=== PATIENT | male | born 1940 | race Caucasian/White ===

== ENCOUNTER 2016-10-18 20:59 | Inpatient (IN) | payer MEDICARE, OTHER ==
[~2016-10-18] VITALS: Ht 177.8 cm; Wt 119.0 kg
[2016-10-18 21:02] VITALS: BP 150/65; PULSE 73; RESP 20; TEMP 98.2; O2SAT 95
[2016-10-18 22:21] VITALS: BP 135/73; PULSE 60; RESP 18; O2SAT 96
[2016-10-18] MEDS ORDERED: SODIUM CHLORIDE 0.9% FLUSH 5 ML FLUSH IVF PRN (22:45)
[2016-10-18 22:50] VITALS: O2SAT 97
--- NOTE | 2016-10-18 23:25 | RADRPT ---
EXAM DATE/TIME: 10/18/2016 22:53 [facility] COMPARISON: CT BRAIN W/O CONTRAST, December 18, 2014, 16:21. INDICATIONS : Trauma; fell and hit front of face. RADIATION DOSE: 69.15 CTDIvol (mGy) MEDICAL HISTORY : Hypertension. Stroke Gastroesophageal reflux disease.Multiple myeloma. Prostate cancer. Congestive he art failure. SURGICAL HISTORY : Pacemaker. Cardia catherization. ENCOUNTER: Initial ACUITY: 1 day PAIN SCALE: 2/10 LOCATION: cranial TECHNIQUE: Multiple contiguous axial images were obtained of the head. Using automated exposure control and adj ustment of the mA and/or kV according to patient size, radiation dose was kept as low as reasonably a chievable to obtain optimal diagnostic quality images. FINDINGS: There is patchy moderate diminished attenuation in periventricular white matter and scattered lacunar infarcts resident, stable and nonacute. There is no evidence of intracranial hemorrhage or mass. The re is nothing to suggest acute infarction. There are lytic lesions involving the calvarium, increasin g in size and number consistent with worsening myeloma CONCLUSION: No acute intracranial injury. Findings of worsening myeloma Jameel Louie MD on October 18, 2016 at 23:21 Board Certified Radiologist. This report was verified electronically.
--- NOTE | 2016-10-18 23:28 | RADRPT ---
EXAM DATE/TIME: 10/18/2016 22:53 [facility] COMPARISON: No previous studies available for comparison. INDICATIONS : Trauma; fell and hit front of face. RADIATION DOSE: 26.57 CTDIvol (mGy) MEDICAL HISTORY : Hypertension. Gastroesophageal reflux disease. Congestive heart failure.Multiple myeloma. Prostate ca ncer. Stroke. SURGICAL HISTORY : Pacemaker. Cardiac catherization. ENCOUNTER: Initial ACUITY: 1 day PAIN SCALE: 1/10 LOCATION: neck TECHNIQUE: Volumetric scanning of the cervical spine was performed. Multiplanar reconstructions in the sagittal, coronal and oblique axial planes were performed. Using automated exposure control and adjustment o f the mA and/or kV according to patient size, radiation dose was kept as low as reasonably achievable to obtain optimal diagnostic quality images. FINDINGS: Cervical spine alignment is satisfactory. There is no evidence of cervical spine fracture. No bony ca nal or foraminal compromise is identified. There are scattered bony lucencies present involving the v isualized vertebral elements consistent with multiple myeloma. No evidence of paraspinal mass or lloyd guerline. Incidental thyroid nodules. CONCLUSION: No acute bony injury in the cervical spine Jameel Louie MD on October 18, 2016 at 23:24 Board Certified Radiologist. This report was verified electronically.
--- NOTE | 2016-10-18 23:29 | RADRPT ---
EXAM DATE/TIME: 10/18/2016 22:53 [facility] COMPARISON: No previous studies available for comparison. INDICATIONS : Trauma; fell and hit front of face. RADIATION DOSE: 36.81 CTDIvol (mGy) MEDICAL HISTORY : Congestive hearrt failure. Hypertension. Gastroesophageal reflux disease.Stroke. Multiple myeloma. Pr ostate cancer. SURGICAL HISTORY : Pacemaker. Cardiac catherization. ENCOUNTER: Initial ACUITY: 1 day PAIN SCORE: 3/10 LOCATION: facial TECHNIQUE: Volumetric scanning of the facial bones was performed. Using automated exposure control and adjustme nt of the mA and/or kV according to patient size, radiation dose was kept as low as reasonably achiev able to obtain optimal diagnostic quality images. FINDINGS: ORBITS: The orbital and infraorbital osseous structures are intact. The retroconal structures have a normal configuration. No radiopaque foreign bodies are seen. NASAL BONE: The nasal bone and maxillary spine are intact ZYGOMATIC ARCHES: Symmetric without evidence of fracture. SINUSES: The maxillary, ethmoid and frontal sinuses are intact. No air-fluid levels seen. NASAL CAVITY: The nasal septum is intact and midline. The lacrimal ducts are intact. SOFT TISSUES: No radiopaque foreign bodies seen. No soft-tissue swelling is seen. INTRACRANIAL: No intracranial air seen. CRIBIFORM PLATE: Grossly intact. CONCLUSION: No evidence of facial fracture Jameel Louie MD on October 18, 2016 at 23:26 Board Certified Radiologist. This report was verified electronically.
--- NOTE | 2016-10-18 23:53 | PD ---
HPI Chief Complaint: Fall Time Seen by Provider: 22:36 Travel History International Travel<30 days: No Contact w/Intl Traveler<30days: No Traveled to known affect area: No History of Present Illness HPI The patient is a 76 year old male who presents to the [facility] emergency department with a history of reportedly falling at home at approximately 11 AM today. The patient reports that it felt like "I lost control of my body." The patient reports having associated lightheaded sensation. He denies having any chest pain, chest pressure, shortness of breath, vomiting, or diarrhea. He denies having any abdominal pain. The patient reports that he does have a history of chronic generalized body pain, however since falling it is worse in his low back and his left ankle. The patient has a history of fracturing his left ankle/foot related to a fall a year ago. The patient has a history of multiple myeloma and is on morphine on a daily basis related to this. He reports that his medication was recently increased a month ago. The patient reports that he did not come in initially related to the fall as he decided to just go to bed and rest. The patient reports that he did hit his nose and had a nosebleed. He denies having a loss of consciousness. He is on Pradaxa due to a history of Afib. The patient denies having any one-sided weakness or new weakness of his extremities. He denies having any facial droop, difficulty with word finding ability, new numbness or tingling to his extremities. The patient denies any recent fevers, cough, congestion, chest pain, shortness of breath, abdominal pain, vomiting, diarrhea, urinary symptoms, or other neurologic symptoms. [facility] Past Medical History Narrative Medical The patient's past medical history is significant for multiple myeloma, chronic pain, history of sleep apnea on CPAP at night, history of congestive heart failure, TIA, diabetes mellitus, atrial fibrillation, history of anxiety disorder, hiatal hernia, acid reflux, history of prostate cancer, history of migraine headaches, history of depression, history of neuropathy. Hx Anticoagulant Therapy: Yes (ON PRADAXA AND 81 MG SAS) Arthritis: Yes Asthma: No Atrial Fibrillation: Yes Autoimmune Disease: No Blood Disorders: No Anxiety: Yes Depression: Yes Heart Rhythm Problems: Yes (A FIB) Cancer: Yes (PROSTATE/MULTIPLE MYELOMA) Cardiac Catheterization: Yes (2001) Cardiovascular Problems: Yes (CHF) High Cholesterol: Yes Chemotherapy: Yes (SINCE MARCH OF 2013 PILL FORM) Chest Pain: Yes Congestive Heart Failure: Yes COPD: No Cerebrovascular Accident: Yes (TIA) Diabetes: Yes (IDDM) Patient Takes Glucophage: No Diminished Hearing: Yes (VENETIE LEFT) Endocrine: Yes Gastrointestinal Disorders: Yes (HEMORRHOIDS) GERD: Yes Genitourinary: Yes (BLADDER/PROSTATE SURGERY IN THE PAST) Hiatal Hernia: Yes Hypertension: Yes Immune Disorder: No Implanted Vascular Access Dvce: Yes (PORT RIGHT SIDE CHEST) Musculoskeletal: Yes (GENERALIZED, MULTIPLE MYLOMA) Neurologic: Yes (neuropathy) Psychiatric: Yes Reproductive: Yes Respiratory: Yes Migraines: Yes (TWICE A MONTH) Myocardial Infarction: No Radiation Therapy: No Seizures: No Sleep Apnea: Yes (BIPAP AT NIGHT) Ulcer: No Past Surgical History Narrative Surgical The patient's past surgical history is significant for nasal surgery, cardiac catheterization in 2001, history of a hernia repair, cataract surgery, vasectomy , radical prostatectomy, cystoscopy with dilatation of the bladder neck, tonsillectomy, bilateral heel spur surgery, pacemaker placement, tonsillectomy, tympanostomy tube placement, cardiac ablation, [id number]-[id number] placement Abdominal Surgery: Yes (HERNIA) Appendectomy: No Body Medical Devices: USES BIPAP Cardiac Surgery: Yes (ABLATION, PACEMAKER 2008) Cholecystectomy: No Eye Surgery: Yes (CATARCT; BILAT WITH LENS PLACEMENT) Genitourinary Surgery: Yes (VASECTOMY, RADICAL PROSTATECTOMY, CYSTOSCOPY DILATION OF BLADDER NECK) Oral Surgery: Yes (TONSILLECTOMY A CHILD) Pacemaker: Yes (Fubles PACER [id number]) Tonsillectomy: Yes Tympanostomy Tube: Yes (194) Other Surgery: Yes (NASAL SURGERY) Social History Alcohol Use: No Tobacco Use: No Substance Use: No Allergies-Medications (Allergen,Severity, Reaction): Coded Allergies: Fentanyl (Verified Allergy, Severe, Itching, 10/18/16) Warfarin (Verified Allergy, Unknown, 10/18/16) *MDRO Multi-Drug Resistant Organism (Verified Adverse Reaction, Unknown, ) MRSA PCR screens negative 12/12/14 and 12/19/14- cleared per infection control Reported Meds & Prescriptions Reported Meds & Active Scripts Active Reported Aspercreme Lidocaine Max Patch (Lidocaine) 4% Patch Econazole Topical (Econazole Nitrate) 1% Cream 1 Applic TOPICAL DAILY Hydroxychloroquine (Hydroxychloroquine Sulfate) 200 Mg Tab 200 Mg PO BID Takw with food Nystatin-Triamcinolone 100,000-0.1 Unit/Gm Cream 1 Applic TOPICAL Allopurinol 300 Mg Tab 300 Mg PO DAILY Restasis Opth Drops (Cyclosporine Opth Drops) 0.05% Emul 1 Drop EACH EYE BID Klor-Con 10 (Potassium Chloride) 10 Meq Tab 10 Meq PO DAILY Chlorthalidone 25 Mg Tab 25 Mg PO DAILY Lactulose Liq (Lactulose) 10 Gm/15 Ml Soln 30 Ml PO Q6H PRN Tramadol (Tramadol HCl) 50 Mg Tab 50 Mg PO Q6H PRN Glimepiride 4 Mg Tab 4 Mg PO BID Take with breakfast or first main meal Entresto (Sacubitril-Valsartan) 49-51 Mg Tab 1 Tab PO DAILY Clonidine (Clonidine HCl) 0.3 Mg Tab 0.3 Mg PO BID Nexium (Esomeprazole DR) 40 Mg Capdr 40 Mg PO DAILY Carvedilol 25 Mg Tab 25 Mg PO BID Trilipix (Choline Fenofibrate DR) 135 Mg Capdr 135 Mg PO DAILY Pravastatin 40 Mg Tab 40 Mg PO DAILY Pradaxa (Dabigatran) 75 Mg Cap 75 Mg PO BID Furosemide 40 Mg Tab 40 Mg PO BID Ondansetron (Ondansetron HCl) 8 Mg Tab 8 Mg PO TID Gabapentin 300 Mg Cap 300 Mg PO 5 TIMES A DAY Myrbetriq (Mirabegron) 50 Mg Tab 50 Mg PO DAILY Hydrocodone-Acetaminophen 5-325 mg Tab 1 Tab PO Q12HR PRN Morphine Sulfate CR (Morphine Sulfate) 15 Mg Tab PO TID Acyclovir 400 Mg Tab 400 Mg PO BID Levemir Flextouch Pen Inj (Insulin Detemir) 300 unit/3 ML Pen 1 Units SQ Novolog Flexpen Inj (Insulin Aspart) 300 Unit/3 Ml Pen 1 Units SQ Dexmethylphenidate ER 24 HR (Dexmethylphenidate HCl) 20 Mg Cap 20 Mg PO DAILY Review of Systems Except as stated in HPI: all other systems reviewed are Neg General / Constitutional: No: Fever Eyes: No: Visual changes HENT: Positive: Headaches, Nosebleed, No: Rhinorrhea, Neck Stiffness, Neck Pain Cardiovascular: Positive: Syncope (near syncope), No: Chest Pain or Discomfort , Dyspnea on exertion Respiratory: No: Shortness of Breath Gastrointestinal: No: Nausea, Vomiting, Diarrhea, Abdominal Pain, Changes in Bowel Habits, Indigestion, Loss of Appetite Genitourinary: No: Dysuria Musculoskeletal: Positive: Myalgias, Arthralgias, Limited ROM, Pain Skin: No Rash Neurologic: Positive: Weakness (generalized weakness), No: Focal Abnormalities , Change in Mentation, Slurred Speech, Sensory Disturbance Psychiatric: No: Depression Endocrine: No: Polydipsia Hematologic/Lymphatic: No: Easy Bruising Physical Exam Narrative General: The patient is a well-developed well-nourished male, drowsy-appearing on examination, having difficulty keeping his eyes open, however he is answering all questions with his eyes closed. Head and Neck exam: Head is normocephalic atraumatic. Eyes: Pupils are equal round and reactive to light. Nose: Midline septum with pink mucous membranes Mouth: Dentition unremarkable. Moist mucus membranes. Posterior oropharynx is not erythematous. No tonsillar hypertrophy. Uvula midline. Airway patent. Neck: No palpable lymphadenopathy. No nuchal rigidity. No thyromegaly. Cardiovascular: Regular rate and rhythm without murmurs, gallops, or rubs. No pulse deficit to the extremities. Lungs: Clear to auscultation bilaterally. No wheezes, rhonchi, or rales. Abdomen: Soft, with tenderness on palpation in the midepigastric area. Her tenderness on palpation throughout the rest of the abdomen. No tenderness on palpation of McBurney's point. Normal bowel sounds are audible. No masses are palpable. No guarding, rebound, or rigidity. Negative Matthews sign. Extremities: No clubbing, cyanosis, or edema. 2+ pulses in all 4 extremities. Back: Paraspinal muscle tenderness on palpation along the lumbar spine bilaterally. No spinous process tenderness to palpation. No costovertebral angle tenderness to palpation. Positive straight leg raise bilaterally, increased pain in the low back that is worse with raising the left leg. Neurologic Exam: Cranial nerves 2-12 were intact on exam. Strength is 5/5 in all 4 extremities. No sensory deficits noted. Skin Exam: No rash noted. Intact skin that is warm and dry. Data Data Last Documented VS Vital Signs Date Time Temp Pulse Resp B/P Pulse Ox O2 Delivery O2 Flow Rate FiO2 10/18/16 22:50 97 Room Air 10/18/16 22:21 60 18 135/73 10/18/16 21:02 98.2 Orders Electrocardiogram (10/18/16 22:36) Complete Blood Count With Diff (10/18/16 22:36) Comprehensive Metabolic Panel (10/18/16 22:36) Magnesium (Mg) (10/18/16 22:36) B-Type Natriuretic Peptide (10/18/16 22:36) Ckmb (Isoenzyme) Profile (10/18/16 22:36) Troponin I (10/18/16 22:36) Act Partial Throm Time (Ptt) (10/18/16 22:36) Prothrombin Time / Inr (Pt) (10/18/16 22:36) Urinalysis - C+S If Indicated (10/18/16 22:36) Chest, Single Ap (10/18/16 22:36) Ct Brain W/O Iv Contrast(Rout) (10/18/16 22:36) Ct Cerv Spine W/O Contrast (10/18/16 22:36) Blood Glucose (10/18/16 22:36) Ecg Monitoring (10/18/16 22:36) Iv Access Insert/Monitor (10/18/16 22:36) Oximetry (10/18/16 22:36) Sodium Chloride 0.9% Flush (Ns Flush) (10/18/16 22:45) Orthostatic Vital Signs (10/18/16 22:36) Ct Facial Bones W/O Iv Cont (10/18/16 22:36) Ankle, Complete (Zim5hnd) (10/18/16 23:17) Foot, Limited (2vws) (10/18/16 23:17) Ice/Cold Pack (10/18/16 23:17) Pelvis, Ap Only (Routine) (10/18/16 23:17) Ct Thor Spine W/O Contrast (10/18/16 23:25) Ct Lumb Spine W/O Contrast (10/18/16 23:25) Sodium Chlorid 0.9% 500 Ml Inj (Ns 500 M (10/19/16 00:15) CKMB (10/18/16 23:35) CKMB% (10/18/16 23:35) Blood Glucose (10/19/16 00:25) Hydromorphone Pf Inj (Dilaudid Pf Inj) (10/19/16 00:30) Ondansetron Inj (Zofran Inj) (10/19/16 00:30) Dextrose 50% In [place] (Syr) Inj (D50w (Syr (10/19/16 00:30) Admit Order (Ed Use Only) (10/19/16 02:24) Consult Neurosurgery (10/19/16 ) Labs Laboratory Tests Test 10/18/16 10/19/16 23:35 00:00 White Blood Count 8.9 TH/MM3 Red Blood Count 2.71 MIL/MM3 Hemoglobin 9.1 GM/DL Hematocrit 27.4 % Mean Corpuscular Volume 101.2 FL Mean Corpuscular Hemoglobin 33.7 PG Mean Corpuscular Hemoglobin 33.3 % Concent Red Cell Distribution Width 19.9 % Platelet Count 88 TH/MM3 Mean Platelet Volume 9.1 FL Neutrophils (%) (Auto) 74.8 % Lymphocytes (%) (Auto) 20.2 % Monocytes (%) (Auto) 4.8 % Eosinophils (%) (Auto) 0.1 % Basophils (%) (Auto) 0.1 % Neutrophils # (Auto) 6.7 TH/MM3 Lymphocytes # (Auto) 1.8 TH/MM3 Monocytes # (Auto) 0.4 TH/MM3 Eosinophils # (Auto) 0.0 TH/MM3 Basophils # (Auto) 0.0 TH/MM3 CBC Comment AUTO DIFF Differential Comment AUTO DIFF CONFIRMED Platelet Estimate LOW Platelet Morphology Comment NORMAL Ovalocytes 1+ Prothrombin Time 11.1 SEC Prothromb Time International 1.0 RATIO Ratio Activated Partial 32.4 SEC Thromboplast Time Sodium Level 143 MEQ/L Potassium Level 4.2 MEQ/L Chloride Level 107 MEQ/L Carbon Dioxide Level 26.0 MEQ/L Anion Gap 10 MEQ/L Blood Urea Nitrogen 103 MG/DL Creatinine 3.97 MG/DL Estimat Glomerular Filtration 15 ML/MIN Rate Random Glucose 30 MG/DL Calcium Level 8.2 MG/DL Magnesium Level 1.9 MG/DL Total Bilirubin 0.3 MG/DL Aspartate Amino Transf 14 U/L (AST/SGOT) Alanine Aminotransferase 31 U/L (ALT/SGPT) Alkaline Phosphatase 36 U/L Total Creatine Kinase 186 U/L Creatine Kinase MB 5.6 NG/ML Troponin I 0.05 NG/ML B-Type Natriuretic Peptide 256 PG/ML Total Protein 7.2 GM/DL Albumin 2.6 GM/DL Urine Color LIGHT-YELLOW Urine Turbidity CLEAR Urine pH 5.0 Urine Specific [place] 1.012 Urine Protein TRACE mg/dL Urine Glucose (UA) NEG mg/dL Urine Ketones NEG mg/dL Urine Occult Blood NEG Urine Nitrite NEG Urine Bilirubin NEG Urine Urobilinogen LESS THAN 2.0 MG/DL Urine Leukocyte Esterase NEG Urine WBC LESS THAN 1 /hpf Urine Mucus FEW /lpf Microscopic Urinalysis Comment CULT NOT INDICATED MDM Medical Decision Making Medical Screen Exam Complete: Yes Emergency Medical Condition: Yes Medical Record Reviewed: Yes Interpretation(s) Last Impressions Thoracic Spine CT 10/18/162324 Signed Impressions: Service Date/Time: Wednesday, October 19, 2016 00:43 - CONCLUSION: No evidence of thoracic spine fracture. Jameel Louie MD Lumbar Spine CT 10/18/162324 Signed Impressions: Service Date/Time: Wednesday, October 19, 2016 00:43 - CONCLUSION: Moderate compressive injury at L1. Possible small focus of epidural hemorrhage in the right canal at the S1 level. Multilevel disc disease and facet arthropathy. Large densely calcified or ossified ventral canal mass at the L4 level may be sequelae of previous disc protrusion/extrusion. Alternatively, this may be a densely calcified or ossified neoplasm-osteoma, osteochondroma, meningioma. Jameel Louie MD Pelvis X-Ray 10/18/162316 Signed Impressions: Service Date/Time: Wednesday, October 19, 2016 01:10 - CONCLUSION: No acute bony injury Jameel Louie MD Foot X-Ray 10/18/162316 Signed Impressions: Service Date/Time: Wednesday, October 19, 2016 01:22 - CONCLUSION: No acute bony process. Jameel Louie MD Ankle X-Ray 10/18/162316 Signed Impressions: Service Date/Time: Wednesday, October 19, 2016 01:20 - CONCLUSION: Unremarkable examination of the left ankle. Jameel Louie MD Maxillofacial CT 10/18/162235 Signed Impressions: Service Date/Time: Tuesday, October 18, 2016 22:53 - CONCLUSION: No evidence of facial fracture Jameel Louie MD Head CT 10/18/162235 Signed Impressions: Service Date/Time: Tuesday, October 18, 2016 22:53 - CONCLUSION: No acute intracranial injury. Findings of worsening myeloma Jameel Louie MD Chest X-Ray 10/18/162235 Signed Impressions: Service Date/Time: Wednesday, October 19, 2016 01:15 - CONCLUSION: Cardiomegaly and mild left base parenchymal opacity. Jameel Louie MD Cervical Spine CT 10/18/162235 Signed Impressions: Service Date/Time: Tuesday, October 18, 2016 22:53 - CONCLUSION: No acute bony injury in the cervical spine Jameel Louie MD Differential Diagnosis Near syncope related to cardiac arrhythmia, versus over sedation from opiates, versus electrolyte abnormality, versus intracranial abnormality, versus cervical spine injury, versus T-spine injury, versus lumbar injury, versus recurrent left ankle injury Narrative Course During the course of the patients emergency department visit, the patients history, examination, and differential diagnosis were reviewed with the patient. The patient had IV access obtained and blood work sent for analysis. The patient was placed on a cardiac monitor technician with oximetry and blood pressure monitoring. An Accu-Chek was done and noted to be 44. The patient has not had his imaging results done yet and is on Pradaxa, therefore there would be concern for intracranial hemorrhage. The patient was given 1 amp of D50. The patient was started on normal saline a 500 mL bolus 1. My concern that the patient has not been drinking fluids well today. The patient was given hydromorphone 0.2 mg IV for pain, Zofran 4 mg IV for nausea. The patients laboratory studies were reviewed and remarkable for a white count of 8.9, hemoglobin 9.1, platelets 88 with 74.8 neutrophils, CMP is remarkable for a BUN of 103, creatinine 3.97, initial glucose on this blood draw was 30, AST 14, alkaline phosphatase 36, CPK 186, troponin I 0.05, BNP is 256, INR is 1.0, urinalysis is unremarkable. Radiology studies were reviewed and remarkable for a CT scan of the head that showed no acute abnormality other than worsening multiple myeloma changes, CT scan of the facial bones showed no acute abnormality. CT scan of the C-spine showed no acute abnormality. Chest x-ray revealed cardiomegaly and a mild left base parenchymal opacity. Pelvic x-ray showed no acute abnormality. Left foot and left ankle x-ray showed no acute bony abnormality. CT scan of the T-spine showed no acute abnormality. CT scan of the lumbar spine revealed a moderate compressive injury at L1, possible small focus of epidural hemorrhage in the right canal at the S1 level, multilevel disc disease and facet arthropathy. Large densely calcified were ossified ventral canal mass at L4 level which may be sequela of previous disc protrusion/extrusion, versus ossified neoplasm osteoma, versus osteochondroma, versus meningioma. The patient's findings on CT scan lumbar spine were further discussed with Dr. Long, the neurosurgeon on-call. He did not recommend any further imaging at this time. He recommended pain control. He will see the patient in consultation. The patients results were discussed with the patient, including the plan of care. I explained that further testing and/ or monitoring is indicated based on the patients history, examination, and/ or laboratory findings. Therefore, I recommended admission for additional evaluation. The patient expressed understanding and was agreeable with this plan. The patient was admitted to the hospital in guarded condition and [facility] Critical Care Narrative Aggregate critical care time was 47 minutes. Time to perform other separately billable procedures was not included in the critical care time. My time did not include minutes spent treating any other patients simultaneously or on activities that did not directly contribute to the patient's treatment. The services I provided to this patient were to treat and/or prevent clinically significant deterioration that could result in: Paralysis, versus encephalopathy I provided critical care services requiring my management, as noted below: Chart data review, documentation time, medication orders and management, vital sign assessments/reviewing monitor data, ordering and reviewing lab tests, ordering and interpreting/reviewing x-rays and diagnostic studies, care of the patient and discussion of the patient with the admitting physicians. Physician Communication Physician Communication I spoke to Dr. Long at approximately 1:59 AM regarding this patient's CT scan of the lumbar findings including moderate compressive injury at L1, possible small focus of epidural hemorrhage in the right canal at S1 and large densely calcified or ossified ventral canal mass at L4 level which may be sequela of previous disc protrusion versus extrusion. I also explained that the patient is anticoagulated on Pradaxa. And in addition the patient has an [id number] and peacemaker/AICD in place. I asked him what the next step was regarding the patient's evaluation is that was not sure that an MRI could be done given the hardware that he has in place. He recommended holding off on further imaging. I also asked him if he thought the Pradaxa should be reversed with K [employer] and he reports at this time that pain management would be the only thing that is necessary. The patient's case was also discussed with Dr. Marquis who did agree to admit the patient for further evaluation and treatment at this time to the [facility]. Diagnosis Primary Impression: Generalized weakness Additional Impressions: Near syncope Hypoglycemia Compression fracture of L1 lumbar vertebra Qualified Code: S32.010A - Compression fracture of L1 lumbar vertebra, closed , initial encounter Admitting Information Admitting Physician Requests: Admit Paige Mari MD Oct 18, 2016 23:53
[2016-10-18 23:56] LABS: AUTOMATED NEUTROPHIL # 6.7 TH/MM3 (1.8-7.7); BASOPHIL % 0.1 % (0.0-2.0); EOSINOPHIL % 0.1 % (0.0-4.0); HEMATOCRIT 27.4 % (39.0-51.0); LYMPH % 20.2 % (9.0-44.0); LYMPHOCYTE # 1.8 TH/MM3 (1.0-4.8); MEAN CELL VOLUME 101.2 FL (80.0-100.0); MEAN CORPUSCULAR HEMOGLOBIN 33.7 PG (27.0-34.0); MEAN CORPUSCULAR HGB CONC 33.3 % (32.0-36.0); MONO % 4.8 % (0.0-8.0); NEUT % 74.8 % (16.0-70.0); PLATELET COUNT 88 TH/MM3 (150-450); RED BLOOD COUNT 2.71 MIL/MM3 (4.50-5.90); RED CELL DISTRIBUTION WIDTH 19.9 % (11.6-17.2); WHITE BLOOD COUNT 8.9 TH/MM3 (4.0-11.0)
[2016-10-18 23:59] LABS: HEMO FLAGS AUTO DIFF
[2016-10-19] VITALS (7 sets, daily range): BP systolic 91–142; BP diastolic 52–67; PULSE 64–125; RESP 17–20; TEMP 95.9–97.9; O2SAT 92–97
[2016-10-19 00:11] LABS: BLOOD, URINE NEG (NEG); COMMENT (UR) CULT NOT INDICATED; CULTURE IF INDICATED CULT NOT INDICATED; GLUCOSE,URINE NEG (NEG); KETONE, URINE NEG (NEG); MUCUS URINE FEW /lpf (OCC); NITRITE,URINE NEG (NEG); URINE COLOR LIGHT-YELLOW (YELLW/STRAW)
[2016-10-19] MEDS ORDERED: SODIUM CHLORID 0.9% 500 ML INJ 500 ML IV ONE (00:15)
[2016-10-19 00:20] LABS: ALKALINE PHOSPHATASE 36 U/L (45-117); ALT (GPT) 31 U/L (12-78); ANION GAP 10 MEQ/L (5-15); AST (GOT) 14 U/L (15-37); BLOOD UREA NITROGEN 103 MG/DL (7-18); CHLORIDE 107 MEQ/L (98-107); CREATINE KINASE 186 U/L (39-308); GLOMERULAR FILTRATION RATE 15 ML/MIN (>89); MAGNESIUM 1.9 MG/DL (1.5-2.5); POTASSIUM 4.2 MEQ/L (3.5-5.1); SODIUM (NA) 143 MEQ/L (136-145); TOTAL BILIRUBIN ADULT 0.3 MG/DL (0.2-1.0)
[2016-10-19 00:24] LABS: APTT (PATIENT) 32.4 SEC (24.3-30.1); PROTHROMBIN TIME - PATIENT 11.1 SEC (9.8-11.6)
[2016-10-19] MEDS ORDERED: ONDANSETRON HCL 4 MG/2 ML VIAL IV PUSH ONE (00:30)
[2016-10-19] MEDS ORDERED: DEXTROSE 50% IN WATER 50 ML SYRINGE IV ONE (00:30)
[2016-10-19] MEDS ORDERED: HYDROmorphone HCL PF 1 MG/ML VIAL IV PUSH ONE (00:30)
[2016-10-19 00:39] LABS: CKMB 5.6 NG/ML (0.5-3.6)
[2016-10-19 00:45] LABS: OVALOCYTES 1+ (NORMAL); PLATELET ESTIMATE SMEAR LOW (NORMAL); PLATELET MORPHOLOGY NORMAL (NORMAL); SCAN/DIFF AUTO DIFF CONFIRMED
--- NOTE | 2016-10-19 01:16 | RADRPT ---
EXAM DATE/TIME: 10/19/2016 00:43 [facility] COMPARISON: No previous studies available for comparison. INDICATIONS : Trauma; fall. History of multiple myeloma. RADIATION DOSE: 32.77 CTDIvol (mGy) ; Combined studies - Thoracic Spine/Lumbar Spine MEDICAL HISTORY : Cerebrovascular disease. Congestive heart failure. Hypertension.Multiple myeloma, GERD, prostate canc er SURGICAL HISTORY : Pacemaker. ENCOUNTER: Initial ACUITY: 1 day PAIN SCALE: 10/10 LOCATION: upper back TECHNIQUE: Volumetric scanning of the thoracic spine was performed. Multiplanar reconstructions in the sagittal , coronal and oblique axial planes were performed. Using automated exposure control and adjustment o f the mA and/or kV according to patient size, radiation dose was kept as low as reasonably achievable to obtain optimal diagnostic quality images. FINDINGS: There is mild right convex upper thoracic scoliosis. No evidence of spondylolisthesis. There is no ev idence of fracture in the thoracic spine. Degenerative change with small predominantly ventral endpla te osteophytes present in the mid thoracic region. There are multiple small bony lucencies present th roughout consistent with fairly widespread myeloma involvement. No evidence of paraspinal mass or hem atoma. CONCLUSION: No evidence of thoracic spine fracture. Jameel Louie MD on October 19, 2016 at 1:12 Board Certified Radiologist. This report was verified electronically.
--- NOTE | 2016-10-19 01:33 | RADRPT ---
EXAM DATE/TIME: 10/19/2016 00:43 [facility] COMPARISON: No previous studies available for comparison. INDICATIONS : Trauma; fall. History of multiple myeloma. RADIATION DOSE: 32.77 CTDIvol (mGy) ; Combined studies - Thoracic Spine/Lumbar Spine MEDICAL HISTORY : Cerebrovascular disease. Diabetes mellitus type 2. Congestive heart failure.Multiple myeloma, hyperte nsion, GERD, prostate cancer SURGICAL HISTORY : Pacemaker. ENCOUNTER: Initial ACUITY: 1 day PAIN SCALE: 10/10 LOCATION: lower back TECHNIQUE: Volumetric scanning of the lumbar spine was performed. Multiplanar reconstructions in the sagittal, coronal and oblique axial planes were performed. Using automated exposure control and adjustment of the mA and/or kV according to patient size, radiation dose was kept as low as reasonably achievable t o obtain optimal diagnostic quality images. FINDINGS: The lumbar spine alignment is satisfactory. There is multiple areas of low density present within the bony elements consistent with fairly widespread myeloma involvement. There is a moderate compressive injury at the L1 level with about 50% loss of central and ventral vertebral body height. No evidence of retropulsion. This appears at least in part subacute, however no significant paraspinal hematoma is appreciated. The other levels are intact without definite acute bony injury. There is degenerative disc change present at multiple levels, significantly at L3-4, L4-5 and L5-S1. At L4-5, there is keara rly complete loss of disc height. A very large ventral canal ossification may be a chronically calcif ied disc protrusion or an ossifying mass. The process appears to be contiguous with the posterior asp ect of the L4 vertebral body. It measures 18 x 9 x 20 mm (sagittal x AP x transverse). This produces severe canal compromise with reduction in the AP canal diameter to about 5 mm. A mixed density air c ontaining mass in the posterior lateral recess at the right S1 level may be an extruded disc fragment or a ganglion arising from the adjacent facet joint. Just medial to this finding, an irregular focus of spontaneous increased density extends alongside the thecal sac. This may be a small focus of epid ural hemorrhage, measuring about 8-9 mm in size. CONCLUSION: Moderate compressive injury at L1. Possible small focus of epidural hemorrhage in the right canal at the S1 level. Multilevel disc disease and facet arthropathy. Large densely calcified or ossified ventral canal mass at the L4 level may be sequelae of previous di sc protrusion/extrusion. Alternatively, this may be a densely calcified or ossified neoplasm-osteoma, osteochondroma, meningioma. Jameel Louie MD on October 19, 2016 at 1:15 Board Certified Radiologist. This report was verified electronically.
--- NOTE | 2016-10-19 01:41 | RADRPT ---
EXAM DATE/TIME: 10/19/2016 01:10 [facility] COMPARISON: No previous studies available for comparison. INDICATIONS : Entire lower body pain post fall. MEDICAL HISTORY : Hypertension. Congestive heart failure. muliple myeloma SURGICAL HISTORY : Pacemaker. ENCOUNTER: Initial ACUITY: 1 day PAIN SCORE: 10/10 LOCATION: Bilateral pelvis FINDINGS: Hips are symmetric without definite fracture or dislocation. Mild symmetric degenerative changes are present. There are degenerative changes in the visualized lower spine. No displaced pelvic fracture. Multiple pelvic surgical clips CONCLUSION: No acute bony injury Jameel Louie MD on October 19, 2016 at 1:38 Board Certified Radiologist. This report was verified electronically.
--- NOTE | 2016-10-19 01:43 | RADRPT ---
EXAM DATE/TIME: 10/19/2016 01:15 [facility] COMPARISON: CT THORACIC SPINE W/O CONTRAST, October 19, 2016, 0:43. CHEST SINGLE AP, December 18, 2014, 20:54. INDICATIONS : Chest pain post fall. MEDICAL HISTORY : Hypertension. Congestive heart failure. Cerebrovascular disease. Multiple myeloma SURGICAL HISTORY : Pacemaker. ENCOUNTER: Initial ACUITY: 1 day PAIN SCORE: 10/10 LOCATION: Bilateral chest FINDINGS: Pacemaker device is noted with control pack over the left chest. Right chest port is present in good position. Cardiac silhouette is enlarged. There is mild parenchymal opacity at the left lung base. No evidence of hemothorax or pneumothorax. CONCLUSION: Cardiomegaly and mild left base parenchymal opacity. Jameel Louie MD on October 19, 2016 at 1:39 Board Certified Radiologist. This report was verified electronically.
--- NOTE | 2016-10-19 01:45 | RADRPT ---
EXAM DATE/TIME: 10/19/2016 01:20 [facility] COMPARISON: FOOT LEFT COMPLETE ([id number]), December 10, 2014, 17:22. INDICATIONS : Left ankle pain post fall. MEDICAL HISTORY : Hypertension. Multiple myeloma SURGICAL HISTORY : Pacemaker. ENCOUNTER: Initial ACUITY: 1 day PAIN SCORE: 10/10 LOCATION: Left leg FINDINGS: Three view exam was performed of the left ankle. The bony structures are in normal alignment. No ev idence of fracture, dislocation, or soft tissue swelling. The ankle mortise is intact. No radiopaqu e foreign bodies are seen. Bony mineralization is normal. CONCLUSION: Unremarkable examination of the left ankle. Jameel Louie MD on October 19, 2016 at 1:41 Board Certified Radiologist. This report was verified electronically.
--- NOTE | 2016-10-19 01:52 | RADRPT ---
EXAM DATE/TIME: 10/19/2016 01:22 [facility] COMPARISON: FOOT LEFT COMPLETE ([id number]), December 10, 2014, 17:22. FOOT RIGHT COMPLETE ([id number]), December 10, 2014, 17:35. INDICATIONS : Foot pain post fall. MEDICAL HISTORY : Hypertension. Multiple myeloma SURGICAL HISTORY : Pacemaker. ENCOUNTER: Initial ACUITY: 1 day PAIN SCORE: 10/10 LOCATION: Left leg FINDINGS: There has been interval development of severe arthropathy at the tarsometatarsal joints and there is slight dorsal subluxation of the metatarsals relative to the tarsals which was not present previously . The appearance may reflect Charcot arthropathy. The foot is otherwise intact. CONCLUSION: No acute bony process. Jameel Louie MD on October 19, 2016 at 1:47 Board Certified Radiologist. This report was verified electronically.
[2016-10-19] MEDS ORDERED: CARV25TA PO (02:21)
[2016-10-19] MEDS ORDERED: TRIL135C PO (02:21)
[2016-10-19] MEDS ORDERED: NOVOINJ3 SQ (02:21)
[2016-10-19] MEDS ORDERED: MORP15TA73 PO (02:21)
[2016-10-19] MEDS ORDERED: DEXM1CAP16 PO (02:21)
[2016-10-19] MEDS ORDERED: HYDR-3516 PO (02:21)
[2016-10-19] MEDS ORDERED: INSU1INJ5 SQ (02:21)
[2016-10-19] MEDS ORDERED: PRAD75CA PO (02:21)
[2016-10-19] MEDS ORDERED: GABA300C5 PO (02:21)
[2016-10-19] MEDS ORDERED: FURO40TA PO (02:21)
[2016-10-19] MEDS ORDERED: NEXI40CA PO (02:21)
[2016-10-19] MEDS ORDERED: CLON0.3T PO (02:21)
[2016-10-19] MEDS ORDERED: ONDA1TAB17 PO (02:21)
[2016-10-19] MEDS ORDERED: ACYC400T PO (02:21)
[2016-10-19] MEDS ORDERED: MIRA50TA PO (02:21)
[2016-10-19] MEDS ORDERED: PRAV40TA2 PO (02:21)
[2016-10-19] MEDS ORDERED: ECON0.052 TOPICAL (02:41)
[2016-10-19] MEDS ORDERED: POTA-243 PO (02:41)
[2016-10-19] MEDS ORDERED: CHLO25TA2 PO (02:41)
[2016-10-19] MEDS ORDERED: REST0.05 EACH EYE (02:41)
[2016-10-19] MEDS ORDERED: LACT10SO PO (02:41)
[2016-10-19] MEDS ORDERED: SACU1TAB7 PO (02:41)
[2016-10-19] MEDS ORDERED: NYSTCRE29 TOPICAL (02:41)
[2016-10-19] MEDS ORDERED: LIDO4PAD (02:41)
[2016-10-19] MEDS ORDERED: ALLO300T2 PO (02:41)
[2016-10-19] MEDS ORDERED: GLIM4TAB PO (02:41)
[2016-10-19] MEDS ORDERED: TRAM50TA PO (02:41)
[2016-10-19] MEDS ORDERED: HYDR200T3 PO (02:41)
[2016-10-19] MEDS ORDERED: BISACODYL 10 MG SUPP PR PRN (03:00)
[2016-10-19] MEDS ORDERED: ACETAMINOPHEN 325 MG TAB PO PRN (03:00)
[2016-10-19] MEDS ORDERED: SODIUM CHLORIDE 0.9% FLUSH 5 ML FLUSH FLUSH PRN (03:00)
[2016-10-19] MEDS ORDERED: LACTULOSE SYRUP 20 GM/30 ML CUP PO PRN (03:00)
[2016-10-19] MEDS ORDERED: DEXTROSE 50% IN WATER 50 ML VIAL(D50) IV PUSH PRN (03:00)
[2016-10-19] MEDS ORDERED: ONDANSETRON HCL 4 MG/2 ML VIAL IVP PRN (03:00)
[2016-10-19] MEDS ORDERED: SODIUM CHLOR 0.9% 1000 ML INJ 1,000 ML IV ONE (03:00)
[2016-10-19] MEDS ORDERED: GLUCAGON 1 MG/ML VIAL OTHER PRN (03:00)
--- NOTE | 2016-10-19 03:00 | HHI.HP ---
[facility] Dayo Katz MD Admission Diagnosis hypoglycemia, acute on chronic renal failure, L1 compression fx Diagnoses: (1) Fall Diagnosis: Principal (2) Near syncope Diagnosis: Principal (3) Compression fracture of L1 lumbar vertebra Diagnosis: Principal (4) Hypoglycemia Diagnosis: Principal (5) Renal insufficiency Diagnosis: Principal (6) A-fib Diagnosis: Principal (7) Chronic anticoagulation Diagnosis: Principal (8) HTN (hypertension) Diagnosis: Principal Travel History International Travel<30 Days: No Contact w/Intl Traveler <30 Da: No Traveled to Known Affected Are: No History of Present Illness This is a 76-year-old male with a PMH of HTN, GERTRUDE on CPAP, CHF (Echo 08/22/01 w / EF 25-30%), A-fib on Pradaxa, Prostate CA, Multiple Myeloma on Chemo, Physical Deconditioning, Chronic Pain and DM who was brought to the ER after fall yesterday morning. Per pt he normally gets around the house by holding onto furniture as his house is too small for him to use his motorized scooter. Had mechanical fall at home at approx 11am w/ epistaxis, however did not seek medical attention until later in the evening at the suggestion of pt's son. Pt w/ complaints of generalized pain, slightly worse than his usual. Denies fever , chills, nausea, vomiting or diarrhea. On arrival, BP 150/65, HR 73, O2 sat 95 % on RA, Afebrile. BS 44, s/p D50 with improvement. WBC 8.9, baseline 3.4-3.7 , elevated neutrophil. Platelets 88, previously 327 on 12/20/14. Creatinine 3.97, previously 1.57 on 12/20/14. Trop 0.05. BNP 256. U/a negative. CXR w/ mild base parenchymal opacity. CT Head w/ findings of worsening myeloma. CT Maxillofacial w/ no acute fracture. CT C/T-Spine w/ no acute fracture. CT L- Spine w/ 50% compression fracture L1, possible epidural hemorrhage at S1 and possible ventral canal mass at L4. Ankle/Foot/Pelvis X-ray negative for acute fracture. Dr. Long consulted by ER physician, recommended no further imaging and no reversal of Pradaxa. Upon further questioning, pt states he's been off Pradaxa x6 days for upcoming procedure w/ his Urologist. Review of Systems Other ROS: 14 point review of systems otherwise negative. Past Family Social History Past Medical History PMH: HTN, GERTRUDE on CPAP, CHF (Echo 08/22/01 w/ EF 25-30%), A-fib on Pradaxa, Prostate CA, Multiple Myeloma on Chemo, Physical Deconditioning, Chronic Pain and DM Past Surgical History PAST SURGICAL HISTORY: Hernia Repair, Cataract Surgery, Vasectomy, Radical Prostatectomy, Cystoscopy with Dilatation of Bladder, Tonsillectomy, Bilateral Heel Spur Surgery, Pacemaker (Revstr), Cardiac Ablation, Infuse-a- Port Allergies: Coded Allergies: Fentanyl (Verified Allergy, Severe, Itching, 10/18/16) Warfarin (Verified Allergy, Unknown, 10/18/16) *MDRO Multi-Drug Resistant Organism (Verified Adverse Reaction, Unknown, ) MRSA PCR screens negative 12/12/14 and 12/19/14- cleared per infection control Family History PAST FAMILY HISTORY: Reviewed, positive for DM. Social History PAST SOCIAL HISTORY: Negative for alcohol, tobacco or drugs. Patient lives at home with . Physical Exam Vital Signs Vital Signs Date Time Temp Pulse Resp B/P Pulse Ox O2 Delivery O2 Flow Rate FiO2 10/19/16 02:44 65 18 111/67 97 10/18/16 22:50 97 Room Air 10/18/16 22:21 60 18 135/73 96 Room Air 10/18/16 21:02 98.2 73 20 150/65 95 Room Air Physical Exam PE: GENERAL: Elderly white male in no acute distress. Slow to speak but awake alert and oriented. Son at bedside. HEENT: PERRLA, EOMI. No scleral icterus or conjunctival pallor. No lid lag or facial droop. Nasal erythema, no active bleeding. CARDIOVASCULAR: Regular rate and rhythm. No obvious murmurs to auscultation. No chest tenderness to palpation. Right chest [id number] RESPIRATORY: No obvious rhonchi or wheezing. Clear to auscultation. Breath sounds equal bilaterally. GASTROINTESTINAL: Abdomen soft, non-tender, nondistended. BS normal. MUSCULOSKELETAL: Extremities without clubbing, cyanosis, or edema. No obvious deformities. NEUROLOGICAL: Awake, alert and oriented x4. No focal neurologic deficits. Moving both upper and lower extremities spontaneously. Laboratory Laboratory Tests Test 10/18/16 10/19/16 23:35 00:00 White Blood Count 8.9 Red Blood Count 2.71 Hemoglobin 9.1 Hematocrit 27.4 Mean Corpuscular Volume 101.2 Mean Corpuscular Hemoglobin 33.7 Mean Corpuscular Hemoglobin 33.3 Concent Red Cell Distribution Width 19.9 Platelet Count 88 Mean Platelet Volume 9.1 Neutrophils (%) (Auto) 74.8 Lymphocytes (%) (Auto) 20.2 Monocytes (%) (Auto) 4.8 Eosinophils (%) (Auto) 0.1 Basophils (%) (Auto) 0.1 Neutrophils # (Auto) 6.7 Lymphocytes # (Auto) 1.8 Monocytes # (Auto) 0.4 Eosinophils # (Auto) 0.0 Basophils # (Auto) 0.0 CBC Comment AUTO DIFF Differential Comment AUTO DIFF CONFIRMED Platelet Estimate LOW Platelet Morphology Comment NORMAL Ovalocytes 1+ Prothrombin Time 11.1 Prothromb Time International 1.0 Ratio Activated Partial 32.4 Thromboplast Time Sodium Level 143 Potassium Level 4.2 Chloride Level 107 Carbon Dioxide Level 26.0 Anion Gap 10 Blood Urea Nitrogen 103 Creatinine 3.97 Estimat Glomerular Filtration 15 Rate Random Glucose 30 Calcium Level 8.2 Magnesium Level 1.9 Total Bilirubin 0.3 Aspartate Amino Transf 14 (AST/SGOT) Alanine Aminotransferase 31 (ALT/SGPT) Alkaline Phosphatase 36 Total Creatine Kinase 186 Creatine Kinase MB 5.6 Troponin I 0.05 B-Type Natriuretic Peptide 256 Total Protein 7.2 Albumin 2.6 Urine Color LIGHT-YELLOW Urine Turbidity CLEAR Urine pH 5.0 Urine Specific Regina 1.012 Urine Protein TRACE Urine Glucose (UA) NEG Urine Ketones NEG Urine Occult Blood NEG Urine Nitrite NEG Urine Bilirubin NEG Urine Urobilinogen LESS THAN 2.0 Urine Leukocyte Esterase NEG Urine WBC LESS THAN 1 Urine Mucus FEW Microscopic Urinalysis Comment CULT NOT INDICATED Result Diagram: 10/18/16 8729 10/18/16 1714 Assessment and Plan Problem List: (1) Fall ICD Code: W19.XXXA Status: Acute (2) Near syncope ICD Code: R55 Status: Acute (3) Compression fracture of L1 lumbar vertebra ICD Code: S32.010A Status: Acute (4) Hypoglycemia ICD Code: E16.2 Status: Acute (5) Renal insufficiency ICD Code: N28.9 Status: Acute (6) A-fib ICD Code: I48.91 Status: Acute (7) Chronic anticoagulation ICD Code: Z79.01 Status: Acute (8) HTN (hypertension) ICD Code: I10 Status: Chronic Assessment and Plan A/P: 1. Fall: s/p mechanical trip and fall at home, significant physical deconditioning, ambulates at home by holding onto furniture. CT Head w/ worsening myeloma, no acute findings. CT Maxillofacial negative. CT C/T-Spine negative for acute findings. CT L-Spine w/ possible S1 epidural hemorrhage, L4 ventral mass and L1 compression fracture. Foot/Ankle/Pelvis X-rays negative for acute fracture, images reviewed by me. Dr. Long consulted by ER physician , will evaluate. Pt reports off Pradaxa x6 days for upcoming procedure w/ Urologist. 2. L1 Compression Fx: s/p fall. Dr. Long to evaluate as above, TLSO. Analgesics/antiemetics 3. Near Syncope: no LOC reported, likely secondary to dehydration, IVF. CT Head w/ above findings. 4. Hypoglycemia: BS 44 s/p D50 w/ improvement. Accu-cheks, hold sliding scale , Insulin and Glimepiride. Monitor BS. Eval for underlying infection, U/a negative, CXR w/ possible early infiltrate, WBC 8.9, however baseline 3.4-3.7, may consider treatment for CAP. 5. Renal Insufficiency: Acute on Chronic. Creatinine 3.97, previously 1.57 on 12/20/14. UA negative. IVF, repeat labs in a.m. 6. A-fib: Controlled. On Pradaxa-on hold x6 days, will continue to hold. 7. HTN: Controlled. Will monitor, resume home medication. 8. Chronic Pain: w/ Acute Exacerbation following fall. Resume home medications. Reports pain in left ankle/foot, however no fracture on imaging. PT for eval/tx. 9. DVT Prophylaxis: Pradaxa on hold. 10. Social work for d/c planning as needed. 11. Case discussed w/ ER physician at length. Physician Certification 2 Midnight Certification Type: Admission for Inpatient Services Order for Inpatient Services The services are ordered in accordance with Medicare regulations or non- Medicare payer requirements, as applicable. In the case of services not specified as inpatient-only, they are appropriately provided as inpatient services in accordance with the 2-midnight benchmark. Estimated LOS (days): 2 days is the estimated time the patient will need to remain in the hospital, assuming treatment plan goals are met and no additional complications. Post-Hospital Plan: Not yet determined Problem Qualifiers (1) Compression fracture of L1 lumbar vertebra: Qualified Code: S32.010A - Compression fracture of L1 lumbar vertebra, closed, initial encounter Laurie Marquis MD Oct 19, 2016 03:00
[2016-10-19] MEDS ORDERED: CYCLOSPORINE 0.05% EACH EYE SCH (03:30)
[2016-10-19] MEDS ORDERED: CYCLOBENZAPRINE HCL 10 MG TAB PO PRN (03:30)
[2016-10-19] MEDS ORDERED: MORPHINE SULFATE 4 MG/ML INJ IV PUSH PRN ×2 (03:30)
[2016-10-19] MEDS: GABAPENTIN 300 MG CAP PO SCH ×5 (05:10→20:34)
[2016-10-19] MEDS: MORPHINE SULFATE 30 MG CONTROLLED RELEASE TAB PO SCH ×3 (05:11→20:34)
[2016-10-19] MEDS: ALLOPURINOL 300 MG TAB PO SCH (08:14)
[2016-10-19] MEDS: HYDROXYCHLOROQUINE SULFATE 200 MG TAB PO SCH ×2 (08:14→20:34)
[2016-10-19] MEDS: PRAVASTATIN SOD 40 MG TAB PO SCH (08:14)
[2016-10-19] MEDS: CARVEDILOL 12.5 MG TAB PO SCH ×2 (08:14→20:34)
[2016-10-19] MEDS: cloNIDine HCL 0.3 MG TAB PO SCH ×2 (08:14→20:34)
[2016-10-19] MEDS: PANTOPRAZOLE SOD 40 MG DELAYED RELEASE TAB PO SCH (08:14)
[2016-10-19] MEDS ORDERED: FOCALIN PO SCH (09:00)
[2016-10-19] MEDS: ACYCLOVIR 200 MG CAP PO SCH ×2 (09:00→20:34)
[2016-10-19] MEDS: SODIUM CHLORIDE 0.9% FLUSH 5 ML FLUSH FLUSH SCH ×2 (09:00→20:34)
[2016-10-19 10:26] LABS: AUTOMATED NEUTROPHIL # 4.7 TH/MM3 (1.8-7.7); BASOPHIL % 0.1 % (0.0-2.0); EOSINOPHIL % 0.3 % (0.0-4.0); HEMATOCRIT 26.9 % (39.0-51.0); LYMPH % 10.7 % (9.0-44.0); LYMPHOCYTE # 0.6 TH/MM3 (1.0-4.8); MEAN CELL VOLUME 102.7 FL (80.0-100.0); MEAN CORPUSCULAR HEMOGLOBIN 33.7 PG (27.0-34.0); MEAN CORPUSCULAR HGB CONC 32.9 % (32.0-36.0); MONO % 3.1 % (0.0-8.0); NEUT % 85.8 % (16.0-70.0); PLATELET COUNT 74 TH/MM3 (150-450); RED BLOOD COUNT 2.62 MIL/MM3 (4.50-5.90); RED CELL DISTRIBUTION WIDTH 19.8 % (11.6-17.2); WHITE BLOOD COUNT 5.5 TH/MM3 (4.0-11.0)
[2016-10-19 10:29] LABS: HEMO FLAGS AUTO DIFF
[2016-10-19 10:46] LABS: ALKALINE PHOSPHATASE 36 U/L (45-117); ALT (GPT) 29 U/L (12-78); ANION GAP 9 MEQ/L (5-15); AST (GOT) 16 U/L (15-37); BICARBONATE 26.4 MEQ/L (21.0-32.0); BLOOD UREA NITROGEN 94 MG/DL (7-18); CHLORIDE 108 MEQ/L (98-107); GLOMERULAR FILTRATION RATE 15 ML/MIN (>89); POTASSIUM 3.8 MEQ/L (3.5-5.1); SODIUM (NA) 143 MEQ/L (136-145); TOTAL BILIRUBIN ADULT 0.3 MG/DL (0.2-1.0)
[2016-10-19 11:12] LABS: PLATELET ESTIMATE SMEAR LOW (NORMAL); PLATELET MORPHOLOGY NORMAL (NORMAL); SCAN/DIFF AUTO DIFF CONFIRMED
[2016-10-19 11:13] LABS: KERATOCYTES OCC (NORMAL)
--- NOTE | 2016-10-19 12:34 | HHI.PR ---
Addendum to Inpatient Note Addendum Reason: Additional Documentation Additional Information S: Off chemo. No CP/SOB. Previously on HD, not currently, follows with Dr. Judge. Feels weak and tired. Asking about what is going to be done with his back. On exam: +asterixis L spine TTP A/P: 76-year-old male with a PMH of HTN, GERTRUDE on CPAP, CHF (Echo 08/22/01 w/ EF 25-30% ), A-fib on Pradaxa, Prostate CA, Multiple Myeloma on Chemo, Physical Deconditioning, Chronic Pain and DM who was brought to the ED after fall Fall: s/p mechanical trip and fall at home, significant physical deconditioning , ambulates at home by holding onto furniture. CT Head w/ worsening myeloma, no acute findings. CT Maxillofacial negative. CT C/T-Spine negative for acute findings. CT L-Spine as below. Foot/Ankle/Pelvis X-rays negative for acute fracture, images reviewed by me. Dr. Long consulted by ER physician, will evaluate. Pt reports off Pradaxa x6 days for upcoming procedure w/ Urologist. PT eval. S1 epidural hemorrhage, L4 ventral mass and L1 compression fracture: s/p fall. Dr. Long to evaluate as above, TLSO. Analgesics/antiemetics Near Syncope/encephalopathy: no LOC reported. Possibly secondary to dehydration, uremia, hypoglycemia. CT Head w/ above findings. U/a negative, WBC 8.9. Check ammonia and ABG. Hypoglycemia: BS 44 s/p D50 w/ improvement. Accu-cheks, resume sliding scale Insulin. Continue to hold Glimepiride. Monitor BS. MARTHA on CKD: Creatinine 3.97, previously 1.57 on 12/20/14. Has previously been on HD. No improvement with IVF overnight. Consult patient's acetylene torch operator. A-fib: Controlled. On Pradaxa-on hold x6 days, will continue to hold. HTN: Controlled. Will monitor, resume home medication. Chronic Pain: w/ Acute Exacerbation following fall. Resume home medications. Reports pain in left ankle/foot, however no fracture on imaging. PT for eval/ tx. Multiple myeloma: Head CT as above. Off of chemotherapy. Consult oncology. Urinary retention: With upcoming urological procedure this week. Insert Kuhn and monitor I's and O's. DVT Prophylaxis: Pradaxa on hold. Written by Daniel Colby, acting as scribe for Dr. Schilling on 10/19/16 at 12:40. ( Daniel Colby) Daniel Colby Oct 19, 2016 12:34 Wood Schilling MD Oct 27, 2016 00:51
[2016-10-19 14:30] LABS: BLOOD GAS BASE EXCESS -2.1 mmol/L (-2-2); BLOOD GAS CARBOXYHEMOGLOBIN 1.4 % (0-4); BLOOD GAS HCO3 22 mmol/L (22-26); BLOOD GAS METHEMOGLOBIN 0.9 % (0-2); BLOOD GAS O2 HGB SATURATION 90 % (90-100); BLOOD GAS PCO2 39 mmHg (38-42); BLOOD GAS PO2 69 mmHg (61-120); BLOOD GAS TOTAL HGB 9.4 G/DL (12.0-16.0); CRITICAL VALUE NO; DRAW SITE RT RADIAL; FIO2 21 %; NUMBER OF ARTERIAL PUNCTURES 1; OXYGEN DEVICE ROOM AIR; STAT NO; TEMP CORR TO 98.6; ULNAR PULSE PRESENT
[2016-10-19] MEDS: INSULIN ASPART SUPPLEMENTAL SCALE SQ SCH ×2 (16:00→20:34)
[2016-10-19 16:33] LABS: HEMOGLOBIN A1a 0.9 %; HEMOGLOBIN A1b 1.1 %; HEMOGLOBIN Ao 79.6 %; HEMOGLOBIN F 1.5 %; HEMOGLOBIN P3 7.3 %
--- NOTE | 2016-10-19 19:26 | EKG ---
Date Performed: 10/18/2016 Time Performed: 23:26:12 PTAGE: 76 years EKG: ELECTRONIC ATRIAL PACEMAKER ELECTRONIC VENTRICULAR PACEMAKER ABNORMAL RHYTHM ECG PREVIOUS TRACING : 12/18/2014 15.31 DOCTOR: Maurilio Miguel Interpretating Date/Time 10/19/2016 19:21:55
[2016-10-19 21:29] LABS: FERRITIN 681 NG/ML (26-388); TRANSFERRIN IRON PROFILE 175 MG/DL (200-360)
[2016-10-20] VITALS (14 sets, daily range): BP systolic 116–179; BP diastolic 57–91; PULSE 65–81; RESP 18–21; TEMP 97.1–100.9; O2SAT 93–98
[2016-10-20] MEDS: GABAPENTIN 300 MG CAP PO SCH ×3 (05:40→21:00)
[2016-10-20] MEDS: MORPHINE SULFATE 30 MG CONTROLLED RELEASE TAB PO SCH (05:40)
[2016-10-20] MEDS: INSULIN ASPART SUPPLEMENTAL SCALE SQ SCH (06:31)
[2016-10-20 07:25] LABS: IMMUNOGLOBULIN G 1800 MG/DL (680-1670)
[2016-10-20 07:54] LABS: IMMUNOGLOBULIN A 11 MG/DL (103-568); IMMUNOGLOBULIN M LESS THAN 8 MG/DL (38-231)
--- NOTE | 2016-10-20 08:41 | MB ---
cc: BRITTNEY GUTIERREZ MD DATE OF CONSULTATION October 19, 2016 REASON FOR CONSULTATION Chronic kidney disease with elevated BUN and creatinine. HISTORY OF PRESENT ILLNESS This is a 76-year-old male with past medical history of hypertension, ischemic heart disease, congestive heart failure, history of prostate cancer, multiple myeloma, atrial fibrillation, chronic kidney disease, who came to the hospital with history of fall at home. I was called to see the patient for the management of renal failure. The patient has history of chronic kidney disease and he has been following with Dr. Judge according to the patient and the last time he was seen by him was over a month ago. He does not remember exactly what was his renal function but the creatinine we have the last time in December of 2014 and at that time it was 1.5. He had acute kidney injury; at that time the creatinine was 3.2 and it was improving. Now he came in with a creatinine of 3.9 yesterday and today it is 3.8. The patient came in here with a history of fall and he was found to have some epistaxis at home. Yesterday morning when he was complaining of generalized pain, he was also found to have low blood sugar of 44 on presentation. The patient denies any nausea or vomiting. There is no history of diarrhea. According to him, he has been eating good. He did not notice any decrease in the urine output, not taking any nonsteroidal anti-inflammatory drugs. CT of the lumbar spine done which shows 50% compression fracture of L1, possible epidural hemorrhage. Neurosurgery was consulted. The patient denies any headache or dizziness but he was feeling dizzy before he fell down. PAST MEDICAL HISTORY 1. Hypertension. 2. Ischemic heart disease. 3. Congestive heart failure. 4. Obstructive sleep apnea. 5. Atrial fibrillation. 6. Prostate cancer. 7. Multiple myeloma. 8. Chronic kidney disease. 9. Diabetes mellitus. PAST SURGICAL HISTORY 1. Cataract surgery. 2. Prostatectomy. 3. Hernia repair surgery. 4. Cystoscopy. 5. Pacemaker insertion. 6. Ighebn-U-Hsbk placement. REVIEW OF SYSTEMS The patient has generalized weakness, feeling tired. Denies any history of fever. No sore throat. He had some dizziness before he fell down. There is no history of nausea or vomiting. No abdominal pain. No history of diarrhea. Occasionally he has shortness of breath, mild cough, which is mainly dry. No chest pain. No palpitation. No history of diarrhea. SOCIAL HISTORY The patient is lives at home with his . There is no history of smoking or alcoholism FAMILY HISTORY Noncontributory. ALLERGIES FENTANYL. WARFARIN. MEDICATIONS Currently he is on the following medications - 1. Acyclovir 400 mg b.i.d. 2. Folate 25 mg b.i.d. 3. Clonidine 0.3 mg b.i.d. 4. Plaquenil 200 mg b.i.d. 5. Allopurinol 300 mg daily. 6. Pravachol 40 mg daily. 7. Protonix 40 mg once a day. 8. Morphine sulfate 30 mg q.8 hours. 9. Gabapentin 300 mg five times a day. 10. Zofran as needed. 11. Dulcolax as needed. 12. Morphine as needed. 13. Flexeril as needed. PHYSICAL EXAMINATION GENERAL: On examination the patient is awake, alert. He is not in acute distress. VITAL SIGNS: His last blood pressure was 91/54. His blood pressure has not been low except this reading. Temperature is 97.9, oxygen saturation on 3 liters nasal cannula 93-96%. HEENT: Pupils equally reacting to light. Nonicteric sclerae, conjunctivae pale. NECK: Supple. JVD is not elevated. LUNGS: The patient has bilateral decreased air entry with scattered wheezing. HEART: S1, S2 irregular. ABDOMEN: Slightly distended, soft, lax. There is no tenderness. Bowel sounds positive. EXTREMITIES: There is mild edema in the legs. INVESTIGATIONS WBC count is 5.5, hemoglobin 8.8, platelet count of 74, neutrophils 85.8%. Sodium 143, potassium 3.8, chloride 108, bicarb 26.4, BUN 94, creatinine 3.8, glucose 189. The glucose on presentation was 30. Calcium is 7.9. AST, ALT normal, alkaline phosphatase 36, ammonia level is 26. Total protein 6.67, albumin is 2.3. INR is 1.0. Urinalysis showing that he has trace proteinuria. IMAGING STUDIES The patient has CT scan of the lumbar spine done which shows moderate compression injury to L1, possible small focus of epidural hemorrhage, multilevel disk disease. The patient also has thoracic spine CT scan done which shows no evidence of thoracic spine fracture. Ankle x-ray done which was unremarkable. X-ray of the foot done which shows no acute bony process. Pelvic x-ray was done which shows negative for any acute injury. Cervical spine CT scan was done which shows no bony injury in the cervical spine. Chest x-ray was done which shows pacemaker device. Cardiac silhouette is enlarged. No evidence of hemothorax. CT scan of the brain was done which shows finding of worsening myeloma. Maxillofacial CT scan was done which shows no evidence of facial fracture. ASSESSMENT AND PLAN 1. Chronic kidney disease with some acute worsening. 2. History of fall. 3. Three hypoglycemia. 4. L1 compression fracture. 5. Atrial fibrillation 6. History of hypertension 7. Anemia and multiple myeloma The patient has advanced renal disease and there may be an element of acute kidney injury because of possibly dehydration or acute tubular necrosis. He is currently not on any diuretics and the patient has been nonoliguric. Creatinine is slightly better and he has only minimal proteinuria. Most likely he has advanced hypertensive or diabetic renal disease but there is an element of acute kidney injury and hopefully will have some improvement. There is no acute urgent need for dialysis at present. We will follow closely. Oncology has been consulted for multiple myeloma and anemia. Thank you for the consultation. I will follow the patient while he is in the hospital. MD ALVIN Hunt/NIKHIL /4:41 PM /8:11 AM
--- NOTE | 2016-10-20 08:51 | MB ---
cc: ROSALINO BLOUNT MD, ROHIT K. M.D. DATE OF CONSULTATION 10/19/2016 REASON FOR CONSULTATION L1 body vertebral compression fracture HISTORY OF PRESENT ILLNESS This is a 76-year-old obese gentleman who apparently fell at home yesterday morning. He complained of generalized weakness and associated light headedness prior to his fall and subsequently the main complaint is low back pain and left ankle pain. He has a history of multiple myeloma and high doses of narcotics also. He also is on chronic Pradaxa treatment for his atrial fibrillation, although relates he has not taken this over the past several days. He denies any numbness or paresthesias in the upper or lower extremities. Workup included extensive trauma workup including head CT scan and complete spine CT scan and was found to have a moderate L1 vertebral body compression fracture without any retropulsion. There is also a chronic calcified ventral thecal sac mass involving the L4 vertebral body and moderate spinal stenosis. There is a questionable small area of hemorrhage extradural/intradural at the S1 level on the right side. CT of the cervical and thoracic spine did not reveal any fractures and CT of the head is negative. PAST MEDICAL HISTORY 1. Multiple myeloma 2. Atrial fibrillation 3. Hypertension 4. Renal insufficiency 5. Congestive heart failure with an ejection fraction of 25-30% 6. Sleep apnea 7. Prostate cancer 8. Diabetes mellitus 9. Chronic pain syndrome 10. He has a pacemaker in place. MEDICATIONS 1. Acyclovir 2. Allopurinol 3. Carvedilol 4. Chlorthalidone 5. Trilipix 6. Clonidine 7. Cyclosporin eye drops 8. Pradaxa 9. Dexmethylphenidate 10. Econazole nitrate 11. Nexium 12. Lasix 13. Gabapentin 14. Glimepiride 15. Lortab 5/325 16. Hydroxychloroquine 17. Insulin 18. Lactulose 19. Lidocaine patch 20. Mirabegron 21. Morphine sulfate 22. Zofran 23. Potassium chloride 24. Pravastatin 25. Entresto 26. Tramadol p.r.n. ALLERGIES FENTANYL AND WARFARIN SOCIAL HISTORY Denies alcohol or tobacco use. He is . LABORATORY FINDINGS White blood cell count 5.5, hemoglobin 8.8, platelet count is 74, PT 11, INR 1.0, PTT 32.4. Sodium 143, potassium 3.88, BUN 94, creatinine 3.84, glucose 189. PHYSICAL EXAMINATION VITALS: Temperature 97.9, pulse is 69, respiratory rate 18, blood pressure 91/54, ox saturation 96% on room air. HEAD: Normocephalic, atraumatic. NECK: Supple. CHEST: Clear bilaterally. HEART: Regular rate and rhythm. Normal S1 and S2. ABDOMEN: Obese, but soft and nontender. EXTREMITIES: No cyanosis or edema. NEUROLOGIC: He is a little lethargic from pain medications, but does arouse. Cranial nerves are grossly intact. He moves all four extremities although the lower extremity proximally is limited because of pain in the back with movement. Negative Babinski. Appreciates light touch sensation in the upper and lower extremities equally. IMPRESSION 1. L1 vertebral body moderate compression fracture without retropulsion or kyphosis with associated back pain. 2. L4 calcified ventral mass which appears to be chronic. PLAN: Recommended conservative management of the L1 vertebral body compression fracture with the use of a TLSO brace when out of bed and physical therapy to increase his activity status. Would recommend followup x-rays in six weeks to assess for the fracture healing in an outpatient setting. MD MARQUES Sellers/NAOMI /6:09 PM /8:37 AM
[2016-10-20] MEDS: cloNIDine HCL 0.3 MG TAB PO SCH (08:59)
[2016-10-20] MEDS: HYDROXYCHLOROQUINE SULFATE 200 MG TAB PO SCH ×2 (08:59→21:00)
[2016-10-20] MEDS: CARVEDILOL 12.5 MG TAB PO SCH ×2 (08:59→21:00)
[2016-10-20] MEDS: ALLOPURINOL 300 MG TAB PO SCH (08:59)
[2016-10-20] MEDS: ACYCLOVIR 200 MG CAP PO SCH ×2 (08:59→21:00)
[2016-10-20] MEDS: ECONAZOLE 1% TOPICAL SCH ×2 (09:00→13:57)
[2016-10-20] MEDS: SODIUM CHLORIDE 0.9% FLUSH 5 ML FLUSH FLUSH SCH ×2 (09:01→20:52)
[2016-10-20] MEDS: PANTOPRAZOLE SOD 40 MG DELAYED RELEASE TAB PO SCH (09:08)
[2016-10-20] MEDS: PRAVASTATIN SOD 40 MG TAB PO SCH (09:08)
--- NOTE | 2016-10-20 09:11 | MB ---
cc: SHAMA MURGUIA M.D. DATE OF CONSULTATION 10/19/2016 REASON FOR CONSULTATION Consult requested by Dr. Schilling, hospitalist, for evaluation of multiple myeloma. HISTORY OF PRESENT ILLNESS Moses is a pleasant unfortunate 76-year-old male. He was diagnosed with multiple myeloma in March of 2013. The patient is under the care of medical oncologist, Dr. Kemp. He is also seeing oncologist Dr. Patel at [facility] in [place] for his myeloma. The patient states that they have changed chemotherapy six times since he was diagnosed with multiple myeloma in 2012. Most recently, about two months ago, he was placed on Ninlaro. He takes once a week for three weeks and one week off. He took the Ninlaro last week and this week he is off of that. He saw medical oncologist at [facility] last month who advised him to continue the Ninlaro and gave him a follow-up appointment in the first week of December. The patient also has progressive renal failure and he was told that he was close to hemodialysis. The patient wanted to continue with the aggressive treatment and he has agreed for the hemodialysis. The patient had a fall at home. He attributed this to to much morphine on board. He has severe back pain and bone pain and he has been on higher doses of morphine manage by palliative care at [facility]. He does not remember the doses of the morphine. With that, the patient was brought into the emergency room. The patient underwent multiple radiological studies. The CT of the maxillofacial did not show any evidence of fracture. The CT of the head showed no acute intracranial injury, however, the findings of worsening myeloma in the calvarium compared to previous CT of the brain from December of 2014. Chest x-ray showed cardiomegaly with mild left base parenchymal opacity. The patient has history of congestive heart failure with ejection fraction reported to be 15-20% according to the daughter who works at [employer]. The patient had a CT scan of the cervical, thoracic and lumbar spine. The CT of the cervical and thoracic spine does not show any fractures, however, the CT of the lumbar spine showed moderate compressive injury at L1, possible small focus of epidural hemorrhage in the right canal at the S1 level, multilevel disk disease and facet arthropathy noted. He has a large densely calcified ossified ventral canal mass at the L4 level that may be sequela of previous disk protrusion and extrusion. Dr. Canada, a neurosurgeon, has been consulted. He will see the patient later. The patient also had x-ray of the pelvis, foot and ankle which showed no evidence of fracture. Due to the abnormal CT of the head showing progressive myeloma in the skull, I have been asked to see the patient for further evaluation. At this time, I do not have any records about his multiple myeloma. He is under the care of Dr. Kemp who does not come to this hospital. We have no records of his multiple myeloma available. The patient has been followed up by Dr. Kemp for quite some time and all his records are at [facility]. The patient has been getting Dilaudid while he is here and he thinks that Dilaudid is working better compared to the morphine. He is still having significant back pain.. PAST MEDICAL HISTORY 1. Multiple myeloma 2. Chronic back pain 3. Sleep apnea 4. Congestive heart failure 5. TIA 6. Diabetes mellitus 7. Chronic atrial fibrillation 8. Anxiety disorder 9. Hiatal hernia 10. Acid reflux 11. History of prostate cancer status post radical prostatectomy several years ago. 12. Depression 13. Neuropathy 14. Migraine headaches PAST SURGICAL HISTORY 1. Radical prostatectomy 2. Cardiac catheterization 3. Hernia repair 4. Tonsillectomy 5. Pacemaker placement 6. Tympanoplasty tube placement 7. Cardiac ablation 8. Fegmpb-A-Afof placement 9. Bilateral heel spur surgery 10. Cystoscopy with dilatation of the bladder neck 11. Vasectomy 12. Cataract surgery ALLERGIES FENTANYL AND WARFARIN MEDICATIONS Please see EMR. FAMILY HISTORY Noncontributory SOCIAL HISTORY The patient does not smoke cigarettes, does not drink alcohol. PHYSICAL EXAM This is a well-developed elderly white male in no apparent distress. VITAL SIGNS: Temperature 97.9, heart rate 69, blood pressure 91/54, O2 saturation 96%. HEENT: PERRLA, EOMI, anicteric. No oral lesions are noted. NECK: Supple. There is no cervical, supraclavicular, axillary lymphadenopathy noted. LUNGS: Clear. No wheezing, rhonchi or rales. HEART: Regular rate and rhythm. ABDOMEN: Soft, nontender. No hepatosplenomegaly. EXTREMITIES: Mild pedal edema. NEUROLOGIC: Awake, alert, and oriented times three. SKIN: No significant lesions are noted. ASSESSMENT 1. Multiple myeloma diagnosed in March of 2013 status post multiple different chemotherapy regimens. According to the patient, he had six different chemotherapy regimens. Recently the Revlimid was stopped due to chronic renal failure. The patient has been on Ninlaro for the past two months. 2. Status post fall complaining of back pain and the CT scan of the lumbar spine shows moderate compressive injury at L1 with possible small focus of epidural hemorrhage. Further evaluation is pending by Dr. Long, neurosurgeon. 3. Macrocytic anemia with thrombocytopenia most likely due to Ninlaro. 4. End-stage renal disease with GFR of 15. The patient is going to be placed on hemodialysis tomorrow according to him. 5. Congestive heart failure with ejection fraction of 15-20% reported by the patient's daughter who works at [employer]. PLAN I have reviewed his available records. Unfortunately, I do not have any records available about his multiple myeloma . He is under the care of two medical oncologist, one locally Dr. Kemp and the other one is Dr. Patel at [facility] in [place]. The patient was recently started on Ninlaro about two months ago. They are waiting for at least three months to see whether he is responding to the Ninlaro or not. He has a follow-up appointment with Dr. Patel at [facility] in the first week of December. He also has a follow up appointment with his local medical oncologist Dr. Kemp soon. At this point, I have been asked to comment on the CT of the head which shows a progressive lytic lesion in the skull, however, this was compared to the previous CT scan for two years ago. Of course, this is not relevant as the patient has progressed in between multiple times as he has been tried on six different chemotherapy regimens. There is no acute oncology intervention that is required for his multiple myeloma. The patient took his last Ninlaro last week and this is his off week. Once the patient is discharged to home, then he will resume the Ninlaro and will continue to follow up with his medical oncologist Dr. Kemp and Dr. Patel. Regarding the back pain, neurosurgeon, Dr. Long has been consulted and they are waiting for his input. The patient is under palliative care at [facility] for his chronic severe pain. I will check the B12, folate and iron studies given that he has macrocytic anemia and thrombocytopenia which I believe is due to the Ninlaro. The patient also has end-stage renal disease and library information technician, Dr. Judge has recommended hemodialysis which will probably start tomorrow. The patient and his family have asked several questions and these were answered to their satisfaction. Thank you for asking my opinion. MD IDALIA Gordon/NAOMI /6:22 PM /8:51 AM MTDD
--- NOTE | 2016-10-20 09:43 | HHI.NPPN ---
Subjective General Problems: Anemia, Hypertension Renal Failure: Chronic, Acute History of Present Illness 76-year-old male with past medical history of hypertension, ischemic heart disease, congestive heart failure, history of prostate cancer, multiple myeloma, atrial fibrillation, chronic kidney disease, who came to the hospital with history of fall at home. I was called to see the patient for the management of renal failure. The patient has history of chronic kidney disease and he has been following with Dr. Jugde. Additional Remarks Patient is not eating well, and has recurrent hypoglycemia. Review of Systems General Constitutional: Fatigue Respiratory Lungs: SOB Objective Data Data 10/19/16 10/20/16 19:00 07:00 Intake Total 600 ml 480 ml Output Total 1600 ml 500 ml Balance -1000 ml -20 ml Intake Oral 600 ml 480 ml Output Urine Total 1600 ml 500 ml # Voids 2 # Bowel Movements 0 0 Vital Signs Date Time Temp Pulse Resp B/P Pulse Ox O2 Delivery O2 Flow Rate FiO2 10/20/16 07:59 97.1 70 18 149/71 93 10/20/16 03:05 98.1 65 18 142/66 95 10/20/16 00:45 98.2 65 19 179/91 93 10/20/16 00:00 10/19/16 20:00 97.8 64 19 117/62 95 10/19/16 20:00 Nasal Cannula 3.00 10/19/16 16:00 97.2 65 17 108/52 92 10/19/16 12:00 97.9 69 18 91/54 96 -: 10/19/16 0950 10/20/16 0555 Physical Exam General Appearance: Anxious, Obese Eyes Eye Exam: Pupils Equal Neck Neck Exam: Neck Supple, Trachea Midline Pulmonary Resp Exam: No Distress, Rhonchi, Decreased Bases Cardiology CV Exam: Regular, Normal Sinus Rhythm Gastrointestinal/Abdomen GI Exam: Soft, Non-Tender, Bowel Sounds Present, Distended Extremeties Extremities Exam: Trace Edema Neurologic Neuro Exam: Alert, Awake, Oriented Assessment/Plan Assessment Summary: MARTHA/Acute Renal Failure, Hypertension, CKD Stage IV Problem List: (1) Hx of transient ischemic attack (TIA) (2) History of atrial fibrillation (3) Heart failure (4) Hx of prostatic malignancy (5) Anemia (6) Obstructive sleep apnea (7) MARTHA (acute kidney injury) (8) Chronic kidney disease (CKD) Plan Patient has recurrent Hypoglycemia, now started on D5NS. Creatinine is almost same. Has been non oliguric. BP is stable. Follow urine out put and BMP. Possible HD if no improvement. Problem Qualifiers (1) Chronic kidney disease (CKD): Qualified Code: N18.4 - Chronic kidney disease (CKD), stage 4 (severe) Fredy Chung MD Oct 20, 2016 09:42
--- NOTE | 2016-10-20 09:43 | HHI.NSPN ---
(Wild Olson) History Chief Complaint: low back pain. (iWld Olson) Interval History This is a 76-year-old obese gentleman who apparently fell at home yesterday morning. He complained of generalized weakness and associated light headedness prior to his fall and subsequently the main complaint is low back pain and left ankle pain. He has a history of multiple myeloma and high doses of narcotics also. He also is on chronic Pradaxa treatment for his atrial fibrillation, although relates he has not taken this over the past several days. He denies any numbness or paresthesias in the upper or lower extremities. Workup included extensive trauma workup including head CT scan and complete spine CT scan and was found to have a moderate L1 vertebral body compression fracture without any retropulsion. There is also a chronic calcified ventral thecal sac mass involving the L4 vertebral body and moderate spinal stenosis. There is a questionable small area of hemorrhage extradural/intradural at the S1 level on the right side. CT of the cervical and thoracic spine did not reveal any fractures and CT of the head is negative. 10/20/16: Pt resting in bed states pain is better today. He is unable to tell me if and where he has pain or paresthesias in his legs this morning and just keeps repeating its better. He moves his legs spontaneously and is not following commands easily. He seems sedated. (Wild Olson) System Review Comments Pt appears sedated and is not answering all questions this morning. (Wild Olson) Exam Results Vital Signs Date Time Temp Pulse Resp B/P Pulse Ox O2 Delivery O2 Flow Rate FiO2 10/20/16 07:59 97.1 70 18 149/71 93 10/20/16 00:00 10/19/16 20:00 3.00 Intake and Output 10/19/16 10/19/16 10/20/16 08:00 16:00 00:00 Intake Total 413 ml 360 ml 360 ml Output Total 600 ml 1000 ml 500 ml Balance -187 ml -640 ml -140 ml (Wild Olson) Physical Examination Resp: CTA bilaterally Heart: NSR no murmurs Abd: Soft positive bs Skin: No cyanosis or erythema Muscle: Moves all 4 extremities spontaneously. Seems to not be following commands secondary to sedation Neuro: Pt keeps eyes closed during exam. Repeats today is better to my questions. Attempts to follow some simple commands. (Wild Olson) Lab, Micro, Other Results Last Impressions Thoracic Spine CT 10/18/162324 Signed Impressions: Service Date/Time: Wednesday, October 19, 2016 00:43 - CONCLUSION: No evidence of thoracic spine fracture. Jameel Louie MD Lumbar Spine CT 10/18/162324 Signed Impressions: Service Date/Time: Wednesday, October 19, 2016 00:43 - CONCLUSION: Moderate compressive injury at L1. Possible small focus of epidural hemorrhage in the right canal at the S1 level. Multilevel disc disease and facet arthropathy. Large densely calcified or ossified ventral canal mass at the L4 level may be sequelae of previous disc protrusion/extrusion. Alternatively, this may be a densely calcified or ossified neoplasm-osteoma, osteochondroma, meningioma. Jameel Louie MD Pelvis X-Ray 10/18/162316 Signed Impressions: Service Date/Time: Wednesday, October 19, 2016 01:10 - CONCLUSION: No acute bony injury Jameel Louie MD Foot X-Ray 10/18/162316 Signed Impressions: Service Date/Time: Wednesday, October 19, 2016 01:22 - CONCLUSION: No acute bony process. Jameel Louie MD Ankle X-Ray 10/18/162316 Signed Impressions: Service Date/Time: Wednesday, October 19, 2016 01:20 - CONCLUSION: Unremarkable examination of the left ankle. Jameel Louie MD Maxillofacial CT 10/18/162235 Signed Impressions: Service Date/Time: Tuesday, October 18, 2016 22:53 - CONCLUSION: No evidence of facial fracture Jameel Louie MD Head CT 10/18/162235 Signed Impressions: Service Date/Time: Tuesday, October 18, 2016 22:53 - CONCLUSION: No acute intracranial injury. Findings of worsening myeloma Jameel Louie MD Chest X-Ray 10/18/162235 Signed Impressions: Service Date/Time: Wednesday, October 19, 2016 01:15 - CONCLUSION: Cardiomegaly and mild left base parenchymal opacity. Jameel Louie MD Cervical Spine CT 10/18/16 2236 Signed Impressions: Service Date/Time: Tuesday, October 18, 2016 22:53 - CONCLUSION: No acute bony injury in the cervical spine Jameel Louie MD Laboratory Tests Test 10/19/16 10/19/16 10/19/16 10/20/16 09:50 13:22 14:20 05:55 White Blood Count 5.5 TH/MM3 Red Blood Count 2.62 MIL/MM3 Hemoglobin 8.8 GM/DL Hematocrit 26.9 % Mean Corpuscular Volume 102.7 FL Mean Corpuscular Hemoglobin 33.7 PG Mean Corpuscular Hemoglobin 32.9 % Concent Red Cell Distribution Width 19.8 % Platelet Count 74 TH/MM3 Mean Platelet Volume 9.5 FL Neutrophils (%) (Auto) 85.8 % Lymphocytes (%) (Auto) 10.7 % Monocytes (%) (Auto) 3.1 % Eosinophils (%) (Auto) 0.3 % Basophils (%) (Auto) 0.1 % Neutrophils # (Auto) 4.7 TH/MM3 Lymphocytes # (Auto) 0.6 TH/MM3 Monocytes # (Auto) 0.2 TH/MM3 Eosinophils # (Auto) 0.0 TH/MM3 Basophils # (Auto) 0.0 TH/MM3 CBC Comment AUTO DIFF Differential Comment AUTO DIFF CONFIRMED Platelet Estimate LOW Platelet Morphology Comment NORMAL Keratocytes OCC Sodium Level 143 MEQ/L Potassium Level 3.8 MEQ/L Chloride Level 108 MEQ/L Carbon Dioxide Level 26.4 MEQ/L Anion Gap 9 MEQ/L Blood Urea Nitrogen 94 MG/DL Creatinine 3.84 MG/DL Estimat Glomerular Filtration 15 ML/MIN Rate Random Glucose 189 MG/DL 41 MG/DL Hemoglobin A1c 7.2 % Calcium Level 7.9 MG/DL Iron Level 31 MCG/DL Total Iron Binding Capacity 245 MCG/DL Percent Iron Saturation 12.7 % Ferritin 681 NG/ML Total Bilirubin 0.3 MG/DL Aspartate Amino Transf 16 U/L (AST/SGOT) Alanine Aminotransferase 29 U/L (ALT/SGPT) Alkaline Phosphatase 36 U/L Total Protein 6.6 GM/DL Albumin 2.3 GM/DL Vitamin B12 Level 576 PG/ML Folate GREATER THAN 20.0 NG/ML Ammonia 26 MCMOL/L Blood Gas Puncture Site RT RADIAL Blood Gas Patient Temperature 98.6 Blood Gas HCO3 22 mmol/L Blood Gas Base Excess -2.1 mmol/L Blood Gas Oxygen Saturation 90 % Arterial Blood pH 7.37 Arterial Blood Partial 39 mmHg Pressure CO2 Arterial Blood Partial 69 mmHg Pressure O2 Arterial Blood Oxygen Content 12.0 Vol % Arterial Blood 1.4 % Carboxyhemoglobin Arterial Blood Methemoglobin 0.9 % Blood Gas Hemoglobin 9.4 G/DL Oxygen Delivery Device ROOM AIR Blood Gas Inspired Oxygen 21 % Test 10/20/16 06:50 Immunoglobulin G Total 1800 MG/DL Immunoglobulin A 11 MG/DL Immunoglobulin M LESS THAN 8 MG/DL 10/19/16 10/19/16 10/20/16 15:00 23:00 07:00 Intake Total 240 ml 720 ml 120 ml Output Total 600 ml 1500 ml Balance -360 ml -780 ml 120 ml Intake Oral 240 ml 720 ml 120 ml Output Urine Total 600 ml 1500 ml # Voids 2 # Bowel Movements 0 0 0 (Wild Olson) Medical Decision Making Impression and Plan 1. L1 vertebral body moderate compression fracture without retropulsion or kyphosis with associated back pain. 2. L4 calcified ventral mass which appears to be chronic. PLAN: Continue with TLSO brace Continue to monitor Continue with rehab efforts. (Wild Olson) Attending Statement The exam, history, and the medical decision-making described in the above note were completed with the assistance of the mid-level provider. I reviewed and agree with the findings presented. I attest that I had a [id number] encounter with the patient on the same day, and personally performed and documented my assessment and findings in the medical record. (Renzo Long MD) Wild Olson Oct 20, 2016 09:43 Renzo Long MD Oct 20, 2016 17:56
--- NOTE | 2016-10-20 10:38 | PD.ONC.PN ---
Subjective Subjective Remarks Afebrile overnight. (late entry, patient seen at ~10AM) Patient obtunded. Per nurse he has been obtunded all morning. Nursing staff has already spoken with Dr. Chung and Dr. Schilling. No overnight events. Objective Data Date Time Temp Pulse Resp B/P Pulse Ox O2 Delivery O2 Flow Rate FiO2 10/20/16 08:00 93 Nasal Cannula 3.00 10/20/16 08:00 70 10/20/16 07:59 97.1 70 18 149/71 93 10/20/16 03:05 98.1 65 18 142/66 95 10/20/16 00:45 98.2 65 19 179/91 93 10/20/16 00:00 10/19/16 20:00 97.8 64 19 117/62 95 10/19/16 20:00 Nasal Cannula 3.00 10/19/16 16:00 97.2 65 17 108/52 92 10/19/16 12:00 97.9 69 18 91/54 96 10/20/16 10/20/16 10/20/16 07:00 15:00 23:00 Intake Total 120 ml Balance 120 ml Result Diagram: 10/19/16 0950 10/20/16 0555 Laboratory Results Laboratory Tests Test 10/19/16 10/19/16 10/20/16 10/20/16 13:22 14:20 05:55 06:50 Ammonia 26 MCMOL/L Blood Gas Puncture Site RT RADIAL Blood Gas Patient Temperature 98.6 Blood Gas HCO3 22 mmol/L Blood Gas Base Excess -2.1 mmol/L Blood Gas Oxygen Saturation 90 % Arterial Blood pH 7.37 Arterial Blood Partial 39 mmHg Pressure CO2 Arterial Blood Partial 69 mmHg Pressure O2 Arterial Blood Oxygen Content 12.0 Vol % Arterial Blood 1.4 % Carboxyhemoglobin Arterial Blood Methemoglobin 0.9 % Blood Gas Hemoglobin 9.4 G/DL Oxygen Delivery Device ROOM AIR Blood Gas Inspired Oxygen 21 % Random Glucose 41 MG/DL Immunoglobulin G Total 1800 MG/DL Immunoglobulin A 11 MG/DL Immunoglobulin M LESS THAN 8 MG/DL Administered Medications Medications (Trade) Dose Ordered Sig/Srinath Route PRN Reason Start Time Stop Time Status Last Admin Dose Admin Dextrose (D50w (Vial) Inj) 25 ml UNSCH PRN IV PUSH HYPOGLYCEMIA-SEE COMMENTS 10/19/16 03:00 10/20/16 05:59 IV Flush (NS Flush) 2 ml BID FLUSH 10/19/16 09:00 10/20/16 09:01 Acyclovir (Zovirax) 400 mg BID PO 10/19/16 09:00 10/20/16 08:59 Allopurinol (Zyloprim) 300 mg DAILY PO 10/19/16 09:00 10/20/16 08:59 Carvedilol (Coreg) 25 mg BID PO 10/19/16 09:00 10/20/16 08:59 Clonidine (Catapres) 0.3 mg BID PO 10/19/16 09:00 10/20/16 08:59 Hydroxychloroquine Sulfate (Plaquenil) 200 mg BID PO 10/19/16 09:00 10/20/16 08:59 Pravastatin Sodium (Pravachol) 40 mg DAILY PO 10/19/16 09:00 10/20/16 09:08 Pantoprazole Sodium (Protonix) 40 mg DAILY PO 10/19/16 09:00 10/20/16 09:08 Objective Remarks GENERAL: Obtunded elderly male, lying in bed. SKIN: Warm and dry. HEAD: Normocephalic. EYES: No injection or drainage. NECK: Supple, trachea midline. CARDIOVASCULAR: Regular rate and rhythm RESPIRATORY: Breath sounds equal bilaterally. No accessory muscle use. GASTROINTESTINAL: Abdomen soft, non-tender, nondistended. MUSCULOSKELETAL: No cyanosis Neuro: obtunded. withdraws from pain and yells "ow." to nail bed pressure, but does not open eyes. does not follow commands, does not answer questions. Assessment/Plan Problem List: (1) Multiple myeloma Status: Chronic Plan: no acute oncology intervention that is required for his multiple myeloma. The patient took his last Ninlaro last week and this is his off week. Once the patient is discharged to home, then he will resume the Ninlaro and will continue to follow up with his medical oncologist Dr. Kemp and Dr. Patel. --diagnosed in March of 2013 status post multiple different chemotherapy regimens. --six different chemotherapy regimens. --Recently the Revlimid was stopped due to chronic renal failure. --under the care of two medical oncologist, one locally Dr. Kemp and the other one is Dr. Patel at [facility] in [place]. --recently started on Ninlaro about two months ago. They are waiting for at least three months to see whether he is responding to the Ninlaro or not. ++follow-up appointment with Dr. Patel at [facility] in the first week of December. --also has a follow up appointment with his local medical oncologist Dr. Justo mcmahon. (2) Fall Status: Acute Plan: --Status post fall --complaining of back pain and the CT scan of the lumbar spine shows moderate compressive injury at L1 with possible small focus of epidural hemorrhage. --NS following (3) Macrocytic anemia Status: Acute Plan: --Macrocytic anemia with thrombocytopenia most likely due to Ninlaro. --B12, folate WNL --iron studies equivocal (4) CKD (chronic kidney disease) Status: Acute Plan: -- End-stage renal disease with GFR of 15. (5) CHF (congestive heart failure) Status: Acute Assessment 76y/o male with multiple myeloma. g/o Multiple myeloma--diagnosed in 2012 chronic back pain Sleep apnea Congestive heart failure TIA Diabetes mellitus Chronic atrial fibrillation Anxiety disorder Hiatal hernia Acid reflux History of prostate cancer status post radical prostatectomy Depression Neuropathy Migraine headaches Plan 1. monitor CBC 2. supportive care Attending Statement pt is sleeping B12 NL IgG is high ( Do not have his previous records to compare. NS recommends conservative management. Possible HD for ESRD Veena Mehta Oct 20, 2016 10:38 Melissa Elaine MD Oct 20, 2016 19:22
[2016-10-20 11:09] LABS: BLOOD GAS BASE EXCESS -0.6 mmol/L (-2-2); BLOOD GAS CARBOXYHEMOGLOBIN 1.6 % (0-4); BLOOD GAS HCO3 24 mmol/L (22-26); BLOOD GAS O2 HGB SATURATION 94 % (90-100); BLOOD GAS OXYGEN CONTENT 12.2 Vol % (12.0-20.0); BLOOD GAS PCO2 42 mmHg (38-42); BLOOD GAS PO2 96 mmHg (61-120); BLOOD GAS TOTAL HGB 9.1 G/DL (12.0-16.0); CRITICAL VALUE NO; TEMP CORR TO 98.6
[2016-10-20 11:10] LABS: DRAW SITE RT RADIAL; FIO2 100 %; NUMBER OF ARTERIAL PUNCTURES 1; STAT YES; ULNAR PULSE PRESENT
[2016-10-20] MEDS: DEXT 5%-NACL 0.45% 1000 ML INJ 1,000 ML IV SCH ×2 (11:15→23:18)
[2016-10-20] MEDS ORDERED: NALOXONE HCL 0.4 MG/ML AMP IV PUSH ONE ×3 (11:15→18:00)
[2016-10-20] MEDS ORDERED: NALOXONE HCL 0.4 MG/ML AMP ONE (11:16)
[2016-10-20 11:31] LABS: AUTOMATED NEUTROPHIL # 4.9 TH/MM3 (1.8-7.7); BASOPHIL % 0.1 % (0.0-2.0); EOSINOPHIL % 0.3 % (0.0-4.0); HEMATOCRIT 28.9 % (39.0-51.0); LYMPH % 11.5 % (9.0-44.0); LYMPHOCYTE # 0.7 TH/MM3 (1.0-4.8); MEAN CELL VOLUME 103.4 FL (80.0-100.0); MEAN CORPUSCULAR HEMOGLOBIN 33.4 PG (27.0-34.0); MEAN CORPUSCULAR HGB CONC 32.3 % (32.0-36.0); MONO % 2.8 % (0.0-8.0); NEUT % 85.3 % (16.0-70.0); PLATELET COUNT 83 TH/MM3 (150-450); WHITE BLOOD COUNT 5.7 TH/MM3 (4.0-11.0)
[2016-10-20 11:36] LABS: HEMO FLAGS AUTO DIFF
[2016-10-20] MEDS: NALOXONE HCL 2 MG/2 ML VIAL IV SCH ×2 (11:38→12:10)
[2016-10-20 11:47] LABS: BICARBONATE 27.5 MEQ/L (21.0-32.0); POTASSIUM 3.9 MEQ/L (3.5-5.1)
[2016-10-20 12:25] LABS: BANDS 18 % (0-6); EOSINOPHILS 1 % (0-4); NEUTROPHIL # MANUAL DIFF 5.1 TH/MM3 (1.8-7.7); POLYS (SEG NEUTROPHILS) 72 % (16-70); WBC DIFF SAMPLE 100
[2016-10-20 12:26] LABS: PLATELET ESTIMATE SMEAR LOW (NORMAL); PLATELET MORPHOLOGY NORMAL (NORMAL); SCAN/DIFF FINAL DIFF MANUAL
[2016-10-20] MEDS ORDERED: methylPREDNISolone SOD SUCC 40 MG/1 ML VIAL IV PUSH ONE (13:00)
--- NOTE | 2016-10-20 13:00 | HHI.PR ---
Subjective Remarks Patient seen this morning around 11 AM. Patient has been somnolent all morning. Nurses report that he improved after 0.4 mg of Narcan. Gave another 0.4 mg, and patient woke up even more, yawning and coughing. Is somnolent but arousable, denies any pain. Nurses report no nausea or vomiting. ABG reviewed and unremarkable. Chest x-ray shows right lower lobe infiltrate, and patient will be started on Zosyn. Patient was also noted to have worsening of chronic with suspected to be fungal rash, normally only on back, has spread to bilateral anterior shoulders. Patient has not received fungal cream. Objective Vital Signs Date Time Temp Pulse Resp B/P Pulse Ox O2 Delivery O2 Flow Rate FiO2 10/20/16 10:50 98 15.00 10/20/16 08:00 93 Nasal Cannula 3.00 10/20/16 08:00 70 10/20/16 07:59 97.1 70 18 149/71 93 10/20/16 03:05 98.1 65 18 142/66 95 10/20/16 00:45 98.2 65 19 179/91 93 10/20/16 00:00 10/19/16 20:00 97.8 64 19 117/62 95 10/19/16 20:00 Nasal Cannula 3.00 10/19/16 16:00 97.2 65 17 108/52 92 I/O 10/19/16 10/19/16 10/19/16 10/20/16 10/20/16 10/20/16 07:00 15:00 23:00 07:00 15:00 23:00 Intake Total 173 ml 240 ml 720 ml 120 ml Output Total 600 ml 1500 ml Balance 173 ml -360 ml -780 ml 120 ml Intake Oral 240 ml 720 ml 120 ml IV Total 173 ml Output Urine Total 600 ml 1500 ml # Voids 2 # Bowel Movements 0 0 0 Result Diagram: 10/20/16 1031 10/20/16 1031 Objective Remarks GENERAL: Sitting up in bed. Sleeping, wakes up with tactile stimulation. Patient is disoriented. SKIN: Warm and dry. Erythematous rash with the appearacne of ringoworm.. Worse in [place], however extending to dry skin on shoulders, left face. HEAD: Normocephalic. EYES: No scleral icterus. No injection or drainage. NECK: Supple, trachea midline. No JVD CARDIOVASCULAR: Regular rate and rhythm without murmurs, gallops, or rubs. RESPIRATORY: Breath sounds equal bilaterally. No accessory muscle use. Patient initially with shallow breathing, improved with second dose of Narcan. GASTROINTESTINAL: Abdomen soft, non-tender, nondistended. MUSCULOSKELETAL: No cyanosis, or edema. BACK: Nontender without obvious deformity. No CVA tenderness. A/P Assessment and Plan //Metabolic encephalopathy Likely factorial, secondary to uremia, gabapentin toxicity in the setting of worsening kidney function, morphine toxicity in the setting of worsening kidney function. -Dependent and morphine have been discontinued. Treat her glycemia as below. -Patient will need urgent dialysis -ABG unremarkable. Chest x-ray pending. -Transferred to intensive care. -With worsening this morning. Improved with 0.4 g of Narcan, and again with another 0.4 mg. //Status post fall on admission. //L1 compression fracture with small epidural hemorrhage. -Neurosurgery following. Continue TLSO brace. Appreciate assistance. //Multiple myeloma //Anemia. //Thrombocytopenia -Anemia, however normal Appreciate oncology assistance. //Possible right lower lobe aspiration pneumonia. -As seen on chest x-ray. Final read pending. -Filtrates, however BNP not significantly elevated 250s on admission. Patient has not been drinking much either. -Start Zosyn //Acute kidney failure. Uremia -Consult urology for [place] placement. Nurses have been unable to place Urgent dialysis. Appreciate nephrology assistance. //Urinary retention. Unable Pl., [place]. Urology consulted for catheter placement. //Atrial fibrillation. //History of CHF. Chronic. -Continue home medications for CHF.Hold clonidine in setting of an cephalopathy. Holding Pradaxa secondary to sacral epidural hemorrhage. //Acute hypoglycemia. //Diabetes mellitus. Chronic. 10/20 Glucose low in the 40s. We'll place on D5. Likely secondary to decreased insulin clearance with kidney failure. //Fungal Rash. Family reports that appears to be worsening of patient's chronic back rash which is being treated with antifungals. antifungals work for this in the past. Patient has no airway optimized. Continue antifungal cream, which has not been given yet. //Prophylaxis. SCDs. Holding chemical prophylaxis in the setting of epidural hemorrhage. Discharge Planning Transfer to ICU. Wood Schilling MD Oct 20, 2016 13:00
[2016-10-20] MEDS: PIPERACIL-TAZO 3.375 GM PREMIX 50 ML IV SCH ×2 (13:59→20:52)
--- NOTE | 2016-10-20 14:04 | RADRPT ---
EXAM DATE/TIME: 10/20/2016 12:30 [facility] COMPARISON: CHEST SINGLE AP, October 19, 2016, 1:15. INDICATIONS : Difficulty breathing. MEDICAL HISTORY : Cerebrovascular disease. Diabetes mellitus type 2. Congestive heart failure. Mu ltiple myeloma, hypertension, GERD, prostate cancer SURGICAL HISTORY : Pacemaker. [id number]. ENCOUNTER: Subsequent ACUITY: 2 days PAIN SCORE: Non-responsive. LOCATION: Bilateral chest FINDINGS: The patient has a multilead pacemaker in place. The cardiac silhouette is enlarged. Th ere is an [id number] in place from the right internal jugular approach with the tip overlying the right atrium. There is some hazy density identified at the bases. The mid and upper lungs are relati vely clear. CONCLUSION: 1. Cardiomegaly. 2. Tubes and lines in good position. 3. Hazy density at the bases likely representing some degree of atelectasis or consolidation. Jaemel Lindsey MD on October 20, 2016 at 13:45 Board Certified Radiologist. This report was verified electronically.
[2016-10-20] MEDS ORDERED: HYDROmorphone HCL PF 1 MG/ML VIAL IV PUSH PRN ×2 (15:15)
[2016-10-20] MEDS: NALOXONE INJ 4 MG in DEXTROSE 5% IN WATER INJ 246 ML IV SCH ×4 (15:55→21:52)
[2016-10-20] MEDS: LOW DOSE INSULIN NOVOLOG SUPPLEMENTAL SCALE SQ SCH ×2 (19:37→23:18)
[2016-10-21] VITALS (13 sets, daily range): BP systolic 119–157; BP diastolic 59–84; PULSE 60–69; RESP 14–24; TEMP 97.6–99.2; O2SAT 95–97
[2016-10-21] MEDS: NALOXONE INJ 4 MG in DEXTROSE 5% IN WATER INJ 246 ML IV SCH ×8 (01:53→18:43)
[2016-10-21] MEDS: PIPERACIL-TAZO 3.375 GM PREMIX 50 ML IV SCH ×2 (02:46→08:45)
[2016-10-21 05:27] LABS: AUTOMATED NEUTROPHIL # 5.7 TH/MM3 (1.8-7.7); HEMATOCRIT 24.9 % (39.0-51.0); LYMPHOCYTE # 0.7 TH/MM3 (1.0-4.8); MEAN CELL VOLUME 102.6 FL (80.0-100.0); MEAN CORPUSCULAR HEMOGLOBIN 33.9 PG (27.0-34.0); MEAN CORPUSCULAR HGB CONC 33.1 % (32.0-36.0); MONO % 1.8 % (0.0-8.0); NEUT % 87.2 % (16.0-70.0); PLATELET COUNT 77 TH/MM3 (150-450); RED BLOOD COUNT 2.43 MIL/MM3 (4.50-5.90); WHITE BLOOD COUNT 6.5 TH/MM3 (4.0-11.0)
[2016-10-21 05:31] LABS: HEMO FLAGS AUTO DIFF
[2016-10-21 05:46] LABS: BICARBONATE 24.9 MEQ/L (21.0-32.0); POTASSIUM 3.8 MEQ/L (3.5-5.1)
[2016-10-21] MEDS: LOW DOSE INSULIN NOVOLOG SUPPLEMENTAL SCALE SQ SCH ×3 (06:06→18:40)
[2016-10-21 06:55] LABS: BANDS 20 % (0-6); NEUTROPHIL # MANUAL DIFF 5.5 TH/MM3 (1.8-7.7); POLYS (SEG NEUTROPHILS) 65 % (16-70); WBC DIFF SAMPLE 100
[2016-10-21 06:56] LABS: PLATELET ESTIMATE SMEAR LOW (NORMAL); PLATELET MORPHOLOGY NORMAL (NORMAL); SCAN/DIFF FINAL DIFF MANUAL
[2016-10-21] MEDS: SODIUM CHLORIDE 0.9% FLUSH 5 ML FLUSH FLUSH SCH ×2 (09:00→20:32)
--- NOTE | 2016-10-21 09:00 | HHI.NSPN ---
(Wild Olson) History Chief Complaint: low back pain. (Wild Olson) Interval History This is a 76-year-old obese gentleman who apparently fell at home yesterday morning. He complained of generalized weakness and associated light headedness prior to his fall and subsequently the main complaint is low back pain and left ankle pain. He has a history of multiple myeloma and high doses of narcotics also. He also is on chronic Pradaxa treatment for his atrial fibrillation, although relates he has not taken this over the past several days. He denies any numbness or paresthesias in the upper or lower extremities. Workup included extensive trauma workup including head CT scan and complete spine CT scan and was found to have a moderate L1 vertebral body compression fracture without any retropulsion. There is also a chronic calcified ventral thecal sac mass involving the L4 vertebral body and moderate spinal stenosis. There is a questionable small area of hemorrhage extradural/intradural at the S1 level on the right side. CT of the cervical and thoracic spine did not reveal any fractures and CT of the head is negative. 10/20/16: Pt resting in bed states pain is better today. He is unable to tell me if and where he has pain or paresthesias in his legs this morning and just keeps repeating its better. He moves his legs spontaneously and is not following commands easily. He seems sedated. 10/21/16: Pt transferred to ICU yesterday. Today he awakens to voice. He complains of back soreness. He denies any radiculopathy or paresthesias in his legs. (Wild Olson) Review of Systems General: Negative for: fever, chills, insomnia Respiratory: Negative for: shortness of breath, cough, sputum Cardiovascular: Negative for: chest pain Gastrointestinal: Negative for: nausea, vomitting, diarrhea, constipation ( Wild Olson) Exam Results Vital Signs Date Time Temp Pulse Resp B/P Pulse Ox O2 Delivery O2 Flow Rate FiO2 10/21/16 06:00 64 10/21/16 04:00 96 2.00 10/21/16 04:00 98.0 17 145/79 10/20/16 21:00 CPAP 10/20/16 20:58 50 Intake and Output 10/20/16 10/20/16 10/21/16 08:00 16:00 00:00 Intake Total 120 ml 336 ml 1025 ml Output Total 500 ml 1275 ml Balance 120 ml -164 ml -250 ml (Wild Olson) Physical Examination Resp: CTA bilaterally. On home bipap machine. Heart: Irregular no murmurs Abd: Soft positive bs Skin: No cyanosis or erythema Muscle: Moves all 4 extremities. Following commands better today. Moves LEs well. Neuro: Pt opens eyes to voice. Following commands better today. Still lethargic but better than yesterday. (Wild Olson) Lab, Micro, Other Results Laboratory Tests Test 10/20/16 10/20/16 10/21/16 10:31 10:58 04:43 White Blood Count 5.7 TH/MM3 6.5 TH/MM3 Red Blood Count 2.80 MIL/MM3 2.43 MIL/MM3 Hemoglobin 9.3 GM/DL 8.2 GM/DL Hematocrit 28.9 % 24.9 % Mean Corpuscular Volume 103.4 FL 102.6 FL Mean Corpuscular Hemoglobin 33.4 PG 33.9 PG Mean Corpuscular Hemoglobin 32.3 % 33.1 % Concent Red Cell Distribution Width 20.0 % 20.0 % Platelet Count 83 TH/MM3 77 TH/MM3 Mean Platelet Volume 9.4 FL 9.1 FL Neutrophils (%) (Auto) 85.3 % 87.2 % Lymphocytes (%) (Auto) 11.5 % 11.0 % Monocytes (%) (Auto) 2.8 % 1.8 % Eosinophils (%) (Auto) 0.3 % 0.0 % Basophils (%) (Auto) 0.1 % 0.0 % Neutrophils # (Auto) 4.9 TH/MM3 5.7 TH/MM3 Lymphocytes # (Auto) 0.7 TH/MM3 0.7 TH/MM3 Monocytes # (Auto) 0.2 TH/MM3 0.1 TH/MM3 Eosinophils # (Auto) 0.0 TH/MM3 0.0 TH/MM3 Basophils # (Auto) 0.0 TH/MM3 0.0 TH/MM3 CBC Comment AUTO DIFF AUTO DIFF Differential Total Cells 100 100 Counted Neutrophils % (Manual) 72 % 65 % Band Neutrophils % 18 % 20 % Lymphocytes % 8 % 14 % Monocytes % 1 % 1 % Eosinophils % 1 % Neutrophils # (Manual) 5.1 TH/MM3 5.5 TH/MM3 Differential Comment FINAL DIFF FINAL DIFF MANUAL MANUAL Platelet Estimate LOW LOW Platelet Morphology Comment NORMAL NORMAL Sodium Level 145 MEQ/L 148 MEQ/L Potassium Level 3.9 MEQ/L 3.8 MEQ/L Chloride Level 109 MEQ/L 112 MEQ/L Carbon Dioxide Level 27.5 MEQ/L 24.9 MEQ/L Anion Gap 9 MEQ/L 11 MEQ/L Blood Urea Nitrogen 88 MG/DL 93 MG/DL Creatinine 3.94 MG/DL 4.19 MG/DL Estimat Glomerular Filtration 15 ML/MIN 14 ML/MIN Rate Random Glucose 96 MG/DL 256 MG/DL Calcium Level 8.2 MG/DL 7.8 MG/DL Blood Gas Puncture Site RT RADIAL Blood Gas Patient Temperature 98.6 Blood Gas HCO3 24 mmol/L Blood Gas Base Excess -0.6 mmol/L Blood Gas Oxygen Saturation 94 % Arterial Blood pH 7.37 Arterial Blood Partial 42 mmHg Pressure CO2 Arterial Blood Partial 96 mmHg Pressure O2 Arterial Blood Oxygen Content 12.2 Vol % Arterial Blood 1.6 % Carboxyhemoglobin Arterial Blood Methemoglobin 1.0 % Blood Gas Hemoglobin 9.1 G/DL Oxygen Delivery Device Non-Rebreathing Mask Blood Gas Inspired Oxygen 100 % 10/20/16 10/20/16 10/21/16 15:00 23:00 07:00 Intake Total 336 ml 1025 ml 1016 ml Output Total 500 ml 1275 ml 1075 ml Balance -164 ml -250 ml -59 ml IV Total 336 ml 1025 ml 1016 ml Output Urine Total 500 ml 1275 ml 1075 ml # Voids 1 # Bowel Movements 0 1 (Wild Olson) Medical Decision Making Impression and Plan 1. L1 vertebral body moderate compression fracture without retropulsion or kyphosis with associated back pain. 2. L4 calcified ventral mass which appears to be chronic. PLAN: Continue with TLSO brace Continue to monitor Continue with rehab efforts. (Wild Olson) Attending Statement The exam, history, and the medical decision-making described in the above note were completed with the assistance of the mid-level provider. I reviewed and agree with the findings presented. I attest that I had a [id number] encounter with the patient on the same day, and personally performed and documented my assessment and findings in the medical record. (Renzo Long MD) Wild Olson Oct 21, 2016 09:00 Renzo Long MD Oct 21, 2016 11:52
[2016-10-21] MEDS: CARVEDILOL 12.5 MG TAB PO SCH ×2 (10:00→20:32)
[2016-10-21] MEDS: ALLOPURINOL 300 MG TAB PO SCH (10:01)
[2016-10-21] MEDS: PANTOPRAZOLE SOD 40 MG DELAYED RELEASE TAB PO SCH (10:01)
[2016-10-21] MEDS: HYDROXYCHLOROQUINE SULFATE 200 MG TAB PO SCH ×2 (10:01→20:31)
[2016-10-21] MEDS: ACYCLOVIR 200 MG CAP PO SCH ×2 (10:01→20:31)
[2016-10-21] MEDS: PRAVASTATIN SOD 40 MG TAB PO SCH (10:01)
[2016-10-21] MEDS: GABAPENTIN 300 MG CAP PO SCH (10:02)
[2016-10-21] MEDS: ECONAZOLE 1% TOPICAL SCH (10:04)
--- NOTE | 2016-10-21 10:59 | RADRPT ---
EXAM DATE/TIME: 10/21/2016 10:06 [place] COMPARISON: No previous studies available for comparison. INDICATIONS : Increase BUN and creatinine. MEDICAL HISTORY : Carcinoma, prostate. Congestive heart failure. Multiple myloma. SURGICAL HISTORY : Tonsillectomy. Vasectomy. Umbilical herniorrhaphy 2001. Radial prostatectomy. Cystoscopy of bladder neck. Bilateral heel spur removal. Bilateral lens implant. Pacemaker. ENCOUNTER: Initial ACUITY: 1 day PAIN SCORE: 0/10 LOCATION: Bilateral flank MEASUREMENTS: RIGHT KIDNEY: 9.9 x 5.3 x 5.5 cm LEFT KIDNEY: 10.9 x 4.2 x 7.0 cm FINDINGS: RIGHT KIDNEY: Right kidney is smaller than the left without hydronephrosis or mass. LEFT KIDNEY: 2 renal cysts are noted measuring 1.7 cm. There is no hydronephrosis. BLADDER: Within normal limits given the degree of distension. CONCLUSION: Negative for hydronephrosis. The right kidney is small. Keyshawn Gilman MD FACR on October 21, 2016 at 10:56 Board Certified Radiologist. This report was verified electronically.
--- NOTE | 2016-10-21 12:25 | PD.ONC.PN ---
Subjective Subjective Remarks Tmax 100.9 yesterday afternoon. Afebrile overnight. Patient much more awake and alert today. No complaints. Objective Data Date Time Temp Pulse Resp B/P Pulse Ox O2 Delivery O2 Flow Rate FiO2 10/21/16 06:00 64 10/21/16 04:00 96 2.00 10/21/16 04:00 98.0 60 17 145/79 96 10/21/16 04:00 60 10/21/16 02:00 60 10/21/16 00:00 64 10/21/16 00:00 97 2.00 10/21/16 00:00 99.2 64 24 157/74 97 10/20/16 22:00 94 10/20/16 22:00 68 10/20/16 21:00 95 CPAP 2.00 10/20/16 20:58 97 Venturi Mask 6.00 50 10/20/16 20:00 97 Venturi Mask 6.00 50 10/20/16 20:00 68 10/20/16 20:00 99.3 68 19 145/68 97 10/20/16 18:00 70 10/20/16 16:00 96 Venturi Mask 6.00 50 10/20/16 16:00 75 10/20/16 16:00 100.9 75 18 130/57 96 10/20/16 14:00 81 10/20/16 13:56 93 Venturi Mask 6.00 50 10/20/16 13:53 93 Venturi Mask 6.00 50 10/20/16 13:45 88 10/20/16 13:00 88 Nasal Cannula 6.00 10/20/16 12:45 88 Nasal Cannula 4.00 10/20/16 12:45 98.8 77 21 116/65 93 10/20/16 12:45 77 10/21/16 10/21/16 10/21/16 07:00 15:00 23:00 Intake Total 1016 ml 480 ml Output Total 1075 ml Balance -59 ml 480 ml Result Diagram: 10/21/1644210/21/16442 Laboratory Results Laboratory Tests Test 10/21/16 04:43 White Blood Count 6.5 TH/MM3 Red Blood Count 2.43 MIL/MM3 Hemoglobin 8.2 GM/DL Hematocrit 24.9 % Mean Corpuscular Volume 102.6 FL Mean Corpuscular Hemoglobin 33.9 PG Mean Corpuscular Hemoglobin 33.1 % Concent Red Cell Distribution Width 20.0 % Platelet Count 77 TH/MM3 Mean Platelet Volume 9.1 FL Neutrophils (%) (Auto) 87.2 % Lymphocytes (%) (Auto) 11.0 % Monocytes (%) (Auto) 1.8 % Eosinophils (%) (Auto) 0.0 % Basophils (%) (Auto) 0.0 % Neutrophils # (Auto) 5.7 TH/MM3 Lymphocytes # (Auto) 0.7 TH/MM3 Monocytes # (Auto) 0.1 TH/MM3 Eosinophils # (Auto) 0.0 TH/MM3 Basophils # (Auto) 0.0 TH/MM3 CBC Comment AUTO DIFF Differential Total Cells 100 Counted Neutrophils % (Manual) 65 % Band Neutrophils % 20 % Lymphocytes % 14 % Monocytes % 1 % Neutrophils # (Manual) 5.5 TH/MM3 Differential Comment FINAL DIFF MANUAL Platelet Estimate LOW Platelet Morphology Comment NORMAL Sodium Level 148 MEQ/L Potassium Level 3.8 MEQ/L Chloride Level 112 MEQ/L Carbon Dioxide Level 24.9 MEQ/L Anion Gap 11 MEQ/L Blood Urea Nitrogen 93 MG/DL Creatinine 4.19 MG/DL Estimat Glomerular Filtration 14 ML/MIN Rate Random Glucose 256 MG/DL Calcium Level 7.8 MG/DL Imaging Studies Last 24 hours Impressions Renal Ultrasound 10/21/16 0000 Signed Impressions: Service Date/Time: Friday, October 21, 2016 10:06 - CONCLUSION: Negative for hydronephrosis. The right kidney is small. Keyshawn Gilman MD FACR Administered Medications Medications (Trade) Dose Ordered Sig/Srinath Route PRN Reason Start Time Stop Time Status Last Admin Dose Admin Dextrose (D50w (Vial) Inj) 25 ml UNSCH PRN IV PUSH HYPOGLYCEMIA-SEE COMMENTS 10/19/16 03:00 10/20/16 05:59 IV Flush (NS Flush) 2 ml BID FLUSH 10/19/16 09:00 10/20/16 20:52 Acyclovir (Zovirax) 400 mg BID PO 10/19/16 09:00 10/21/16 10:01 Allopurinol (Zyloprim) 300 mg DAILY PO 10/19/16 09:00 10/21/16 10:01 Carvedilol (Coreg) 25 mg BID PO 10/19/16 09:00 10/21/16 10:00 Clonidine (Catapres) 0.3 mg BID PO 10/19/16 09:00 Hold 10/20/16 08:59 Econazole Nitrate (Spectazole 1% Cream) 1 applic DAILY TOPICAL 10/19/16 09:00 10/21/16 10:04 Hydroxychloroquine Sulfate (Plaquenil) 200 mg BID PO 10/19/16 09:00 10/21/16 10:01 Pravastatin Sodium (Pravachol) 40 mg DAILY PO 10/19/16 09:00 10/21/16 10:01 Pantoprazole Sodium (Protonix) 40 mg DAILY PO 10/19/16 09:00 10/21/16 10:01 Gabapentin 100 mg 100 mg BID PO 10/20/16 09:00 10/21/16 10:02 Dextrose/Sodium Chloride 1,000 ml @ 84 mls/hr [id number] IV 10/20/16 11:15 10/20/16 23:18 Naloxone HCl/ Dextrose (Narcan Inj/D5W Inj) 250 ml @ 0 mls/hr TITRATE IV 10/20/16 15:15 10/21/16 06:47 Insulin Aspart (NovoLOG SUPPLEMENTAL SCALE) 1 Q6HR SQ 10/20/16 19:37 10/21/16 06:06 Objective Remarks GENERAL: Elderly male, sitting up in bed in [facility]. SKIN: Warm and dry. HEAD: Normocephalic. EYES: No injection or drainage. NECK: Supple, trachea midline. CARDIOVASCULAR: +S1/S2 RESPIRATORY: Breath sounds equal bilaterally. No accessory muscle use. GASTROINTESTINAL: Abdomen soft, non-tender, nondistended. EXTREMITIES: No cyanosis NEUROLOGICAL: awake and alert, normal speech. Assessment/Plan Problem List: (1) Macrocytic anemia Status: Acute Plan: --hgb stable today. will monitor --Macrocytic anemia with thrombocytopenia most likely due to Ninlaro. --B12, folate WNL --iron studies equivocal (2) Multiple myeloma Status: Chronic Plan: no acute oncology intervention is required for his multiple myeloma. The patient took his last Ninlaro last week and this is his off week. Once the patient is discharged to home, then he will resume the Ninlaro and will continue to follow up with his medical oncologist Dr. Kemp and Dr. Patel. --diagnosed in March of 2013 status post multiple different chemotherapy regimens. --six different chemotherapy regimens. --Recently the Revlimid was stopped due to chronic renal failure. --under the care of two medical oncologist, one locally Dr. Kemp and the other one is Dr. Patel at [facility] in [place]. --recently started on Ninlaro about two months ago. They are waiting for at least three months to see whether he is responding to the Ninlaro or not. ++follow-up appointment with Dr. Patel at [facility] in the first week of December. --also has a follow up appointment with his local medical oncologist Dr. Kemp soon. (3) Fall Status: Acute Plan: --Status post fall --complaining of back pain and the CT scan of the lumbar spine shows moderate compressive injury at L1 with possible small focus of epidural hemorrhage. --NS following (4) CKD (chronic kidney disease) Status: Acute Plan: -- End-stage renal disease with GFR of 15. (5) CHF (congestive heart failure) Status: Acute Assessment 76y/o male with multiple myeloma. g/o Multiple myeloma--diagnosed in 2012 chronic back pain Sleep apnea Congestive heart failure TIA Diabetes mellitus Chronic atrial fibrillation Anxiety disorder Hiatal hernia Acid reflux History of prostate cancer status post radical prostatectomy Depression Neuropathy Migraine headaches Attending Statement more awake and alert . Had narcan. d/w pt regarding hospice. He declines. nothing much to offer at this time. Veena Mehta Oct 21, 2016 12:25 Melissa Elaine MD Oct 21, 2016 21:23
[2016-10-21] MEDS: DEXT 5%-NACL 0.45% 1000 ML INJ 1,000 ML IV SCH ×2 (12:56→23:00)
--- NOTE | 2016-10-21 15:00 | PD.CONS ---
Consult Service Palliative Care . Consult Requested By Dr. Grissom . Primary Care Physician Dayo Katz MD . Reason for Consultation a. To assist with evaluation and management of symptoms including: generalized pain; encephalopathy b. To assist medical decision maker(s) with: better understanding of current medical conditions; weighing benefits/burdens of medical treatment options; making medical treatment decisions. ., HPI History of Present Illness Mr. Navarro is a 76-year-old male know to the palliative care serive with multiple underlying medical problems including multiple myeloma on chemotherapy ; chronic pain; sleep apnea; hypertension; coronary artery disease with pacemaker placement; history of atrial fibrillation; history of prostate cancer ; history of congestive heart failure (EF on echo of 08/22 11 was 25-30%); history of cerebrovascular disease with TIAs; diabetes mellitus with neuropathy ; migraine headaches; obesity status post lap band surgery; and anxiety/ depression who presented to the emergency department at [facility] on after falling at home. He felt lightheaded, then felt like he "lost control " of his body. The patient has chronic generalized pain for many years but feels the fall exacerbated his low back pain and significantly worsened his left ankle pain. He had fractured the left ankle/foot about a year earlier. He also reported injuring his nose in the fall and had some nose bleeding as a result. The patient is on Pradaxa for a history of A fib. He did not seek help immediately after the fall. In fact, per daughter, he had gone to the store and even had a meal at [employer]. It was only later in the day that the pain became significantly worse and he asked to be taken to the ER for evaluation. The patient had just been hospitalized at [facility] in September, but they opted to come to the ED at [place] because they called ahead and the wait was shorter at our facility. Since his [facility] hospitalization in September, the patient's pain management regimen has been under the control of Hussein May MD -- the palliative care physician who cared for him in the hospital there. Family says that the patient takes his pain medication as directed. Pain management in the past has been very problematic. He reportedly cannot tolerate fentanyl because of a rash. He has significant heart disease so methadone is problematic and apparently it was difficult for his physicians to manage methadone as an outpatient and at one time family reports he required hospitalization because methadone was continued and other opiates were added without making adjustments. The patient's multiple myeloma was first diagnosed about 14 years ago. He has been on chemo regimens for about four years. He has been under the care of Dr. Patel at [facility] and locally under the care of Dr. Kemp. He has been on multiple differrent chemotherapy regimens over the years. About 2 months ago, the patient was placed on Ninlaro on a regimen that consisted of once a week for 3 weeks and then 1 week off. He had taken the Ninlaro the week prior to this admission and was off the medication when admitted. Renal insufficiency has been associated with several different chem regimens. He had been told recently prior to this admission that he was close to needing hemodialysis. The patient had opted to continue aggressive myeloma directed treatments even if it meant going on dialysis for the rest of his life. The patient was seen last at [facility] in September and has a follow-up appointment in December. Family had told me when I saw the patient in [address] Baxter and Dr. Kemp had recommended hospice at that time. Family tells me that hospice continues to be recommended but the patient and his continue to request all aggressive treatment options. The patient has years of chronic pain which is present "26/04." He attributes some of this pain to his multiple myeloma and some of his pain to multiple chemical exposures (e.g. Agent [place]) which occurred while in the [employer]. Most of his chronic pain is in the bilateral low back area, neck, and shoulders. He has been on chronic opiate therapy for years. When I first met this patient in 2014, the patient would use 45 mg of long acting morphine q 12 hours around the clock and 10 mg of immediate release oxycodone twice daily. He would still be in bad pain with this regimen. He has been to interventional pain specialists in the past who have told him there was nothing further they could do for the pain. At time of this admission I believe his pain regimen consisted of the following: * Extended release morphine sulfate; 15 mg tablets; one by mouth 3 times daily * Gabapentin 300 mg capsule; one by mouth 5 times daily * Tramadol 50 mg tablet; one by mouth every 6 hours as needed * Hydrocodone-acetaminophen 5-325 mg tablet; one by mouth every 12 hours as needed In the emergency room on arrival, patient's vital signs were as follows: Temperature 98.2; pulse 60; respiratory rate 18; blood pressure 135/73; pulse oximetry 97% on room air Physical examination by the emergency department provider noted the following: Patient was drowsy appearing on examination and had difficulty keeping his eyes open. He was able to answer questions appropriately however. There was tenderness to palpation in the mid epigastric area. There was tenderness along the paraspinous muscles of the lumbar spine bilaterally. There is no spinous process tenderness to palpation and no costovertebral angle tenderness to palpation. There was a positive straight leg raise bilaterally with increasing low back pain worse on the left side. The remainder of the physical exam was unremarkable. Initial diagnostic testing showed the following * CBC showed WBC 8.9; hemoglobin 9.1; platelet count 88 * Coagulation profile showed PT 11.1; INR 1.0; PTT 32.4 * Electrolyte panel showed sodium 143; potassium 4.2; chloride 107; CO2 26; anion gap 10; BUN 103; creatinine 3.97; GFR 15; glucose 30; calcium 8.2; magnesium 1.9 * Liver function tests show total bilirubin 0.3; AST 14; ALT 31; alkaline phosphatase 36; total protein 7.2; albumin 2.6 * Cardiac serology show total CK 186; CK-MB 5.6; troponin 0.05; B type natriuretic peptide 256 * Urinalysis was unremarkable * CT of the T-spine showed no evidence of fracture * CT of the cervical spine showed no acute bony injury * CT of the lumbar spine showed a moderate compressive injury at L1. Possible small focus of epidural hemorrhage in the right canal at the S1 level. Multilevel disc disease and facet arthropathy. Large densely calcified or ossified ventral canal mass at the L4 level -- the radiologist felt this might be sequelae of a previous disc protrusion/extrusion or possibly an ossified neoplasm-osteoma, osteochondroma, or meningioma. * Pelvic x-ray showed no acute bony injury * Foot x-ray showed no acute bony injury * Ankle x-ray was unremarkable * Maxillofacial CT showed no evidence of facial fracture * Head CT showed no acute intracranial injury. There were findings of worsening myeloma * Accu-Chek came back at 44. In the emergency department, the patient was given an amp of D50 for the low blood sugar level. He was given a bolus of normal saline. He was given 0.2 mg of IV hydromorphone for pain as well as 4 mg of IV Zofran for nausea. There is no evidence of significant dysrhythmia on the court recording monitor. The patient was admitted to the hospitalist service. Neurosurgery was consulted because of the abnormality seen on CT of the lumbar spine. Nephrology was consulted for what appeared to be acute on chronic kidney disease. Hematology/oncology was consulted for the patient's multiple myeloma. Nephrology noted that the patient's creatinine in December 2014 was 1.5. They felt there was no acute need for dialysis and recommended close monitoring. Neurosurgery was brought in for evaluation of the L1 compression fracture and the L4 calcified central mass. Dr. Aceves recommended conservative management of the L1 vertebral body with the use of a brace when out of bed and physical therapy to increase his activity status. He thought the L4 calcified ventral mass was chronic. He recommended follow-up x-rays in 6 weeks to assess for fracture healing. Hematology/oncology felt there was no need at this time to consider further therapy directed towards the multiple myeloma as the patient had just completed a course of Ninlaro and his usual oncologist's will be following up to see if he had responded to the medication. The patient was continued on his long-acting morphine sulfate as well as his gabapentin. On the morning of 10/20/16 he was found difficult to arouse. He was given Narcan with some improvement. He was then transferred to the surgical intensive care unit for closer monitoring. The gabapentin and scheduled morphine were stopped. A Narcan drip was started. Today, the patient is found to be far more alert. He is easily aroused. He fed himself breakfast and lunch. He denied significant pain and has not been given any opiate analgesics. Bowels are moving. He is making urine. Renal function continues to be impaired per morning lab with a creatinine of 4.19, BUN 93, and GFR 14. Chest x-ray performed in 10/20 showed possible atelectasis versus consolidation at the bases. Renal ultrasound performed on 10/21 showed no evidence of hydronephrosis. The right kidney was small. At time of my visit, the patient is easily awakened. He denies pain/shortness of breath. No other complaints at this time. The nurse reports he was out of bed with his brace in place and use the bedside commode earlier today. . Function/Cognitive Trajectory In spite of his chronic pain syndrome, long-standing multiple myeloma, and multiple other chronic conditions, Mr. Navarro has been fairly active. He still toilets, bathes, feeds, dresses himself . He uses a motorized scooter to get around. He continues to drive his car. Family reports some increased grogginess over the last couple of weeks. Though patient is constantly in some level of pain, there have been no significant change in pain status in the weeks leading up to his fall. As noted above the patient was hospitalized last month at [facility] -- I am not certain what that hospitalization was for. The patient gets periodic tremors/shakes that seem to come on out of nowhere and seem to contribute to some of his falls. The patient is on total disability through the [employer]. He uses home 02 at 2 L/m and is on CPAP at night for his sleep apnea. Family tells me that his heart is functioning at 20% which I presume is his estimated ejection fraction. He gets occasional chest pains, but does not use nitroglycerin. . . Review of Systems Constitutional: COMPLAINS OF: Fatigue, Dizziness, Pain, DENIES: Fever, Night Sweats Endocrine: DENIES: Polyuria, Polyphagia Eyes: COMPLAINS OF: Vision loss (wears glasses), DENIES: Diplopia, Eye pain Ears, nose, mouth, throat: COMPLAINS OF: Hearing loss (left ear hearing loss - - has hearing aids), Epistaxis (with recent fall), DENIES: Tinnitus, Throat pain, Ear Pain, Running Nose Respiratory: COMPLAINS OF: Apneas (Has obstructive sleep apnea-- CPAP at night) , Snoring, Shortness of breath, DENIES: Cough, Wheezing, Hemoptysis Cardiovascular: COMPLAINS OF: Chest pain, Palpitations, Dyspnea on Exertion, Lower Extremity Edema, DENIES: Syncope Gastrointestinal: COMPLAINS OF: Bloody stools (Known hemorrhoids), Constipation (chronic -- probably related to chronic opiate use), Dyspepsia or heartburn, DENIES: Black stools, Nausea, Vomiting, Difficulty Swallowing, Anorexia, Vomiting blood Genitourinary: COMPLAINS OF: Decreased stream, DENIES: Hematuria, Dysuria Musculoskeletal: COMPLAINS OF: Joint pain, Muscle aches, Stiffness, Joint Swelling, Back pain, Neck pain, Decreased range of motion Integumentary: COMPLAINS OF: Rash (on his back) Hematologic/Lymphatics: COMPLAINS OF: History of transfusions, DENIES: Lymphadenopathy Immunologic/Allergic: DENIES: Eczema, Urticaria Neurologic: COMPLAINS OF: Abnormal gait, Paresthesias (bilateral neuropathy in extremities), Tremor, Poor Balance, DENIES: Seizures Psychiatric: COMPLAINS OF: Anxiety, Confusion, Depression Past Family Social History Coded Allergies: Fentanyl (Verified Allergy, Severe, Itching, 10/18/16) Warfarin (Verified Allergy, Unknown, 10/18/16) *MDRO Multi-Drug Resistant Organism (Verified Adverse Reaction, Unknown, ) MRSA PCR screens negative 12/12/14 and 12/19/14- cleared per infection control Past Medical History * Multiple myeloma (followed at [facility] and locally by Dr. Kemp) * Hx of Prostate cancer * Coronary artery disease s/p cardiac cath 2001 -- * Hyperlipidemia * CHF -- reported EF of 20% * Atrial fib * Cerebrovascular disease with TIAs * Diabetes mellitus * Hemorrhoids * GERD * Patel's esophagus per EGD with biopsy 2013. * Hiatal hernia * Hypertension * Pacemaker placement 2008 * Peripheral neuropathy * Migraine headaches * Obstructive sleep apnea (uses BiPAP at night) * Diverticulosis per colonoscopy 2008. * Anxiety * Depression * PTSD -- seen at [facility] . Past Surgical History * Tympanostomy tubes 194 * Tonsillectomy as child * Mastectomy * Radical prostatectomy * Cystoscopy with dilation of bladder neck * Bilateral cataract extraction with lens implants * Herniorrhaphy * Cardiac ablation * Pacemaker placement 2008 * Nasal surgery * Lap band surgery 2006 * bilateral heel spur surgery . Reported Medications Pre-hospital medications included the following: * O melvina drawn; 8 mg tablets; one by mouth 3 times daily * Entresto (Sacubitril-Valsartan) 49-51 mg tab; one by mouth daily for heart failure * Lactulose; 30 cc by mouth every 6 hours as needed for constipation * Nystatin-triamcinolone cream; apply topically to rash * Cyclosporine ophthalmic drops; one drop each eye twice daily * Dabigatran (Pradaxa) 75 mg; one by mouth twice daily * Gabapentin 300 mg capsule; one by mouth 5 times daily * Econazole 1% cream; apply topically for fungal rash * Allopurinol 300 mg tablet; one by mouth daily * Hydrochloroquine 200 mg tablets; one by mouth twice daily * Lidocaine patch 4% apply daily * Mirabegron (Myrbetriq) 50 mg tablets; one by mouth daily for urinary symptoms * Carvedilol 25 mg tablets; one by mouth twice daily * Clonidine 0.3 mg tablet; one by mouth twice daily * Choline fenofibrate 135 mg capsule; one by mouth daily * Pravastatin 40 mg tablet; one by mouth daily * Furosemide 40 mg tablets; one by mouth twice daily * Acyclovir 400 mg tablet; one by mouth twice daily * Hydrocodone-acetaminophen 5-325 mg tablet; one by mouth every 12 hours when necessary * Morphine sulfate extended release 15 mg tablets; one by mouth 3 times daily * Tramadol 50 mg tablets; one by mouth every 6 hours when necessary pain * Exomeprazole (Nexium) 40 mg capsule; one by mouth daily * Potassium chloride extended release 10 mEq 1 by mouth daily * Dexmethylphenidate extended release 20 mg capsule 1 by mouth daily * Glimepiride 4 mg tablet; one by mouth twice daily * Chlorthalidone 25 mg tablet; one by mouth daily . Current Medications Medications (Trade) Dose Ordered Sig/Srinath Route Start Time Stop Time Status Last Admin (D50w (Vial) Inj) 25 ml UNSCH PRN IV PUSH 10/19/16 03:00 10/20/16 05:59 (Glucagon Inj) 1 mg UNSCH PRN OTHER 10/19/16 03:00 (NS Flush) 2 ml UNSCH PRN FLUSH 10/19/16 03:00 (NS Flush) 2 ml BID FLUSH 10/19/16 09:00 10/20/16 20:52 (Zofran Inj) 4 mg Q6H PRN IVP 10/19/16 03:00 (Dulcolax Supp) 10 mg DAILY PRN IL 10/19/16 03:00 (Tylenol) 650 mg Q6H PRN PO 10/19/16 03:00 (Zovirax) 400 mg BID PO 10/19/16 09:00 10/21/16 10:01 (Zyloprim) 300 mg DAILY PO 10/19/16 09:00 10/21/16 10:01 (Coreg) 25 mg BID PO 10/19/16 09:00 10/21/16 10:00 (Catapres) 0.3 mg BID PO 10/19/16 09:00 Hold 10/20/16 08:59 Patient Own Medication PT OWN MED: FOCALIN... DAILY PO 10/19/16 09:00 Hold (Spectazole 1% Cream) 1 applic DAILY TOPICAL 10/19/16 09:00 10/21/16 10:04 (Plaquenil) 200 mg BID PO 10/19/16 09:00 10/21/16 10:01 (Lactulose Liq) 30 ml Q6H PRN PO 10/19/16 03:00 (Pravachol) 40 mg DAILY PO 10/19/16 09:00 10/21/16 10:01 Patient Own Medication PT OWN MED: Emulsion, Ophthal... BID EACH EYE 10/19/16 03:30 Hold (Protonix) 40 mg DAILY PO 10/19/16 09:00 10/21/16 10:01 Patient Own Medication PT OWN MED: (Myrbet... DAILY PO 10/19/16 03:15 Hold (Flexeril) 10 mg Q8H PRN PO 10/19/16 03:30 Gabapentin 100 mg 100 mg BID PO 10/20/16 09:00 10/21/16 10:02 (D5W-1/2 NS 1000 ml Inj) 1,000 ml @ 84 mls/hr [id number] IV 10/20/16 11:15 10/21/16 12:56 (Dilaudid Pf Inj) 0.5 mg Q4H PRN IV PUSH 10/20/16 15:15 Hydromorphone HCl 0.2 mg 0.2 mg Q4H PRN IV PUSH 10/20/16 15:15 (Narcan Inj/D5W Inj) 250 ml @ 0 mls/hr TITRATE IV 10/20/16 15:15 10/21/16 12:55 Insulin Aspart 1 1 Q6HR SQ 10/20/16 19:37 10/21/16 13:09 (Zosyn 2.25 Gm Premix) 50 ml @ 100 mls/hr Q6H IV 10/21/16 14:00 . Family History Patient was adopted. He knows his father of an MA, otherwise family history is unknown. . Substance Use Tobacco: Lifetime non-smoker Alcohol: No hx of abuse Prescription med abuse: No known prescription drug abuse, though he has been on chronic opiate therapy for many years. Illicits: No known use of illicits. . Psychosocial History Originally from [place] but grew up here in [place]. Patient attended college. He was over 30 years in the [employer] and is a decorated . He saw combat. He retired as a Lt-Colonel. Patient is X 1. He has been to Sonya for 54 years. The couple has three children. Moses and Isamar live locally and are very involved in their father's care. Son Phil lives in [place]. there are 8 grandchildren. The patient lives with his . . Spiritual/Cultural Factors Mandaeism tradition. "He is a believer." . Living Will: Never completed Health Care Surrogate: Never completed Durable Power of Night Coordinator: Never completed Date completed: Never completed advance directives . Health Care Surrogate(s): No written designation of health care surrogacy. . Documented care wishes: No written documentation of health care goals/preferences. . Today's verbally stated goals: Patient unable to verbally state his own goals/preferences today. . Family/friends goals: son and daughter have told me that patient (and his ) continue to opt for all aggressive treatments including resuscitative attempts in spite of recommendations by his oncologists and other physicians to consider hospice. . Ethical and Legal Issues Patient is still on a Narcan drip and drowsy. I would recommend shared decision making with family at this time. I anticipate he will be fully capacitated to make his own health care decisions by 10/22/16. .. . Physical Exam Vital Signs Date Time Temp Pulse Resp B/P Pulse Ox O2 Delivery O2 Flow Rate FiO2 10/21/16 12:00 97.7 66 21 134/84 97 10/21/16 12:00 66 10/21/16 10:00 63 10/21/16 08:00 97.9 65 14 153/73 96 10/21/16 08:00 65 10/21/16 06:00 64 10/21/16 04:00 96 2.00 10/21/16 04:00 98.0 60 17 145/79 96 10/21/16 04:00 60 10/21/16 02:00 60 10/21/16 00:00 64 10/21/16 00:00 97 2.00 10/21/16 00:00 99.2 64 24 157/74 97 10/20/16 22:00 94 10/20/16 22:00 68 10/20/16 21:00 95 CPAP 2.00 10/20/16 20:58 97 Venturi Mask 6.00 50 10/20/16 20:00 97 Venturi Mask 6.00 50 10/20/16 20:00 68 10/20/16 20:00 99.3 68 19 145/68 97 10/20/16 18:00 70 10/20/16 16:00 96 Venturi Mask 6.00 50 10/20/16 16:00 75 10/20/16 16:00 100.9 75 18 130/57 96 . 10/20/16 10/21/16 19:00 07:00 Intake Total 336 ml 2041 ml Output Total 500 ml 2350 ml Balance -164 ml -309 ml IV Total 336 ml 2041 ml Output Urine Total 500 ml 2350 ml # Voids 1 # Bowel Movements 1 . Exam CONSTITUTIONAL/GENERAL: This is an adequately nourished patient asleep in an SICU bed. He awakens to voice and exam and answers simple questions appropriately. No apparent distress TUBES/LINES/DRAINS: Right chest port; peripheral IV line left antecubital fossa ; Kuhn catheter; SCDs; protective boot left ankle/foot; nasal cannula oxygen; SKIN: No jaundice, lesions. No wounds seen anteriorly. Skin temperature appropriate. Not diaphoretic. HEAD: Atraumatic. Normocephalic. EYES: Pupils equal and round and reactive. Extraocular motions intact. No scleral icterus. No injection or drainage. Fundi not examined. ENT: Appears hard of hearing. Nose without bleeding or purulent drainage. Throat without visible erythema, exudates, masses, or lesions. NECK: Trachea midline. Supple, nontender. No palpable thyroid enlargement or nodularity. CARDIOVASCULAR: Regular rate and rhythm without murmurs, gallops, or rubs. No JVD. Peripheral pulses symmetric. RESPIRATORY/CHEST: Symmetric, unlabored respirations. Clear to auscultation. Breath sounds equal bilaterally. No wheezes, rales, or rhonchi. GASTROINTESTINAL: Abdomen soft, non-tender, nondistended. No hepato-splenomegaly , or palpable masses. No guarding. Bowel sounds present. GENITOURINARY: Without palpable bladder distension. Kuhn catheter in place. MUSCULOSKELETAL: SCDs in place; protective boot on left ankle/foot. No visible clubbing, cyanosis, or edema. No calf tenderness. Mild low back tenderness. No mottling or clubbing. LYMPHATICS: No palpable cervical or supraclavicular adenopathy. NEUROLOGICAL: Drowsy, but awakens with voice/exam. Follows commands. answers simple questions appropriately. Moves all extremities. PSYCHIATRIC: No obvious anxiety/depression. No apparent hallucinations or other psychotic thought process. . Diagnostic Tests Laboratory Laboratory Tests Test 10/18/16 10/19/16 10/19/16 10/19/16 23:35 00:00 09:50 13:22 White Blood Count 8.9 TH/MM3 5.5 TH/MM3 (4.0-11.0) (4.0-11.0) Red Blood Count 2.71 MIL/MM3 2.62 MIL/MM3 (4.50-5.90) (4.50-5.90) Hemoglobin 9.1 GM/DL 8.8 GM/DL (13.0-17.0) (13.0-17.0) Hematocrit 27.4 % 26.9 % (39.0-51.0) (39.0-51.0) Mean Corpuscular Volume 101.2 FL 102.7 FL (80.0-100.0) (80.0-100.0) Mean Corpuscular Hemoglobin 33.7 PG 33.7 PG (27.0-34.0) (27.0-34.0) Mean Corpuscular Hemoglobin 33.3 % 32.9 % Concent (32.0-36.0) (32.0-36.0) Red Cell Distribution Width 19.9 % 19.8 % (11.6-17.2) (11.6-17.2) Platelet Count 88 TH/MM3 74 TH/MM3 (150-450) (150-450) Mean Platelet Volume 9.1 FL 9.5 FL (7.0-11.0) (7.0-11.0) Neutrophils (%) (Auto) 74.8 % 85.8 % (16.0-70.0) (16.0-70.0) Lymphocytes (%) (Auto) 20.2 % 10.7 % (9.0-44.0) (9.0-44.0) Monocytes (%) (Auto) 4.8 % (0.0-8.0) 3.1 % (0.0-8.0) Eosinophils (%) (Auto) 0.1 % (0.0-4.0) 0.3 % (0.0-4.0) Basophils (%) (Auto) 0.1 % (0.0-2.0) 0.1 % (0.0-2.0) Neutrophils # (Auto) 6.7 TH/MM3 4.7 TH/MM3 (1.8-7.7) (1.8-7.7) Lymphocytes # (Auto) 1.8 TH/MM3 0.6 TH/MM3 (1.0-4.8) (1.0-4.8) Monocytes # (Auto) 0.4 TH/MM3 0.2 TH/MM3 (0-0.9) (0-0.9) Eosinophils # (Auto) 0.0 TH/MM3 0.0 TH/MM3 (0-0.4) (0-0.4) Basophils # (Auto) 0.0 TH/MM3 0.0 TH/MM3 (0-0.2) (0-0.2) CBC Comment AUTO DIFF AUTO DIFF Differential Comment AUTO DIFF AUTO DIFF CONFIRMED CONFIRMED Platelet Estimate LOW (NORMAL) LOW (NORMAL) Platelet Morphology Comment NORMAL NORMAL (NORMAL) (NORMAL) Ovalocytes 1+ (NORMAL) Prothrombin Time 11.1 SEC (9.8-11.6) Prothromb Time International 1.0 RATIO Ratio Activated Partial 32.4 SEC Thromboplast Time (24.3-30.1) Sodium Level 143 MEQ/L 143 MEQ/L (136-145) (136-145) Potassium Level 4.2 MEQ/L 3.8 MEQ/L (3.5-5.1) (3.5-5.1) Chloride Level 107 MEQ/L 108 MEQ/L (98-107) (98-107) Carbon Dioxide Level 26.0 MEQ/L 26.4 MEQ/L (21.0-32.0) (21.0-32.0) Anion Gap 10 MEQ/L (5-15) 9 MEQ/L (5-15) Blood Urea Nitrogen 103 MG/DL 94 MG/DL (7-18) (7-18) Creatinine 3.97 MG/DL 3.84 MG/DL (0.60-1.30) (0.60-1.30) Estimat Glomerular Filtration 15 ML/MIN (>89) 15 ML/MIN (>89) Rate Random Glucose 30 MG/DL 189 MG/DL (74-106) (74-106) Calcium Level 8.2 MG/DL 7.9 MG/DL (8.5-10.1) (8.5-10.1) Magnesium Level 1.9 MG/DL (1.5-2.5) Total Bilirubin 0.3 MG/DL 0.3 MG/DL (0.2-1.0) (0.2-1.0) Aspartate Amino Transf 14 U/L (15-37) 16 U/L (15-37) (AST/SGOT) Alanine Aminotransferase 31 U/L (12-78) 29 U/L (12-78) (ALT/SGPT) Alkaline Phosphatase 36 U/L (45-117) 36 U/L (45-117) Total Creatine Kinase 186 U/L (39-308) Creatine Kinase MB 5.6 NG/ML (0.5-3.6) Troponin I 0.05 NG/ML (0.02-0.05) B-Type Natriuretic Peptide 256 PG/ML (0-100) Total Protein 7.2 GM/DL 6.6 GM/DL (6.4-8.2) (6.4-8.2) Albumin 2.6 GM/DL 2.3 GM/DL (3.4-5.0) (3.4-5.0) Urine Color LIGHT-YELLOW (YELLW/STRAW) Urine Turbidity CLEAR (CLEAR) Urine pH 5.0 (5.0-8.5) Urine Specific [place] 1.012 (1.002-1.035) Urine Protein TRACE mg/dL (NEG-TRACE) Urine Glucose (UA) NEG mg/dL (NEG) Urine Ketones NEG mg/dL (NEG) Urine Occult Blood NEG (NEG) Urine Nitrite NEG (NEG) Urine Bilirubin NEG (NEG) Urine Urobilinogen LESS THAN 2.0 MG/DL (LESS THAN 2.0) Urine Leukocyte Esterase NEG (NEG) Urine WBC LESS THAN 1 /hpf (0-5) Urine Mucus FEW /lpf (OCC) Microscopic Urinalysis Comment CULT NOT INDICATED Keratocytes OCC (NORMAL) Hemoglobin A1c 7.2 % (4.3-6.0) Iron Level 31 MCG/DL (65-175) Total Iron Binding Capacity 245 MCG/DL (250-450) Percent Iron Saturation 12.7 % (20-50) Ferritin 681 NG/ML (26-388) Vitamin B12 Level 576 PG/ML (193-986) Folate GREATER THAN 20.0 NG/ML (3.1-17.5) Ammonia 26 MCMOL/L (11-32) Test 10/19/16 10/20/16 10/20/16 10/20/16 14:20 05:55 06:50 10:31 Blood Gas Puncture Site RT RADIAL Blood Gas Patient Temperature 98.6 Blood Gas HCO3 22 mmol/L (22-26) Blood Gas Base Excess -2.1 mmol/L (-2-2) Blood Gas Oxygen Saturation 90 % (90-100) Arterial Blood pH 7.37 (7.380-7.420) Arterial Blood Partial 39 mmHg (38-42) Pressure CO2 Arterial Blood Partial 69 mmHg Pressure O2 (61-120) Arterial Blood Oxygen Content 12.0 Vol % (12.0-20.0) Arterial Blood 1.4 % (0-4) Carboxyhemoglobin Arterial Blood Methemoglobin 0.9 % (0-2) Blood Gas Hemoglobin 9.4 G/DL (12.0-16.0) Oxygen Delivery Device ROOM AIR Blood Gas Inspired Oxygen 21 % Random Glucose 41 MG/DL 96 MG/DL (74-106) (74-106) Immunoglobulin G Total 1800 MG/DL (680-1670) Immunoglobulin A 11 MG/DL (103-568) Immunoglobulin M LESS THAN 8 MG/DL (38-231) White Blood Count 5.7 TH/MM3 (4.0-11.0) Red Blood Count 2.80 MIL/MM3 (4.50-5.90) Hemoglobin 9.3 GM/DL (13.0-17.0) Hematocrit 28.9 % (39.0-51.0) Mean Corpuscular Volume 103.4 FL (80.0-100.0) Mean Corpuscular Hemoglobin 33.4 PG (27.0-34.0) Mean Corpuscular Hemoglobin 32.3 % Concent (32.0-36.0) Red Cell Distribution Width 20.0 % (11.6-17.2) Platelet Count 83 TH/MM3 (150-450) Mean Platelet Volume 9.4 FL (7.0-11.0) Neutrophils (%) (Auto) 85.3 % (16.0-70.0) Lymphocytes (%) (Auto) 11.5 % (9.0-44.0) Monocytes (%) (Auto) 2.8 % (0.0-8.0) Eosinophils (%) (Auto) 0.3 % (0.0-4.0) Basophils (%) (Auto) 0.1 % (0.0-2.0) Neutrophils # (Auto) 4.9 TH/MM3 (1.8-7.7) Lymphocytes # (Auto) 0.7 TH/MM3 (1.0-4.8) Monocytes # (Auto) 0.2 TH/MM3 (0-0.9) Eosinophils # (Auto) 0.0 TH/MM3 (0-0.4) Basophils # (Auto) 0.0 TH/MM3 (0-0.2) CBC Comment AUTO DIFF Differential Total Cells 100 Counted Neutrophils % (Manual) 72 % (16-70) Band Neutrophils % 18 % (0-6) Lymphocytes % 8 % (9-44) Monocytes % 1 % (0-8) Eosinophils % 1 % (0-4) Neutrophils # (Manual) 5.1 TH/MM3 (1.8-7.7) Differential Comment FINAL DIFF MANUAL Platelet Estimate LOW (NORMAL) Platelet Morphology Comment NORMAL (NORMAL) Sodium Level 145 MEQ/L (136-145) Potassium Level 3.9 MEQ/L (3.5-5.1) Chloride Level 109 MEQ/L (98-107) Carbon Dioxide Level 27.5 MEQ/L (21.0-32.0) Anion Gap 9 MEQ/L (5-15) Blood Urea Nitrogen 88 MG/DL (7-18) Creatinine 3.94 MG/DL (0.60-1.30) Estimat Glomerular Filtration 15 ML/MIN (>89) Rate Calcium Level 8.2 MG/DL (8.5-10.1) Test 10/20/16 10/21/16 10:58 04:43 Blood Gas Puncture Site RT RADIAL Blood Gas Patient Temperature 98.6 Blood Gas HCO3 24 mmol/L (22-26) Blood Gas Base Excess -0.6 mmol/L (-2-2) Blood Gas Oxygen Saturation 94 % (90-100) Arterial Blood pH 7.37 (7.380-7.420) Arterial Blood Partial 42 mmHg (38-42) Pressure CO2 Arterial Blood Partial 96 mmHg Pressure O2 (61-120) Arterial Blood Oxygen Content 12.2 Vol % (12.0-20.0) Arterial Blood 1.6 % (0-4) Carboxyhemoglobin Arterial Blood Methemoglobin 1.0 % (0-2) Blood Gas Hemoglobin 9.1 G/DL (12.0-16.0) Oxygen Delivery Device Non-Rebreathing Mask Blood Gas Inspired Oxygen 100 % White Blood Count 6.5 TH/MM3 (4.0-11.0) Red Blood Count 2.43 MIL/MM3 (4.50-5.90) Hemoglobin 8.2 GM/DL (13.0-17.0) Hematocrit 24.9 % (39.0-51.0) Mean Corpuscular Volume 102.6 FL (80.0-100.0) Mean Corpuscular Hemoglobin 33.9 PG (27.0-34.0) Mean Corpuscular Hemoglobin 33.1 % Concent (32.0-36.0) Red Cell Distribution Width 20.0 % (11.6-17.2) Platelet Count 77 TH/MM3 (150-450) Mean Platelet Volume 9.1 FL (7.0-11.0) Neutrophils (%) (Auto) 87.2 % (16.0-70.0) Lymphocytes (%) (Auto) 11.0 % (9.0-44.0) Monocytes (%) (Auto) 1.8 % (0.0-8.0) Eosinophils (%) (Auto) 0.0 % (0.0-4.0) Basophils (%) (Auto) 0.0 % (0.0-2.0) Neutrophils # (Auto) 5.7 TH/MM3 (1.8-7.7) Lymphocytes # (Auto) 0.7 TH/MM3 (1.0-4.8) Monocytes # (Auto) 0.1 TH/MM3 (0-0.9) Eosinophils # (Auto) 0.0 TH/MM3 (0-0.4) Basophils # (Auto) 0.0 TH/MM3 (0-0.2) CBC Comment AUTO DIFF Differential Total Cells 100 Counted Neutrophils % (Manual) 65 % (16-70) Band Neutrophils % 20 % (0-6) Lymphocytes % 14 % (9-44) Monocytes % 1 % (0-8) Neutrophils # (Manual) 5.5 TH/MM3 (1.8-7.7) Differential Comment FINAL DIFF MANUAL Platelet Estimate LOW (NORMAL) Platelet Morphology Comment NORMAL (NORMAL) Sodium Level 148 MEQ/L (136-145) Potassium Level 3.8 MEQ/L (3.5-5.1) Chloride Level 112 MEQ/L (98-107) Carbon Dioxide Level 24.9 MEQ/L (21.0-32.0) Anion Gap 11 MEQ/L (5-15) Blood Urea Nitrogen 93 MG/DL (7-18) Creatinine 4.19 MG/DL (0.60-1.30) Estimat Glomerular Filtration 14 ML/MIN (>89) Rate Random Glucose 256 MG/DL (74-106) Calcium Level 7.8 MG/DL (8.5-10.1) . Result Diagram: 10/21/16 0443 10/21/16 0443 Imaging Last Impressions Renal Ultrasound 10/21/16 0000 Signed Impressions: Service Date/Time: Friday, October 21, 2016 10:06 - CONCLUSION: Negative for hydronephrosis. The right kidney is small. Keyshawn Gilman MD FACR Chest X-Ray 10/20/16 0000 Signed Impressions: Service Date/Time: Thursday, October 20, 2016 12:30 - CONCLUSION: 1. Cardiomegaly. 2. Tubes and lines in good position. 3. Hazy density at the bases likely representing some degree of atelectasis or consolidation. Jameel Lindsey MD Thoracic Spine CT 10/18/165 Signed Impressions: Service Date/Time: Wednesday, October 19, 2016 00:43 - CONCLUSION: No evidence of thoracic spine fracture. Jameel Louie MD Lumbar Spine CT 10/18/162 Signed Impressions: Service Date/Time: Wednesday, October 19, 2016 00:43 - CONCLUSION: Moderate compressive injury at L1. Possible small focus of epidural hemorrhage in the right canal at the S1 level. Multilevel disc disease and facet arthropathy. Large densely calcified or ossified ventral canal mass at the L4 level may be sequelae of previous disc protrusion/extrusion. Alternatively, this may be a densely calcified or ossified neoplasm-osteoma, osteochondroma, meningioma. Jameel Louie MD Pelvis X-Ray 10/18/162316 Signed Impressions: Service Date/Time: Wednesday, October 19, 2016 01:10 - CONCLUSION: No acute bony injury Jameel Louie MD Foot X-Ray 10/18/162316 Signed Impressions: Service Date/Time: Wednesday, October 19, 2016 01:22 - CONCLUSION: No acute bony process. Jameel Louie MD Ankle X-Ray 10/18/162316 Signed Impressions: Service Date/Time: Wednesday, October 19, 2016 01:20 - CONCLUSION: Unremarkable examination of the left ankle. Jameel Louie MD Maxillofacial CT 10/18/162235 Signed Impressions: Service Date/Time: Tuesday, October 18, 2016 22:53 - CONCLUSION: No evidence of facial fracture Jameel Louie MD Head CT 10/18/162235 Signed Impressions: Service Date/Time: Tuesday, October 18, 2016 22:53 - CONCLUSION: No acute intracranial injury. Findings of worsening myeloma Jameel Louie MD Cervical Spine CT 10/18/162235 Signed Impressions: Service Date/Time: Tuesday, October 18, 2016 22:53 - CONCLUSION: No acute bony injury in the cervical spine Jameel Louie MD . Patient/Family Conference Present at Family Conference: I spoke with son and at bedside. I spoke again with daughter and daughter' s fiance in hallway. . . Family Conference Time (mins): 50 Family Conference Location: Bedside, [place] Issues Discussed: * Palliative care role, purpose, approach * Additional medical, psychosocial, and spiritual history * Patients general health, functional status, and cognitive changes in the months leading up to the current hospitalization * Family understanding of the current medical problems * Family understanding of prognosis * Patients goals of care as best understood from conversations and/or values * Current medical treatment options and benefits/burdens of those options * Questions answered to the best of my ability . Assessment and Plan Disease Oriented Problem List: (1) Opiates and related narcotics causing adverse effect in therapeutic use Comment: With worsening renal failure, patient probably had increased blood levels on his usual dose of morphine causing sedation and possibly hyperalgesia. . (2) Chronically on opiate therapy Comment: Patient has been on chronic opiates for many years for chronic pain syndrome and for pain associated with his multiple myeloma . (3) Adverse drug effect Comment: In addition to opiate toxicity from his renal failure, he probably has gabapentin toxicity . Gabapentin also requires renal function to clear. . (4) Near syncope Comment: Probably related to a combination of renal failure, high opiate blood levels, and high gabapentin blood levels. . (5) Compression fracture of L1 lumbar vertebra Comment: Possible acute from the fall that caused this admission . (6) Diabetes mellitus (7) Peripheral neuropathy (8) Atrial fibrillation Comment: Chronic. . (9) Chronic anticoagulation Comment: for his atrial fibrillation . (10) PTSD (post-traumatic stress disorder) (11) Macrocytic anemia (12) CHF (congestive heart failure) Comment: EF on Echo from 2010 was 25-30% . (13) Multiple myeloma Comment: On multiple courses of chemo over last 4 years. Oncologists have recommended hospice care. Patient has refused. . (14) MARTHA (acute kidney injury) Comment: Has acute on chronic kidney disease. May be the result of his recent chemotherapy. Patient indicated to his oncologists that he would prefer to continue chemotherapy even it meant his requiring ongoing hemodialysis. . . (15) CKD (chronic kidney disease) (16) Obstructive sleep apnea Comment: Uses CPAP at home. . (17) Hx of prostatic malignancy (18) History of permanent cardiac pacemaker placement Symptom Scale: (1) Pain 0-10 Scale: Unable to quantify Comment: Per HPI , patient has a long history of chronic pain requiring opiate therapy. Pain has been attributed to his multiple myeloma and also to Agent [place] exposure in the . He also complains of diabetic neuropathy in his extremities. He has constant pain in low back, neck, shoulders. Pain is with him 24/7 in spite of opiates. He has a challenging time quantifying/ qualifying the pain. He has had exacerbation of his pain from his recent fall particularly in the low back and left ankle / foot. He may have a new L1 compression fracture from this fall. . . (2) Encephalopathy 0-10 Scale: Unable to quantify Comment: Patient has altered mental status. It is probably due to a combination of the renal failure itself, and then the renal failure causing accumulation of opiates and gabapentin. Partial improvement with Narcan. . Pertinent Non-Medical Issues Psychosocial: Psychosocial support comes from , son, and daughter who all live locally. Spiritual: [employer]. He is a "believer." Legal: No advance directives. Ethical issues impacting care: Patient is usually capacitated to make his own health care decisions. Currently, he is recovering from encephalopathy and needs shared decision making with . Anticipate recovery to the point where he is able to make his own health care decisions independently. . Important Contacts * Sonya Navarro (spouse and proxy) [phone] * Isamar Zhao (daughter) [phone] and [phone] . Prognosis The patient has multiple chronic problems. His multiple myeloma continues to progress per family in spite of multiple courses of varying chemotherapy. Patient has been advised to enroll in hospice by his oncologists but he insists on further treatments. He understands that further treatments would likely cause permanent renal damage but he has said he is willing to become hemodialysis dependent to receive ongoing myeloma chemotherapy. His trajectory to this point has been slow decline in spite of all of his medical problems. Should he need dialysis, I would anticipate that the decline will be come steeper. His last echocardiogram shows an EF of 25-30 % and managing his heart failure with renal decline will be more challenging. Managing his pain medications is becoming more difficult between his sensitivities, and his renal failure. Though his longevity, given his combination of problems, has already surprised me, I continue to believe that is likely within 6 months if the disease were to take its normal course. . Code Status: Full Code Plan == Code status: FULL CODE == Decision making: Patient is still drowsy from opiates/gabapentin and remains on a Narcan drip. Cognition might also be impaired slightly from the renal failure itself. Recommend shared decision making with at this time. Anticipate he will regain full capacity to make his own health care decisions independently during this admission once opiates and gabapentin fully clear. == Goals of medical treatment: Patient is not able to fully discuss his goals/ preferences at this time. In the past, he has repeatedly stated to his physicians and family members that he wants ongoing full aggressive care including resuscitation attempts if necessary. His own oncologists have recommended hospice enrollment two years ago. Though patient has been quite determined in the past to pursue all available aggressive options, I will certainly speak with him about goals/preferences once he is more awake and thinking clearly. == Encephalopathy: The patient's encephalopathy is probably multifactorial. His renal failure, alone, may be causing some of this. In addition, his renal failure has probably resulted in the accumulation of both opiates and the gabapentin. Given the length of time taking to reverse this in spite of a Narcan drip, it could be at this time that the gabapentin accumulation is more responsible than the opiates. == Pain: Patient remains on a Narcan drip and is responding well to this. He has become more responsive and there have been no complaints of pain. Given his chronic opiate use, it can be anticipated that we might see either opiate withdrawal symptoms or return of significant pain in the near future. Pain management will be challenging for this patient going forward. Fentanyl apparently causes a bad rash. Family has stated their concerns about continuing any morphine at this time. Though methadone would ordinarily be a good choice in a gentleman with renal failure, he does have significant heart disease and would therefore be at greater risk of dysrhythmia from methadone induced QT prolongation. In addition, he had apparently been on methadone in the past and this caused management problems once he was cared for on an outpatient basis. Given the above, hydromorphone is probably the best option for him. Recommend that this be used on a when necessary basis only for now. If renal failure persists, we can anticipate that IV use of hydromorphone will probably last the patient for 6 hours or more rather than the usual 3 hours. I recommend that we avoid restarting gabapentin until such time as the patient returns to his baseline creatinine of around 1.5. We can reverse opiate excess with Narcan but do not have a good way of quickly reversing buildup of the gabapentin. == Palliative care will continue to follow to assist with symptom management and to further clarify goals of medical treatment as the clinical course evolves. . Time Spent Total Floor Time (mins): 90 (total floor time includes chart review; patient exam; collaboration with primary nurse; disucssion with Dr. Schilling; and above referenced family discussion.) Face to Face Time (mins): 10 >50% Counseling/Coord of Care: Yes Thank you for the opportunity to participate in the care of Mr. Navarro. . Attestation To help prompt me to consider important information that might be impacting today's encounter and assessment, information from prior notes written by myself or my colleagues may have been "brought forward" into today's note. My signature on this note, however, is an attestation that I personally performed the exam, history, and/or decision-making noted today, and, unless otherwise indicated, the interactions with patient, family, and staff as well as the review of records all occurred today. I also attest that the listed assessment and stated plan reflect my best clinical judgment today based on the combination of historical information, prior notes, and today's exam/ interactions. When time spent is documented, it refers only to time spent today by the signer, or if indicated, combined time spent today by collaborating physician/nurse practitioner. . Osvaldo Joseph MD Oct 21, 2016 14:59
[2016-10-21] MEDS: PIPERACIL-TAZO 2.25 GM PREMIX 50 ML IV SCH ×2 (15:29→20:37)
--- NOTE | 2016-10-21 16:27 | MB ---
cc: NATALIYA BARCLAY MD DATE OF CONSULTATION: 10/20/2016 REASON FOR CONSULTATION: 1. Respiratory failure. 2. Metabolic encephalopathy. 3. Acute kidney injury. 4. Advanced multiple myeloma. HISTORY OF PRESENT ILLNESS This 76-year-old gentleman with longstanding multiple myeloma has been receiving numerous medications for chronic pain. He developed worsening somnolence overnight and this morning is largely obtunded. He did respond to Narcan injection with some improvement in movement. He has worsening renal function and his creatinine is as high as 3.9 recently. The presumption is that he is accumulating his frequent narcotic and other medications causing an increase in somnolence. He has been transferred to the Intensive Care Unit because he is unable to maintain his airway and has significantly depressed respiratory function. His admission to the hospital was necessary following a fall in which he received an L1 compression fracture. I met him on his arrival to the Intensive Care Unit and Dr. Joseph and myself had discussed the patient at the bedside. I spoke directly with Dr. Schilling about the patient earlier. PAST MEDICAL HISTORY: 1. Systolic heart failure. 2. Atrial fibrillation, permanent. 3. Multiple myeloma. 4. Diabetes mellitus, type 2. 5. Chronic kidney disease. 6. History of hypertension. 7. Obstructive sleep apnea. REVIEW OF SYSTEMS: Unobtainable, as the patient is severely obtunded. The son describes the patient as being intermittently unresponsive followed by brief episodes of flank pain. ALLERGIES: FENTANYL COUMADIN PRESENT MEDICATIONS: 1. Gabapentin 100 milligrams t.i.d. 2. Protonix 40 milligrams daily. 3. Clonidine 0.3 milligrams p.o. b.i.d. 4. Acyclovir 400 milligrams b.i.d. 5. Morphine p.r.n. [facility] Electrolytes: Sodium 145. Potassium 3.9. Renal function tests: Creatinine 3.94, BUN is 88, random glucose 96. Hematology profile: White count is 5700, hemoglobin is 9.3, platelet count is 83,000. X-RAYS: Chest x-ray reveals a right lower lobe consolidation otherwise clear ortega. PHYSICAL EXAMINATION: VITAL SIGNS: Pulse 77-83 and irregular, blood pressure 122/68, respiratory rate is 18 and nonlabored. Head: Atraumatic, normal. Neck: Some chronic rigidity, transmitted snoring sounds but air movement nonobstructed. Lungs: Clear bilaterally with few scattered rhonchi but generally good air movement. Heart: Irregularly irregular, no JVD. Abdomen: Large, soft, no peritoneal irritation, bowel sounds are active. Extremities: Tepid but adequately perfused. Trace edema both lower extremities. Neuro: Seen to move four extremities modestly with stimulation. Intermittently complains of flank pain. ASSESSMENT 1. Respiratory failure due to metabolic encephalopathy. 2. Probable narcotic excess, exacerbated by worsening renal function. 3. Atrial fibrillation, permanent. 4. L1 compression fracture following recent fall. 5. Multiple myeloma. 6. Diabetes mellitus, type 2. 7. Chronic kidney disease, with acute kidney injury. PLAN: 1. Switch to Narcan, continuous infusion. 2. Hold all narcotic agents temporarily. 3. Serial neurologic exam. 4. Hold insulin at this point. 5. Follow glucose closely. 6. Continue antihypertensive therapy. 7. Continue chemical GI ulcer prophylaxis. 8. Hold chemical DVT prophylaxis. 9. Consider switching to Dilaudid for pain control when he is more alert. OVERALL IMPRESSION: This gentleman has multiple medical problems and at present his analgesic therapy appears to be complicated by his worsening creatinine clearance. At this juncture, he appears to have retained excessive amount of narcotic and is requiring reversal to maintain adequate respirations. He is critically-ill at this time and may yet require intubation. Dr. Joseph, from palliative care, and myself, have discussed this case and talked with the patient's son. The patient is in chronic pain at this time and management of his symptoms is difficult. Presently he appears to be over sedated with narcotic and is requiring a reversal. We will attempt to find a pain regimen which is better tolerated for him. Critical care time involved is 40 minutes.. P. Derek Barclay MD [facility] /3:25 PM /4:14 PM MTDD
[2016-10-21 17:14] LABS: BICARBONATE 27.5 MEQ/L (21.0-32.0); POTASSIUM 4.1 MEQ/L (3.5-5.1)
--- NOTE | 2016-10-21 18:23 | HHI.CCPN ---
Subjective Remarks/Hospital Course REASON FOR CONSULTATION: 1. Respiratory failure. 2. Metabolic encephalopathy. 3. Acute kidney injury. 4. Advanced multiple myeloma. 10/20: This 76-year-old gentleman with longstanding multiple myeloma has been receiving numerous medications for chronic pain. He developed worsening somnolence overnight and this morning is largely obtunded. He did respond to Narcan injection with some improvement in movement. He has worsening renal function and his creatinine is as high as 3.9 recently. The presumption is that he is accumulating his frequent narcotic and other medications causing an increase in somnolence. He has been transferred to the Intensive Care Unit because he is unable to maintain his airway and has significantly depressed respiratory function. His admission to the hospital was necessary following a fall in which he received an L1 compression fracture. I met him on his arrival to the Intensive Care Unit and Dr. Joseph and myself had discussed the patient at the bedside. 10/21: More easily awakened today on narcan gtt. No episodes of severe pain. Objective Vital Signs Date Time Temp Pulse Resp B/P Pulse Ox O2 Delivery O2 Flow Rate FiO2 10/21/16 18:00 65 10/21/16 16:00 97.6 23 119/59 97 10/21/16 16:00 2.00 10/21/16 12:00 Nasal Cannula 10/20/16 20:58 50 Intake and Output 10/20/16 10/20/16 10/21/16 08:00 16:00 00:00 Intake Total 120 ml 336 ml 1025 ml Output Total 500 ml 1275 ml Balance 120 ml -164 ml -250 ml Result Diagram: 10/21/16 0443 10/21/16 1517 Objective Remarks PHYSICAL EXAMINATION: VITAL SIGNS: Pulse 72 - 84 and irregular, blood pressure 127/69, respiratory rate is 16 and nonlabored. Head: Atraumatic, normal. Neck: Some chronic rigidity, transmitted snoring sounds but air movement non-obstructed. Lungs: Clear with few scattered rhonchi but generally good air movement. Comfortable pattern. Heart: Irregularly irregular, no JVD. Abdomen: Large, soft, no peritoneal irritation, bowel sounds are active. Extremities: Warm, adequately perfused. Trace edema both lower extremities. Neuro: Moves four extremities with stimulation. Protects airway. A/P Assessment and Plan ASSESSMENT: 1. Respiratory failure due to metabolic encephalopathy -> resolved. 2. Probable narcotic excess, exacerbated by worsening renal function. 3. Atrial fibrillation, permanent. 4. L1 compression fracture following recent fall. 5. Multiple myeloma. 6. Diabetes mellitus, type 2. 7. Chronic kidney disease, with acute kidney injury. PLAN: 1. Narcan, continuous infusion. 2. Hold all narcotic agents temporarily. 3. Serial neurologic exam. 4. Hold LA insulin at this point. 5. Follow glucose closely. 6. Continue antihypertensive therapy. 7. Continue chemical GI ulcer prophylaxis. 8. Hold chemical DVT prophylaxis. 9. Switching to Dilaudid for pain control when he is more alert. OVERALL IMPRESSION: This gentleman has multiple medical problems and his analgesic therapy is complicated by his worsening creatinine clearance. He has done better overnight on a narcan gtt infusion which we will taper off as he becomes less somnolent. Tim Grissom MD Oct 21, 2016 18:23
--- NOTE | 2016-10-21 19:03 | HHI.PR ---
Addendum To [facility] Progress Not Reason for addendum: Additonal documentation (patient seen and briefly examined this afternoon. Discussed with family. Alertness improved. Appreciate fitter and turner. Creatinine much improved this afternoon after Kuhn placement- hopefully this is accurate. appreciate urology assistance. Decent urine output.) Wood Schilling MD Oct 21, 2016 19:03
[2016-10-21] MEDS: GABAPENTIN 100 MG CAP PO SCH (20:38)
[2016-10-21] MEDS: NYSTATIN 100,000 U/GM PWD 15 GM BTL TOPICAL SCH (21:00)
--- NOTE | 2016-10-21 21:01 | HHI.NPPN ---
Subjective General Problems: Anemia, Hypertension Renal Failure: Chronic, Acute History of Present Illness 76-year-old male with past medical history of hypertension, ischemic heart disease, congestive heart failure, history of prostate cancer, multiple myeloma, atrial fibrillation, chronic kidney disease, who came to the hospital with history of fall at home. I was called to see the patient for the management of renal failure. The patient has history of chronic kidney disease and he has been following with Dr. Judge. Additional Remarks Patient is more alert, now started eating better, not in distress. Review of Systems General Constitutional: Fatigue Respiratory Lungs: SOB Objective Data Data 10/20/16 10/21/16 19:00 07:00 Intake Total 336 ml 2041 ml Output Total 500 ml 2350 ml Balance -164 ml -309 ml IV Total 336 ml 2041 ml Output Urine Total 500 ml 2350 ml # Voids 1 # Bowel Movements 1 Vital Signs Date Time Temp Pulse Resp B/P Pulse Ox O2 Delivery O2 Flow Rate FiO2 10/21/16 20:15 95 Nasal Cannula 2.00 10/21/16 18:00 65 10/21/16 16:00 68 10/21/16 16:00 97.6 68 23 119/59 97 10/21/16 16:00 97 2.00 10/21/16 14:00 69 10/21/16 12:00 97 Nasal Cannula 2.00 10/21/16 12:00 97.7 66 21 134/84 97 10/21/16 12:00 66 10/21/16 10:00 63 10/21/16 09:00 99 Nasal Cannula 2.00 10/21/16 08:00 97.9 65 14 153/73 96 10/21/16 08:00 96 2.00 10/21/16 08:00 65 10/21/16 06:00 64 10/21/16 04:00 96 2.00 10/21/16 04:00 98.0 60 17 145/79 96 10/21/16 04:00 60 10/21/16 02:00 60 10/21/16 00:00 64 10/21/16 00:00 97 2.00 10/21/16 00:00 99.2 64 24 157/74 97 10/20/16 22:00 94 10/20/16 22:00 68 10/20/16 21:00 95 CPAP 2.00 -: 10/21/16 0443 10/21/16 1517 Physical Exam General Appearance: Anxious, Obese Eyes Eye Exam: Pupils Equal Neck Neck Exam: Neck Supple, Trachea Midline Pulmonary Resp Exam: No Distress, Rhonchi, Decreased Bases Cardiology CV Exam: Regular, Normal Sinus Rhythm Gastrointestinal/Abdomen GI Exam: Soft, Non-Tender, Bowel Sounds Present, Distended Extremeties Extremities Exam: Trace Edema Neurologic Neuro Exam: Alert, Awake, Oriented Assessment/Plan Assessment Summary: MARTHA/Acute Renal Failure, Hypertension, CKD Stage IV Problem List: (1) Hx of transient ischemic attack (TIA) (2) History of atrial fibrillation (3) Heart failure (4) Hx of prostatic malignancy (5) Anemia (6) Obstructive sleep apnea (7) MARTHA (acute kidney injury) (8) Chronic kidney disease (CKD) Plan Patient got Narcan and improved mentation. Creatinine is normalized? error. Has been non oliguric. BP is stable. Follow repeat BMP in AM. Problem Qualifiers (1) Chronic kidney disease (CKD): Qualified Code: N18.4 - Chronic kidney disease (CKD), stage 4 (severe) Fredy Chung MD Oct 21, 2016 21:00
[2016-10-22] VITALS (9 sets, daily range): BP systolic 110–152; BP diastolic 59–85; PULSE 60–70; RESP 13–27; TEMP 97.5–98.6; O2SAT 96–99
[2016-10-22] MEDS: NALOXONE INJ 4 MG in DEXTROSE 5% IN WATER INJ 246 ML IV SCH ×2 (00:11)
[2016-10-22] MEDS: PIPERACIL-TAZO 2.25 GM PREMIX 50 ML IV SCH ×3 (02:05→13:16)
[2016-10-22 03:54] LABS: KAPPA/LAMBDA FREE 0.01 (0.26-1.65)
[2016-10-22] MEDS: LOW DOSE INSULIN NOVOLOG SUPPLEMENTAL SCALE SQ SCH ×4 (05:29→16:47)
[2016-10-22 05:52] LABS: BICARBONATE 24.6 MEQ/L (21.0-32.0); POTASSIUM 3.4 MEQ/L (3.5-5.1)
[2016-10-22] MEDS: PRAVASTATIN SOD 40 MG TAB PO SCH (08:39)
[2016-10-22] MEDS: GABAPENTIN 100 MG CAP PO SCH (08:39)
[2016-10-22] MEDS: SODIUM CHLORIDE 0.9% FLUSH 5 ML FLUSH FLUSH SCH (08:39)
[2016-10-22] MEDS: ALLOPURINOL 300 MG TAB PO SCH (08:40)
[2016-10-22] MEDS: ACYCLOVIR 200 MG CAP PO SCH (08:40)
[2016-10-22] MEDS: HYDROXYCHLOROQUINE SULFATE 200 MG TAB PO SCH (08:40)
[2016-10-22] MEDS: CARVEDILOL 12.5 MG TAB PO SCH (08:41)
[2016-10-22] MEDS: NYSTATIN 100,000 U/GM PWD 15 GM BTL TOPICAL SCH (08:42)
[2016-10-22] MEDS: PANTOPRAZOLE SOD 40 MG DELAYED RELEASE TAB PO SCH (08:43)
[2016-10-22] MEDS: ECONAZOLE 1% TOPICAL SCH (09:00)
--- NOTE | 2016-10-22 09:41 | HHI.NSPN ---
(Wild Olson) History Chief Complaint: low back pain. (Wild Olson) Interval History This is a 76-year-old obese gentleman who apparently fell at home yesterday morning. He complained of generalized weakness and associated light headedness prior to his fall and subsequently the main complaint is low back pain and left ankle pain. He has a history of multiple myeloma and high doses of narcotics also. He also is on chronic Pradaxa treatment for his atrial fibrillation, although relates he has not taken this over the past several days. He denies any numbness or paresthesias in the upper or lower extremities. Workup included extensive trauma workup including head CT scan and complete spine CT scan and was found to have a moderate L1 vertebral body compression fracture without any retropulsion. There is also a chronic calcified ventral thecal sac mass involving the L4 vertebral body and moderate spinal stenosis. There is a questionable small area of hemorrhage extradural/intradural at the S1 level on the right side. CT of the cervical and thoracic spine did not reveal any fractures and CT of the head is negative. 10/20/16: Pt resting in bed states pain is better today. He is unable to tell me if and where he has pain or paresthesias in his legs this morning and just keeps repeating its better. He moves his legs spontaneously and is not following commands easily. He seems sedated. 10/21/16: Pt transferred to ICU yesterday. Today he awakens to voice. He complains of back soreness. He denies any radiculopathy or paresthesias in his legs. 10/22/16: Pt more awake today. He is very conversive. Complains of low back pain. He states he has left leg pain with standing but is not clear about the distribution in the leg. (Wild Olson) Review of Systems General: Negative for: fever, chills, insomnia Respiratory: Negative for: shortness of breath, cough, sputum Cardiovascular: Negative for: chest pain Gastrointestinal: Negative for: nausea, vomitting, diarrhea, constipation ( Wild Olson) Exam Results Vital Signs Date Time Temp Pulse Resp B/P Pulse Ox O2 Delivery O2 Flow Rate FiO2 10/22/16 06:00 62 10/22/16 04:00 96 Bi-Pap 10/22/16 04:00 97.6 13 149/74 10/21/16 20:15 2.00 10/20/16 20:58 50 Intake and Output 10/21/16 10/21/16 10/22/16 08:00 16:00 00:00 Intake Total 1016 ml 2263 ml 2190 ml Output Total 1075 ml 900 ml 1300 ml Balance -59 ml 1363 ml 890 ml (Wild Olson) Physical Examination Resp: CTA bilaterally. Heart: Irregular no murmurs Abd: Soft positive bs Skin: No cyanosis or erythema. No signs of DVT. Muscle: Moves all 4 extremities. Following commands better today. Moves LEs well, mild left iliopsoas and dorsiflexion weakness related to pain. Neuro: Pt awake and alert. Speech clear and fluent. Following commands better today. (Wild Olson) Lab, Micro, Other Results Laboratory Tests Test 10/21/16 10/22/16 15:17 05:20 Sodium Level 142 MEQ/L 142 MEQ/L Potassium Level 4.1 MEQ/L 3.4 MEQ/L Chloride Level 107 MEQ/L 106 MEQ/L Carbon Dioxide Level 27.5 MEQ/L 24.6 MEQ/L Anion Gap 8 MEQ/L 11 MEQ/L Blood Urea Nitrogen 11 MG/DL 83 MG/DL Creatinine 0.93 MG/DL 4.12 MG/DL Estimat Glomerular Filtration 79 ML/MIN 14 ML/MIN Rate Random Glucose 84 MG/DL 191 MG/DL Calcium Level 8.9 MG/DL 7.7 MG/DL 10/21/16 10/21/16 10/22/16 15:00 23:00 07:00 Intake Total 2263 ml 2190 ml 838 ml Output Total 900 ml 1300 ml 1150 ml Balance 1363 ml 890 ml -312 ml Intake Oral 1260 ml 960 ml 0 ml IV Total 1003 ml 1230 ml 838 ml Output Urine Total 900 ml 1300 ml 1150 ml # Bowel Movements 1 1 0 (Wild Olson) Medical Decision Making Impression and Plan 1. L1 vertebral body moderate compression fracture without retropulsion or kyphosis with associated back pain. 2. L4 calcified ventral mass which appears to be chronic. PLAN: Continue with TLSO brace Continue to monitor Continue with rehab efforts. (Wild Olson) Attending Statement The exam, history, and the medical decision-making described in the above note were completed with the assistance of the mid-level provider. I reviewed and agree with the findings presented. I attest that I had a [id number] encounter with the patient on the same day, and personally performed and documented my assessment and findings in the medical record. (Renzo Long MD) Wild Olson Oct 22, 2016 09:41 Renzo Long MD Oct 22, 2016 16:44
[2016-10-22] MEDS: DEXT 5%-NACL 0.45% 1000 ML INJ 1,000 ML IV SCH (11:44)
--- NOTE | 2016-10-22 12:50 | HHI.NPPN ---
Subjective General Problems: Anemia, Hypertension Renal Failure: Chronic, Acute History of Present Illness 76-year-old male with past medical history of hypertension, ischemic heart disease, congestive heart failure, history of prostate cancer, multiple myeloma, atrial fibrillation, chronic kidney disease, who came to the hospital with history of fall at home. I was called to see the patient for the management of renal failure. The patient has history of chronic kidney disease and he has been following with Dr. Judge. Additional Remarks Patient is alert, sitting on chair, no SOB, no nausea. Review of Systems General Constitutional: Fatigue Respiratory Lungs: SOB Objective Data Data 10/21/16 10/22/16 19:00 07:00 Intake Total 2263 ml 3028 ml Output Total 900 ml 2450 ml Balance 1363 ml 578 ml Intake Oral 1260 ml 960 ml IV Total 1003 ml 2068 ml Output Urine Total 900 ml 2450 ml # Bowel Movements 1 1 Vital Signs Date Time Temp Pulse Resp B/P Pulse Ox O2 Delivery O2 Flow Rate FiO2 10/22/16 12:00 99 Nasal Cannula 2.00 10/22/16 12:00 66 10/22/16 12:00 98.6 66 20 110/85 97 10/22/16 10:00 62 10/22/16 08:00 97 Nasal Cannula 2.00 10/22/16 08:00 62 10/22/16 08:00 97.5 62 27 143/78 97 10/22/16 06:00 62 10/22/16 04:00 96 Bi-Pap 10/22/16 04:00 97.6 66 13 149/74 96 10/22/16 04:00 66 10/22/16 02:00 60 10/22/16 00:00 97.5 70 15 152/69 97 10/22/16 00:00 70 10/22/16 00:00 97 Bi-Pap 10/21/16 22:00 65 10/21/16 21:15 97 Bi-Pap 10/21/16 20:15 95 Nasal Cannula 2.00 10/21/16 20:00 98.0 68 24 141/75 97 10/21/16 20:00 68 10/21/16 20:00 97 Room Air 10/21/16 18:00 65 10/21/16 16:00 68 10/21/16 16:00 97.6 68 23 119/59 97 10/21/16 16:00 97 2.00 10/21/16 14:00 69 -: 10/21/16 0443 10/22/16 0520 Physical Exam General Appearance: Comfortable, Anxious, Obese Eyes Eye Exam: Pupils Equal Neck Neck Exam: Neck Supple, Trachea Midline Pulmonary Resp Exam: No Distress, Rhonchi, Decreased Bases Cardiology CV Exam: Regular, Normal Sinus Rhythm Gastrointestinal/Abdomen GI Exam: Soft, Non-Tender, Bowel Sounds Present, Distended Extremeties Extremities Exam: Trace Edema Neurologic Neuro Exam: Alert, Awake, Oriented Assessment/Plan Assessment Summary: MARTHA/Acute Renal Failure, Hypertension, CKD Stage IV Problem List: (1) Hx of transient ischemic attack (TIA) (2) History of atrial fibrillation (3) Heart failure (4) Hx of prostatic malignancy (5) Anemia (6) Obstructive sleep apnea (7) MARTHA (acute kidney injury) (8) Chronic kidney disease (CKD) Plan Patient got Narcan and improved mentation. Creatinine is almost same. Yesterday was error. Non oliguric. The GFR is 14-15 ml/min. No symptoms of uremia and K is normal. D/W the patient about possible HD if no improvement. Problem Qualifiers (1) Chronic kidney disease (CKD): Qualified Code: N18.4 - Chronic kidney disease (CKD), stage 4 (severe) Fredy Chung MD Oct 22, 2016 12:50
--- NOTE | 2016-10-22 13:14 | PD.ONC.PN ---
Subjective Subjective Remarks Afebrile overnight. Patient resting comfortably without complaint. He ate breakfast this AM. No bleeding. Objective Data Date Time Temp Pulse Resp B/P Pulse Ox O2 Delivery O2 Flow Rate FiO2 10/22/16 12:00 99 Nasal Cannula 2.00 10/22/16 12:00 66 10/22/16 12:00 98.6 66 20 110/85 97 10/22/16 10:00 62 10/22/16 08:00 97 Nasal Cannula 2.00 10/22/16 08:00 62 10/22/16 08:00 97.5 62 27 143/78 97 10/22/16 06:00 62 10/22/16 04:00 96 Bi-Pap 10/22/16 04:00 97.6 66 13 149/74 96 10/22/16 04:00 66 10/22/16 02:00 60 10/22/16 00:00 97.5 70 15 152/69 97 10/22/16 00:00 70 10/22/16 00:00 97 Bi-Pap 10/21/16 22:00 65 10/21/16 21:15 97 Bi-Pap 10/21/16 20:15 95 Nasal Cannula 2.00 10/21/16 20:00 98.0 68 24 141/75 97 10/21/16 20:00 68 10/21/16 20:00 97 Room Air 10/21/16 18:00 65 10/21/16 16:00 68 10/21/16 16:00 97.6 68 23 119/59 97 10/21/16 16:00 97 2.00 10/21/16 14:00 69 10/22/16 10/22/16 10/22/16 07:00 15:00 23:00 Intake Total 838 ml Output Total 1150 ml Balance -312 ml Result Diagram: 10/21/16 0443 10/22/16 0520 Laboratory Results Laboratory Tests Test 10/21/16 10/22/16 15:17 05:20 Sodium Level 142 MEQ/L 142 MEQ/L Potassium Level 4.1 MEQ/L 3.4 MEQ/L Chloride Level 107 MEQ/L 106 MEQ/L Carbon Dioxide Level 27.5 MEQ/L 24.6 MEQ/L Anion Gap 8 MEQ/L 11 MEQ/L Blood Urea Nitrogen 11 MG/DL 83 MG/DL Creatinine 0.93 MG/DL 4.12 MG/DL Estimat Glomerular Filtration 79 ML/MIN 14 ML/MIN Rate Random Glucose 84 MG/DL 191 MG/DL Calcium Level 8.9 MG/DL 7.7 MG/DL Administered Medications Medications (Trade) Dose Ordered Sig/Srinath Route PRN Reason Start Time Stop Time Status Last Admin Dose Admin Dextrose (D50w (Vial) Inj) 25 ml UNSCH PRN IV PUSH HYPOGLYCEMIA-SEE COMMENTS 10/19/16 03:00 10/20/16 05:59 IV Flush (NS Flush) 2 ml BID FLUSH 10/19/16 09:00 10/22/16 08:39 Acyclovir (Zovirax) 400 mg BID PO 10/19/16 09:00 10/22/16 08:40 Allopurinol (Zyloprim) 300 mg DAILY PO 10/19/16 09:00 10/22/16 08:40 Carvedilol (Coreg) 25 mg BID PO 10/19/16 09:00 10/22/16 08:41 Clonidine (Catapres) 0.3 mg BID PO 10/19/16 09:00 Hold 10/20/16 08:59 Econazole Nitrate (Spectazole 1% Cream) 1 applic DAILY TOPICAL 10/19/16 09:00 10/22/16 09:00 Hydroxychloroquine Sulfate (Plaquenil) 200 mg BID PO 10/19/16 09:00 10/22/16 08:40 Pravastatin Sodium (Pravachol) 40 mg DAILY PO 10/19/16 09:00 10/22/16 08:39 Pantoprazole Sodium 40 mg 40 mg DAILY PO 10/19/16 09:00 10/22/16 08:43 Dextrose/Sodium Chloride 1,000 ml @ 84 mls/hr [id number] IV 10/20/16 11:15 10/22/16 11:44 Naloxone HCl/ Dextrose (Narcan Inj/D5W Inj) 250 ml @ 0 mls/hr TITRATE IV 10/20/16 15:15 10/22/16 00:11 Insulin Aspart 1 1 Q6HR SQ 10/20/16 19:37 10/22/16 11:45 Piperacillin Sod/ Tazobactam Sod (Zosyn 2.25 Gm Premix) 50 ml @ 100 mls/hr Q6H IV 10/21/16 14:00 1/19/17 08:41 Nystatin (Mycostatin Powder) 1 applic Q12HR TOPICAL 10/21/16 21:00 10/22/16 08:42 Gabapentin (Neurontin) 100 mg BID PO 10/21/16 21:00 10/22/16 08:39 Objective Remarks GENERAL: Elderly male, sitting up in chair next to bed. SKIN: Warm and dry. HEAD: Normocephalic. EYES: No injection or drainage. NECK: Supple, trachea midline. CARDIOVASCULAR: +S1/S2 RESPIRATORY: anterior ortega clear. exam limited by TLSO brace. GASTROINTESTINAL: Abdomen soft, non-tender, nondistended. EXTREMITIES: No cyanosis NEUROLOGICAL: AO x3 normal speech. able to move extremities. in TLSO brace. Assessment/Plan Problem List: (1) Multiple myeloma Status: Chronic Plan: 10/22: hematology will sign off. please call or reconsult if needed. he will need to follow up with his medical oncologist Dr. Kemp, upon discharge. --no acute oncology intervention is required for his multiple myeloma. The patient took his last Ninlaro last week and this is his off week. --diagnosed in March of 2013 status post multiple different chemotherapy regimens. --six different chemotherapy regimens. --Recently the Revlimid was stopped due to chronic renal failure. --under the care of two medical oncologist, one locally Dr. Kemp and the other one is Dr. Patel at [facility] in [place]. --recently started on Ninlaro about two months ago. They are waiting for at least three months to see whether he is responding to the Ninlaro or not. ++follow-up appointment with Dr. Patel at [facility] in the first week of December. --also has a follow up appointment with his local medical oncologist Dr. Kemp soon. (2) Macrocytic anemia Status: Acute Plan: --hgb stable today. will monitor --Macrocytic anemia with thrombocytopenia most likely due to Ninlaro. --B12, folate WNL --iron studies equivocal (3) CKD (chronic kidney disease) Status: Acute Plan: -- End-stage renal disease with GFR of 15. (4) CHF (congestive heart failure) Status: Acute Assessment 76y/o male with multiple myeloma. g/o Multiple myeloma--diagnosed in 2012 chronic back pain Sleep apnea Congestive heart failure TIA Diabetes mellitus Chronic atrial fibrillation Anxiety disorder Hiatal hernia Acid reflux History of prostate cancer status post radical prostatectomy Depression Neuropathy Migraine headaches Attending Statement no new c/o nothing else to add on sign off available prn pt will fu with his oncologist DR Kemp on D/C The exam, history, and the medical decision-making described in the above note were completed with the assistance of the mid-level provider. I reviewed and agree with the findings presented. I attest that I had a [id number] encounter with the patient on the same day, and personally performed and documented my assessment and findings in the medical record. Veena Mehta Oct 22, 2016 13:14 Melissa Elaine MD Oct 22, 2016 13:17
[2016-10-22] MEDS ORDERED: HYDR-3516 PO (13:49)
[2016-10-22] MEDS ORDERED: TORS20TA PO (14:13)
[2016-10-22] MEDS ORDERED: NOVOLOGP2 SQ (14:15)
[2016-10-22] MEDS ORDERED: LEVEMIR SQ (14:15)
[2016-10-22] MEDS ORDERED: GABA300C5 PO (14:19)
--- NOTE | 2016-10-22 14:22 | HHI.DS ---
Discharge Summary Admission Date Oct 19, 2016 at 02:28 Discharge Date: Oct 22, 2016 Admitting Diagnosis hypoglycemia, acute on chronic renal failure, L1 compression fx (1) Fall ICD Code: W19.XXXA (2) Near syncope ICD Code: R55 (3) Compression fracture of L1 lumbar vertebra ICD Code: S32.010A Diagnosis: Principal (4) Hypoglycemia ICD Code: E16.2 (5) A-fib ICD Code: I48.91 (6) Chronic anticoagulation ICD Code: Z79.01 (7) HTN (hypertension) ICD Code: I10 (8) Atrial fibrillation ICD Code: I48.91 Diagnosis: Principal (9) MARTHA (acute kidney injury) ICD Code: N17.9 Diagnosis: Principal Procedures None. Brief History - From Admission This is a 76-year-old male with a PMH of HTN, GERTRUDE on CPAP, CHF (Echo 08/22/01 w / EF 25-30%), A-fib on Pradaxa, Prostate CA, Multiple Myeloma on Chemo, Physical Deconditioning, Chronic Pain and DM who was brought to the ER after fall yesterday morning. Per pt he normally gets around the house by holding onto furniture as his house is too small for him to use his motorized scooter. Had mechanical fall at home at approx 11am w/ epistaxis, however did not seek medical attention until later in the evening at the suggestion of pt's son. Pt w/ complaints of generalized pain, slightly worse than his usual. Denies fever , chills, nausea, vomiting or diarrhea. On arrival, BP 150/65, HR 73, O2 sat 95 % on RA, Afebrile. BS 44, s/p D50 with improvement. WBC 8.9, baseline 3.4-3.7 , elevated neutrophil. Platelets 88, previously 327 on 12/20/14. Creatinine 3.97, previously 1.57 on 12/20/14. Trop 0.05. BNP 256. U/a negative. CXR w/ mild base parenchymal opacity. CT Head w/ findings of worsening myeloma. CT Maxillofacial w/ no acute fracture. CT C/T-Spine w/ no acute fracture. CT L- Spine w/ 50% compression fracture L1, possible epidural hemorrhage at S1 and possible ventral canal mass at L4. Ankle/Foot/Pelvis X-ray negative for acute fracture. Dr. Long consulted by ER physician, recommended no further imaging and no reversal of Pradaxa. Upon further questioning, pt states he's been off Pradaxa x6 days for upcoming procedure w/ his Urologist. CBC/BMP: 10/21/16 0443 10/22/16 0520 Significant Findings Laboratory Tests Test 10/20/16 10/20/16 10/20/16 10/20/16 05:55 06:50 10:31 10:58 Random Glucose 41 MG/DL (74-106) Immunoglobulin G Total 1800 MG/DL (680-1670) Immunoglobulin A 11 MG/DL (103-568) Immunoglobulin M LESS THAN 8 MG/DL (38-231) Free Lambda Light Chains 1137.00 mg/L (5.7-26.3) Free [place]/Lambda Light Chain 0.01 Ratio (0.26-1.65) Red Blood Count 2.80 MIL/MM3 (4.50-5.90) Hemoglobin 9.3 GM/DL (13.0-17.0) Hematocrit 28.9 % (39.0-51.0) Mean Corpuscular Volume 103.4 FL (80.0-100.0) Red Cell Distribution Width 20.0 % (11.6-17.2) Platelet Count 83 TH/MM3 (150-450) Neutrophils (%) (Auto) 85.3 % (16.0-70.0) Lymphocytes # (Auto) 0.7 TH/MM3 (1.0-4.8) Neutrophils % (Manual) 72 % (16-70) Band Neutrophils % 18 % (0-6) Lymphocytes % 8 % (9-44) Platelet Estimate LOW (NORMAL) Chloride Level 109 MEQ/L (98-107) Blood Urea Nitrogen 88 MG/DL (7-18) Creatinine 3.94 MG/DL (0.60-1.30) Estimat Glomerular Filtration 15 ML/MIN (>89) Rate Calcium Level 8.2 MG/DL (8.5-10.1) Arterial Blood pH 7.37 (7.380-7.420) Blood Gas Hemoglobin 9.1 G/DL (12.0-16.0) Test 10/21/16 10/21/16 10/22/16 04:43 15:17 05:20 Red Blood Count 2.43 MIL/MM3 (4.50-5.90) Hemoglobin 8.2 GM/DL (13.0-17.0) Hematocrit 24.9 % (39.0-51.0) Mean Corpuscular Volume 102.6 FL (80.0-100.0) Red Cell Distribution Width 20.0 % (11.6-17.2) Platelet Count 77 TH/MM3 (150-450) Neutrophils (%) (Auto) 87.2 % (16.0-70.0) Lymphocytes # (Auto) 0.7 TH/MM3 (1.0-4.8) Band Neutrophils % 20 % (0-6) Platelet Estimate LOW (NORMAL) Sodium Level 148 MEQ/L (136-145) Chloride Level 112 MEQ/L (98-107) Blood Urea Nitrogen 93 MG/DL (7-18) 83 MG/DL (7-18) Creatinine 4.19 MG/DL 4.12 MG/DL (0.60-1.30) (0.60-1.30) Estimat Glomerular Filtration 14 ML/MIN (>89) 79 ML/MIN (>89) 14 ML/MIN (>89) Rate Random Glucose 256 MG/DL 191 MG/DL (74-106) (74-106) Calcium Level 7.8 MG/DL 7.7 MG/DL (8.5-10.1) (8.5-10.1) Potassium Level 3.4 MEQ/L (3.5-5.1) Imaging Last Impressions Renal Ultrasound 10/21/16 0000 Signed Impressions: Service Date/Time: Friday, October 21, 2016 10:06 - CONCLUSION: Negative for hydronephrosis. The right kidney is small. Keyshawn Gilman MD FACR Chest X-Ray 10/20/16 0000 Signed Impressions: Service Date/Time: Thursday, October 20, 2016 12:30 - CONCLUSION: 1. Cardiomegaly. 2. Tubes and lines in good position. 3. Hazy density at the bases likely representing some degree of atelectasis or consolidation. Jameel Lindsey MD Thoracic Spine CT 10/18/162324 Signed Impressions: Service Date/Time: Wednesday, October 19, 2016 00:43 - CONCLUSION: No evidence of thoracic spine fracture. Jameel Louie MD Lumbar Spine CT 10/18/162324 Signed Impressions: Service Date/Time: Wednesday, October 19, 2016 00:43 - CONCLUSION: Moderate compressive injury at L1. Possible small focus of epidural hemorrhage in the right canal at the S1 level. Multilevel disc disease and facet arthropathy. Large densely calcified or ossified ventral canal mass at the L4 level may be sequelae of previous disc protrusion/extrusion. Alternatively, this may be a densely calcified or ossified neoplasm-osteoma, osteochondroma, meningioma. Jameel Louie MD Pelvis X-Ray 10/18/162316 Signed Impressions: Service Date/Time: Wednesday, October 19, 2016 01:10 - CONCLUSION: No acute bony injury Jameel Louie MD Foot X-Ray 10/18/162316 Signed Impressions: Service Date/Time: Wednesday, October 19, 2016 01:22 - CONCLUSION: No acute bony process. Jameel Louie MD Ankle X-Ray 10/18/162316 Signed Impressions: Service Date/Time: Wednesday, October 19, 2016 01:20 - CONCLUSION: Unremarkable examination of the left ankle. Jameel Louie MD Maxillofacial CT 10/18/162235 Signed Impressions: Service Date/Time: Tuesday, October 18, 2016 22:53 - CONCLUSION: No evidence of facial fracture Jameel Louie MD Head CT 10/18/162235 Signed Impressions: Service Date/Time: Tuesday, October 18, 2016 22:53 - CONCLUSION: No acute intracranial injury. Findings of worsening myeloma Jameel Louie MD Cervical Spine CT 10/18/162235 Signed Impressions: Service Date/Time: Tuesday, October 18, 2016 22:53 - CONCLUSION: No acute bony injury in the cervical spine Jameel Louie MD PE at Discharge GENERAL: AOX3, NAD. SKIN: Warm and dry. HEAD: Normocephalic. EYES: No scleral icterus. No injection or drainage. NECK: Supple, trachea midline. No JVD or lymphadenopathy. CARDIOVASCULAR: Regular rate and rhythm without murmurs, gallops, or rubs. RESPIRATORY: Breath sounds equal bilaterally. No accessory muscle use. GASTROINTESTINAL: Abdomen soft, non-tender, nondistended. MUSCULOSKELETAL: No cyanosis, or edema. Brace on. BACK: Nontender without obvious deformity. No CVA tenderness. Pt update on day of discharge Patient is doing well. No acute concerns. Sitting in his chair. He was able to walk with walker. Denies any CP, SOB, fever, chills. Hospital Course This is a 76-year-old male with a PMH of HTN, GERTRUDE on CPAP, CHF (Echo 08/22/01 w / EF 25-30%), A-fib on Pradaxa, Prostate CA, Multiple Myeloma on Chemo, Physical Deconditioning, Chronic Pain and DM who was brought to the ER after fall. Patient had a mechanical fall at home. On arrival, BP 150/65, HR 73, O2 sat 95% on RA, Afebrile. BS 44, s/p D50 with improvement. WBC 8.9, baseline 3.4-3.7, elevated neutrophil. Platelets 88, previously 327 on 12/20/14. Creatinine 3.97, previously 1.57 on 12/20/14. Trop 0.05. BNP 256. U/a negative. CXR w/ mild base parenchymal opacity. CT Head w/ findings of worsening myeloma. CT Maxillofacial w/ no acute fracture. CT C/T-Spine w/ no acute fracture. CT L-Spine w/ 50% compression fracture L1. Neurosurgery recommended conservative management. Patient was provided TLSO brace. Patient was receiving good amount of opiates for pain. He subsequently developed respiratory depression. He was observed in the ICU and was placed on narcan drip. Patient improved quite nicely. On 10/22/2016, patient's mentation appears to be good, no acute respiratory problems. His renal function is stable but creatinine is above 4. I discussed with Dr. Chung who recommended 3-4 week follow up with him in the office. In an effort to arrange rehab, we initially consulted Dev. However, patient was declined for dev. Subsequently, we arranged SNF. During this admission, there was suggestion of possible pneumonia. However, patient did not have any cough, fever, leukocytosis. We provided no further abx on discharge. Patient received Zosyn while he was in the hospital. Pt Condition on Discharge: Good Discharge Disposition: Discharge to SNF Discharge Time: > 30 minutes Discharge Instructions DIET: Follow Instructions for: Diabetic Diet Activities you can perform: Regular-No Restrictions Follow up Referrals: Cardiology - 2 Weeks with Phil Bhakta MD Nephrology - 3 Weeks with Fredy Chung MD New Medications: Insulin Aspart Inj (Novolog Inj) 1,000 Unit/10 Ml Vial 1-9 UNITS SQ ACHS Max dose at bedtime:( )units; sugars less than 70,(0)units; sugars 150-199,(1) unit; sugars 200-249,(3) units; sugars 250-299,(5) units; sugars 300-349,(7) units; sugars greater than 349,(9) units Blood Sugar Management #10 Ref 0 ML Insulin Detemir Inj (Levemir Inj) 1,000 unit/ 10 ML Vial 5 UNITS SQ HS Do not mix with any other Insulin. Blood Sugar Management Days 30 Ref 0 VIAL Torsemide (Torsemide) 20 Mg Tab 20 MG PO DAILY Please weigh patient daily. If weight increases by 3-5 lbs, give Torsemide. PRN Fluid #30 Ref 0 TAB Changed Medications: Gabapentin (Gabapentin) 300 Mg Cap 200 MG PO TID Neuropathic pain Days 30 Ref 0 CAP (Changed from: 300 MG; 5 TIMES A DAY; Removed Quantity) Continued Medications: Acyclovir (Acyclovir) 400 Mg Tab 400 MG PO BID Mgmt Viral Infection Ref 0 TAB Allopurinol (Allopurinol) 300 Mg Tab 300 MG PO DAILY Gout #30 Ref 0 TAB Carvedilol (Carvedilol) 25 Mg Tab 25 MG PO BID #60 Ref [address] (Trilipix) 135 Mg Capdr 135 MG PO DAILY #30 Ref 0 CAP Cyclosporine Opth Drops (Restasis Opth Drops) 0.05% Emul 1 DROP EACH EYE BID Dry Eye #1 Ref 0 BOX Dabigatran (Pradaxa) 75 Mg Cap 75 MG PO BID Blood Clot Prevention #60 Ref 0 CAP Econazole Topical (Econazole Topical) 1% Cream 1 APPLIC TOPICAL DAILY Fungal Infection #1 Ref [address] (Nexium) 40 Mg Capdr 40 MG PO DAILY Ref 0 CAP Hydrocodone-Acetaminophen (Hydrocodone-Acetaminophen) 5-325 mg Tab 1 TAB PO Q12HR PRN PAIN #20 Ref 0 TAB (This prescription has been renewed) Hydroxychloroquine (Hydroxychloroquine) 200 Mg Tab 200 MG PO BID Takw with food #60 Ref 0 TAB Lactulose Liq (Lactulose Liq) 10 Gm/15 Ml Soln 30 ML PO Q6H PRN CONSTIPATION Ref 0 ML Lidocaine Patch (Aspercreme Lidocaine Max Patch) 4% Patch Mirabegron (Myrbetriq) 50 Mg Tab 50 MG PO DAILY Urinary Symptom Managemen #30 Ref 0 TAB Nystatin-Triamcinolone (Nystatin-Triamcinolone) 100,000-0.1 Unit/Gm Cream 1 APPLIC TOPICAL Infection #15 Ref 0 GM Ondansetron (Ondansetron) 8 Mg Tab 8 MG PO TID Nausea/Vomiting Ref 0 TAB Pravastatin (Pravastatin) 40 Mg Tab 40 MG PO DAILY Cholesterol Management #30 Ref 0 TAB Sacubitril-Valsartan (Entresto) 49-51 Mg Tab 1 TAB PO DAILY Heart Failure #30 Ref 0 TAB Discontinued Medications: Chlorthalidone (Chlorthalidone) 25 Mg Tab 25 MG PO DAILY Ref 0 TAB Clonidine (Clonidine) 0.3 Mg Tab 0.3 MG PO BID Blood Pressure Management #60 Ref 0 TAB Dexmethylphenidate ER 24 HR (Dexmethylphenidate ER 24 HR) 20 Mg Cap 20 MG PO DAILY ADHD #30 Ref 0 CAP Furosemide (Furosemide) 40 Mg Tab 40 MG PO BID #60 Ref 0 TAB Glimepiride (Glimepiride) 4 Mg Tab 4 MG PO BID Take with breakfast or first main meal Blood Sugar Management #30 Ref 0 TAB Insulin Aspart Inj (Novolog Flexpen Inj) 300 Unit/3 Ml Pen 1 UNITS SQ Blood Sugar Management #1 Ref 0 PEN Insulin Detemir Inj (Levemir Flextouch Pen Inj) 300 unit/3 ML Pen 1 UNITS SQ Blood Sugar Management Ref 0 PEN Morphine Sulfate CR (Morphine Sulfate CR) 15 Mg Tab PO TID Potassium Chloride ER (Klor-Con 10) 10 Meq Tab 10 MEQ PO DAILY Electrolyte Replacement #30 Ref 0 TAB Tramadol (Tramadol) 50 Mg Tab 50 MG PO Q6H PRN PAIN Ref 0 TAB Ya Miner DO Oct 22, 2016 14:22
== END 2016-10-22 19:01 | DRG 551 ==
LOC: NEPE 20:59 → NEDA 10-19 02:28 → N06A 10-19 04:37 → N03A 10-20 12:51
PROVIDERS: ADMIT Hospitalist; ATTEND Hospitalist
DX: S32.018A Other fracture of first lumbar vertebra, initial encounter for closed fracture (principal); J96.90 Respiratory failure, unspecified, unspecified whether with hypoxia or hypercapnia; G93.41 Metabolic encephalopathy; C90.00 Multiple myeloma not having achieved remission; N17.9 Acute kidney failure, unspecified; N18.4 Chronic kidney disease, stage 4 (severe); I50.22 Chronic systolic (congestive) heart failure; D69.59 Other secondary thrombocytopenia; E11.22 Type 2 diabetes mellitus with diabetic chronic kidney disease; K22.70 Barrett's esophagus without dysplasia; S06.4X0A Epidural hemorrhage without loss of consciousness, initial encounter; E11.40 Type 2 diabetes mellitus with diabetic neuropathy, unspecified; I48.2 Chronic atrial fibrillation; E11.649 Type 2 diabetes mellitus with hypoglycemia without coma; E86.0 Dehydration; Z99.81 Dependence on supplemental oxygen; G43.909 Migraine, unspecified, not intractable, without status migrainosus; Y92.009 Unspecified place in unspecified non-institutional (private) residence as the place of occurrence of the external cause; W01.0XXA Fall on same level from slipping, tripping and stumbling without subsequent striking against object, initial encounter; R04.0 Epistaxis; G47.33 Obstructive sleep apnea (adult) (pediatric); I12.9 Hypertensive chronic kidney disease with stage 1 through stage 4 chronic kidney disease, or unspecified chronic kidney disease; K44.9 Diaphragmatic hernia without obstruction or gangrene; K21.9 Gastro-esophageal reflux disease without esophagitis; G89.4 Chronic pain syndrome; F41.9 Anxiety disorder, unspecified; M19.90 Unspecified osteoarthritis, unspecified site; E78.00 Pure hypercholesterolemia, unspecified; H91.92 Unspecified hearing loss, left ear; I25.10 Atherosclerotic heart disease of native coronary artery without angina pectoris; E66.9 Obesity, unspecified; F41.8 Other specified anxiety disorders; F43.10 Post-traumatic stress disorder, unspecified; M48.06 Spinal stenosis, lumbar region; T45.1X5A Adverse effect of antineoplastic and immunosuppressive drugs, initial encounter; E78.5 Hyperlipidemia, unspecified; D53.9 Nutritional anemia, unspecified; Z51.5 Encounter for palliative care; Z98.84 Bariatric surgery status; Z95.810 Presence of automatic (implantable) cardiac defibrillator; Z79.891 Long term (current) use of opiate analgesic; Z79.01 Long term (current) use of anticoagulants; Z86.73 Personal history of transient ischemic attack (TIA), and cerebral infarction without residual deficits; Z79.4 Long term (current) use of insulin; Z90.79 Acquired absence of other genital organ(s); Z85.46 Personal history of malignant neoplasm of prostate; T42.6X5A Adverse effect of other antiepileptic and sedative-hypnotic drugs, initial encounter; T40.605A Adverse effect of unspecified narcotics, initial encounter; Z82.49 Family history of ischemic heart disease and other diseases of the circulatory system
CPT/HCPCS: 36600; 70450; 70486; 71010; 72125; 72128; 72131; 72170; 73610; 73620; 76775; 80048; 80053; 81001; 82140; 82550; 82552; 82607; 82728; 82746; 82784; 82805; 82947; 82948; 83036; 83540; 83550; 83735; 83880; 83883; 84484; 85007; 85025; 85027; 85610; 85730; 93005; 96361; 96374; 96375; J1170; J1815; J2310; J2405; J2543; J2920; J7030; J7040; J7060; L0200; L0484

== ENCOUNTER → 2016-12-28 | Day surgery (SDC) | payer MEDICARE, OTHER ==
[~2016-12-28] MED LIST: ACYC400T PO; ADVANCED COLON CARE PO; ALLO300T2 PO; ASCO500T PO; ASPI1TAB69 PO; ASPI81TA5 PO; B-122000 PO; CALC500T17 PO; CALC600T25 PO; CARV25TA PO; CHOL1CHW5 CHEW; CLON0.3T PO; COLA100C PO; DEXTROSE 10% IN WATER 500 ML BAG IV ONE; DOXY100C PO; ECON0.052 TOPICAL; FERR325T2 PO; FURO40TA PO; GABA300C5 PO; GABA600T PO; GLIM4TAB PO; GLUT500T PO; HYDR-3516 PO; HYDR200T3 PO; LACT10SO PO; LACTATED RINGER'S 1000 ML INJ 1,000 ML ONE; LEVEMIR SQ; LIDO1KIT TOPICAL; LIDO4PAD; LIDO5DIS5 TOPICAL; METH1CHW3 PO; METH20TA PO; MIRA50TA PO; MULTCHW27 CHEW; NEXI40CA PO; NINLARO PO; NITR0.4S SL; NOVOLOGP2 SQ; NYSTCRE29 TOPICAL; ONDA1TAB17 PO; PEDI1TAB7; POTA-243 PO; PRAD75CA PO; PRAV40TA2 PO; PROPOFOL 500 MG/50 ML BTL IV ONE; REST0.05 EACH EYE; SACU1TAB7 PO; THAL50CA PO; TOLN1CRE26 TOPICAL; TORS20TA PO; TRIL135C PO; VITA2000 PO; ZOME4INJ IV; [UNRECOGNIZED DRUG - CODE] IM; [UNRECOGNIZED DRUG - OTHER] IM
--- NOTE | 2016-12-28 11:48 | GIPROC ---
[facility] [address], [address] COLONOSCOPY PROCEDURE REPORT EXAM DATE: 12/28/2016 PATIENT NAME: Moses Navarro MR #: [id number] BIRTHDATE: 1940 ENDOSCOPIST: Meggan Hatch MD ORDER #: [id number] SENIOR SYSTEMS SOFTWARE ENGINEER: Linette Hagen RN STATUS: outpatient INDICATIONS: The patient is a 76 yr old male here for a colonoscopy due to constipation, history of polyps PROCEDURE PERFORMED: Colonoscopy with polypectomy MEDICATIONS: None and Per Anesthesia. PREP QUALITY: fair PREP TYPE:GoLytely ESTIMATED BLOOD LOSS: None CONSENT: The patient understands the risks and benefits of the procedure and understands that these risks include, but are not limited to: sedation, allergic reaction, infection, perforation and/or bleeding. Alternative means of evaluation and treatment include, among others: physical exam, x-rays, and/or surgical intervention. The patient elects to proceed with this endoscopic procedure. medical equipment was checked for proper function. Hand hygiene and appropriate measures for infection prevention was taken. After the risks, benefits and alternatives of the procedure were thoroughly explained, Informed consent was verified, confirmed and timeout was successfully executed by the treatment team. A digital exam revealed external hemorrhoids The [id number] ([id number]) endoscope was introduced through the anus and advanced to the cecum, which was identified by both the appendix and ileocecal valve. The instrument was then slowly withdrawn as the colon was fully examined. COLON FINDINGS: Diverticulosis sigmoid,descending polyp sessile thansverse -6 mm-cold snare polypectomy with complete removal melanosis coli some liquid stool in cecum. Retroflexed views revealed internal hemorrhoids and Retroflexed views revealed small internal hemorrhoids The scope was then completely withdrawn from the patient and the procedure terminated. PROCEDURE WITHDRAWAL TIME:13minutes ADVERSE EVENTS: There were no complications. IMPRESSIONS: 1. Diverticulosis sigmoid,descending polyp sessile thansverse -6 mm-cold snare polypectomy with complete removal melanosis coli some liquid stool in cecum 2. Retroflexed views revealed internal hemorrhoids 3. Retroflexed views revealed small internal hemorrhoids 4. Revealed external hemorrhoids RECOMMENDATIONS: 1. Await biopsy results. Biopsy results will not be ready for 7-10 days. If you don't hear from us in two weeks, call our office for results. 2. Benefiber 2 tsp daily 3. High fiber diet 4. Probiotics from any [facility] or health food store 5. Yearly rectal exams RECALL: Colonoscopy, pending biopsy results Meggan Hatch MD eSigned: Meggan Hatch MD 12/28/2016 11:48 AM cc: Dayo Katz M.D. PATIENT NAME: RamonMoses Patrick MR#: [id number]
--- NOTE | 2016-12-28 11:52 | GIPROC ---
[facility] [address] [facility] [place], [address] EGD PROCEDURE REPORT EXAM DATE: 12/28/2016 PATIENT NAME: Moses Navarro MR #: [id number] BIRTHDATE: 1940 ATTENDING: Meggan Hatch MD ORDER #: [id number] RESIDENTIAL COORDINATOR: Linette Hagen RN STATUS: outpatient INDICATIONS: The patient is a 76 yr old male here for an EGD due to history of Patel's anemia PROCEDURE PERFORMED: EGD w/ biopsy MEDICATIONS: None and Per Anesthesia. TOPICAL ANESTHETIC: none CONSENT: The patient understands the risks and benefits of the procedure and understands that these risks include, but are not limited to: sedation, allergic reaction, infection, perforation and/or bleeding. Alternative means of evaluation and treatment include, among others: physical exam, x-rays, and/or surgical intervention. The patient elects to proceed with this endoscopic procedure. medical equipment was checked for proper function. Hand hygiene and appropriate measures for infection prevention was taken. After the risks, benefits and alternatives of the procedure were thoroughly explained, Informed consent was verified, confirmed and timeout was successfully executed by the treatment team. The patient was anesthetized with topical anesthesia and the [id number] ([id number]) endoscope was introduced through the mouth and advanced to the second portion of the duodenum. Retroflexed views revealed a hiatal hernia The gastroscope was then slowly withdrawn and removed. Gastrtis antrum-biopsy duodenum normal-biopsy short segment Patel's -biopsy. ADVERSE EVENTS: There were no complications. IMPRESSIONS: 1. Gastrtis antrum-biopsy duodenum normal-biopsy short segment Patel's -biopsy 2. Retroflexed views revealed a hiatal hernia RECOMMENDATIONS: 1. Await biopsy results. Biopsy results will not be ready for 7-10 days. If you don't hear from us in two weeks, call our office for biopsy results. 2. Anti-reflux regimen 3. Colonoscopy 4. Continue PPI 5. Avoid NSAIDS 6. Capsule endoscopy PATIENT CONDITION: stable DISPOSITION: Home REPEAT EXAM: EGD pending biopsy results Meggan Hatch MD eSigned: Meggan Hatch MD 12/28/2016 11:52 AM cc: Dayo Katz M.D. PATIENT NAME: Moses Navarro MR#: [id number]
== END | disposition home or self-care (01) ==
LOC: ESDC 08:56
PROVIDERS: ATTEND Internal Medicine Gastroenterology
DX: K59.00 Constipation, unspecified (principal); Z86.010 Personal history of colon polyps; D12.3 Benign neoplasm of transverse colon; K57.90 Diverticulosis of intestine, part unspecified, without perforation or abscess without bleeding; K64.8 Other hemorrhoids; K22.70 Barrett's esophagus without dysplasia; D64.9 Anemia, unspecified; K29.70 Gastritis, unspecified, without bleeding; K44.9 Diaphragmatic hernia without obstruction or gangrene; E11.9 Type 2 diabetes mellitus without complications; Z79.4 Long term (current) use of insulin
CPT/HCPCS: 00740; 00810; 43239; 45385; 82948; 88305; 88312; J7120

== ENCOUNTER 2017-01-15 14:03 | Emergency (ER) | payer MEDICARE, OTHER ==
[~2017-01-15] VITALS: Ht 177.8 cm; Wt 116.5 kg
[~2017-01-15 14:03] MED LIST changes: -ADVANCED COLON CARE PO; -ASCO500T PO; -ASPI1TAB69 PO; -ASPI81TA5 PO; -B-122000 PO; -CALC500T17 PO; -CALC600T25 PO; -CHOL1CHW5 CHEW; -CLON0.3T PO; -COLA100C PO; -DEXTROSE 10% IN WATER 500 ML BAG IV ONE; -DOXY100C PO; -FERR325T2 PO; -FURO40TA PO; -GABA600T PO; -GLIM4TAB PO; -GLUT500T PO; -LACTATED RINGER'S 1000 ML INJ 1,000 ML ONE; -LIDO1KIT TOPICAL; -LIDO5DIS5 TOPICAL; -METH1CHW3 PO; -METH20TA PO; -MULTCHW27 CHEW; -NINLARO PO; -NITR0.4S SL; -PEDI1TAB7; -POTA-243 PO; -PROPOFOL 500 MG/50 ML BTL IV ONE; -THAL50CA PO; -TOLN1CRE26 TOPICAL; -VITA2000 PO; -ZOME4INJ IV; -[UNRECOGNIZED DRUG - CODE] IM; -[UNRECOGNIZED DRUG - OTHER] IM
[2017-01-15 14:08] VITALS: BP 134/70; PULSE 61; RESP 20; TEMP 98.2; O2SAT 93
[2017-01-15] MEDS ORDERED: POTA-243 PO (14:43)
[2017-01-15] MEDS ORDERED: PRAD75CA PO (14:43)
[2017-01-15] MEDS ORDERED: GABA300C5 PO (14:43)
[2017-01-15] MEDS ORDERED: GLIM4TAB PO (14:43)
[2017-01-15] MEDS ORDERED: [UNRECOGNIZED DRUG - OTHER] IM (14:43)
[2017-01-15] MEDS ORDERED: CLON0.3T PO (14:43)
[2017-01-15] MEDS ORDERED: SACU1TAB7 PO (14:43)
[2017-01-15] MEDS ORDERED: REST0.05 EACH EYE (14:43)
[2017-01-15] MEDS ORDERED: NEXI40CA PO (14:43)
[2017-01-15] MEDS ORDERED: NINLARO PO (14:43)
[2017-01-15] MEDS ORDERED: METH1CHW3 PO (14:43)
[2017-01-15] MEDS ORDERED: GABA600T PO (14:43)
[2017-01-15] MEDS ORDERED: TRIL135C PO (14:43)
[2017-01-15] MEDS ORDERED: FURO40TA PO (14:43)
--- NOTE | 2017-01-15 14:43 | PD ---
HPI Chief Complaint: Cold / Flu Symptoms Time Seen by Provider: 14:11 Travel History International Travel<30 days: No Contact w/Intl Traveler<30days: No Traveled to known affect area: No History of Present Illness HPI This 76 old male with history of multiple myeloma, on Zometa and Ninlaro oral chemotherapy, as well as multiple medical comorbidities, presents with one day of cough congestion runny nose. No fevers. No shortness of breath. No chest pain. No nausea vomiting diarrhea. No sick contacts. States he was instructed if he has ever sick he has to be evaluated in the hospital due to chemotherapy. History Past Medical History Narrative Medical CHF Hypertension on hyperlipidemia TIA Diabetes A. fib, on Pradaxa Multiple myeloma, on oral chemotherapy Chronic kidney disease Status post lap band in the past Sleep apnea, on BiPAP Influenza Vaccination: Yes Social History Alcohol Use: No Tobacco Use: No Allergies-Medications (Allergen,Severity, Reaction): Coded Allergies: Fentanyl (Verified Allergy, Severe, Itching, 01/15/17) Warfarin (Verified Allergy, Unknown, 01/15/17) *MDRO Multi-Drug Resistant Organism (Verified Adverse Reaction, Unknown, ) MRSA PCR screens negative 12/12/14 and 12/19/14- cleared per infection control Reported Meds & Prescriptions Reported Meds & Active Scripts Active Novolog Inj (Insulin Aspart) 1,000 Unit/10 Ml Vial 1-9 Units SQ ACHS Max dose at bedtime:( )units; sugars less than 70,(0)units; sugars 150-199,(1) unit; sugars 200-249,(3) units; sugars 250-299,(5) units; sugars 300-349,(7) units; sugars greater than 349,(9) units Reported Vitamin D3 (Cholecalciferol) 2,000 Unit Chew 2,000 Units CHEW DAILY Calcium (Calcium Carbonate) 1,250 Mg Tab 1,250 Mg PO 1,250 mg calcium carbonate (500 mg elemental calcium) l-Glutamine (Glutamine) 500 Mg Tab 2,000 Mg DE DAILY Aspirin 81 Mg Tabdr 81 Mg PO DAILY Restasis Opth Drops (Cyclosporine Opth Drops) 0.05% Emul 1 Drop EACH EYE BID Klor-Con 10 (Potassium Chloride) 10 Meq Tab 40 Meq PO BID Glimepiride 4 Mg Tab 4 Mg PO BIDAC Entresto (Sacubitril-Valsartan) 49-51 Mg Tab 1 Tab PO DAILY Clonidine (Clonidine HCl) 0.3 Mg Tab 0.3 Mg PO BID Nexium (Esomeprazole DR) 40 Mg Capdr 40 Mg PO DAILY Trilipix (Choline Fenofibrate DR) 135 Mg Capdr 135 Mg PO DAILY Pradaxa (Dabigatran) 75 Mg Cap 75 Mg PO BID Furosemide 40 Mg Tab 40 Mg PO BID Gabapentin 300 Mg Cap 900 Mg PO HS Gabapentin 600 Mg Tab 600 Mg PO DAILY Methylphenidate (Methylphenidate HCl) 10 Mg Chew 30 Mg PO BID [procreate] 20,000 Unit IM [ninlaro] 2.3 Mg PO DAY 1,8, & 15. OFF 7 Aspercreme Lidocaine Max Patch (Lidocaine) 4% Patch Econazole Topical (Econazole Nitrate) 1% Cream 1 Applic TOPICAL DAILY Hydroxychloroquine (Hydroxychloroquine Sulfate) 200 Mg Tab 200 Mg PO BID Takw with food Nystatin-Triamcinolone 100,000-0.1 Unit/Gm Cream 1 Applic TOPICAL Allopurinol 300 Mg Tab 300 Mg PO DAILY Carvedilol 25 Mg Tab 50 Mg PO BID Pravastatin 40 Mg Tab 40 Mg PO DAILY Ondansetron (Ondansetron HCl) 8 Mg Tab 8 Mg PO TID Myrbetriq (Mirabegron) 50 Mg Tab 50 Mg PO DAILY Acyclovir 400 Mg Tab 400 Mg PO BID Review of Systems Except as stated in HPI: all other systems reviewed are Neg Physical Exam Narrative GENERAL: Well-appearing 76 year-old man, obese, no acute distress. SKIN: Focused skin assessment warm/dry. ENT: No nasal bleeding or discharge. Mucous membranes pink and moist. NECK: Trachea midline. No JVD. CARDIOVASCULAR: Regular rate and rhythm. No murmur appreciated. RESPIRATORY: No accessory muscle use. Clear to auscultation. Breath sounds equal bilaterally. GASTROINTESTINAL: Protuberant abdomen. Soft. No tenderness. MUSCULOSKELETAL: No obvious deformities. Some trace edema both lower extremities. NEUROLOGICAL: Awake and alert. No obvious cranial nerve deficits. Motor grossly within normal limits. Normal speech. PSYCHIATRIC: Appropriate mood and affect; insight and judgment normal. Data Data Last Documented VS Vital Signs Date Time Temp Pulse Resp B/P Pulse Ox O2 Delivery O2 Flow Rate FiO2 01/15/17 15:11 66 16 146/72 100 Room Air 01/15/17 14:08 98.2 Orders Complete Blood Count With Diff (01/15/17 14:34) Comprehensive Metabolic Panel (01/15/17 14:34) Chest, Single Ap (01/15/17 ) Labs Laboratory Tests Test 01/15/17 14:46 White Blood Count 4.7 TH/MM3 Red Blood Count 2.73 MIL/MM3 Hemoglobin 8.9 GM/DL Hematocrit 27.4 % Mean Corpuscular Volume 100.4 FL Mean Corpuscular Hemoglobin 32.6 PG Mean Corpuscular Hemoglobin 32.5 % Concent Red Cell Distribution Width 21.8 % Platelet Count 133 TH/MM3 Mean Platelet Volume 7.9 FL Neutrophils (%) (Auto) 56.9 % Lymphocytes (%) (Auto) 31.8 % Monocytes (%) (Auto) 10.3 % Eosinophils (%) (Auto) 0.7 % Basophils (%) (Auto) 0.3 % Neutrophils # (Auto) 2.7 TH/MM3 Lymphocytes # (Auto) 1.5 TH/MM3 Monocytes # (Auto) 0.5 TH/MM3 Eosinophils # (Auto) 0.0 TH/MM3 Basophils # (Auto) 0.0 TH/MM3 CBC Comment DIFF FINAL Differential Comment Sodium Level 144 MEQ/L Potassium Level 4.0 MEQ/L Chloride Level 107 MEQ/L Carbon Dioxide Level 26.8 MEQ/L Anion Gap 10 MEQ/L Blood Urea Nitrogen 36 MG/DL Creatinine 3.20 MG/DL Estimat Glomerular Filtration 19 ML/MIN Rate Random Glucose 145 MG/DL Calcium Level 9.9 MG/DL Total Bilirubin 0.4 MG/DL Aspartate Amino Transf 21 U/L (AST/SGOT) Alanine Aminotransferase 19 U/L (ALT/SGPT) Total Protein 9.6 GM/DL Albumin 3.5 GM/DL [facility] Medical Decision Making Medical Screen Exam Complete: Yes Emergency Medical Condition: Yes Interpretation(s) Chest x-ray: Under inflated examination mild opacity in the lung bases likely likely representing atelectasis. No definite airspace consolidation is seen. LABS: CBC, hemoglobin 8.9, white count normal. CMP, urine and creatinine 36/3.2, total protein 9.6 Differential Diagnosis URI, bronchitis, pneumonia, sepsis, other Narrative Course Medical decision making 76 old man presents with mild URI symptoms. Anxious because he is on oral chemotherapy and is been immune suppressed in the past. We'll check labs, ANC, x-ray, likely supportive treatment. Diagnosis Primary Impression: URI (upper respiratory infection) Additional Instructions: Take antibiotics as prescribed. Follow-up with your primary doctor in the next 3-4 days every not feeling improved. Return to the emergency department for any worsening trouble, or any other new or worsening symptoms. Med/Other Pt SpecificInfo: Prescription(s) given Scripts Doxycycline Hyclate 100 Mg [id number] Mg PO BID 7 Days Ref 0 Prov:Alexsander Gomez MD 01/15/17 Disposition: 01 DISCHARGE HOME Condition: Stable Alexsander Gomez MD Jan 15, 2017 14:43
[2017-01-15] MEDS ORDERED: GLUT500T PO (14:46)
[2017-01-15] MEDS ORDERED: CHOL1CHW5 CHEW (14:46)
[2017-01-15] MEDS ORDERED: CALC500T17 PO (14:46)
[2017-01-15] MEDS ORDERED: ASPI1TAB69 PO (14:46)
--- NOTE | 2017-01-15 14:56 | RADHPO ---
EXAM DATE/TIME: 01/15/2017 14:41 [facility] COMPARISON: CHEST SINGLE AP, October 20, 2016, 12:30. INDICATIONS : Cough & congestion. MEDICAL HISTORY : Hypertension. Hypercholesterolemia. Carcinoma, prostate. Congestive heart failure. Multiple mylo ma.A-fib.CVA/TIA. SURGICAL HISTORY : Tonsillectomy. Vasectomy. Umbilical herniorrhaphy 2001. Radial prostatectomy. Cystoscopy of bladder n lana. Bilateral heel spur removal. Bilateral lens implant. Pacemaker.Infusaport.Lap band. ENCOUNTER: Initial ACUITY: 1 day PAIN SCORE: 0/10 LOCATION: chest FINDINGS: Portable AP view of the chest demonstrates a normal size cardiac silhouette. Right chest wall Infuse- a-Port and left chest wall cardiac pacing device remain present. Lungs are underinflated with mild bi basilar opacity. No effusion or pneumothorax is visualized. Bones and soft tissues demonstrate no acu te finding. CONCLUSION: Underinflated examination with mild opacities at lung bases most likely representing atelectasis. No definite airspace consolidation is seen. If symptoms persist suggest followup with good inspiratory f ormal PA and lateral views of the chest. Jameel Key MD on January 15, 2017 at 14:52 Board Certified Radiologist. This report was verified electronically.
[2017-01-15 15:03] LABS: CHLORIDE 107 MEQ/L (98-107); SODIUM (NA) 144 MEQ/L (136-145)
[2017-01-15 15:06] LABS: ANION GAP 10 MEQ/L (5-15); BICARBONATE 26.8 MEQ/L (21.0-32.0)
[2017-01-15 15:07] LABS: AUTOMATED NEUTROPHIL # 2.7 TH/MM3 (1.8-7.7); BASOPHIL % 0.3 % (0.0-2.0); BLOOD UREA NITROGEN 36 MG/DL (7-18); EOSINOPHIL % 0.7 % (0.0-4.0); HEMATOCRIT 27.4 % (39.0-51.0); HEMO FLAGS DIFF FINAL; LYMPH % 31.8 % (9.0-44.0); LYMPHOCYTE # 1.5 TH/MM3 (1.0-4.8); MEAN CELL VOLUME 100.4 FL (80.0-100.0); MEAN CORPUSCULAR HEMOGLOBIN 32.6 PG (27.0-34.0); MEAN CORPUSCULAR HGB CONC 32.5 % (32.0-36.0); MONO % 10.3 % (0.0-8.0); NEUT % 56.9 % (16.0-70.0); PLATELET COUNT 133 TH/MM3 (150-450); RED BLOOD COUNT 2.73 MIL/MM3 (4.50-5.90); RED CELL DISTRIBUTION WIDTH 21.8 % (11.6-17.2); WHITE BLOOD COUNT 4.7 TH/MM3 (4.0-11.0)
[2017-01-15 15:10] LABS: ALT (GPT) 19 U/L (12-78); AST (GOT) 21 U/L (15-37); GLOMERULAR FILTRATION RATE 19 ML/MIN (>89)
[2017-01-15 15:11] VITALS: BP 146/72; PULSE 66; RESP 16; O2SAT 100
[2017-01-15 15:11] LABS: TOTAL BILIRUBIN ADULT 0.4 MG/DL (0.2-1.0)
[2017-01-15 15:12] LABS: ALKALINE PHOSPHATASE 29 U/L (45-117)
[2017-01-15] MEDS ORDERED: DOXY100C PO (15:16)
== END 2017-01-15 15:31 | disposition home or self-care (01) ==
LOC: PHED 14:03
DX: J06.9 Acute upper respiratory infection, unspecified (principal); I50.9 Heart failure, unspecified; I12.9 Hypertensive chronic kidney disease with stage 1 through stage 4 chronic kidney disease, or unspecified chronic kidney disease; E78.5 Hyperlipidemia, unspecified; Z86.73 Personal history of transient ischemic attack (TIA), and cerebral infarction without residual deficits; E11.9 Type 2 diabetes mellitus without complications; N18.9 Chronic kidney disease, unspecified; Z98.84 Bariatric surgery status; G47.30 Sleep apnea, unspecified; Z79.4 Long term (current) use of insulin; E78.00 Pure hypercholesterolemia, unspecified
CPT/HCPCS: 71010; 80053; 85025; 99283

== ENCOUNTER 2017-03-24 12:53 | Inpatient (IN) | payer MEDICARE, OTHER ==
[~2017-03-24] VITALS: Ht 175.3 cm; Wt 106.0 kg
[2017-03-24] VITALS (13 sets, daily range): BP systolic 104–146; BP diastolic 57–73; PULSE 54–84; RESP 11–19; TEMP 99; O2SAT 97–100
[~2017-03-24 12:53] MED LIST changes: +ASPI1TAB69 PO; +CALC500T17 PO; +CHOL1CHW5 CHEW; +CLON0.3T PO; +DOXY100C PO; +FURO40TA PO; +GABA600T PO; +GLIM4TAB PO; +GLUT500T PO; -HYDR-3516 PO; -LACT10SO PO; -LEVEMIR SQ; +METH1CHW3 PO; +NINLARO PO; +POTA-243 PO; -TORS20TA PO; +[UNRECOGNIZED DRUG - OTHER] IM
[2017-03-24] MEDS ORDERED: PROPOFOL 1000 MG/100 ML INJ 100 ML ONE (13:06)
[2017-03-24] MEDS ORDERED: SODIUM CHLORIDE 0.9% FLUSH 5 ML FLUSH IV FLUSH PRN (13:15)
[2017-03-24 13:33] LABS: AUTOMATED NEUTROPHIL # 4.2 TH/MM3 (1.8-7.7); BASOPHIL # 0.6 TH/MM3 (0-0.2); BASOPHIL % 6.8 % (0.0-2.0); EOSINOPHIL # 0.1 TH/MM3 (0-0.4); EOSINOPHIL % 0.6 % (0.0-4.0); HEMATOCRIT 24.8 % (39.0-51.0); LYMPH % 40.3 % (9.0-44.0); LYMPHOCYTE # 3.6 TH/MM3 (1.0-4.8); MEAN CELL VOLUME 100.9 FL (80.0-100.0); MEAN CORPUSCULAR HEMOGLOBIN 33.2 PG (27.0-34.0); MONO % 4.8 % (0.0-8.0); NEUT % 47.5 % (16.0-70.0); PLATELET COUNT 63 TH/MM3 (150-450); RED BLOOD COUNT 2.45 MIL/MM3 (4.50-5.90); RED CELL DISTRIBUTION WIDTH 22.2 % (11.6-17.2); WHITE BLOOD COUNT 8.9 TH/MM3 (4.0-11.0)
[2017-03-24 13:43] LABS: BLOOD, URINE NEG (NEG); COMMENT (UR) CULT NOT INDICATED; CULTURE IF INDICATED CULT NOT INDICATED; GLUCOSE,URINE NEG (NEG); KETONE, URINE NEG (NEG); NITRITE,URINE NEG (NEG); PROTHROMBIN TIME - PATIENT 11.6 SEC (9.8-11.6); URINE COLOR YELLOW (YELLW/STRAW)
[2017-03-24 13:44] LABS: HEMO FLAGS AUTO DIFF
--- NOTE | 2017-03-24 13:49 | PD ---
HPI Chief Complaint: Diabetic Time Seen by Provider: 13:02 Travel History International Travel<30 days: No Contact w/Intl Traveler<30days: No Traveled to known affect area: No History of Present Illness HPI This is a 76-year-old male with a history of diabetes mellitus, who presents via EMS intubated. The patient was reportedly last seen normal at 7 AM. According to the family members EMS was called yesterday for a hypoglycemic episode. At that time they gave him D10 and he refused transport. was reportedly supposed to feed him a meal last night and reportedly did not. At 7 AM this morning he was somewhat confused however shortly thereafter the daughter was called and came home to find him unconscious. His blood sugar was noted to be 20 on scene. He was given 25 g of dextrose which brought his blood sugar into the 180s and then back down into the 80s. The patient was intubated for a GCS of 3. Paramedics reported that he had a respiratory rate of roughly 8 that appeared somewhat labored when they arrived. Report was that he had no spontaneous movement. Pupils are 2-3 and minimally reactive. No further information could be obtained secondary the patient's clinical status. PFSH Past Medical History Hx Anticoagulant Therapy: Yes (PRADAXA) Arthritis: Yes Asthma: No Atrial Fibrillation: Yes Autoimmune Disease: No Blood Disorders: No Anxiety: Yes Depression: Yes Heart Rhythm Problems: Yes (A FIB) Cancer: Yes (PROSTATE CANCER, MULTIPLE MYELOMA) Cardiac Catheterization: Yes (2001) Cardiovascular Problems: Yes (PACE MAKER AND DEFIBULATOR ) High Cholesterol: Yes Chemotherapy: Yes Chest Pain: Yes Congestive Heart Failure: Yes COPD: No Cerebrovascular Accident: Yes (TIA) Diabetes: Yes Patient Takes Glucophage: No Diminished Hearing: Yes (IGIUGIG LEFT) Endocrine: Yes Gastrointestinal Disorders: Yes (HEMORRHOIDS) GERD: Yes Genitourinary: Yes Headaches: No Hiatal Hernia: Yes Heparin Induced Thrombocytopen: No Hypertension: Yes Immune Disorder: No Implanted Vascular Access Dvce: Yes (PORT RIGHT SIDE CHEST) Kidney Stones: No Musculoskeletal: Yes (MULTIPLE MYLOMA) Neurologic: Yes Psychiatric: Yes Reproductive: No Respiratory: Yes Migraines: Yes Myocardial Infarction: No Radiation Therapy: No Renal Failure: Yes Seizures: No Sickle Cell Disease: No Sleep Apnea: Yes (CPAP AT NIGHT) Thyroid Disease: No Ulcer: No Past Surgical History Abdominal Surgery: Yes (HERNIA REPAIR, LAP BAND) AICD: Yes Appendectomy: No Arteriovenous Shunt: No Body Medical Devices: USES BIPAP Cardiac Surgery: Yes (ABLATION, PACEMAKER/AICD (LEFT CHEST)) Cholecystectomy: No Ear Surgery: No Endocrine Surgery: No Eye Surgery: Yes (BILATERAL CATARACT REMOVAL WITH LENS PLACEMENT) Genitourinary Surgery: Yes (VASECTOMY, RADICAL PROSTATECTOMY, CYSTOSCOPY DILATION OF BLADDER NECK) Gynecologic Surgery: No Insulin Pump: No Joint Replacement: No Neurologic Surgery: No Oral Surgery: Yes (TONSILLECTOMY A CHILD) Pacemaker: Yes (LEFT CHEST) Thoracic Surgery: No Tonsillectomy: Yes Tympanostomy Tube: Yes (1945) Other Surgery: Yes (NASAL SURGERY) Social History Alcohol Use: No Tobacco Use: No Substance Use: No Allergies-Medications (Allergen,Severity, Reaction): Coded Allergies: Fentanyl (Verified Allergy, Severe, Itching, 01/15/17) Warfarin (Verified Allergy, Unknown, 01/15/17) *MDRO Multi-Drug Resistant Organism (Verified Adverse Reaction, Unknown, ) MRSA PCR screens negative 12/12/14 and 12/19/14- cleared per infection control Reported Meds & Prescriptions Reported Meds & Active Scripts Active Reported Colace (Docusate Sodium) 100 Mg Capsule 200 Mg PO ONCE [Advanced Colon Care] 1 Tab PO BID Ascorbic Acid 500 Mg Tab 1,000 Mg PO DAILY Ferrous Sulfate DR (Ferrous Sulfate) 325 Mg Tabdr 325 Mg PO HS Vitamin D3 (Cholecalciferol) 2,000 Unit Cap 2,000 Units PO HS B-12 (Cyanocobalamin) 2,000 Mcg Tab 2,000 Mcg PO HS Aspirin DR (Aspirin) 81 Mg Tabdr 81 Mg PO HS Calcium (Calcium Carbonate) 600 Mg Tab 1,200 Mg PO DAILY Multivitamin Gummies Adul (Multiple Vitamins W/ Minerals) 1 Chw Chw 2 Chew CHEW DAILY Eq Athletes Foot (Tolnaftate) 1 % Cre 1 Applic TOPICAL DAILY Lidoderm (Lidocaine) 5 % Adh..patch 1 Patch TOPICAL DAILY Nitrostat SL (Nitroglycerin) 0.4 Mg Subl 0.4 Mg SL DIRECTED PRN 1 tablet under the tongue as needed for chest pain. Repeat every 5 minutes for a total of 3 DOSES or call 911 if NO relief. Restasis Opth 0.05% (Cyclosporine Opth 0.05%) 0.05% Emul 1 Drop EACH EYE BID Trilipix (Choline Fenofibrate DR) 135 Mg Capdr 135 Mg PO DAILY Novolog Inj (Insulin Aspart) 1,000 Unit/10 Ml Vial 40 Units SQ TIDAC Methylphenidate IR (Methylphenidate HCl) 20 Mg Tab 30 Mg PO BID Epogen (Epoetin Refugio) 20,000 Unit/2 Ml Vial 20,000 Units IM MONTHLY WITH CHEMO Zometa Inj (Zoledronic Acid) 4 Mg/100 Ml Inj 3.3 Mg IV MONTHLY WITH CHEMO Prilolid 2.5-2.5 % (Lidocaine-Prilocaine) 1 Kit Kit 1 Applic TOPICAL ON CHEMO DAYS Thalomid (Thalidomide) 50 Mg Cap 50 Mg PO DAILY l-Glutamine (Glutamine) 500 Mg Tab 2,000 Mg PO DAILY Klor-Con 10 (Potassium Chloride) 10 Meq Tab 40 Meq PO BID Glimepiride 4 Mg Tab 4 Mg PO DAILY Entresto (Sacubitril-Valsartan) 49-51 Mg Tab 1 Tab PO BID Clonidine (Clonidine HCl) 0.3 Mg Tab 0.3 Mg PO BID Nexium (Esomeprazole DR) 40 Mg Capdr 40 Mg PO DAILY Pradaxa (Dabigatran) 75 Mg Cap 75 Mg PO BID Furosemide 40 Mg Tab 40 Mg PO BID Gabapentin 300 Mg Cap 900 Mg PO HS Gabapentin 600 Mg Tab 600 Mg PO DAILY Econazole Topical (Econazole Nitrate) 1% Cream 1 Applic TOPICAL BID PRN Hydroxychloroquine (Hydroxychloroquine Sulfate) 200 Mg Tab 200 Mg PO BID Takw with food Nystatin-Triamcinolone 100,000-0.1 Unit/Gm Cream 1 Applic TOPICAL DAILY PRN Allopurinol 300 Mg Tab 300 Mg PO DAILY Carvedilol 25 Mg Tab 50 Mg PO BID Pravastatin 40 Mg Tab 40 Mg PO HS Ondansetron (Ondansetron HCl) 8 Mg Tab 8 Mg PO TID Myrbetriq (Mirabegron) 50 Mg Tab 50 Mg PO DAILY Acyclovir 400 Mg Tab 400 Mg PO BID Review of Systems ROS Limitations: Clinical Condition, Intubated Except as stated in HPI: all other systems reviewed are Neg Physical Exam Narrative GENERAL: Obese gentleman who is intubated and being bagged to the ET tube. SKIN: Focused skin assessment warm/dry. HEAD: Atraumatic. Normocephalic. EYES: Pupils at 2-3 with minimal reaction no scleral icterus. No injection or drainage. ENT: No nasal bleeding or discharge. Mucous membranes pink and moist. ET tube in place. NECK: Trachea midline. No JVD. CARDIOVASCULAR: Paced rhythm with a rate of 73. RESPIRATORY: Equal breath sounds with no obvious Rales or rhonchi. This was obtained with him being ventilated. GASTROINTESTINAL: Abdomen soft, obese, nondistended. No obvious palpable abdominal masses appreciated. MUSCULOSKELETAL: No obvious deformities. No clubbing. No cyanosis. 1-2+ edema bilaterally. NEUROLOGICAL: A and O 0. The patient was intubated. He received accommodate and Ativan prior to arrival. He has no spontaneous movement times all 4 extremities. Data Data Last Documented VS Vital Signs Date Time Temp Pulse Resp B/P Pulse Ox O2 Delivery O2 Flow Rate FiO2 03/24/17 14:00 100 100 03/24/17 13:06 75 16 03/24/17 13:00 104/57 Orders Electrocardiogram (03/24/17 13:04) Complete Blood Count With Diff (03/24/17 13:04) Comprehensive Metabolic Panel (03/24/17 13:04) Creatine Kinase (Cpk) (03/24/17 13:04) Prothrombin Time / Inr (Pt) (03/24/17 13:04) Act Partial Throm Time (Ptt) (03/24/17 13:04) Troponin I (03/24/17 13:04) Urinalysis - C+S If Indicated (03/24/17 13:04) Lactic Acid Sepsis Protocol (03/24/17 13:04) Chest, Single Ap (03/24/17 13:04) Ct Brain W/O Iv Contrast(Rout) (03/24/17 13:04) Blood Glucose (03/24/17 13:04) Ecg Monitoring (03/24/17 13:04) Iv Access Insert/Monitor (03/24/17 13:04) Oximetry (03/24/17 13:04) Sodium Chloride 0.9% Flush (Ns Flush) (03/24/17 13:15) Propofol 1000 Mg/100 Ml Inj (Diprivan 10 (03/24/17 13:06) Arterial Blood Gas (Abg) (03/24/17 13:37) Propofol 1000 Mg/100 Ml Inj (Diprivan 10 (03/24/17 14:15) ^ Infusion (03/24/17 14:13) RASS (03/24/17 14:13) Neurological Rass Scale FEROZ.Q2H (03/24/17 14:13) Admit To Inpatient (03/24/17 ) Code Status (03/24/17 15:08) Vital Signs (Adult) FEROZ.Q1H (03/24/17 15:08) Activity Bed Rest (03/24/17 15:08) Elevate Head Of Bed (03/24/17 15:08) Neuro Checks . ORDERED (03/24/17 15:08) Pantoprazole Inj (Protonix Inj) (03/24/17 15:15) Albuterol-Ipratropium Neb (Duoneb Neb) (03/24/17 16:00) Complete Blood Count With Diff (03/25/17 04:00) Basic Metabolic Panel (Bmp) (03/25/17 04:00) Knit Goods Cutter Hand / Telemetry FEROZ.Q8H (03/24/17 15:08) Scd Bilateral/Knee High FEROZ.BID (03/24/17 15:08) ^ Initiate Protocol (03/24/17 15:08) Instruction (03/24/17 15:08) [facility] [place] [facility] (03/24/17 15:15) Chlorhexidine 2% Cloth (Chlorhexidine 2% (03/25/17 04:00) Chlorhexidine 2% Cloth (Chlorhexidine 2% (03/24/17 15:15) [facility] Pcr Surveillance (03/24/17 15:08) Docusate Sodium-Senna (Trinity-Colace) (03/24/17 21:00) Magnesium Hydroxide Liq (Milk Of Magnesi (03/24/17 15:15) Sennosides (Senokot) (03/24/17 15:15) Bisacodyl Supp (Dulcolax Supp) (03/24/17 15:15) Lactulose Liq (Lactulose Liq) (03/24/17 15:15) Inpatient Certification (03/24/17 ) Troponin I (03/24/17 19:00) Troponin I (03/25/17 01:00) Sodium Chlor 0.9% 1000 Ml Inj (Ns 1000 M (03/24/17 15:15) Dext 5%-Nacl 0.9% 1000 Ml Inj (D5w-Ns 10 (03/24/17 15:15) Blood Glucose Goal (Criteria) (03/24/17 15:11) Hypoglycemia 70 Mg/Dl Or < (03/24/17 15:11) Notify Dr: Other (03/24/17 15:11) Dextrose 50% In [place] (Vial) Inj (D50w (Vi (03/24/17 15:15) Glucagon Inj (Glucagon Inj) (03/24/17 15:15) Insulin Human Reg Supp Scale (Novolin R (03/24/17 15:15) Us Kidney/Renal/Bladder (03/24/17 ) Sodium Bicarbonate 8.4% Inj (Sodium Bica (03/24/17 16:00) Consult Palliative Care (03/24/17 ) Sputum Culture And Gram Stain (03/24/17 15:15) Piperacil-Tazo 2.25 Gm Premix (Zosyn 2.2 (03/24/17 16:00) Admit Order (Ed Use Only) (03/24/17 15:19) Consult Nephrology (03/24/17 ) Labs Laboratory Tests Test 03/24/17 03/24/17 13:10 13:37 White Blood Count 8.9 TH/MM3 Red Blood Count 2.45 MIL/MM3 Hemoglobin 8.2 GM/DL Hematocrit 24.8 % Mean Corpuscular Volume 100.9 FL Mean Corpuscular Hemoglobin 33.2 PG Mean Corpuscular Hemoglobin 33.0 % Concent Red Cell Distribution Width 22.2 % Platelet Count 63 TH/MM3 Mean Platelet Volume 8.6 FL Neutrophils (%) (Auto) 47.5 % Lymphocytes (%) (Auto) 40.3 % Monocytes (%) (Auto) 4.8 % Eosinophils (%) (Auto) 0.6 % Basophils (%) (Auto) 6.8 % Neutrophils # (Auto) 4.2 TH/MM3 Lymphocytes # (Auto) 3.6 TH/MM3 Monocytes # (Auto) 0.4 TH/MM3 Eosinophils # (Auto) 0.1 TH/MM3 Basophils # (Auto) 0.6 TH/MM3 CBC Comment AUTO DIFF Differential Total Cells 100 Counted Neutrophils % (Manual) 53 % Band Neutrophils % 2 % Lymphocytes % 43 % Monocytes % 1 % Eosinophils % 1 % Neutrophils # (Manual) 4.9 TH/MM3 Nucleated Red Blood Cells 5 /100 WBC Differential Comment FINAL DIFF MANUAL Platelet Estimate LOW Platelet Morphology Comment NORMAL Ovalocytes 1+ Rouleau PRESENT Prothrombin Time 11.6 SEC Prothromb Time International 1.0 RATIO Ratio Activated Partial 25.0 SEC Thromboplast Time Urine Color YELLOW Urine Turbidity HAZY Urine pH 5.0 Urine Specific [place] 1.013 Urine Protein 30 mg/dL Urine Glucose (UA) NEG mg/dL Urine Ketones NEG mg/dL Urine Occult Blood NEG Urine Nitrite NEG Urine Bilirubin NEG Urine Urobilinogen LESS THAN 2.0 MG/DL Urine Leukocyte Esterase NEG Urine RBC 1 /hpf Urine WBC 4 /hpf Urine Amorphous Sediment FEW Microscopic Urinalysis Comment CULT NOT INDICATED Urine Random Creatinine 81.1 MG/DL Urine Random Sodium 38 MEQ/L Sodium Level 141 MEQ/L Potassium Level 5.0 MEQ/L Chloride Level 110 MEQ/L Carbon Dioxide Level 18.2 MEQ/L Anion Gap 13 MEQ/L Blood Urea Nitrogen 107 MG/DL Creatinine 6.40 MG/DL Estimat Glomerular Filtration 9 ML/MIN Rate Random Glucose 78 MG/DL Lactic Acid Level 0.8 mmol/L Calcium Level 9.7 MG/DL Total Bilirubin 0.3 MG/DL Aspartate Amino Transf 26 U/L (AST/SGOT) Alanine Aminotransferase 18 U/L (ALT/SGPT) Alkaline Phosphatase 35 U/L Total Creatine Kinase 61 U/L Troponin I 0.22 NG/ML Total Protein 10.5 GM/DL Albumin 2.6 GM/DL Blood Gas Puncture Site LT RADIAL Blood Gas Patient Temperature 98.6 Blood Gas HCO3 15 mmol/L Blood Gas Base Excess -9.5 mmol/L Blood Gas Oxygen Saturation 98 % Arterial Blood pH 7.32 Arterial Blood Partial 31 mmHg Pressure CO2 Arterial Blood Partial 370 mmHG Pressure O2 Arterial Blood Oxygen Content 16.2 Vol % Arterial Blood 0.8 % Carboxyhemoglobin Arterial Blood Methemoglobin 0.9 % Blood Gas Hemoglobin 11.1 G/DL Oxygen Delivery Device VENTILATOR Blood Gas Ventilator Setting A/C 16/500/PEEP5 Blood Gas Inspired Oxygen 100 % [facility] Medical Decision Making Medical Screen Exam Complete: Yes Emergency Medical Condition: Yes Differential Diagnosis Acute CVA versus prolonged hypoglycemic episode versus anoxic insult. Versus metabolic arrangement. Narrative Course 76-year-old male with a history of multiple myeloma, diabetes mellitus, hypertension, COPD, presents via EMS into [facility]. The patient had a hypoglycemic episode yesterday. He was found unresponsive by family members. When paramedics arrived, they found him to be with a respiratory rate of 8. He was unresponsive. He was intubated. The patient's blood sugars also noted to be 20. He was given 25 g of dextrose with no response. The concern here is the patient had possible anoxic event. He is currently intubated and will be admitted to the intensive care unit. I discussed with the family members that at this point the prognosis is poor. They report that they have been discussing hospice and will discuss further once the rest the family arrives from out of town. The case was also discussed with Dr. Hyde, school psychological examiner, who will admit the patient to his service. Critical Care Narrative Aggregate critical care time was 60 minutes. Time to perform other separately billable procedures was not included in the critical care time. My time did not include minutes spent treating any other patients simultaneously or on activities that did not directly contribute to the patient's treatment. The services I provided to this patient were to treat and/or prevent clinically significant deterioration that could result in: I provided critical care services requiring my management, as noted below: Chart data review, documentation time, medication orders and management, vital sign assessments/reviewing monitor data, ordering and reviewing lab tests, ordering and interpreting/reviewing x-rays and diagnostic studies, care of the patient and discussion of the patient with the admitting physicians. 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
[2017-03-24 13:50] LABS: BLOOD GAS BASE EXCESS -9.5 mmol/L (-2-2); BLOOD GAS CARBOXYHEMOGLOBIN 0.8 % (0-4); BLOOD GAS HCO3 15 mmol/L (22-26); BLOOD GAS METHEMOGLOBIN 0.9 % (0-2); BLOOD GAS O2 HGB SATURATION 98 % (90-100); BLOOD GAS OXYGEN CONTENT 16.2 Vol % (12.0-20.0); BLOOD GAS PCO2 31 mmHg (38-42); BLOOD GAS PO2 370 mmHG (61-120); BLOOD GAS TOTAL HGB 11.1 G/DL (12.0-16.0); TEMP CORR TO 98.6
[2017-03-24 13:51] LABS: CRITICAL VALUE YES; DRAW SITE LT RADIAL; FIO2 100 %; OXYGEN DEVICE VENTILATOR; VENT SETTINGS A/C 16/500/PEEP5
[2017-03-24 13:52] LABS: NUMBER OF ARTERIAL PUNCTURES 1; STAT YES; ULNAR PULSE PRESENT
[2017-03-24 14:03] LABS: ANION GAP 13 MEQ/L (5-15); AST (GOT) 26 U/L (15-37); BICARBONATE 18.2 MEQ/L (21.0-32.0); BLOOD UREA NITROGEN 107 MG/DL (7-18); CHLORIDE 110 MEQ/L (98-107); GLOMERULAR FILTRATION RATE 9 ML/MIN (>89); SODIUM (NA) 141 MEQ/L (136-145)
--- NOTE | 2017-03-24 14:06 | RADRPT ---
EXAM DATE/TIME: 03/24/2017 13:03 [facility] COMPARISON: CHEST SINGLE AP, January 15, 2017, 14:41. INDICATIONS : Evaluate ET tube placement. MEDICAL HISTORY : Hypertension. TIA. Afib. Multiple myeloma. Prostate Cancer. SURGICAL HISTORY : Pacemaker. Prostatectomy. ENCOUNTER: Initial ACUITY: 1 day PAIN SCORE: Non-responsive. LOCATION: Bilateral chest FINDINGS: ETT is approximately 3 centers above the clavicle. NGT courses beyond the GE junction with tip omitte d from the image. There is a stable right IJ port and dual-lead AICD device. There is diffuse interst itial prominence with bilateral, left greater than right, airspace disease. Remainder of the exam is unchanged. CONCLUSION: 1. ETT in good position. NGT beyond GE junction with tip not imaged. 2. Cardiomegaly with mild pulmonary vascular congestion. 3. Bilateral, left > right, mild lower lobe airspace disease which may reflect atelectasis. Fadi Medley MD on March 24, 2017 at 14:00 Board Certified Radiologist. This report was verified electronically.
[2017-03-24 14:07] LABS: ALKALINE PHOSPHATASE 35 U/L (45-117); ALT (GPT) 18 U/L (12-78); TOTAL BILIRUBIN ADULT 0.3 MG/DL (0.2-1.0)
[2017-03-24 14:08] LABS: CREATINE KINASE 61 U/L (39-308)
[2017-03-24] MEDS ORDERED: LIDO1KIT TOPICAL (14:10)
[2017-03-24] MEDS ORDERED: THAL50CA PO (14:10)
[2017-03-24 14:11] LABS: BANDS 2 % (0-6); CORRECTED NUCLEATED RBC 5 /100 WBC (0-0); EOSINOPHILS 1 % (0-4); NEUTROPHIL # MANUAL DIFF 4.9 TH/MM3 (1.8-7.7); POLYS (SEG NEUTROPHILS) 53 % (16-70); WBC DIFF SAMPLE 100
[2017-03-24] MEDS ORDERED: ZOME4INJ IV (14:12)
[2017-03-24 14:15] LABS: OVALOCYTES 1+ (NORMAL); PLATELET ESTIMATE SMEAR LOW (NORMAL); PLATELET MORPHOLOGY NORMAL (NORMAL); ROULEAUX PRESENT (NORMAL); SCAN/DIFF FINAL DIFF MANUAL
[2017-03-24] MEDS ORDERED: [UNRECOGNIZED DRUG - CODE] IM (14:17)
[2017-03-24] MEDS ORDERED: METH20TA PO (14:20)
--- NOTE | 2017-03-24 14:24 | RADRPT ---
EXAM DATE/TIME: 03/24/2017 14:03 [facility] COMPARISON: CT BRAIN W/O CONTRAST, October 18, 2016, 22:53. INDICATIONS : Evaluate for altered mental status. RADIATION DOSE: 56.35 CTDIvol (mGy) MEDICAL HISTORY : Cardiovascular disease. Carcinoma, prostate. Multiple Myeloma SURGICAL HISTORY : Pacemaker. Defibrillator.Ablasion ENCOUNTER: Initial ACUITY: 1 day PAIN SCALE: Non-responsive LOCATION: Bilateral cranial TECHNIQUE: Multiple contiguous axial images were obtained of the head. Using automated exposure control and adj ustment of the mA and/or kV according to patient size, radiation dose was kept as low as reasonably a chievable to obtain optimal diagnostic quality images. FINDINGS: CEREBRUM: Mild diffuse stable atrophy with moderate periventricular hypodensities consistent with ischemic whit e matter demyelination. Small left is again lacunar infarcts similar to prior exam. The ventricles ar e normal for age. No evidence of midline shift, mass lesion, hemorrhage or acute infarction. No ext ra-axial fluid collections are seen. POSTERIOR FOSSA: The cerebellum and brainstem are intact. The 4th ventricle is midline. The cerebellopontine angle i s unremarkable. EXTRACRANIAL: The visualized portion of the orbits is intact. SKULL: The calvaria is intact. No evidence of skull fracture. Redemonstration of multiple lytic lesions inv olving the calvarium consistent with patient's history of multiple myeloma.CONCLUSION: 1. No acute intracranial abnormality. 2. Redemonstration of calvarial lytic lesions consistent with history of multiple myeloma. Fadi Medley MD on March 24, 2017 at 14:15 Board Certified Radiologist. This report was verified electronically.
[2017-03-24] MEDS ORDERED: TRIL135C PO (14:35)
[2017-03-24] MEDS ORDERED: NOVOLOGP2 SQ (14:35)
[2017-03-24] MEDS ORDERED: REST0.05 EACH EYE (14:37)
[2017-03-24] MEDS ORDERED: NITR0.4S SL (14:37)
[2017-03-24] MEDS ORDERED: LIDO5DIS5 TOPICAL (14:39)
[2017-03-24] MEDS ORDERED: TOLN1CRE26 TOPICAL (14:44)
[2017-03-24] MEDS ORDERED: MULTCHW27 CHEW (14:45)
[2017-03-24] MEDS ORDERED: PEDI1TAB7 (14:45)
[2017-03-24] MEDS ORDERED: CALC600T25 PO (14:47)
[2017-03-24] MEDS ORDERED: FERR325T2 PO (14:50)
[2017-03-24] MEDS ORDERED: VITA2000 PO (14:50)
[2017-03-24] MEDS ORDERED: ASPI81TA5 PO (14:50)
[2017-03-24] MEDS ORDERED: B-122000 PO (14:50)
[2017-03-24] MEDS ORDERED: ASCO500T PO (14:51)
[2017-03-24] MEDS ORDERED: COLA100C PO (14:56)
[2017-03-24] MEDS ORDERED: ADVANCED COLON CARE PO (14:56)
[2017-03-24] MEDS ORDERED: MISCELLANEOUS NURSING INFORMATION XX SCH (15:15)
[2017-03-24] MEDS ORDERED: GLUCAGON 1 MG/ML VIAL OTHER PRN (15:15)
[2017-03-24] MEDS ORDERED: SODIUM CHLOR 0.9% 1000 ML INJ 1,000 ML IV ONE (15:15)
[2017-03-24] MEDS ORDERED: MAGNESIUM HYDROXIDE SUSP 30 ML CUP PO PRN (15:15)
[2017-03-24] MEDS ORDERED: DEXT 5%-NACL 0.9% 1000 ML INJ 1,000 ML IV SCH (15:15)
[2017-03-24] MEDS ORDERED: LACTULOSE SYRUP 20 GM/30 ML CUP PO PRN (15:15)
[2017-03-24] MEDS ORDERED: BISACODYL 10 MG SUPP RECTAL PRN (15:15)
[2017-03-24] MEDS ORDERED: CHLORHEXIDINE GLUCONATE 2 % 1 PACK (2 CLOTHS) TOP PRN (15:15)
[2017-03-24] MEDS ORDERED: SENNOSIDES 8.6 MG TAB PO PRN (15:15)
[2017-03-24] MEDS: RESP: ALBUTEROL 2.5 MG/IPRATROPIUM 0.5 MG NEB (SCH) INH ×2 (15:50→20:44)
[2017-03-24] MEDS ORDERED: SODIUM BICARBONATE 8.4% INJ 50 MEQ/50 ML SYR IV PUSH ONE (16:00)
[2017-03-24] MEDS: ASPIRIN EC 81 MG TABEC PO SCH (16:15)
--- NOTE | 2017-03-24 16:57 | PD.CONS ---
[facility] Service Nephrology Consult Requested By Reason for Consult Acute on CKD Primary Care Physician Dayo Katz MD History of Present Illness This is a 76 y/o male with extensive PMH listed below who was brought in unresponsive with glucose in 20s. He was intubated prior to arrival. PMH includes multiple myeloma for which chemotherapy was stopped 3 weeks ago due to failed treatment. He also has CHF, HTN, DM II, and CKD 4, In January creatinine was 3.2, GFR 18. He was admitted during October and suffered MARTHA. At that time his creatinine was 3.8. On arrival he was again in renal failure with creatinine 6.4, BUN 17, GFR 9, C02 18 (ABG with HC03 15). We were consulted for renal management. A rodriguez was placed and he is making a good amount of urine, 350 ml since rodriguez placement. His K is 5.0. is at bedside, she has made him a DNR and does not wish to begin dialysis this admission. She denies use of NSAIDs prior to admission, states he has been drinking fluids when he is awake, but has has increased somnolence past few days with rigors, denies fever. He has had poor oral intake, loss of appetite recently. His troponin is elevated at 0.22, CPK was not drawn. (Nasra Oneil) Review of Systems ROS Limitations: Intubated, Unresponsive (Nasra Oneil) Past Family Social History Allergies: Coded Allergies: Fentanyl (Verified Allergy, Severe, Itching, 01/15/17) Warfarin (Verified Allergy, Unknown, 01/15/17) *MDRO Multi-Drug Resistant Organism (Verified Adverse Reaction, Unknown, ) MRSA PCR screens negative 12/12/14 and 12/19/14- cleared per infection control Past Medical History CKD 4, creatinine 3.2, GFR 18 in January 2017 HTN GERTRUDE on CPAP CHF (Echo 08/22/01 w/ EF 25-30%) A-fib on Pradaxa, Prostate CA Multiple Myeloma off chemo for 3 weeks Physical Deconditioning Chronic Pain DM II Past Surgical History Hernia Repair Cataract Surgery Vasectomy Radical Prostatectomy Cystoscopy with Dilatation of Bladder Tonsillectomy Bilateral Heel Spur Surgery Pacemaker (Oxsensis) Cardiac Ablation [id number] Reported Medications Doxycycline Hyclate 100 Mg Cap 100 Mg PO BID 7 Days Novolog Inj (Insulin Aspart) 1,000 Unit/10 Ml Vial 1-9 Units SQ ACHS Max dose at bedtime:( )units; sugars less than 70,(0)units; sugars 150-199,(1) unit; sugars 200-249,(3) units; sugars 250-299,(5) units; sugars 300-349,(7) units; sugars greater than 349,(9) units Reported Vitamin D3 (Cholecalciferol) 2,000 Unit Chew 2,000 Units CHEW DAILY Calcium (Calcium Carbonate) 1,250 Mg Tab 1,250 Mg PO 1,250 mg calcium carbonate (500 mg elemental calcium) l-Glutamine (Glutamine) 500 Mg Tab 2,000 Mg ID DAILY Aspirin 81 Mg Tabdr 81 Mg PO DAILY Restasis Opth Drops (Cyclosporine Opth Drops) 0.05% Emul 1 Drop EACH EYE BID Klor-Con 10 (Potassium Chloride) 10 Meq Tab 40 Meq PO BID Glimepiride 4 Mg Tab 4 Mg PO BIDAC Entresto (Sacubitril-Valsartan) 49-51 Mg Tab 1 Tab PO DAILY Clonidine (Clonidine HCl) 0.3 Mg Tab 0.3 Mg PO BID Nexium (Esomeprazole DR) 40 Mg Capdr 40 Mg PO DAILY Trilipix (Choline Fenofibrate DR) 135 Mg Capdr 135 Mg PO DAILY Pradaxa (Dabigatran) 75 Mg Cap 75 Mg PO BID Furosemide 40 Mg Tab 40 Mg PO BID Gabapentin 300 Mg Cap 900 Mg PO HS Gabapentin 600 Mg Tab 600 Mg PO DAILY Methylphenidate (Methylphenidate HCl) 10 Mg Chew 30 Mg PO BID [procreate] 20,000 Unit IM [ninlaro] 2.3 Mg PO DAY 1,8, & 15. OFF 7 Aspercreme Lidocaine Max Patch (Lidocaine) 4% Patch Econazole Topical (Econazole Nitrate) 1% Cream 1 Applic TOPICAL DAILY Hydroxychloroquine (Hydroxychloroquine Sulfate) 200 Mg Tab 200 Mg PO BID Takw with food Nystatin-Triamcinolone 100,000-0.1 Unit/Gm Cream 1 Applic TOPICAL Allopurinol 300 Mg Tab 300 Mg PO DAILY Carvedilol 25 Mg Tab 50 Mg PO BID Pravastatin 40 Mg Tab 40 Mg PO DAILY Ondansetron (Ondansetron HCl) 8 Mg Tab 8 Mg PO TID Myrbetriq (Mirabegron) 50 Mg Tab 50 Mg PO DAILY Acyclovir 400 Mg Tab 400 Mg PO BID Active Ordered Medications Current Medications Medications (Trade) Dose Ordered Sig/Srinath Route Start Time Stop Time Status Last Admin IV Flush 2 ml 2 ml UNSCH PRN IV FLUSH 03/24/17 13:15 (Diprivan 1000 Mg/100ml Inj) 100 ml @ 0 mls/hr TITRATE IV 03/24/17 14:15 (Protonix Inj) 40 mg DAILY IV 03/24/17 15:15 Miscellaneous Information 1 Q361D XX 03/24/17 15:15 (Chlorhexidine 2% Cloth) 3 pack Taper DAILY@04 TOP 03/25/17 04:00 03/21/18 03:59 (Chlorhexidine 2% Cloth) 3 pack UNSCH PRN TOP 03/24/17 15:15 (Trinity-Colace) 1 tab BID PO 03/24/17 21:00 (Milk Of Magnesia Liq) 30 ml Q12H PRN PO 03/24/17 15:15 (Senokot) 17.2 mg Q12H PRN PO 03/24/17 15:15 (Dulcolax Supp) 10 mg DAILY PRN RECTAL 03/24/17 15:15 Lactulose 30 ml 30 ml DAILY PRN PO 03/24/17 15:15 (D5W-NS 1000 ml Inj) 1,000 ml @ 100 mls/hr Q10H IV 03/24/17 15:15 (D50w (Vial) Inj) 50 ml UNSCH PRN IV 03/24/17 15:15 (Glucagon Inj) 1 mg UNSCH PRN OTHER 03/24/17 15:15 Insulin Human Regular 1 1 Q1H SQ 03/24/17 15:15 (Zosyn 2.25 Gm Premix) 50 ml @ 100 mls/hr Q8H IV 03/24/17 16:00 (Ecotrin Ec) 81 mg DAILY PO 03/24/17 16:15 Family History No hx of renal disorders Social History no smoking or ETOH retired, he is a needs assistance with ADLs has made him a DNR (Nasra Oneil) Physical Exam Vital Signs Vital Signs Date Time Temp Pulse Resp B/P Pulse Ox O2 Delivery O2 Flow Rate FiO2 03/24/17 14:00 100 100 03/24/17 13:19 100 03/24/17 13:16 100 100 03/24/17 13:14 100 100 03/24/17 13:06 75 16 03/24/17 13:00 84 16 104/57 100 Physical Exam Elderly male, he is intubated and unresponsive S1/S2, paced, rate in 70s, no murmurs lungs clear abdomen obese, soft, non distended extremities: no edema, IO in right tibialis anterior Laboratory Laboratory Tests Test 03/24/17 03/24/17 13:10 13:37 White Blood Count 8.9 Red Blood Count 2.45 Hemoglobin 8.2 Hematocrit 24.8 Mean Corpuscular Volume 100.9 Mean Corpuscular Hemoglobin 33.2 Mean Corpuscular Hemoglobin 33.0 Concent Red Cell Distribution Width 22.2 Platelet Count 63 Mean Platelet Volume 8.6 Neutrophils (%) (Auto) 47.5 Lymphocytes (%) (Auto) 40.3 Monocytes (%) (Auto) 4.8 Eosinophils (%) (Auto) 0.6 Basophils (%) (Auto) 6.8 Neutrophils # (Auto) 4.2 Lymphocytes # (Auto) 3.6 Monocytes # (Auto) 0.4 Eosinophils # (Auto) 0.1 Basophils # (Auto) 0.6 CBC Comment AUTO DIFF Differential Total Cells 100 Counted Neutrophils % (Manual) 53 Band Neutrophils % 2 Lymphocytes % 43 Monocytes % 1 Eosinophils % 1 Neutrophils # (Manual) 4.9 Nucleated Red Blood Cells 5 Differential Comment FINAL DIFF MANUAL Platelet Estimate LOW Platelet Morphology Comment NORMAL Ovalocytes 1+ Rouleau PRESENT Prothrombin Time 11.6 Prothromb Time International 1.0 Ratio Activated Partial 25.0 Thromboplast Time Urine Color YELLOW Urine Turbidity HAZY Urine pH 5.0 Urine Specific Romulus 1.013 Urine Protein 30 Urine Glucose (UA) NEG Urine Ketones NEG Urine Occult Blood NEG Urine Nitrite NEG Urine Bilirubin NEG Urine Urobilinogen LESS THAN 2.0 Urine Leukocyte Esterase NEG Urine RBC 1 Urine WBC 4 Urine Amorphous Sediment FEW Microscopic Urinalysis Comment CULT NOT INDICATED Sodium Level 141 Potassium Level 5.0 Chloride Level 110 Carbon Dioxide Level 18.2 Anion Gap 13 Blood Urea Nitrogen 107 Creatinine 6.40 Estimat Glomerular Filtration 9 Rate Random Glucose 78 Lactic Acid Level 0.8 Calcium Level 9.7 Total Bilirubin 0.3 Aspartate Amino Transf 26 (AST/SGOT) Alanine Aminotransferase 18 (ALT/SGPT) Alkaline Phosphatase 35 Total Creatine Kinase 61 Troponin I 0.22 Total Protein 10.5 Albumin 2.6 Blood Gas Puncture Site LT RADIAL Blood Gas Patient Temperature 98.6 Blood Gas HCO3 15 Blood Gas Base Excess -9.5 Blood Gas Oxygen Saturation 98 Arterial Blood pH 7.32 Arterial Blood Partial 31 Pressure CO2 Arterial Blood Partial 370 Pressure O2 Arterial Blood Oxygen Content 16.2 Arterial Blood 0.8 Carboxyhemoglobin Arterial Blood Methemoglobin 0.9 Blood Gas Hemoglobin 11.1 Oxygen Delivery Device VENTILATOR Blood Gas Ventilator Setting A/C 16/500/PEEP5 Blood Gas Inspired Oxygen 100 (Nasra Oneil) Result Diagram: 03/24/17 1310 03/24/17 1310 Imaging Last [address] 03/24/17 1304 Signed Impressions: Service Date/Time: Friday, March 24, 2017 14:03 - CONCLUSION: 1. No acute intracranial abnormality. 2. Redemonstration of calvarial lytic lesions consistent with history of multiple myeloma. Fadi Medley MD Chest X-Ray 03/24/17 1304 Signed Impressions: Service Date/Time: Friday, March 24, 2017 13:03 - CONCLUSION: 1. ETT in good position. NGT beyond GE junction with tip not imaged. 2. Cardiomegaly with mild pulmonary vascular congestion. 3. Bilateral, left > right, mild lower lobe airspace disease which may reflect atelectasis. Fadi Medley MD (Nasra Oneil) Assessment and Plan Problem List: (1) MARTHA (acute kidney injury) Plan: MARTHA on CKD 4, suspected underlying myeloma kidney In January creatinine 3.2, GFR 18 MARTHA suspected from intravascular volume depletion, he is also hypotensive, may have suffered ATN troponin elevated at 0.22 may have suffered W[place] he is non oliguric with rodriguez renal US ordered check urine electrolytes check CPK to rule out rhabdomyolysis start bicarb drip (D5W wtih 2 amps at 75 cc/hr) follow renal function with electrolytes, correct as needed avoid nephrotoxic substances the has informed me that she does not wish to begin dialysis if necessary (2) Diabetes Plan: admitted hypoglycemic, he had been taking oral antihyperglycemics without eating food ordered D5 infusion follow glucose (3) Anemia Plan: macrocytic anemia, check B12 and folate levels hx of multiple myeloma transfuse if needed (4) Heart failure Plan: has AICD follow fluid status (5) Metabolic acidosis Plan: non anion gap metabolic acidosis due to renal failure ordered bicarb drip (6) Multiple myeloma Plan: no longer on chemotherapy palliative to assist with goals (7) Encephalopathy Plan: intubated on vent, settings: A/C 16/500/60/5 (Nasra Oneil) Assessment and Plan patient was seen and examined. Agree with above assessment and plan. Continue IVF. Hospice is a consideration if renal function does not improve. (Jd Judge MD) Nasra Oneil Mar 24, 2017 16:57 Jd Judge MD Mar 24, 2017 18:38
--- NOTE | 2017-03-24 17:18 | MH ---
cc: DEB DANIELS M.D. DATE OF ADMISSION: 03/24/2017 DATE OF : 1940 HISTORY OF PRESENT ILLNESS The patient is a [id number]-male with a past medical history of diabetes mellitus, cardiomyopathy with EF of 25-30%, CHF, atrial fibrillation, multiple myeloma, and chronic kidney disease. The patient presented to [facility] ED with altered mental status and hypoglycemic episode. He reportedly did not seem normal at 7 a.m. According to family members, EMS was called yesterday as well for hypoglycemic episodes and at that time he was given D10 and refused transport to the hospital. This morning the patient was somewhat confused and upon arrival of the daughter he was found unconscious and blood sugar was noted to be 20 at the seen. The patient was given 25 grams of Dextrose which increased his blood sugar to 180 and then back down into the 80s. He was intubated for a GCS score of 3. Per ED records, the patient had a respiratory rate of 8 with no spontaneous movements. ABG post intubation showed a pH of 7.32, CO2 31, PAO2 of 370, bicarb 15, saturation of 98%. His laboratory data significant for acute renal failure with a BUN of 107, creatinine 6.40 and a troponin of 0.22. His lactic acid level measured at 0.8. The patient has a baseline creatinine in the 3-4 range a few months ago. According to family, the patient was enrolled under Hospice however they would like to give him a chance. PAST MEDICAL HISTORY Significant for - 1. Chronic kidney disease. 2. Atrial fibrillation. 3. Diabetes mellitus. 4. Cardiomyopathy. 5. Multiple myeloma. 6. Anemia of chronic disease. PAST SURGICAL HISTORY 1. Previous defibrillator placement. 2. Previous hernia repair. 3. Previous cataract surgery. 4. Vasectomy. 5. Radical prostatectomy. 6. Tonsillectomy as a child. 7. Nasal surgery. FAMILY HISTORY Noncontributory. SOCIAL HISTORY A nonsmoker, nondrinker. ALLERGIES WARFARIN, FENTANYL. MEDICATIONS 1. Acyclovir. 2. Pravastatin. 3. Coreg. 4. Allopurinol. 5. Gabapentin. 6. Lasix. 7. Pradaxa. 8. Nexium. 9. Clonidine. 10. Glimepiride. 11. Aspirin. 12. Calcium carbonate. 13. Vitamin D3. REVIEW OF SYSTEMS As per HPI. The rest of the review of systems limited. PHYSICAL EXAMINATION GENERAL: A 76-year-old male intubated and placed on full mechanical ventilation. VITAL SIGNS: Afebrile, pulse of 64, blood pressure 164/79, saturation 100%. VENT SETTING: Assist control rate of 16, tidal volume 500, PEEP of 5, FIO2 60%. HEENT: Atraumatic, normocephalic. Pupils equal, round, reactive to light and accommodation. Extraocular muscles intact. Conjunctivae pink. Nonicteric sclerae. Oral mucosa within normal. NECK: Supple. No JVD, adenopathy or thyromegaly. Trachea in the midline. Orally intubated. CARDIOVASCULAR: Regular rate and rhythm. Normal S1, S2. No murmurs, rubs or gallops noted. PULMONARY: Bilateral equal air entry. No rales or wheezing. ABDOMEN: Soft, nondistended, no distention. Positive bowel sounds. EXTREMITIES: No cyanosis, clubbing or edema. NEUROLOGIC: No focal sensory deficit. LABORATORY DATA WBC 8.9, hemoglobin 8.2, hematocrit 24, platelet count 63. Sodium 141, potassium 5, chloride 110, CO2 18, BUN 107, creatinine 6.4, glucose 78, lactic acid 0.8, troponin 0.22, total CK 61. INR 1, PT 11.6, PTT 25. ABG post intubation: 7.32, CO2 of 31, PAO2 370, bicarb 15, sat is 98%. RADIOGRAPHIC STUDIES Chest x-ray showed ET tube above the dayanara. Cardiomegaly with mild pulmonary vascular congestion. Right mild lower lobe airspace disease which may reflect atelectasis. CT scan of the brain showed no acute intracranial abnormality identified. Calvarial lytic lesions consistent with history of multiple myeloma. EKG showed pacemaker rhythm at a rate of 73 beats per minute. IMPRESSION 1. Vent-dependent respiratory failure. 2. Status post hypoglycemic episodes. 3. Encephalopathy, likely secondary to hypoglycemia and uremia. 4. Acute on chronic kidney disease. 5. Mild elevation in troponin. 6. Anemia and thrombocytopenia. 7. Multiple myeloma. 8. Cardiomyopathy. 9. History of atrial fibrillation. 10. History of diabetes mellitus. 11. History of prostate cancer. RECOMMENDATION 1. Diprivan infusion for sedation if needed and daily sedation vacation. CT scan of the brain negative for acute intracranial process. 2. Continue with vent support and maintain sats above 92%. 3. Bronchodilators in the form of Duo-Neb q.6 plus q.2 p.r.n. for shortness of breath. We will initiate ICU vent bundle. 4. Monitor heart rate and blood pressure closely and maintain MAP greater than 65 mmHg. Monitor troponins and continue with Aspirin 81 mg daily. 5. Monitor renal function Is and Os and avoid nephrotoxins. We will give one liter bolus of normal saline and place on D5 NS at 100 mL/hr. We will check ultrasound of the kidneys to rule out hydronephrosis and we will consult Nephrology service. The patient is known to Dr. Judge from previous admission. 6. Place on Protonix 40 mg IV daily for GI prophylaxis and start tube feeds with Nepro at goal rate of 40 mL/hr. 7. Place on empiric antibiotics in the form of Zosyn for possible aspiration and monitor for signs of infections which include fever and WBC. We will obtain a sputum culture with Gram stain and blood culture if spikes a fever. 8. Monitor CBC and coags. 9. Place on sliding scale insulin with Accu-Chek and D5 NS at 100 mL/hr for hypoglycemic episodes. 10. GI prophylaxis with Protonix 40 mg daily and DVT prophylaxis with SCDs. We will hold off on chemical anticoagulation prophylaxis for now given thrombocytopenia and anemia on presentation. 11. We will consult palliative care to assist with goals of care. Case discussed with the patient's , Sonya Navarro, along with her two children in detail and as of now they would like to continue with supportive care short of cardiac resuscitation. In case of cardiopulmonary arrest, they do not want any cardiac resuscitation or CPR. 12. Further recommendations will be based on hospital course. Critical care time 40 minutes excluding procedures. MD MINNIE Salvador/SERGIO /4:09 PM /4:24 PM
--- NOTE | 2017-03-24 17:20 | RADRPT ---
EXAM DATE/TIME: 03/24/2017 16:33 [facility] COMPARISON: US KIDNEY/RENAL/BLADDER, October 21, 2016, 10:06. INDICATIONS : Increased BUN and creatiine. MEDICAL HISTORY : Hypercholesterolemia. Arthritis. Cataracts. Pace maker. Afib. Sleep apnea. Renal failure. Multiple myeloma. SURGICAL HISTORY : Tonsillectomy. Prostatectomy. Throat biopsy. Hernia repair. Lap band. Vasectomy. ENCOUNTER: Subsequent ACUITY: 1 day PAIN SCORE: Nonresponsive. LOCATION: Bilateral flank MEASUREMENTS: RIGHT KIDNEY: 9.5 x 4.5 x 4.9 cm LEFT KIDNEY: 11.0 x 4.7 x 6.3 cm FINDINGS: RIGHT KIDNEY: The right kidney is lower limits of normal for size. It is mildly echogenic. No hydronephrosis or mas s is seen. LEFT KIDNEY: The left kidney is normal in size. It is mildly echogenic. No hydronephrosis or mass is seen. BLADDER: There is a Kuhn catheter in place. CONCLUSION: Echogenic kidneys concerning for medical renal disease. Jameel Lindsey MD on March 24, 2017 at 17:16 Board Certified Radiologist. This report was verified electronically.
[2017-03-24] MEDS ORDERED: SODIUM BICARBONATE 8.4% INJ 100 MEQ in DEXTROSE 5% IN WATE 1000ML INJ 1,000 ML IV SCH ×2 (18:00)
[2017-03-24] MEDS: INSULIN NovoLIN REGULAR SUPPLEMENTAL SCALE SQ SCH ×2 (18:00→22:14)
[2017-03-24] MEDS: DEXTROSE 50% IN WATER 50 ML VIAL(D50) IV PRN ×3 (18:03→21:22)
[2017-03-24] MEDS: PIPERACIL-TAZO 2.25 GM PREMIX 50 ML IV SCH (18:07)
[2017-03-24] MEDS: PANTOPRAZOLE SODIUM 40 MG VIAL IV SCH (18:07)
[2017-03-24] MEDS: PROPOFOL 1000 MG/100 ML INJ 100 ML IV SCH (19:06)
[2017-03-24] MEDS: DEXTROSE 10% INJ 1,000 ML IV SCH (21:12)
[2017-03-24] MEDS: DOCUSATE SODIUM 50 MG/SENNA 8.6 MG TAB PO SCH (21:22)
[2017-03-25] VITALS (13 sets, daily range): BP systolic 133–184; BP diastolic 66–90; PULSE 60–101; RESP 16–26; TEMP 98.7–101.4; O2SAT 97–100
[2017-03-25] MEDS: DEXTROSE 50% IN WATER 50 ML VIAL(D50) IV PRN ×2 (00:01→10:58)
[2017-03-25] MEDS: PIPERACIL-TAZO 2.25 GM PREMIX 50 ML IV SCH ×4 (00:14→23:03)
[2017-03-25] MEDS: INSULIN NovoLIN REGULAR SUPPLEMENTAL SCALE SQ SCH ×14 (01:15→22:50)
[2017-03-25] MEDS ORDERED: DEXTROSE 50% IN WATER 50 ML SYRINGE ONE ×2 (03:17→06:36)
[2017-03-25] MEDS: RESP: ALBUTEROL 2.5 MG/IPRATROPIUM 0.5 MG NEB (SCH) INH ×4 (03:35→20:46)
[2017-03-25] MEDS: CHLORHEXIDINE GLUCONATE 2 % 1 PACK (2 CLOTHS) TOP SCH (04:00)
[2017-03-25 04:55] LABS: MEAN CELL VOLUME 100.9 FL (80.0-100.0); MEAN CORPUSCULAR HEMOGLOBIN 33.7 PG (27.0-34.0); MEAN CORPUSCULAR HGB CONC 33.4 % (32.0-36.0); PLATELET COUNT 59 TH/MM3 (150-450); RED BLOOD COUNT 1.97 MIL/MM3 (4.50-5.90); RED CELL DISTRIBUTION WIDTH 21.7 % (11.6-17.2); WHITE BLOOD COUNT 6.9 TH/MM3 (4.0-11.0)
[2017-03-25 05:00] LABS: HEMO FLAGS AUTO DIFF
[2017-03-25 05:04] LABS: HEMATOCRIT 19.8 % (39.0-51.0)
[2017-03-25 05:06] LABS: BICARBONATE 16.7 MEQ/L (21.0-32.0); POTASSIUM 4.2 MEQ/L (3.5-5.1)
[2017-03-25] MEDS: PROPOFOL 1000 MG/100 ML INJ 100 ML IV SCH (06:38)
[2017-03-25] MEDS: DEXTROSE 10% INJ 1,000 ML IV SCH ×2 (07:00→15:00)
[2017-03-25] MEDS ORDERED: SODIUM BICARBONATE 8.4% INJ 50 MEQ/50 ML SYR IV PUSH ONE (07:00)
--- NOTE | 2017-03-25 07:07 | HHI.CCPN ---
Subjective Remarks/Hospital Course The patient is a [id number] with a past medical history of diabetes mellitus, cardiomyopathy with EF of 25-30%, CHF, atrial fibrillation, multiple myeloma, and chronic kidney disease. The patient presented to [facility] ED with altered mental status and hypoglycemic episode. He reportedly did not seem normal at 7 a.m. According to family members, EMS was called yesterday as well for hypoglycemic episodes and at that time he was given D10 and refused transport to the hospital. This morning the patient was somewhat confused and upon arrival of the daughter he was found unconscious and blood sugar was noted to be 20 at the seen. The patient was given 25 grams of Dextrose which increased his blood sugar to 180 and then back down into the 80s. He was intubated for a GCS score of 3. Per ED records, the patient had a respiratory rate of 8 with no spontaneous movements. ABG post intubation showed a pH of 7.32, CO2 31, PAO2 of 370, bicarb 15, saturation of 98%. His laboratory data significant for acute renal failure with a BUN of 107, creatinine 6.40 and a troponin of 0.22. His lactic acid level measured at 0.8. The patient has a baseline creatinine in the 3-4 range a few months ago. According to family, the patient was enrolled under Hospice however they would like to give him a chance. 03/25 Patient is sedated with Diprivan and intubated. Hgb 6.6, troponin gradually increased overnight and now 4.2 early this morning. He had recurrent hypoglycemic episodes and was placed on D10. Objective Vital Signs Date Time Temp Pulse Resp B/P Pulse Ox O2 Delivery O2 Flow Rate FiO2 03/25/17 06:00 64 03/25/17 04:00 99.9 16 156/73 100 03/25/17 03:36 40 03/24/17 19:00 Ventilator Intake and Output 03/24/17 03/24/17 03/25/17 08:00 16:00 00:00 Intake Total 383 ml Output Total 1300 ml Balance -917 ml Result Diagram: 03/25/17 0443 03/25/17 0443 Other Results Laboratory Tests Test 03/24/17 03/24/17 03/24/17 03/24/17 13:10 13:37 20:00 21:30 White Blood Count 8.9 TH/MM3 Red Blood Count 2.45 MIL/MM3 Hemoglobin 8.2 GM/DL Hematocrit 24.8 % Mean Corpuscular Volume 100.9 FL Mean Corpuscular Hemoglobin 33.2 PG Mean Corpuscular Hemoglobin 33.0 % Concent Red Cell Distribution Width 22.2 % Platelet Count 63 TH/MM3 Mean Platelet Volume 8.6 FL Neutrophils (%) (Auto) 47.5 % Lymphocytes (%) (Auto) 40.3 % Monocytes (%) (Auto) 4.8 % Eosinophils (%) (Auto) 0.6 % Basophils (%) (Auto) 6.8 % Neutrophils # (Auto) 4.2 TH/MM3 Lymphocytes # (Auto) 3.6 TH/MM3 Monocytes # (Auto) 0.4 TH/MM3 Eosinophils # (Auto) 0.1 TH/MM3 Basophils # (Auto) 0.6 TH/MM3 CBC Comment AUTO DIFF Differential Total Cells 100 Counted Neutrophils % (Manual) 53 % Band Neutrophils % 2 % Lymphocytes % 43 % Monocytes % 1 % Eosinophils % 1 % Neutrophils # (Manual) 4.9 TH/MM3 Nucleated Red Blood Cells 5 /100 WBC Differential Comment FINAL DIFF MANUAL Platelet Estimate LOW Platelet Morphology Comment NORMAL Ovalocytes 1+ Rouleau PRESENT Prothrombin Time 11.6 SEC Prothromb Time International 1.0 RATIO Ratio Activated Partial 25.0 SEC Thromboplast Time Urine Color YELLOW Urine Turbidity HAZY Urine pH 5.0 Urine Specific Sullivan 1.013 Urine Protein 30 mg/dL Urine Glucose (UA) NEG mg/dL Urine Ketones NEG mg/dL Urine Occult Blood NEG Urine Nitrite NEG Urine Bilirubin NEG Urine Urobilinogen LESS THAN 2.0 MG/DL Urine Leukocyte Esterase NEG Urine RBC 1 /hpf Urine WBC 4 /hpf Urine Amorphous Sediment FEW Microscopic Urinalysis Comment CULT NOT INDICATED Urine Random Creatinine 81.1 MG/DL Urine Random Sodium 38 MEQ/L Sodium Level 141 MEQ/L Potassium Level 5.0 MEQ/L Chloride Level 110 MEQ/L Carbon Dioxide Level 18.2 MEQ/L Anion Gap 13 MEQ/L Blood Urea Nitrogen 107 MG/DL Creatinine 6.40 MG/DL Estimat Glomerular Filtration 9 ML/MIN Rate Random Glucose 78 MG/DL Lactic Acid Level 0.8 mmol/L Calcium Level 9.7 MG/DL Total Bilirubin 0.3 MG/DL Aspartate Amino Transf 26 U/L (AST/SGOT) Alanine Aminotransferase 18 U/L (ALT/SGPT) Alkaline Phosphatase 35 U/L Total Creatine Kinase 61 U/L 123 U/L Troponin I 0.22 NG/ML 3.92 NG/ML Total Protein 10.5 GM/DL Albumin 2.6 GM/DL Blood Gas Puncture Site LT RADIAL Blood Gas Patient Temperature 98.6 Blood Gas HCO3 15 mmol/L Blood Gas Base Excess -9.5 mmol/L Blood Gas Oxygen Saturation 98 % Arterial Blood pH 7.32 Arterial Blood Partial 31 mmHg Pressure CO2 Arterial Blood Partial 370 mmHG Pressure O2 Arterial Blood Oxygen Content 16.2 Vol % Arterial Blood 0.8 % Carboxyhemoglobin Arterial Blood Methemoglobin 0.9 % Blood Gas Hemoglobin 11.1 G/DL Oxygen Delivery Device VENTILATOR Blood Gas Ventilator Setting A/C 16/500/PEEP5 Blood Gas Inspired Oxygen 100 % Nasal Screen MRSA (PCR) MRSA NOT DETECTED Test 03/25/17 03/25/17 01:31 04:43 Troponin I 4.28 NG/ML White Blood Count 6.9 TH/MM3 Red Blood Count 1.97 MIL/MM3 Hemoglobin 6.6 GM/DL Hematocrit 19.8 % Mean Corpuscular Volume 100.9 FL Mean Corpuscular Hemoglobin 33.7 PG Mean Corpuscular Hemoglobin 33.4 % Concent Red Cell Distribution Width 21.7 % Platelet Count 59 TH/MM3 Mean Platelet Volume 8.4 FL Neutrophils (%) (Auto) % Lymphocytes (%) (Auto) % Monocytes (%) (Auto) % Eosinophils (%) (Auto) % Basophils (%) (Auto) % Neutrophils # (Auto) TH/MM3 Lymphocytes # (Auto) TH/MM3 Monocytes # (Auto) TH/MM3 Eosinophils # (Auto) TH/MM3 Basophils # (Auto) TH/MM3 CBC Comment AUTO DIFF Sodium Level 140 MEQ/L Potassium Level 4.2 MEQ/L Chloride Level 112 MEQ/L Carbon Dioxide Level 16.7 MEQ/L Anion Gap 11 MEQ/L Blood Urea Nitrogen 105 MG/DL Creatinine 6.09 MG/DL Estimat Glomerular Filtration 9 ML/MIN Rate Random Glucose 87 MG/DL Calcium Level 8.9 MG/DL Imaging Last Impressions Head CT 03/24/17 3384 Signed Impressions: Service Date/Time: Friday, March 24, 2017 14:03 - CONCLUSION: 1. No acute intracranial abnormality. 2. Redemonstration of calvarial lytic lesions consistent with history of multiple myeloma. Fadi Medley MD Chest X-Ray 03/24/17 1304 Signed Impressions: Service Date/Time: Friday, March 24, 2017 13:03 - CONCLUSION: 1. ETT in good position. NGT beyond GE junction with tip not imaged. 2. Cardiomegaly with mild pulmonary vascular congestion. 3. Bilateral, left > right, mild lower lobe airspace disease which may reflect atelectasis. Fadi Medley MD Renal Ultrasound 03/24/17 0000 Signed Impressions: Service Date/Time: Friday, March 24, 2017 16:33 - CONCLUSION: Echogenic kidneys concerning for medical renal disease. Jameel Lindsey MD Objective Remarks GENERAL: Patient is 76 yo critically ill intubated and sedated. SKIN: Warm and dry. HEAD: Normocephalic. EYES: No scleral icterus. No injection or drainage. NECK: Supple, trachea midline. No JVD or lymphadenopathy. CARDIOVASCULAR: Regular rate and rhythm without murmurs, gallops, or rubs. RESPIRATORY: Breath sounds equal bilaterally. No accessory muscle use. GASTROINTESTINAL: Abdomen soft, non-tender, nondistended. MUSCULOSKELETAL: No cyanosis, or edema. Neuro: Sedated A/P Assessment and Plan 1. VDRF 2. Status post hypoglycemic episodes. 3. Encephalopathy, likely secondary to hypoglycemia and uremia. 4. Acute on chronic kidney disease. 5. NSTEMI 6. Anemia and thrombocytopenia. 7. Multiple myeloma. 8. Cardiomyopathy. 9. History of atrial fibrillation. 10. History of diabetes mellitus. 11. History of prostate cancer. Plan Neuro: On Diprivan infusion for sedation. Daily sedation vacation. CT brain negative for acute intracranial process. Check EEG Pulm: Continue with vent support and maintain sats >92%. Bronchodilators, ICU vent bundle. Start SBT daily as brayan CV: Place on Coreg. Monitor HR and BP and maintain MAP > 65 mmHg. Monitor troponin and continue with Aspirin 81 mg daily. Check 2D echo to eval LV function, cards eval. Not a candidate for Pavan-I or full AC due to renal failure and anemia requiring blood transfusion. : Monitor renal function Is and Os and avoid nephrotoxins. On D5W+2amps sodium bicarb @75ml/hr, D10 @100ml/hr. Renal US: Medical renal disease, no hydro. Renal is following- Dr. Judge. GI: On Protonix 40 mg IV daily for GI prophylaxis and start tube feeds with Nepro at goal rate of 40 mL/hr. ID: Continue with abx(Zosyn) for possible aspiration and monitor for signs of infections( fever and WBC). Check sputum cx. Heme: Monitor CBC and coags. Will transfuse 2units PRBC for Hgb 6.6 Endo: SSI with with Accu-Chek and D10 NS at 100 mL/hr for hypoglycemic episodes. GI prophylaxis with Protonix 40 mg daily and DVT prophylaxis with SCDs. Not on chemical anticoagulation prophylaxis given thrombocytopenia and anemia on presentation. We will consult palliative care to assist with goals of care. Discussed with patient's Sonya Navarro and children yesterday and all agreeable with no code DNR. Overall prognosis poor. Patient is critically ill with resp failure, renal failure, likely myocardial infarction and with severe cardiomyopathy. CCT 30 José Antonio Hyde MD Mar 25, 2017 07:07
[2017-03-25 07:24] LABS: BANDS 7 % (0-6); BASOPHILS 1 % (0-2); CORRECTED NUCLEATED RBC 1 /100 WBC (0-0); METAMYELOCYTES 2 % (0-1); NEUTROPHIL # MANUAL DIFF 4.1 TH/MM3 (1.8-7.7); PLATELET ESTIMATE SMEAR LOW (NORMAL); PLATELET MORPHOLOGY NORMAL (NORMAL); POLYS (SEG NEUTROPHILS) 51 % (16-70); SCAN/DIFF FINAL DIFF MANUAL; WBC DIFF SAMPLE 100
[2017-03-25] MEDS ORDERED: SODIUM BICARBONATE 8.4% SOLN 50 MEQ/50 ML VIAL IV PUSH ONE (09:15)
[2017-03-25 10:01] LABS: BLOOD GAS CARBOXYHEMOGLOBIN 1.5 % (0-4); BLOOD GAS HCO3 15 mmol/L (22-26); BLOOD GAS METHEMOGLOBIN 1.7 % (0-2); BLOOD GAS O2 HGB SATURATION 95 % (90-100); BLOOD GAS OXYGEN CONTENT 8.4 Vol % (12.0-20.0); BLOOD GAS PCO2 24 mmHg (38-42); BLOOD GAS PO2 119 mmHg (61-120); BLOOD GAS TOTAL HGB 6.1 G/DL (12.0-16.0); TEMP CORR TO 98.6
[2017-03-25 10:02] LABS: CRITICAL VALUE YES; OXYGEN DEVICE VENTILATOR
[2017-03-25 10:03] LABS: DRAW SITE RT RADIAL; FIO2 40 %; NUMBER OF ARTERIAL PUNCTURES 1; STAT NO; ULNAR PULSE PRESENT; VENT SETTINGS AC/16/500/+5
--- NOTE | 2017-03-25 10:42 | PD.CONS ---
Consult Service Palliative Care . Consult Requested By Dr. Mccall . Primary Care Physician Dayo Katz MD . Reason for Consultation a. To assist with evaluation and management of symptoms including: dyspnea, pain. b. To assist medical decision maker(s) with: better understanding of current medical conditions; weighing benefits/burdens of medical treatment options; making medical treatment decisions. . HPI History of Present Illness Mr. Navarro is a 76 year old male with past medical history of diabetes, cardiomyopathy EF 25-30%, CHF, atrial fibrillation on Pradaxa, multiple myeloma and chronic kidney disease. Patient had an episode of hypoglycemia on 03/23/17 where family called EMS for hypoglycemia patient was given D10 and refuse transportation to the hospital. Patient presented to [facility] emergency department on 03/24/17 with altered mental status and hypoglycemic episodes. Notes indicate patient was confused when he awoke at 7 AM, shortly thereafter daughter was called came home to find the patient unconscious with a blood sugar of 20. Patient was given 25 g of dextrose increase the blood sugar to 180 and then went back down into the 80s. Upon EMS arrival patient reported a respiratory rate of 8, labored respirations, pupils 2-3, minimally reactive, no spontaneous movement. GCS 3. Patient was intubated. Additional findings include: * WBC .9, hemoglobin 8.2, hematocrit 24.8, platelets 63, neutrophil 47.5% * sodium 141, potassium 5.0, chloride 110, carbon dioxide eat in .2, BUN 107, creatinine 6.40, GFR 9, glucose 78 * lactic acid 0.8 * total bilirubin 0.3, AST 26, ALT 18, alkaline phosphatase 35 * total creatine kinase 61 * troponin 0.22, 3.92, 4.28 sequentially * total protein 10.5, albumin 2.6 * PT 11.6, INR 1.0, PTT 25 * urinalysis negative * nasal screen MRSA negative * renal ultrasound echogenic kidneys concerning for medical renal disease * CT head - no acute intracranial abnormality, remonstration of calvarial lytic lesions consistent with history of multiple myeloma. Patient is admitted with hypoglycemia, respiratory failure, renal failure. Remains in ICU sedated (Diprivan) on mech vent. Hemoglobin has dropped to 6.6. Intermittent hypoglycemic events. Creatinine remains elevated 6.09, slightly decreased. Sputum culture pending. Palliative care is consulted to assist with further clarification of treatment goals. . Function/Cognitive Trajectory Patient has had ongoing trajectory of decline over the past year and a half per family. Most notable decline in the weeks prior to presentation. Patient has had increasing pain in the spine and shoulder secondary to lytic lesions due to multiple myeloma. Patient's appetite has been decreasing. He has been sleeping more. Family reports he has not been out of the house weeks due to this decline. . Review of Systems ROS Limitations: Intubated, Unresponsive Constitutional: COMPLAINS OF: Fatigue, Weight loss, Change in appetite ( decreased), Pain, Generalized weakness Endocrine: COMPLAINS OF: Heat/cold intolerance Respiratory: COMPLAINS OF: Cough, Shortness of breath Cardiovascular: COMPLAINS OF: Dyspnea on Exertion Gastrointestinal: COMPLAINS OF: Abdominal pain, Anorexia Musculoskeletal: COMPLAINS OF: Joint pain, Back pain Hematologic/Lymphatics: COMPLAINS OF: Bruising Psychiatric: COMPLAINS OF: Anxiety Other ROS: Patient unresponsive, ROS per family report Past Family Social History Coded Allergies: Fentanyl (Verified Allergy, Severe, Itching, 01/15/17) Warfarin (Verified Allergy, Unknown, 01/15/17) *MDRO Multi-Drug Resistant Organism (Verified Adverse Reaction, Unknown, ) MRSA PCR screens negative 12/12/14 and 12/19/14- cleared per infection control Past Medical History Atrial fibrillation on Pradaxa arthritis anxiety depression history of prostate cancer status post prostatectomy multiple myeloma hyperlipidemia congestive heart failure prior TIAs diabetes hard of hearing hemorrhoids GERD hypertension sleep apnea, uses CPAP at night migraines Patel's esophagus per EGD/ biopsy 2013 hemorrhoids hiatal hernia peripheral neuropathy diverticulosis PTSD . Past Surgical History Hernia repair lap band 2006 pacemaker 2008 right chest port cardiac ablation bilateral cataract surgery with lens placement vasectomy radical prostatectomy, cystoscopy,dilation bladder neck tonsillectomy tympanostomy 194 nasal surgery Herniorrhaphy bilateral heel spur surgery . Reported Medications Reported Meds & Active Scripts Active Reported Colace (Docusate Sodium) 100 Mg Capsule 200 Mg PO ONCE [Advanced Colon Care] 1 Tab PO BID Ascorbic Acid 500 Mg Tab 1,000 Mg PO DAILY Ferrous Sulfate DR (Ferrous Sulfate) 325 Mg Tabdr 325 Mg PO HS Vitamin D3 (Cholecalciferol) 2,000 Unit Cap 2,000 Units PO HS B-12 (Cyanocobalamin) 2,000 Mcg Tab 2,000 Mcg PO HS Aspirin DR (Aspirin) 81 Mg Tabdr 81 Mg PO HS Calcium (Calcium Carbonate) 600 Mg Tab 1,200 Mg PO DAILY Multivitamin Gummies Adul (Multiple Vitamins W/ Minerals) 1 Chw Chw 2 Chew CHEW DAILY Eq Athletes Foot (Tolnaftate) 1 % Cre 1 Applic TOPICAL DAILY Lidoderm (Lidocaine) 5 % Adh..patch 1 Patch TOPICAL DAILY Nitrostat SL (Nitroglycerin) 0.4 Mg Subl 0.4 Mg SL DIRECTED PRN 1 tablet under the tongue as needed for chest pain. Repeat every 5 minutes for a total of 3 DOSES or call 911 if NO relief. Restasis Opth 0.05% (Cyclosporine Opth 0.05%) 0.05% Emul 1 Drop EACH EYE BID Trilipix (Choline Fenofibrate DR) 135 Mg Capdr 135 Mg PO DAILY Novolog Inj (Insulin Aspart) 1,000 Unit/10 Ml Vial 40 Units SQ TIDAC Methylphenidate IR (Methylphenidate HCl) 20 Mg Tab 30 Mg PO BID Epogen (Epoetin Refugio) 20,000 Unit/2 Ml Vial 20,000 Units IM MONTHLY WITH CHEMO Zometa Inj (Zoledronic Acid) 4 Mg/100 Ml Inj 3.3 Mg IV MONTHLY WITH CHEMO Prilolid 2.5-2.5 % (Lidocaine-Prilocaine) 1 Kit Kit 1 Applic TOPICAL ON CHEMO DAYS Thalomid (Thalidomide) 50 Mg Cap 50 Mg PO DAILY l-Glutamine (Glutamine) 500 Mg Tab 2,000 Mg PO DAILY Klor-Con 10 (Potassium Chloride) 10 Meq Tab 40 Meq PO BID Glimepiride 4 Mg Tab 4 Mg PO DAILY Entresto (Sacubitril-Valsartan) 49-51 Mg Tab 1 Tab PO BID Clonidine (Clonidine HCl) 0.3 Mg Tab 0.3 Mg PO BID Nexium (Esomeprazole DR) 40 Mg Capdr 40 Mg PO DAILY Pradaxa (Dabigatran) 75 Mg Cap 75 Mg PO BID Furosemide 40 Mg Tab 40 Mg PO BID Gabapentin 300 Mg Cap 900 Mg PO HS Gabapentin 600 Mg Tab 600 Mg PO DAILY Econazole Topical (Econazole Nitrate) 1% Cream 1 Applic TOPICAL BID PRN Hydroxychloroquine (Hydroxychloroquine Sulfate) 200 Mg Tab 200 Mg PO BID Takw with food Nystatin-Triamcinolone 100,000-0.1 Unit/Gm Cream 1 Applic TOPICAL DAILY PRN Allopurinol 300 Mg Tab 300 Mg PO DAILY Carvedilol 25 Mg Tab 50 Mg PO BID Pravastatin 40 Mg Tab 40 Mg PO HS Ondansetron (Ondansetron HCl) 8 Mg Tab 8 Mg PO TID Myrbetriq (Mirabegron) 50 Mg Tab 50 Mg PO DAILY Acyclovir 400 Mg Tab 400 Mg PO BID . Current Medications Medications (Trade) Dose Ordered Sig/Srinath Route Start Time Stop Time Status Last Admin IV Flush 2 ml 2 ml UNSCH PRN IV FLUSH 03/24/17 13:15 (Diprivan 1000 Mg/100ml Inj) 100 ml @ 0 mls/hr TITRATE IV 03/24/17 14:15 03/25/17 06:38 (Protonix Inj) 40 mg DAILY IV 03/24/17 15:15 03/24/17 18:07 Miscellaneous Information 1 [id number] XX 03/24/17 15:15 (Chlorhexidine 2% Cloth) 3 pack Taper DAILY@04 TOP 03/25/17 04:00 03/21/18 03:59 03/25/17 04:00 (Chlorhexidine 2% Cloth) 3 pack UNSCH PRN TOP 03/24/17 15:15 (Trinity-Colace) 1 tab BID PO 03/24/17 21:00 03/24/17 21:22 (Milk Of Magnesia Liq) 30 ml Q12H PRN PO 03/24/17 15:15 (Senokot) 17.2 mg Q12H PRN PO 03/24/17 15:15 (Dulcolax Supp) 10 mg DAILY PRN RECTAL 03/24/17 15:15 (Lactulose Liq) 30 ml DAILY PRN PO 03/24/17 15:15 (D50w (Vial) Inj) 50 ml UNSCH PRN IV 03/24/17 15:15 03/25/17 00:01 (Glucagon Inj) 1 mg UNSCH PRN OTHER 03/24/17 15:15 Insulin Human Regular 1 1 Q1H SQ 03/24/17 15:15 (Zosyn 2.25 Gm Premix) 50 ml @ 100 mls/hr Q8H IV 03/24/17 16:00 03/25/17 08:46 Aspirin 81 mg 81 mg DAILY PO 03/24/17 16:15 Sodium Bicarbonate 100 meq/Dextrose 1,100 ml @ 75 mls/hr [id number] IV 03/24/17 18:00 03/24/17 18:36 (D10w Inj) 1,000 ml @ 100 mls/hr Q10H IV 03/24/17 19:00 03/24/17 21:12 (Coreg) 3.125 mg Q12HR PO 03/25/17 09:00 . Family History Patient was adopted. He knows his father of an CO, otherwise family history is unknown. Son has had multiple CO, cardiac stents. . Substance Use Tobacco: never smoked. Alcohol: none. Prescription med abuse:none. Illicits:none. . Psychosocial History Originally from [place] but grew up here in [place]. Patient attended college. He was over 30 years in the [employer] and is a decorated . He saw combat. 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 Patient is X 1 2 Sonya for 54 years. Lives in [place]. They have 3 biologic children -2 sons, one daughter as well as one adopted daughter and have fostered many additional children. Many grandchildren and great-grandchildren. . . Spiritual/Cultural Factors Evangelical luis. Welcomes licensed and certified midwife support.Egg Gatherer notified. . Living Will: Never completed Health Care Surrogate: Never completed Durable Power of Device Processing Engineer: Never completed Health Care Surrogate(s): Patient is currently incapacitated to make his own health care decisions. No known written advance directives. According to 4 to statutes, health care proxy decision-making falls to the patient's spouse. . Today's verbally stated goals: Patient currently incapacitated. Family/friends goals: Family desires continued supportive/aggressive care at this time. indicates that she does not want her to suffer, verbalizes ongoing trajectories decline and poor quality of life in the days leading up to this hospitalization. Does not want cardiac resuscitation, shock or ACLS. Family would consider dialysis "if it would make the patient better" however verbalizes if it would not improve his quality of life he would not want it. verbalizes that she hopes the patient can peacefully without additional suffering. Suspect family will transition to comfort focused care should the patient have further setbacks/decline or not have any clinical improvement in the coming days. . Ethical and Legal Issues Patient is currently incapacitated to make his own health care decisions. No known written advance directives. According to 4 to statutes, health care proxy decision-making falls to the patient's spouse. . Physical Exam Vital Signs Date Time Temp Pulse Resp B/P Pulse Ox O2 Delivery O2 Flow Rate FiO2 03/25/17 08:22 100 40 03/25/17 06:00 64 03/25/17 04:00 99.9 63 16 156/73 100 03/25/17 04:00 63 03/25/17 03:36 99 40 03/25/17 02:00 60 03/25/17 00:00 60 03/25/17 00:00 98.7 60 17 133/66 100 03/25/17 00:00 50 03/24/17 23:08 100 50 03/24/17 23:00 60 03/24/17 22:30 100 50 03/24/17 22:00 60 03/24/17 20:00 99.0 60 15 120/60 100 03/24/17 20:00 60 03/24/17 19:35 67 18 118/59 100 03/24/17 19:33 97 60 03/24/17 19:00 54 19 122/60 99 Ventilator 03/24/17 17:00 62 19 138/64 99 Ventilator 03/24/17 16:00 62 11 146/73 100 Ventilator 03/24/17 14:00 100 100 03/24/17 13:19 100 03/24/17 13:16 100 100 03/24/17 13:14 100 100 03/24/17 13:06 75 16 03/24/17 13:00 84 16 104/57 100 03/24/17 03/25/17 19:00 07:00 Intake Total 1151 ml Output Total 1950 ml Balance -799 ml Intake IV Total 1151 ml Output Urine Total 1950 ml # Voids 0 Exam CONSTITUTIONAL/GENERAL: This is an adequately nourished patient, in no apparent distress. TUBES/LINES/DRAINS: ETT, OG, PIV left hand, PIV right, right Port bilateral soft wrist restraints, Kuhn, podus boots. SKIN: No jaundice, rashes, or lesions. Ecchymoses on upper extremities. No wounds seen anteriorly. Skin temperature appropriate. Not diaphoretic. HEAD: Atraumatic. Normocephalic. EYES: Pupils equal and round and reactive. Extraocular motions intact. No scleral icterus. No injection or drainage. Fundi not examined. ENT: unable to assess hearing. Nose without bleeding or purulent drainage. Throat difficult to visualize secondaries tubes. NECK: Trachea midline. Supple, nontender. CARDIOVASCULAR: Regular rate and rhythm without murmurs, gallops, or rubs. No JVD. Peripheral pulses symmetric. RESPIRATORY/CHEST: Symmetric, unlabored respirations. Crackles right lung, diminished lung sounds bilaterally. GASTROINTESTINAL: Abdomen soft, non-tender, nondistended. Protuberant. No guarding. Bowel sounds present. GENITOURINARY: Without palpable bladder distension. Kuhn catheter in place. MUSCULOSKELETAL: Extremities without clubbing, cyanosis, or edema. No mottling or clubbing. LYMPHATICS: No palpable cervical or supraclavicular adenopathy. NEUROLOGICAL: unresponsive, off sedation. Does not open eyes to painful stimuli , voice or exam. Does not withdraw to noxious stimuli. PSYCHIATRIC: unresponsive. . Diagnostic Tests Laboratory Laboratory Tests Test 03/24/17 03/24/17 03/24/17 03/24/17 13:10 13:37 20:00 21:30 White Blood Count 8.9 TH/MM3 (4.0-11.0) Red Blood Count 2.45 MIL/MM3 (4.50-5.90) Hemoglobin 8.2 GM/DL (13.0-17.0) Hematocrit 24.8 % (39.0-51.0) Mean Corpuscular Volume 100.9 FL (80.0-100.0) Mean Corpuscular Hemoglobin 33.2 PG (27.0-34.0) Mean Corpuscular Hemoglobin 33.0 % Concent (32.0-36.0) Red Cell Distribution Width 22.2 % (11.6-17.2) Platelet Count 63 TH/MM3 (150-450) Mean Platelet Volume 8.6 FL (7.0-11.0) Neutrophils (%) (Auto) 47.5 % (16.0-70.0) Lymphocytes (%) (Auto) 40.3 % (9.0-44.0) Monocytes (%) (Auto) 4.8 % (0.0-8.0) Eosinophils (%) (Auto) 0.6 % (0.0-4.0) Basophils (%) (Auto) 6.8 % (0.0-2.0) Neutrophils # (Auto) 4.2 TH/MM3 (1.8-7.7) Lymphocytes # (Auto) 3.6 TH/MM3 (1.0-4.8) Monocytes # (Auto) 0.4 TH/MM3 (0-0.9) Eosinophils # (Auto) 0.1 TH/MM3 (0-0.4) Basophils # (Auto) 0.6 TH/MM3 (0-0.2) CBC Comment AUTO DIFF Differential Total Cells 100 Counted Neutrophils % (Manual) 53 % (16-70) Band Neutrophils % 2 % (0-6) Lymphocytes % 43 % (9-44) Monocytes % 1 % (0-8) Eosinophils % 1 % (0-4) Neutrophils # (Manual) 4.9 TH/MM3 (1.8-7.7) Nucleated Red Blood Cells 5 /100 WBC (0-0) Differential Comment FINAL DIFF MANUAL Platelet Estimate LOW (NORMAL) Platelet Morphology Comment NORMAL (NORMAL) Ovalocytes 1+ (NORMAL) Rouleau PRESENT (NORMAL) Prothrombin Time 11.6 SEC (9.8-11.6) Prothromb Time International 1.0 RATIO Ratio Activated Partial 25.0 SEC Thromboplast Time (24.3-30.1) Urine Color YELLOW (YELLW/STRAW) Urine Turbidity HAZY (CLEAR) Urine pH 5.0 (5.0-8.5) Urine Specific [place] 1.013 (1.002-1.035) Urine Protein 30 mg/dL (NEG-TRACE) Urine Glucose (UA) NEG mg/dL (NEG) Urine Ketones NEG mg/dL (NEG) Urine Occult Blood NEG (NEG) Urine Nitrite NEG (NEG) Urine Bilirubin NEG (NEG) Urine Urobilinogen LESS THAN 2.0 MG/DL (LESS THAN 2.0) Urine Leukocyte Esterase NEG (NEG) Urine RBC 1 /hpf (0-3) Urine WBC 4 /hpf (0-5) Urine Amorphous Sediment FEW Microscopic Urinalysis Comment CULT NOT INDICATED Urine Random Creatinine 81.1 MG/DL Urine Random Sodium 38 MEQ/L Sodium Level 141 MEQ/L (136-145) Potassium Level 5.0 MEQ/L (3.5-5.1) Chloride Level 110 MEQ/L (98-107) Carbon Dioxide Level 18.2 MEQ/L (21.0-32.0) Anion Gap 13 MEQ/L (5-15) Blood Urea Nitrogen 107 MG/DL (7-18) Creatinine 6.40 MG/DL (0.60-1.30) Estimat Glomerular Filtration 9 ML/MIN (>89) Rate Random Glucose 78 MG/DL (74-106) Lactic Acid Level 0.8 mmol/L (0.4-2.0) Calcium Level 9.7 MG/DL (8.5-10.1) Total Bilirubin 0.3 MG/DL (0.2-1.0) Aspartate Amino Transf 26 U/L (15-37) (AST/SGOT) Alanine Aminotransferase 18 U/L (12-78) (ALT/SGPT) Alkaline Phosphatase 35 U/L (45-117) Total Creatine Kinase 61 U/L (39-308) 123 U/L (39-308) Troponin I 0.22 NG/ML 3.92 NG/ML (0.02-0.05) (0.02-0.05) Total Protein 10.5 GM/DL (6.4-8.2) Albumin 2.6 GM/DL (3.4-5.0) Blood Gas Puncture Site LT RADIAL Blood Gas Patient Temperature 98.6 Blood Gas HCO3 15 mmol/L (22-26) Blood Gas Base Excess -9.5 mmol/L (-2-2) Blood Gas Oxygen Saturation 98 % (90-100) Arterial Blood pH 7.32 (7.380-7.420) Arterial Blood Partial 31 mmHg (38-42) Pressure CO2 Arterial Blood Partial 370 mmHG Pressure O2 (61-120) Arterial Blood Oxygen Content 16.2 Vol % (12.0-20.0) Arterial Blood 0.8 % (0-4) Carboxyhemoglobin Arterial Blood Methemoglobin 0.9 % (0-2) Blood Gas Hemoglobin 11.1 G/DL (12.0-16.0) Oxygen Delivery Device VENTILATOR Blood Gas Ventilator Setting A/C 16/500/PEEP5 Blood Gas Inspired Oxygen 100 % Nasal Screen MRSA (PCR) MRSA NOT DETECTED (NOT DETECT) Test 03/25/17 03/25/17 01:31 04:43 Troponin I 4.28 NG/ML (0.02-0.05) White Blood Count 6.9 TH/MM3 (4.0-11.0) Red Blood Count 1.97 MIL/MM3 (4.50-5.90) Hemoglobin 6.6 GM/DL (13.0-17.0) Hematocrit 19.8 % (39.0-51.0) Mean Corpuscular Volume 100.9 FL (80.0-100.0) Mean Corpuscular Hemoglobin 33.7 PG (27.0-34.0) Mean Corpuscular Hemoglobin 33.4 % Concent (32.0-36.0) Red Cell Distribution Width 21.7 % (11.6-17.2) Platelet Count 59 TH/MM3 (150-450) Mean Platelet Volume 8.4 FL (7.0-11.0) Neutrophils (%) (Auto) % (16.0-70.0) Lymphocytes (%) (Auto) % (9.0-44.0) Monocytes (%) (Auto) % (0.0-8.0) Eosinophils (%) (Auto) % (0.0-4.0) Basophils (%) (Auto) % (0.0-2.0) Neutrophils # (Auto) TH/MM3 (1.8-7.7) Lymphocytes # (Auto) TH/MM3 (1.0-4.8) Monocytes # (Auto) TH/MM3 (0-0.9) Eosinophils # (Auto) TH/MM3 (0-0.4) Basophils # (Auto) TH/MM3 (0-0.2) CBC Comment AUTO DIFF Differential Total Cells 100 Counted Neutrophils % (Manual) 51 % (16-70) Band Neutrophils % 7 % (0-6) Lymphocytes % 37 % (9-44) Monocytes % 2 % (0-8) Basophils % 1 % (0-2) Neutrophils # (Manual) 4.1 TH/MM3 (1.8-7.7) Metamyelocytes 2 % (0-1) Nucleated Red Blood Cells 1 /100 WBC (0-0) Differential Comment FINAL DIFF MANUAL Platelet Estimate LOW (NORMAL) Platelet Morphology Comment NORMAL (NORMAL) Sodium Level 140 MEQ/L (136-145) Potassium Level 4.2 MEQ/L (3.5-5.1) Chloride Level 112 MEQ/L (98-107) Carbon Dioxide Level 16.7 MEQ/L (21.0-32.0) Anion Gap 11 MEQ/L (5-15) Blood Urea Nitrogen 105 MG/DL (7-18) Creatinine 6.09 MG/DL (0.60-1.30) Estimat Glomerular Filtration 9 ML/MIN (>89) Rate Random Glucose 87 MG/DL (74-106) Calcium Level 8.9 MG/DL (8.5-10.1) Result Diagram: 03/25/17 0443 03/25/17 0443 Microbiology Microbiology Date/Time Procedure Status Source Growth 03/25/17 09:00 Gram Stain Received Sputum Endotracheal Pending 03/25/17 09:00 Sputum Culture Received Sputum Endotracheal Pending . Imaging Last Impressions Head CT 03/24/17 1304 Signed Impressions: Service Date/Time: Friday, March 24, 2017 14:03 - CONCLUSION: 1. No acute intracranial abnormality. 2. Redemonstration of calvarial lytic lesions consistent with history of multiple myeloma. Fadi Medley MD Chest X-Ray 03/24/17 1304 Signed Impressions: Service Date/Time: Friday, March 24, 2017 13:03 - CONCLUSION: 1. ETT in good position. NGT beyond GE junction with tip not imaged. 2. Cardiomegaly with mild pulmonary vascular congestion. 3. Bilateral, left > right, mild lower lobe airspace disease which may reflect atelectasis. Fadi Medley MD Renal Ultrasound 03/24/17 0000 Signed Impressions: Service Date/Time: Friday, March 24, 2017 16:33 - CONCLUSION: Echogenic kidneys concerning for medical renal disease. Jameel Lindsey MD . Procedures * 03/24/17 intubated . Patient/Family Conference Present at Family Conference: Met with patient's , daughter and son-in-law. So present Bhargavi Hawkins LCSW. Family Conference Time (mins): 75 Family Conference Location: Other Issues Discussed: * Palliative care role, purpose, approach * Additional medical, psychosocial, and spiritual history * Patients general health, functional status, and cognitive changes in the months leading up to the current hospitalization * Patient/family understanding of the current medical problems * Patient/family understanding of prognosis * Patients goals of care as best understood from advance directives and/or conversations and/or values * Current medical treatment options and benefits/burdens of those options * Likely scenarios comparing ongoing aggressive care with a transition to comfort measures only * Questions answered to the best of my ability * Palliative care contact information provided Assessment and Plan Disease Oriented Problem List: (1) Respiratory failure (2) Metabolic acidosis (3) Multiple myeloma (4) CKD (chronic kidney disease) (5) Diabetes (6) Encephalopathy (7) Heart failure Symptom Scale: (1) Anxiety 0-10 Scale: Unable to quantify (2) Generalized weakness 0-10 Scale: Unable to quantify (3) Shortness of breath 0-10 Scale: Unable to quantify (4) Pain 0-10 Scale: Unable to quantify Pertinent Non-Medical Issues Psychosocial: . Has 3 biological children (2 sons, one daughter), one adopted daughter. Spiritual: Evangelical luis. Legal: Patient is currently incapacitated to make his own health care decisions. No known written advance directives. According to 4 to statutes, health care proxy decision-making falls to the patient's spouse. Ethical issues impacting care: No known concerns at this time. . Important Contacts * Sonya Navarro, spouse/HCP: [phone] * Isamar Zhao, daughter: [phone] or [phone] . Prognosis Mr. Navarro is a 76-year-old male with multiple medical comorbidities, including progressive multiple myeloma lytic lesions of spine shoulders and skull. Patient was admitted with respiratory failure, hypoglycemia, NSTEMI, acute on chronic renal failure - overall prognosis appears poor for meaningful recovery. . Code Status: Alternative Code (intubation only) Plan * Patient is currently incapacitated to make his own health care decisions. No known written advance directives. According to 4 to statutes, health care proxy decision-making falls to the patient's spouse. * CODE STATUS: Intubation only. No cardiac resuscitation, shock or ACLS. If patient has pacemaker/ defibrillator family wants defibrillator deactivated. According to records in 2008 pt had pacemaker placed. * 03/25/17 Palliative care met with , daughter and son-in-law: Lengthy conversation regarding current medical problems including NSTEMI, renal failure , respiratory failure Family desires continued supportive/aggressive care at this time. indicates that she does not want her to suffer, verbalizes ongoing trajectories decline and poor quality of life in the days leading up to this hospitalization. Does not want cardiac resuscitation, shock or ACLS. Family would consider dialysis "if it would make the patient better" however verbalizes if it would not improve his quality of life he would not want it. verbalizes that she hopes the patient can peacefully without additional suffering. Suspect family will transition to comfort focused care should the patient have further setbacks/decline or not have any clinical improvement in the coming days. * Palliative care will meet family again on 03/26/17 to provide medical update and further clarification of treatment goals. * SYMPTOMS: Pain: patient with chronic pain secondary to lytic lesions due to multiple myeloma, NSTEMI, intubation etc. Off sedation, unresponsive. Will continue to monitor. Dyspnea: on mechanical ventilation, off sedation appears comfortable. No new medication recommendations at this time. * Palliative care number provided. * Palliative care will continue to follow throughout hospital course to assist with symptom management and clarification of goals as needed. . Thank you for the opportunity to participate in the care of Mr. Navarro. Attestation To help prompt me to consider important information that might be impacting today's encounter and assessment, information from prior notes written by myself or my colleagues may have been "brought forward" into today's note. My signature on this note, however, is an attestation that I personally performed the exam, history, and/or decision-making noted today, and, unless otherwise indicated, the interactions with patient, family, and staff as well as the review of records all occurred today. I also attest that the listed assessment and stated plan reflect my best clinical judgment today based on the combination of historical information, prior notes, and today's exam/ interactions. When time spent is documented, it refers only to time spent today by the signer, or if indicated, combined time spent today by collaborating physician/nurse practitioner. BRADLY EGAN Mar 25, 2017 10:42
[2017-03-25] MEDS: CARVEDILOL 3.125 MG TAB PO SCH ×2 (10:54→20:34)
[2017-03-25] MEDS: ASPIRIN EC 81 MG TABEC PO SCH (10:54)
[2017-03-25] MEDS: DOCUSATE SODIUM 50 MG/SENNA 8.6 MG TAB PO SCH ×2 (10:54→20:34)
--- NOTE | 2017-03-25 10:54 | HHI.NPPN ---
Subjective History of Present Illness 76 year old with multiple Myeloma, and advance kidney disease now with ESRD Objective Data Data 03/24/17 03/25/17 19:00 07:00 Intake Total 1151 ml Output Total 1950 ml Balance -799 ml Intake IV Total 1151 ml Output Urine Total 1950 ml # Voids 0 Vital Signs Date Time Temp Pulse Resp B/P Pulse Ox O2 Delivery O2 Flow Rate FiO2 03/25/17 10:25 100 40 03/25/17 08:22 100 40 03/25/17 06:00 64 03/25/17 04:00 99.9 63 16 156/73 100 03/25/17 04:00 63 03/25/17 03:36 99 40 03/25/17 02:00 60 03/25/17 00:00 60 03/25/17 00:00 98.7 60 17 133/66 100 03/25/17 00:00 50 03/24/17 23:08 100 50 03/24/17 23:00 60 03/24/17 22:30 100 50 03/24/17 22:00 60 03/24/17 20:00 99.0 60 15 120/60 100 03/24/17 20:00 60 03/24/17 19:35 67 18 118/59 100 03/24/17 19:33 97 60 03/24/17 19:00 54 19 122/60 99 Ventilator 03/24/17 17:00 62 19 138/64 99 Ventilator 03/24/17 16:00 62 11 146/73 100 Ventilator 03/24/17 14:00 100 100 03/24/17 13:19 100 03/24/17 13:16 100 100 03/24/17 13:14 100 100 03/24/17 13:06 75 16 03/24/17 13:00 84 16 104/57 100 -: 03/25/17 0443 03/25/17 0443 Microbiology 03/25/17 Gram Stain, Received Pending 03/25/17 Sputum Culture, Received Pending Physical Exam General Appearance: Well Developed Neck Neck Exam: Neck Supple Pulmonary Resp Exam: Decreased Bases Cardiology CV Exam: Regular, Normal Sinus Rhythm Gastrointestinal/Abdomen GI Exam: Soft, Non-Tender, Bowel Sounds Present Extremeties Extremities Exam: Moderate Edema Assessment/Plan Problem List: (1) MARTHA (acute kidney injury) Plan: ESRD with UOP suspected Myeloma progression the has informed Dr. Judge that she does not wish to begin dialysis if necessary will meet with palliative care poor prognosis as uremic (2) Diabetes Plan: admitted hypoglycemic, he had been taking oral antihyperglycemics without eating food ordered D5 infusion follow glucose (3) Anemia Plan: macrocytic anemia, check B12 and folate levels hx of multiple myeloma transfuse if needed (4) Heart failure Plan: has AICD follow fluid status (5) Metabolic acidosis Plan: non anion gap metabolic acidosis due to renal failure (6) Multiple myeloma Plan: no longer on chemotherapy palliative to assist with goals (7) Encephalopathy Plan: intubated Misael Major MD Mar 25, 2017 10:54
[2017-03-25] MEDS: PANTOPRAZOLE SODIUM 40 MG VIAL IV SCH (10:55)
--- NOTE | 2017-03-25 13:48 | ECHRPT ---
Indication: elevated troponin CONCLUSIONS Normal left ventricular size and wall thickness. The left ventricular systolic function is normal wi th an estimated ejection fraction in the range of 60-65%. No definite segmental wall motion abnormalities. Normal left ventricular size. The aortic valve is not well visualized. Structurally normal tricuspid valve. There is mild tricuspid valve regurgitation. BP: / HR: 70 Rhythm: Other Technical Quality:Technically difficult study FINDINGS LEFT VENTRICLE Normal left ventricular size and wall thickness. The left ventricular systolic function is normal wi th an estimated ejection fraction in the range of 60-65%. No definite segmental wall motion abnormalities. Normal left ventricular size. RIGHT VENTRICLE A pacemaker wire is noted. RIGHT ATRIUM There is a pacemaker wire present in the right atrial cavity. AORTIC VALVE The aortic valve is not well visualized. TRICUSPID VALVE Structurally normal tricuspid valve. There is mild tricuspid valve regurgitation. Douglas Mclean MD (Electronically Signed) Final Date:25 March 2017 13:47
--- NOTE | 2017-03-25 13:57 | EKG ---
Date Performed: 03/24/2017 Time Performed: 13:04:54 PTAGE: 76 years EKG: ELECTRONIC VENTRICULAR PACEMAKER ABNORMAL RHYTHM ECG Compared to prior tracing no significa nt change PREVIOUS TRACING : 10/18/2016 23.26 DOCTOR: Keyanna Vines Interpretating Date/Time 03/25/2017 13:50:14
--- NOTE | 2017-03-25 15:30 | MB ---
cc: GUNNAR EID DATE OF CONSULTATION: 03/25/2017. REASON FOR CONSULTATION: HISTORY OF PRESENT ILLNESS: Mr. Navarro is a 76-year-old white male who is a patient of Dr. Bhakta with a history of congestive heart failure and cardiomyopathy with severe mitral dysfunction, multiple myeloma and chronic kidney disease. He has had altered mental status for the last several days. He had hypoglycemic episodes and was brought to the hospital. He continued to be confused. He was intubated and placed on the ventilator and transferred to the intensive care unit. His troponin has been slightly elevated with a creatinine of 6.4. He has not had any recent chest pain. He has been under the care of hospice. PAST MEDICAL HISTORY: The past medical history is positive for: 1. Cardiomyopathy. 2. Congestive heart failure. 3. Defibrillator placement. 4. Chronic kidney disease. 5. Atrial fibrillation. 6. Multiple myeloma. 7. Anemia of disease. 8. Diabetes mellitus. 9. Cataract surgery. 10. Prostatectomy. 11. Tonsillectomy. MEDICATIONS: Medications include: 1. . 2. Pravastatin. 3. Coreg. 4. Allopurinol. 5. Lasix. 6. Pradaxa. 7. Gabapentin. 8. Clonidine. 9. Nexium. 10. Aspirin. 11. Glimepiride. 12. Calcium carbonate. 13. Vitamin D3. ALLERGIES: 1. FENTANYL. 2. . SOCIAL HISTORY: The patient does not smoke. He does not drink any alcohol. He is accompanied by his family including his . FAMILY HISTORY: Family history is positive for heart disease in his father. REVIEW OF SYSTEMS: The review of systems is otherwise negative. PHYSICAL EXAMINATION: VITAL SIGNS: Blood pressure is 156/73, pulse 75 and regular. HEAD, EYES, EARS, NOSE, THROAT: The patient is intubated on the ventilator. NECK: 1+ carotid upstrokes. LUNGS: Clear. HEART: Regular with no murmurs. ABDOMEN: Abdomen soft. No bruits. EXTREMITIES: Without edema. NEUROLOGIC: Grossly nonfocal but the patient is sedated and unresponsive. PULSES: 1 to 2+ distal pulses. EKGS: EKG was reviewed and showed normal sinus rhythm and ventricular pacing. LABORATORY DATA: Hemoglobin 6.6, potassium 4.2, creatinine 6.1. Troponin 3.92, 4.28 and 3.10. CK 123. DIAGNOSIS: 1. Respiratory failure. 2. Hypoglycemia. 3. Encephalopathy. 4. Acute exacerbation of chronic kidney disease. 5. Elevated troponin. 6. Anemia. 7. Multiple myeloma. 8. Congestive heart failure. 9. Cardiomyopathy with ventricular systolic dysfunction. 10. Paroxysmal atrial fibrillation. 11. Diabetes mellitus. DISPOSITION: Mr. Navarro will be monitored in the intensive care unit. Will continue supportive care. His troponin is not trending in either direction and is likely related to his renal insufficiency. Continue weaning efforts. I agree with a consult for palliative care. The situation was discussed with the patient's family. MD KAREEM Reaves/ROMI /1:57 PM /3:21 PM
[2017-03-25] MEDS ORDERED: ACETAMINOPHEN 325 MG TAB PO PRN (22:30)
[2017-03-26] VITALS (29 sets, daily range): BP systolic 135–171; BP diastolic 66–86; PULSE 69–100; RESP 21–27; TEMP 98.8–100.6; O2SAT 96–99
[2017-03-26 00:06] LABS: HEMATOCRIT 28.2 % (39.0-51.0)
[2017-03-26 00:08] LABS: REVIEW FLAG FINAL
[2017-03-26] MEDS: INSULIN NovoLIN REGULAR SUPPLEMENTAL SCALE SQ SCH ×8 (00:36→21:00)
[2017-03-26] MEDS: hydrALAZINE HCL 20 MG/ML VIAL IV PUSH PRN (03:04)
[2017-03-26] MEDS: RESP: ALBUTEROL 2.5 MG/IPRATROPIUM 0.5 MG NEB (SCH) INH ×4 (03:47→20:19)
[2017-03-26] MEDS: CHLORHEXIDINE GLUCONATE 2 % 1 PACK (2 CLOTHS) TOP SCH (04:00)
[2017-03-26] MEDS: DEXTROSE 10% INJ 1,000 ML IV SCH (05:01)
[2017-03-26 05:56] LABS: MEAN CELL VOLUME 95.4 FL (80.0-100.0); MEAN CORPUSCULAR HEMOGLOBIN 32.1 PG (27.0-34.0); MEAN CORPUSCULAR HGB CONC 33.7 % (32.0-36.0); PLATELET COUNT 52 TH/MM3 (150-450); RED BLOOD COUNT 2.93 MIL/MM3 (4.50-5.90); RED CELL DISTRIBUTION WIDTH 26.4 % (11.6-17.2); WHITE BLOOD COUNT 8.9 TH/MM3 (4.0-11.0)
[2017-03-26 05:59] LABS: HEMO FLAGS AUTO DIFF
--- NOTE | 2017-03-26 07:44 | MG ---
cc: MARISOL THURMAN MD Lab No: [id number] Date: 03/25/2017 : 1940 Sex: M INDICATION A 76-year-old with some migraines, numbness, confusion. He has multiple myeloma and calvarial cystic lesions. DESCRIPTION Burst generalized delta activity pattern. Phase reversal at T3, epoch 6. Paroxysmal bursts and frontal sharp transients followed by interictal low amplitude 1-3 Hz delta activity with a phase reversal at T3, epoch 17. There is phase reversal at T3, epoch 31, in addition to again paroxysmal bursts of somewhat sharply contoured frontal waves. Multiple other phase reversals at T3, F7 region occurring in an isolated fashion. Limited driving with photic stimulation. Mild EEG variability and reactivity. A single-lead EKG showing sinus rhythm. INTERPRETATION Moderate encephalopathy with paroxysmal and at times regular complexes as noted above, isolated sharp waves in the left frontotemporal region. Clinical correlation. Marisol Thurman MD MG/BT /9:59 PM /7:34 AM
[2017-03-26 07:48] LABS: BANDS 4 % (0-6); CORRECTED NUCLEATED RBC 1 /100 WBC (0-0); NEUTROPHIL # MANUAL DIFF 5.3 TH/MM3 (1.8-7.7); PLASMA CELLS 9 % (0-0); POLYS (SEG NEUTROPHILS) 55 % (16-70); WBC DIFF SAMPLE 100
[2017-03-26 07:50] LABS: ACANTHOCYTES OCC (NORMAL); SCAN/DIFF FINAL DIFF MANUAL
[2017-03-26] MEDS: PIPERACIL-TAZO 2.25 GM PREMIX 50 ML IV SCH ×2 (07:53→16:00)
[2017-03-26] MEDS: DOCUSATE SODIUM 50 MG/SENNA 8.6 MG TAB PO SCH ×2 (07:53→21:41)
[2017-03-26] MEDS: CARVEDILOL 3.125 MG TAB PO SCH (07:53)
[2017-03-26] MEDS: PANTOPRAZOLE SODIUM 40 MG VIAL IV SCH (07:54)
--- NOTE | 2017-03-26 08:56 | HHI.CCPN ---
Subjective Remarks/Hospital Course The patient is a [id number]-male with a past medical history of diabetes mellitus, cardiomyopathy with EF of 25-30%, CHF, atrial fibrillation, multiple myeloma, and chronic kidney disease. The patient presented to [facility] ED with altered mental status and hypoglycemic episode. He reportedly did not seem normal at 7 a.m. According to family members, EMS was called yesterday as well for hypoglycemic episodes and at that time he was given D10 and refused transport to the hospital. This morning the patient was somewhat confused and upon arrival of the daughter he was found unconscious and blood sugar was noted to be 20 at the seen. The patient was given 25 grams of Dextrose which increased his blood sugar to 180 and then back down into the 80s. He was intubated for a GCS score of 3. Per ED records, the patient had a respiratory rate of 8 with no spontaneous movements. ABG post intubation showed a pH of 7.32, CO2 31, PAO2 of 370, bicarb 15, saturation of 98%. His laboratory data significant for acute renal failure with a BUN of 107, creatinine 6.40 and a troponin of 0.22. His lactic acid level measured at 0.8. The patient has a baseline creatinine in the 3-4 range a few months ago. According to family, the patient was enrolled under Hospice however they would like to give him a chance. 03/25 Patient is sedated with Diprivan and intubated. Hgb 6.6, troponin gradually increased overnight and now 4.2 early this morning. He had recurrent hypoglycemic episodes and was placed on D10. 03/26 Patient remains intubated off sedation had T: 101.4 last night. EEG yesterday showed mod. encephalopathy. s/p transfusion 2units PRBC yesterday Hgb 9.4 this morning from 6.6 Objective Vital Signs Date Time Temp Pulse Resp B/P Pulse Ox O2 Delivery O2 Flow Rate FiO2 03/26/17 07:34 35 03/26/17 07:34 99.0 03/26/17 07:28 96 03/26/17 06:00 94 03/26/17 04:00 24 167/84 03/24/17 19:00 Ventilator Intake and Output 03/25/17 03/25/17 03/26/17 08:00 16:00 00:00 Intake Total 768 ml 1179 ml 823 ml Output Total 650 ml 1000 ml 1000 ml Balance 118 ml 179 ml -177 ml Result Diagram: 03/26/17 0512 03/25/17 0443 Other Results Laboratory Tests Test 03/25/17 03/25/17 03/25/17 03/26/17 09:16 09:25 23:00 05:12 Troponin I 3.20 NG/ML Blood Type O POSITIVE Antibody Screen NEGATIVE Crossmatch Leukocyte-Reduced Red Blood Cells Blood Bank Comment Blood Gas Puncture Site RT RADIAL Blood Gas Patient Temperature 98.6 Blood Gas HCO3 15 mmol/L Blood Gas Base Excess -9.0 mmol/L Blood Gas Oxygen Saturation 95 % Arterial Blood pH 7.41 Arterial Blood Partial 24 mmHg Pressure CO2 Arterial Blood Partial 119 mmHg Pressure O2 Arterial Blood Oxygen Content 8.4 Vol % Arterial Blood 1.5 % Carboxyhemoglobin Arterial Blood Methemoglobin 1.7 % Blood Gas Hemoglobin 6.1 G/DL Oxygen Delivery Device VENTILATOR Blood Gas Ventilator Setting AC/16/500/+5 Blood Gas Inspired Oxygen 40 % Hemoglobin 9.5 GM/DL 9.4 GM/DL Hematocrit 28.2 % 28.0 % White Blood Count 8.9 TH/MM3 Red Blood Count 2.93 MIL/MM3 Mean Corpuscular Volume 95.4 FL Mean Corpuscular Hemoglobin 32.1 PG Mean Corpuscular Hemoglobin 33.7 % Concent Red Cell Distribution Width 26.4 % Platelet Count 52 TH/MM3 Mean Platelet Volume 8.4 FL Neutrophils (%) (Auto) % Lymphocytes (%) (Auto) % Monocytes (%) (Auto) % Eosinophils (%) (Auto) % Basophils (%) (Auto) % Neutrophils # (Auto) TH/MM3 Lymphocytes # (Auto) TH/MM3 Monocytes # (Auto) TH/MM3 Eosinophils # (Auto) TH/MM3 Basophils # (Auto) TH/MM3 CBC Comment AUTO DIFF Differential Total Cells 100 Counted Neutrophils % (Manual) 55 % Band Neutrophils % 4 % Lymphocytes % 29 % Monocytes % 3 % Neutrophils # (Manual) 5.3 TH/MM3 Nucleated Red Blood Cells 1 /100 WBC Differential Comment FINAL DIFF MANUAL Plasma Cells 9 % Acanthocytes OCC Imaging Last Impressions Head CT 03/24/17 1304 Signed Impressions: Service Date/Time: Friday, March 24, 2017 14:03 - CONCLUSION: 1. No acute intracranial abnormality. 2. Redemonstration of calvarial lytic lesions consistent with history of multiple myeloma. Fadi Medley MD Chest X-Ray 03/24/17 1304 Signed Impressions: Service Date/Time: Friday, March 24, 2017 13:03 - CONCLUSION: 1. ETT in good position. NGT beyond GE junction with tip not imaged. 2. Cardiomegaly with mild pulmonary vascular congestion. 3. Bilateral, left > right, mild lower lobe airspace disease which may reflect atelectasis. Fadi Medley MD Renal Ultrasound 03/24/17 0000 Signed Impressions: Service Date/Time: Wednesday, March 24, 2017 16:33 - CONCLUSION: Echogenic kidneys concerning for medical renal disease. Jameel Lindsey MD Objective Remarks GENERAL: Patient is 76 yo critically ill intubated . SKIN: Warm and dry. HEAD: Normocephalic. EYES: No scleral icterus. No injection or drainage. NECK: Supple, trachea midline. No JVD or lymphadenopathy. CARDIOVASCULAR: Regular rate and rhythm without murmurs, gallops, or rubs. RESPIRATORY: Breath sounds equal bilaterally. No accessory muscle use. GASTROINTESTINAL: Abdomen soft, non-tender, nondistended. MUSCULOSKELETAL: No cyanosis, or edema. Neuro:intubated , off sedation. A/P Assessment and Plan 1. VDRF 2. Status post hypoglycemic episodes. 3. Encephalopathy, likely secondary to hypoglycemia and uremia. 4. Acute on chronic kidney disease. 5. NSTEMI 6. Anemia and thrombocytopenia. 7. Multiple myeloma. 8. Cardiomyopathy. 9. History of atrial fibrillation. 10. History of diabetes mellitus. 11. History of prostate cancer. Plan Neuro: Off sedation. Monitor neuro status and avoid sedatives CT brain negative for acute intracranial process. EEG showed mod. encephalopathy. Neuro eval. Pulm: Continue with vent support and maintain sats >92%. Bronchodilators, ICU vent bundle. SBT daily as brayan Check CXR and ABG CV: Change Coreg to Lopressor 50mg BID-Monitor HR and BP and maintain MAP > 65 mmHg. Monitor troponin and continue with Aspirin 81 mg daily. Not a candidate for Pavan-I or full AC due to renal failure. Echo showed EF 60-65%, no wall motion abnormalities. Cards- Dr. Huynh : Monitor renal function Is and Os and avoid nephrotoxins. Renal US: Medical renal disease, no hydro. Renal is following- Dr. Judge. Off D10 as patient is now hyperglycemic will place on NS@125 ml/hr Monitor BMP, UOP:2750 ml in 24 hrs GI: On Protonix 40 mg IV daily for GI prophylaxis and Nepro at goal rate of 40 mL/hr. ID: Continue with abx(Zosyn) for possible aspiration and monitor for signs of infections( fever and WBC). Follow up on sputum cx. Check BC x2 sets Heme: Monitor CBC and coags. s/p transfuse 2units PRBC 03/25 Hgb 9.4 this morning Endo: SSI with with Accu-Chek, Off D10 as patient is now hyperglycemic will place on NS@100ml/hr GI prophylaxis with Protonix 40 mg daily and DVT prophylaxis with SCDs. Not on chemical anticoagulation prophylaxis given thrombocytopenia and anemia on presentation. Palliative care is following. Level 3 José Antonio Hyde MD Mar 26, 2017 08:56
[2017-03-26] MEDS: ASPIRIN EC 81 MG TABEC PO SCH (09:00)
[2017-03-26] MEDS ORDERED: GLUCAGON 1 MG/ML VIAL OTHER PRN (09:00)
[2017-03-26] MEDS ORDERED: DEXTROSE 50% IN WATER 50 ML VIAL(D50) IV PRN (09:00)
[2017-03-26] MEDS: SODIUM CHLOR 0.9% 1000 ML INJ 1,000 ML IV SCH ×2 (09:36→14:48)
[2017-03-26 09:57] LABS: BLOOD GAS CARBOXYHEMOGLOBIN 1.5 % (0-4); BLOOD GAS HCO3 16 mmol/L (22-26); BLOOD GAS METHEMOGLOBIN 1.4 % (0-2); BLOOD GAS O2 HGB SATURATION 95 % (90-100); BLOOD GAS OXYGEN CONTENT 13.5 Vol % (12.0-20.0); BLOOD GAS PCO2 33 mmHg (38-42); BLOOD GAS PO2 126 mmHg (61-120); BLOOD GAS TOTAL HGB 9.9 G/DL (12.0-16.0); CRITICAL VALUE YES; OXYGEN DEVICE VENTILATOR; TEMP CORR TO 98.6; VENT SETTINGS 500/16/PEEP5
[2017-03-26 09:58] LABS: DRAW SITE RT RADIAL; FIO2 35 %; NUMBER OF ARTERIAL PUNCTURES 1; STAT NO; ULNAR PULSE PRESENT
[2017-03-26] MEDS: METOPROLOL TARTRATE 50 MG TAB PO SCH ×2 (10:00→21:41)
[2017-03-26 10:18] LABS: BICARBONATE 18.1 MEQ/L (21.0-32.0); POTASSIUM 3.6 MEQ/L (3.5-5.1)
[2017-03-26] MEDS ORDERED: SODIUM BICARBONATE 8.4% SOLN 50 MEQ/50 ML VIAL IV ONE (12:00)
[2017-03-26] MEDS ORDERED: SODIUM BICARBONATE 8.4% INJ 50 MEQ/50 ML SYR IV PUSH ONE (12:00)
--- NOTE | 2017-03-26 12:03 | RADRPT ---
EXAM DATE/TIME: 03/26/2017 11:26 [facility] COMPARISON: CHEST SINGLE AP, March 24, 2017, 13:03. INDICATIONS : Evaluate lung status. MEDICAL HISTORY : Hypercholesterolemia. Atrial fibrillation. SURGICAL HISTORY : Pacemaker. ENCOUNTER: Initial ACUITY: 1 day PAIN SCORE: Non-responsive. LOCATION: Bilateral chest FINDINGS: Endotracheal tube tip in satisfactory position. NG enters stomach. Pacer lead overlying right atrium and right ventricle and coronary sinus. Basal airspace disease, left greater than right similar to Ju ne 21. No pneumothorax. CONCLUSION: 1. Endotracheal tube is in satisfactory position. Basilar airspace disease, left greater than right s imilar to March 24. Chaz Pham MD on March 26, 2017 at 11:59 Board Certified Radiologist. This report was verified electronically.
--- NOTE | 2017-03-26 12:05 | HHI.NPPN ---
Subjective History of Present Illness 76 year old with multiple Myeloma, and advance kidney disease now with ESRD Objective Data Data 03/25/17 03/26/17 19:00 07:00 Intake Total 1179 ml 1362 ml Output Total 1000 ml 1750 ml Balance 179 ml -388 ml Intake IV Total 1041 ml 824 ml Tube Feeding 78 ml 538 ml Tube Irrigant 60 ml Output Urine Total 1000 ml 1750 ml Vital Signs Date Time Temp Pulse Resp B/P Pulse Ox O2 Delivery O2 Flow Rate FiO2 03/26/17 11:35 98 40 03/26/17 11:35 40 03/26/17 11:10 98 35 03/26/17 10:00 80 23 156/71 96 03/26/17 09:00 81 23 153/84 97 03/26/17 08:00 83 22 154/85 97 03/26/17 07:34 35 03/26/17 07:34 99.0 03/26/17 07:30 85 23 169/73 98 03/26/17 07:28 96 35 03/26/17 06:00 94 03/26/17 04:06 99 40 03/26/17 04:00 100.0 94 24 167/84 98 03/26/17 04:00 94 03/26/17 02:00 93 03/26/17 01:02 99 40 03/26/17 00:00 100.6 100 25 160/81 97 03/26/17 00:00 100 03/25/17 23:01 97 40 03/25/17 23:00 40 03/25/17 22:00 101 03/25/17 20:42 98 40 03/25/17 20:00 101.4 89 26 184/90 98 03/25/17 20:00 89 03/25/17 16:21 99 40 03/25/17 14:03 99 40 -: 03/26/17 0512 03/26/17 0931 Microbiology 03/26/17 Aerobic Blood Culture, Received Pending 03/26/17 Anaerobic Blood Culture, Received Pending 03/26/17 Aerobic Blood Culture, Received Pending 03/26/17 Anaerobic Blood Culture, Received Pending Physical Exam General Appearance: Well Developed Neck Neck Exam: Neck Supple Pulmonary Resp Exam: Decreased Bases Cardiology CV Exam: Regular, Normal Sinus Rhythm Gastrointestinal/Abdomen GI Exam: Soft, Non-Tender, Bowel Sounds Present Extremeties Extremities Exam: Moderate Edema Assessment/Plan Problem List: (1) MARTHA (acute kidney injury) Plan: ESRD with UOP suspected Myeloma progression discussed with sons his condition GFR at 10, Non oliguric follow BMP to see if improves D10 stopped due to his BG follow with palliative care prognosis is poor (2) Diabetes Plan: admitted hypoglycemic, he had been taking oral antihyperglycemics without eating food off D10 follow glucose (3) Anemia Plan: macrocytic anemia, c hx of multiple myeloma transfuse if needed (4) Heart failure Plan: has AICD follow fluid status (5) Metabolic acidosis Plan: non anion gap metabolic acidosis due to renal failure (6) Multiple myeloma Plan: no longer on chemotherapy palliative to assist with goals (7) Encephalopathy Plan: intubated Misael Major MD Mar 26, 2017 12:05
[2017-03-26] MEDS ORDERED: INSULIN NovoLIN REGULAR SUPPLEMENTAL SCALE SQ SCH (12:15)
--- NOTE | 2017-03-26 12:16 | HHI.HCPN ---
Reason for visit a. To assist with evaluation and management of symptoms including: dyspnea, pain, encephalopathy. b. To assist medical decision maker(s) with: better understanding of current medical conditions; weighing benefits/burdens of medical treatment options; making medical treatment decisions. . Subjective/Interval History Patient seen and examined in ICU. at bedside. Also present Bhargavi Wilder LCSW and nurse, Beatris. Patient remains off sedation since 9:15am on 03/25/17, unresponsive. Patient opens eyes slightly, non purposeful. He is not moving extremities, does not withdrawal to pain. Hemoglobin 9.4 after 2 units PRBC's. Platelets 52. Creatinine 5.62. Troponin 2.13. Sputum and blood cultures pending. Chest x-ray pending. Cardiology, Dr. Huynh felt elevated troponin may be due to renal failure and agrees with palliative care. EEG moderate encephalopathy. Neurology consult pending. . Family/friend interactions Met with at bedside. Medical update provided. She reports her sons are struggling with Intubation only Code status, but verbalizes she "knows what is right and does not care what her children think." She tells me she thinks he is "already gone." She does not want him to suffer. She desires continued aggressive care for now, she does not want dialysis. She has a good understanding of critical illness and overall poor prognosis for meaningful recovery. She agrees to reevaluate clinical status on Wednesday in order to give more time to see if patient will have any neurologic recovery. . Advance Directives Living Will: Never completed Health Care Surrogate: Never completed Durable Power of Pharmacy Helper: Never completed Advance Directive Specifics Health Care Surrogate(s): Patient is currently incapacitated to make his own health care decisions. No known written advance directives. According to 4 to statutes, health care proxy decision-making falls to the patient's spouse. . Significant change in goals: CODE STATUS; Intubation Only. No cardiac resuscitation, shock or ACLS. No dialysis. Otherwise continue aggressive care for now. Will reevaluate clinical status and goals on Wednesday03/29/17. . Objective Vital Signs Date Time Temp Pulse Resp B/P Pulse Ox O2 Delivery O2 Flow Rate FiO2 03/26/17 11:35 98 40 03/26/17 11:35 40 03/26/17 11:10 98 35 03/26/17 10:00 80 23 156/71 96 03/26/17 09:00 81 23 153/84 97 03/26/17 08:00 83 22 154/85 97 03/26/17 07:34 35 03/26/17 07:34 99.0 03/26/17 07:30 85 23 169/73 98 03/26/17 07:28 96 35 03/26/17 06:00 94 03/26/17 04:06 99 40 03/26/17 04:00 100.0 94 24 167/84 98 03/26/17 04:00 94 03/26/17 02:00 93 03/26/17 01:02 99 40 03/26/17 00:00 100.6 100 25 160/81 97 03/26/17 00:00 100 03/25/17 23:01 97 40 03/25/17 23:00 40 03/25/17 22:00 101 03/25/17 20:42 98 40 03/25/17 20:00 101.4 89 26 184/90 98 03/25/17 20:00 89 03/25/17 16:21 99 40 03/25/17 14:03 99 40 Intake & Output 03/26/17 03/26/17 07:00 19:00 Intake Total 1362 ml Output Total 1750 ml Balance -388 ml Intake IV Total 824 ml Tube Feeding 538 ml Output Urine Total 1750 ml Physical Exam CONSTITUTIONAL/GENERAL: This is an adequately nourished patient, in no apparent distress. TUBES/LINES/DRAINS: ETT, OG, PIV left hand, PIV right, right Port bilateral soft wrist restraints, Kuhn, podus boots. SKIN: No jaundice, rashes, or lesions. Ecchymoses on upper extremities. No wounds seen anteriorly. Skin temperature appropriate. Not diaphoretic. EYES: eyes open slightly intermittently, no tracking. ENT: unable to assess hearing. Nose without bleeding or purulent drainage. Throat difficult to visualize secondaries tubes. CARDIOVASCULAR: Regular rate and rhythm without murmurs, gallops, or rubs. No JVD. Peripheral pulses symmetric. RESPIRATORY/CHEST: Symmetric, unlabored respirations. Crackles right lung, diminished lung sounds bilaterally. GASTROINTESTINAL: Abdomen soft, non-tender, nondistended. Protuberant. No guarding. Bowel sounds present. GENITOURINARY: Without palpable bladder distension. Kuhn catheter in place. MUSCULOSKELETAL: Extremities without clubbing, cyanosis, or edema. No mottling or clubbing. NEUROLOGICAL: unresponsive, off sedation. Does not follow commands. Does not withdraw to noxious stimuli. PSYCHIATRIC: unresponsive. . Diagnostic Tests Laboratory Laboratory Tests Test 03/24/17 03/24/17 03/24/17 03/24/17 13:10 13:37 20:00 21:30 White Blood Count 8.9 TH/MM3 (4.0-11.0) Red Blood Count 2.45 MIL/MM3 (4.50-5.90) Hemoglobin 8.2 GM/DL (13.0-17.0) Hematocrit 24.8 % (39.0-51.0) Mean Corpuscular Volume 100.9 FL (80.0-100.0) Mean Corpuscular Hemoglobin 33.2 PG (27.0-34.0) Mean Corpuscular Hemoglobin 33.0 % Concent (32.0-36.0) Red Cell Distribution Width 22.2 % (11.6-17.2) Platelet Count 63 TH/MM3 (150-450) Mean Platelet Volume 8.6 FL (7.0-11.0) Neutrophils (%) (Auto) 47.5 % (16.0-70.0) Lymphocytes (%) (Auto) 40.3 % (9.0-44.0) Monocytes (%) (Auto) 4.8 % (0.0-8.0) Eosinophils (%) (Auto) 0.6 % (0.0-4.0) Basophils (%) (Auto) 6.8 % (0.0-2.0) Neutrophils # (Auto) 4.2 TH/MM3 (1.8-7.7) Lymphocytes # (Auto) 3.6 TH/MM3 (1.0-4.8) Monocytes # (Auto) 0.4 TH/MM3 (0-0.9) Eosinophils # (Auto) 0.1 TH/MM3 (0-0.4) Basophils # (Auto) 0.6 TH/MM3 (0-0.2) CBC Comment AUTO DIFF Differential Total Cells 100 Counted Neutrophils % (Manual) 53 % (16-70) Band Neutrophils % 2 % (0-6) Lymphocytes % 43 % (9-44) Monocytes % 1 % (0-8) Eosinophils % 1 % (0-4) Neutrophils # (Manual) 4.9 TH/MM3 (1.8-7.7) Nucleated Red Blood Cells 5 /100 WBC (0-0) Differential Comment FINAL DIFF MANUAL Platelet Estimate LOW (NORMAL) Platelet Morphology Comment NORMAL (NORMAL) Ovalocytes 1+ (NORMAL) Rouleau PRESENT (NORMAL) Prothrombin Time 11.6 SEC (9.8-11.6) Prothromb Time International 1.0 RATIO Ratio Activated Partial 25.0 SEC Thromboplast Time (24.3-30.1) Urine Color YELLOW (YELLW/STRAW) Urine Turbidity HAZY (CLEAR) Urine pH 5.0 (5.0-8.5) Urine Specific [place] 1.013 (1.002-1.035) Urine Protein 30 mg/dL (NEG-TRACE) Urine Glucose (UA) NEG mg/dL (NEG) Urine Ketones NEG mg/dL (NEG) Urine Occult Blood NEG (NEG) Urine Nitrite NEG (NEG) Urine Bilirubin NEG (NEG) Urine Urobilinogen LESS THAN 2.0 MG/DL (LESS THAN 2.0) Urine Leukocyte Esterase NEG (NEG) Urine RBC 1 /hpf (0-3) Urine WBC 4 /hpf (0-5) Urine Amorphous Sediment FEW Microscopic Urinalysis Comment CULT NOT INDICATED Urine Random Creatinine 81.1 MG/DL Urine Random Sodium 38 MEQ/L Sodium Level 141 MEQ/L (136-145) Potassium Level 5.0 MEQ/L (3.5-5.1) Chloride Level 110 MEQ/L (98-107) Carbon Dioxide Level 18.2 MEQ/L (21.0-32.0) Anion Gap 13 MEQ/L (5-15) Blood Urea Nitrogen 107 MG/DL (7-18) Creatinine 6.40 MG/DL (0.60-1.30) Estimat Glomerular Filtration 9 ML/MIN (>89) Rate Random Glucose 78 MG/DL (74-106) Lactic Acid Level 0.8 mmol/L (0.4-2.0) Calcium Level 9.7 MG/DL (8.5-10.1) Total Bilirubin 0.3 MG/DL (0.2-1.0) Aspartate Amino Transf 26 U/L (15-37) (AST/SGOT) Alanine Aminotransferase 18 U/L (12-78) (ALT/SGPT) Alkaline Phosphatase 35 U/L (45-117) Total Creatine Kinase 61 U/L (39-308) 123 U/L (39-308) Troponin I 0.22 NG/ML 3.92 NG/ML (0.02-0.05) (0.02-0.05) Total Protein 10.5 GM/DL (6.4-8.2) Albumin 2.6 GM/DL (3.4-5.0) Blood Gas Puncture Site LT RADIAL Blood Gas Patient Temperature 98.6 Blood Gas HCO3 15 mmol/L (22-26) Blood Gas Base Excess -9.5 mmol/L (-2-2) Blood Gas Oxygen Saturation 98 % (90-100) Arterial Blood pH 7.32 (7.380-7.420) Arterial Blood Partial 31 mmHg (38-42) Pressure CO2 Arterial Blood Partial 370 mmHG Pressure O2 (61-120) Arterial Blood Oxygen Content 16.2 Vol % (12.0-20.0) Arterial Blood 0.8 % (0-4) Carboxyhemoglobin Arterial Blood Methemoglobin 0.9 % (0-2) Blood Gas Hemoglobin 11.1 G/DL (12.0-16.0) Oxygen Delivery Device VENTILATOR Blood Gas Ventilator Setting A/C 16/500/PEEP5 Blood Gas Inspired Oxygen 100 % Nasal Screen MRSA (PCR) MRSA NOT DETECTED (NOT DETECT) Test 03/25/17 03/25/17 03/25/17 03/25/17 01:31 04:43 09:16 09:25 Troponin I 4.28 NG/ML 3.20 NG/ML (0.02-0.05) (0.02-0.05) White Blood Count 6.9 TH/MM3 (4.0-11.0) Red Blood Count 1.97 MIL/MM3 (4.50-5.90) Hemoglobin 6.6 GM/DL (13.0-17.0) Hematocrit 19.8 % (39.0-51.0) Mean Corpuscular Volume 100.9 FL (80.0-100.0) Mean Corpuscular Hemoglobin 33.7 PG (27.0-34.0) Mean Corpuscular Hemoglobin 33.4 % Concent (32.0-36.0) Red Cell Distribution Width 21.7 % (11.6-17.2) Platelet Count 59 TH/MM3 (150-450) Mean Platelet Volume 8.4 FL (7.0-11.0) Neutrophils (%) (Auto) % (16.0-70.0) Lymphocytes (%) (Auto) % (9.0-44.0) Monocytes (%) (Auto) % (0.0-8.0) Eosinophils (%) (Auto) % (0.0-4.0) Basophils (%) (Auto) % (0.0-2.0) Neutrophils # (Auto) TH/MM3 (1.8-7.7) Lymphocytes # (Auto) TH/MM3 (1.0-4.8) Monocytes # (Auto) TH/MM3 (0-0.9) Eosinophils # (Auto) TH/MM3 (0-0.4) Basophils # (Auto) TH/MM3 (0-0.2) CBC Comment AUTO DIFF Differential Total Cells 100 Counted Neutrophils % (Manual) 51 % (16-70) Band Neutrophils % 7 % (0-6) Lymphocytes % 37 % (9-44) Monocytes % 2 % (0-8) Basophils % 1 % (0-2) Neutrophils # (Manual) 4.1 TH/MM3 (1.8-7.7) Metamyelocytes 2 % (0-1) Nucleated Red Blood Cells 1 /100 WBC (0-0) Differential Comment FINAL DIFF MANUAL Platelet Estimate LOW (NORMAL) Platelet Morphology Comment NORMAL (NORMAL) Sodium Level 140 MEQ/L (136-145) Potassium Level 4.2 MEQ/L (3.5-5.1) Chloride Level 112 MEQ/L (98-107) Carbon Dioxide Level 16.7 MEQ/L (21.0-32.0) Anion Gap 11 MEQ/L (5-15) Blood Urea Nitrogen 105 MG/DL (7-18) Creatinine 6.09 MG/DL (0.60-1.30) Estimat Glomerular Filtration 9 ML/MIN (>89) Rate Random Glucose 87 MG/DL (74-106) Calcium Level 8.9 MG/DL (8.5-10.1) Blood Type O POSITIVE Antibody Screen NEGATIVE Crossmatch Leukocyte-Reduced Red Blood Cells Blood Bank Comment Blood Gas Puncture Site RT RADIAL Blood Gas Patient Temperature 98.6 Blood Gas HCO3 15 mmol/L (22-26) Blood Gas Base Excess -9.0 mmol/L (-2-2) Blood Gas Oxygen Saturation 95 % (90-100) Arterial Blood pH 7.41 (7.380-7.420) Arterial Blood Partial 24 mmHg (38-42) Pressure CO2 Arterial Blood Partial 119 mmHg Pressure O2 (61-120) Arterial Blood Oxygen Content 8.4 Vol % (12.0-20.0) Arterial Blood 1.5 % (0-4) Carboxyhemoglobin Arterial Blood Methemoglobin 1.7 % (0-2) Blood Gas Hemoglobin 6.1 G/DL (12.0-16.0) Oxygen Delivery Device VENTILATOR Blood Gas Ventilator Setting AC//500/+5 Blood Gas Inspired Oxygen 40 % Test 03/25/17 03/26/17 03/26/17 03/26/17 23:00 05:12 09:31 09:46 Hemoglobin 9.5 GM/DL 9.4 GM/DL (13.0-17.0) (13.0-17.0) Hematocrit 28.2 % 28.0 % (39.0-51.0) (39.0-51.0) White Blood Count 8.9 TH/MM3 (4.0-11.0) Red Blood Count 2.93 MIL/MM3 (4.50-5.90) Mean Corpuscular Volume 95.4 FL (80.0-100.0) Mean Corpuscular Hemoglobin 32.1 PG (27.0-34.0) Mean Corpuscular Hemoglobin 33.7 % Concent (32.0-36.0) Red Cell Distribution Width 26.4 % (11.6-17.2) Platelet Count 52 TH/MM3 (150-450) Mean Platelet Volume 8.4 FL (7.0-11.0) Neutrophils (%) (Auto) % (16.0-70.0) Lymphocytes (%) (Auto) % (9.0-44.0) Monocytes (%) (Auto) % (0.0-8.0) Eosinophils (%) (Auto) % (0.0-4.0) Basophils (%) (Auto) % (0.0-2.0) Neutrophils # (Auto) TH/MM3 (1.8-7.7) Lymphocytes # (Auto) TH/MM3 (1.0-4.8) Monocytes # (Auto) TH/MM3 (0-0.9) Eosinophils # (Auto) TH/MM3 (0-0.4) Basophils # (Auto) TH/MM3 (0-0.2) CBC Comment AUTO DIFF Differential Total Cells 100 Counted Neutrophils % (Manual) 55 % (16-70) Band Neutrophils % 4 % (0-6) Lymphocytes % 29 % (9-44) Monocytes % 3 % (0-8) Neutrophils # (Manual) 5.3 TH/MM3 (1.8-7.7) Nucleated Red Blood Cells 1 /100 WBC (0-0) Differential Comment FINAL DIFF MANUAL Plasma Cells 9 % (0-0) Acanthocytes OCC (NORMAL) Sodium Level 142 MEQ/L (136-145) Potassium Level 3.6 MEQ/L (3.5-5.1) Chloride Level 110 MEQ/L (98-107) Carbon Dioxide Level 18.1 MEQ/L (21.0-32.0) Anion Gap 14 MEQ/L (5-15) Blood Urea Nitrogen 107 MG/DL (7-18) Creatinine 5.67 MG/DL (0.60-1.30) Estimat Glomerular Filtration 10 ML/MIN (>89) Rate Random Glucose 418 MG/DL (74-106) Calcium Level 9.8 MG/DL (8.5-10.1) Troponin I 2.13 NG/ML (0.02-0.05) Blood Gas Puncture Site RT RADIAL Blood Gas Patient Temperature 98.6 Blood Gas HCO3 16 mmol/L (22-26) Blood Gas Base Excess -9.0 mmol/L (-2-2) Blood Gas Oxygen Saturation 95 % (90-100) Arterial Blood pH 7.31 (7.380-7.420) Arterial Blood Partial 33 mmHg (38-42) Pressure CO2 Arterial Blood Partial 126 mmHg Pressure O2 (61-120) Arterial Blood Oxygen Content 13.5 Vol % (12.0-20.0) Arterial Blood 1.5 % (0-4) Carboxyhemoglobin Arterial Blood Methemoglobin 1.4 % (0-2) Blood Gas Hemoglobin 9.9 G/DL (12.0-16.0) Oxygen Delivery Device VENTILATOR Blood Gas Ventilator Setting 500/16/PEEP5 Blood Gas Inspired Oxygen 35 % Result Diagram: 03/26/17 0512 03/26/17 0931 Microbiology Microbiology Date/Time Procedure Status Source Growth 03/25/17 09:00 Gram Stain - Final Resulted Sputum Endotracheal 03/25/17 09:00 Sputum Culture Resulted Sputum Endotracheal Pending 03/26/17 09:26 Aerobic Blood Culture Received Blood Peripheral Pending 03/26/17 09:26 Anaerobic Blood Culture Received Blood Peripheral Pending 03/26/17 09:31 Aerobic Blood Culture Received Blood Peripheral Pending 03/26/17 09:31 Anaerobic Blood Culture Received Blood Peripheral Pending . Imaging Last Impressions Chest X-Ray 03/26/17 0000 Signed Impressions: Service Date/Time: Sunday, March 26, 2017 11:26 - CONCLUSION: 1. Endotracheal tube is in satisfactory position. Basilar airspace disease, left greater than right similar to March 24. Chaz Pham MD Head CT 03/24/17 1304 Signed Impressions: Service Date/Time: Friday, March 24, 2017 14:03 - CONCLUSION: 1. No acute intracranial abnormality. 2. Redemonstration of calvarial lytic lesions consistent with history of multiple myeloma. Fadi Medley MD Renal Ultrasound 03/24/17 0000 Signed Impressions: Service Date/Time: Friday, March 24, 2017 16:33 - CONCLUSION: Echogenic kidneys concerning for medical renal disease. Jameel Lindsey MD . Procedures * 03/24/17 intubated . Assessment and Plan Disease Oriented Problem List: (1) Respiratory failure (2) Metabolic acidosis (3) Multiple myeloma (4) CKD (chronic kidney disease) (5) Diabetes (6) Encephalopathy (7) Heart failure Symptom Scale: (1) Anxiety 0-10 Scale: Unable to quantify (2) Generalized weakness 0-10 Scale: Unable to quantify (3) Shortness of breath 0-10 Scale: Unable to quantify Comment: on mech vent, labored respirations on vent, using accessory muscles. (4) Pain 0-10 Scale: Unable to quantify Comment: no obvious signs of pain, unresponsive. Pertinent Non-Medical Issues Psychosocial: . Has 3 biological children (2 sons, one daughter), one adopted daughter. Spiritual: Christian luis. Legal: Patient is currently incapacitated to make his own health care decisions. No known written advance directives. According to 4 to statutes, health care proxy decision-making falls to the patient's spouse. Ethical issues impacting care: No known concerns at this time. . Important Contacts * Sonya Navarro, spouse/HCP: [phone] * Isamar Zhao, daughter: [phone] or [phone] . Prognosis Mr. Navarro is a 76-year-old male with multiple medical comorbidities, including progressive multiple myeloma lytic lesions of spine shoulders and skull. Patient was admitted with respiratory failure, hypoglycemia, NSTEMI, acute on chronic renal failure - overall prognosis appears poor for meaningful recovery. . Code Status: Alternative Code (intubation only) Plan * Patient is currently incapacitated to make his own health care decisions. No known written advance directives. According to 4 to statutes, health care proxy decision-making falls to the patient's spouse. * CODE STATUS: Intubation only. No cardiac resuscitation, shock or ACLS. If patient has pacemaker/ defibrillator family wants defibrillator deactivated. According to records in 2008 pt had pacemaker placed. * 03/26/17 - Met with at bedside. Medical update provided. She reports her sons are struggling with Intubation only Code status, but verbalizes she "knows what is right and does not care what her children think." She tells me she thinks he is "already gone." She does not want him to suffer. She desires continued aggressive care for now, she does not want dialysis. She has a good understanding of critical illness and overall poor prognosis for meaningful recovery. She agrees to reevaluate clinical status on Wednesday03/29/17 in order to give more time to see if patient will have any neurologic recovery. * SYMPTOMS: Pain: patient with chronic pain secondary to lytic lesions due to multiple myeloma, possible NSTEMI, intubation etc. Off sedation, unresponsive. Will continue to monitor. Dyspnea: on mechanical ventilation, off sedation appears comfortable. No new medication recommendations at this time. * Palliative care will continue to follow throughout hospital course to assist with symptom management and clarification of goals as needed. . Attestation To help prompt me to consider important information that might be impacting today's encounter and assessment, information from prior notes written by myself or my colleagues may have been "brought forward" into today's note. My signature on this note, however, is an attestation that I personally performed the exam, history, and/or decision-making noted today, and, unless otherwise indicated, the interactions with patient, family, and staff as well as the review of records all occurred today. I also attest that the listed assessment and stated plan reflect my best clinical judgment today based on the combination of historical information, prior notes, and today's exam/ interactions. When time spent is documented, it refers only to time spent today by the signer, or if indicated, combined time spent today by collaborating physician/nurse practitioner. BRADLY EGAN Mar 26, 2017 12:16
--- NOTE | 2017-03-26 17:46 | PD.CARD.PN ---
Subjective Subjective Remarks Intubated, sedated Objective Medications Current Medications Medications (Trade) Dose Ordered Sig/Srinath Route Start Time Stop Time Status Last Admin IV Flush 2 ml 2 ml UNSCH PRN IV FLUSH 03/24/17 13:15 03/26/17 07:57 (Diprivan 1000 Mg/100ml Inj) 100 ml @ 0 mls/hr TITRATE IV 03/24/17 14:15 03/25/17 06:38 (Protonix Inj) 40 mg DAILY IV 03/24/17 15:15 03/26/17 07:54 Miscellaneous Information 1 Q361D XX 03/24/17 15:15 (Chlorhexidine 2% Cloth) 3 pack Taper DAILY@04 TOP 03/25/17 04:00 03/21/18 03:59 03/26/17 04:00 (Chlorhexidine 2% Cloth) 3 pack UNSCH PRN TOP 03/24/17 15:15 (Trinity-Colace) 1 tab BID PO 03/24/17 21:00 03/26/17 07:53 (Milk Of Magnesia Liq) 30 ml Q12H PRN PO 03/24/17 15:15 (Senokot) 17.2 mg Q12H PRN PO 03/24/17 15:15 (Dulcolax Supp) 10 mg DAILY PRN RECTAL 03/24/17 15:15 Lactulose 30 ml 30 ml DAILY PRN PO 03/24/17 15:15 03/26/17 07:52 (Zosyn 2.25 Gm Premix) 50 ml @ 100 mls/hr Q8H IV 03/24/17 16:00 03/26/17 07:53 (Ecotrin Ec) 81 mg DAILY PO 03/24/17 16:15 03/26/17 09:00 (Apresoline Inj) 10 mg Q3H PRN IV PUSH 03/25/17 22:30 03/26/17 03:04 (Tylenol) 650 mg Q4H PRN PO 03/25/17 22:30 03/25/17 22:50 Metoprolol Tartrate 50 mg 50 mg Q12HR PO 03/26/17 10:00 03/26/17 10:00 (NS 1000 ml Inj) 1,000 ml @ 125 mls/hr Q8H IV 03/26/17 09:00 03/26/17 14:48 (D50w (Vial) Inj) 50 ml UNSCH PRN IV 03/26/17 09:00 (Glucagon Inj) 1 mg UNSCH PRN OTHER 03/26/17 09:00 Vital Signs / I&O Vital Signs Date Time Temp Pulse Resp B/P Pulse Ox O2 Delivery O2 Flow Rate FiO2 03/26/17 17:31 96 40 03/26/17 14:34 98 40 03/26/17 13:00 79 22 140/71 97 03/26/17 12:00 98.8 78 27 135/66 98 03/26/17 11:35 98 40 03/26/17 11:35 40 03/26/17 11:10 98 35 03/26/17 11:00 78 24 143/82 98 03/26/17 10:00 80 23 156/71 96 03/26/17 09:00 81 23 153/84 97 03/26/17 08:00 83 22 154/85 97 03/26/17 07:34 35 03/26/17 07:34 99.0 03/26/17 07:30 85 23 169/73 98 03/26/17 07:28 96 35 03/26/17 06:00 94 03/26/17 04:06 99 40 03/26/17 04:00 100.0 94 24 167/84 98 03/26/17 04:00 94 03/26/17 02:00 93 03/26/17 01:02 99 40 03/26/17 00:00 100.6 100 25 160/81 97 03/26/17 00:00 100 03/25/17 23:01 97 40 03/25/17 23:00 40 03/25/17 22:00 101 03/25/17 20:42 98 40 03/25/17 20:00 101.4 89 26 184/90 98 03/25/17 20:00 89 I/O 03/25/17 03/25/17 03/25/17 03/26/17 03/26/17 03/26/17 07:00 15:00 23:00 07:00 15:00 23:00 Intake Total 768 ml 1179 ml 823 ml 539 ml Output Total 650 ml 1000 ml 1000 ml 750 ml Balance 118 ml 179 ml -177 ml -211 ml Intake IV Total 768 ml 1041 ml 564 ml 260 ml Tube Feeding 78 ml 259 ml 279 ml Tube Irrigant 60 ml Output Urine Total 650 ml 1000 ml 1000 ml 750 ml Physical Exam GENERAL: Intubated, on the vent, sedated SKIN: Warm and dry. HEAD: Normocephalic. EYES: No scleral icterus. No injection or drainage. NECK: Supple, trachea midline. No JVD or lymphadenopathy. CARDIOVASCULAR: Regular rate and rhythm without murmurs, gallops, or rubs. RESPIRATORY: Breath sounds equal bilaterally. No accessory muscle use. GASTROINTESTINAL: Abdomen soft, non-tender, nondistended. MUSCULOSKELETAL: No cyanosis, or edema. Laboratory Laboratory Tests Test 03/25/17 03/26/17 03/26/17 03/26/17 23:00 05:12 09:31 09:46 Hemoglobin 9.5 GM/DL 9.4 GM/DL Hematocrit 28.2 % 28.0 % White Blood Count 8.9 TH/MM3 Red Blood Count 2.93 MIL/MM3 Mean Corpuscular Volume 95.4 FL Mean Corpuscular Hemoglobin 32.1 PG Mean Corpuscular Hemoglobin 33.7 % Concent Red Cell Distribution Width 26.4 % Platelet Count 52 TH/MM3 Mean Platelet Volume 8.4 FL Neutrophils (%) (Auto) % Lymphocytes (%) (Auto) % Monocytes (%) (Auto) % Eosinophils (%) (Auto) % Basophils (%) (Auto) % Neutrophils # (Auto) TH/MM3 Lymphocytes # (Auto) TH/MM3 Monocytes # (Auto) TH/MM3 Eosinophils # (Auto) TH/MM3 Basophils # (Auto) TH/MM3 CBC Comment AUTO DIFF Differential Total Cells 100 Counted Neutrophils % (Manual) 55 % Band Neutrophils % 4 % Lymphocytes % 29 % Monocytes % 3 % Neutrophils # (Manual) 5.3 TH/MM3 Nucleated Red Blood Cells 1 /100 WBC Differential Comment FINAL DIFF MANUAL Plasma Cells 9 % Acanthocytes OCC Sodium Level 142 MEQ/L Potassium Level 3.6 MEQ/L Chloride Level 110 MEQ/L Carbon Dioxide Level 18.1 MEQ/L Anion Gap 14 MEQ/L Blood Urea Nitrogen 107 MG/DL Creatinine 5.67 MG/DL Estimat Glomerular Filtration 10 ML/MIN Rate Random Glucose 418 MG/DL Calcium Level 9.8 MG/DL Troponin I 2.13 NG/ML Blood Gas Puncture Site RT RADIAL Blood Gas Patient Temperature 98.6 Blood Gas HCO3 16 mmol/L Blood Gas Base Excess -9.0 mmol/L Blood Gas Oxygen Saturation 95 % Arterial Blood pH 7.31 Arterial Blood Partial 33 mmHg Pressure CO2 Arterial Blood Partial 126 mmHg Pressure O2 Arterial Blood Oxygen Content 13.5 Vol % Arterial Blood 1.5 % Carboxyhemoglobin Arterial Blood Methemoglobin 1.4 % Blood Gas Hemoglobin 9.9 G/DL Oxygen Delivery Device VENTILATOR Blood Gas Ventilator Setting 500/16/PEEP5 Blood Gas Inspired Oxygen 35 % Laboratory Tests Test 03/24/17 03/24/17 03/24/17 03/25/17 13:10 20:00 21:30 04:43 Eosinophils % 1 % Ovalocytes 1+ Rouleau PRESENT Prothrombin Time 11.6 SEC Prothromb Time International 1.0 RATIO Ratio Activated Partial 25.0 SEC Thromboplast Time Urine Color YELLOW Urine Turbidity HAZY Urine pH 5.0 Urine Specific [place] 1.013 Urine Protein 30 mg/dL Urine Glucose (UA) NEG mg/dL Urine Ketones NEG mg/dL Urine Occult Blood NEG Urine Nitrite NEG Urine Bilirubin NEG Urine Urobilinogen LESS THAN 2.0 MG/DL Urine Leukocyte Esterase NEG Urine RBC 1 /hpf Urine WBC 4 /hpf Urine Amorphous Sediment FEW Microscopic Urinalysis Comment CULT NOT INDICATED Urine Random Creatinine 81.1 MG/DL Urine Random Sodium 38 MEQ/L Lactic Acid Level 0.8 mmol/L Total Bilirubin 0.3 MG/DL Aspartate Amino Transf 26 U/L (AST/SGOT) Alanine Aminotransferase 18 U/L (ALT/SGPT) Alkaline Phosphatase 35 U/L Total Protein 10.5 GM/DL Albumin 2.6 GM/DL Nasal Screen MRSA (PCR) MRSA NOT DETECTED Total Creatine Kinase 123 U/L Basophils % 1 % Metamyelocytes 2 % Platelet Estimate LOW Platelet Morphology Comment NORMAL Test 03/25/17 03/26/17 03/26/17 03/26/17 09:16 05:12 09:31 09:46 Blood Type O POSITIVE Antibody Screen NEGATIVE Crossmatch Leukocyte-Reduced Red Blood Cells Blood Bank Comment White Blood Count 8.9 TH/MM3 Red Blood Count 2.93 MIL/MM3 Hemoglobin 9.4 GM/DL Hematocrit 28.0 % Mean Corpuscular Volume 95.4 FL Mean Corpuscular Hemoglobin 32.1 PG Mean Corpuscular Hemoglobin 33.7 % Concent Red Cell Distribution Width 26.4 % Platelet Count 52 TH/MM3 Mean Platelet Volume 8.4 FL Neutrophils (%) (Auto) % Lymphocytes (%) (Auto) % Monocytes (%) (Auto) % Eosinophils (%) (Auto) % Basophils (%) (Auto) % Neutrophils # (Auto) TH/MM3 Lymphocytes # (Auto) TH/MM3 Monocytes # (Auto) TH/MM3 Eosinophils # (Auto) TH/MM3 Basophils # (Auto) TH/MM3 CBC Comment AUTO DIFF Differential Total Cells 100 Counted Neutrophils % (Manual) 55 % Band Neutrophils % 4 % Lymphocytes % 29 % Monocytes % 3 % Neutrophils # (Manual) 5.3 TH/MM3 Nucleated Red Blood Cells 1 /100 WBC Differential Comment FINAL DIFF MANUAL Plasma Cells 9 % Acanthocytes OCC Sodium Level 142 MEQ/L Potassium Level 3.6 MEQ/L Chloride Level 110 MEQ/L Carbon Dioxide Level 18.1 MEQ/L Anion Gap 14 MEQ/L Blood Urea Nitrogen 107 MG/DL Creatinine 5.67 MG/DL Estimat Glomerular Filtration 10 ML/MIN Rate Random Glucose 418 MG/DL Calcium Level 9.8 MG/DL Troponin I 2.13 NG/ML Blood Gas Puncture Site RT RADIAL Blood Gas Patient Temperature 98.6 Blood Gas HCO3 16 mmol/L Blood Gas Base Excess -9.0 mmol/L Blood Gas Oxygen Saturation 95 % Arterial Blood pH 7.31 Arterial Blood Partial 33 mmHg Pressure CO2 Arterial Blood Partial 126 mmHg Pressure O2 Arterial Blood Oxygen Content 13.5 Vol % Arterial Blood 1.5 % Carboxyhemoglobin Arterial Blood Methemoglobin 1.4 % Blood Gas Hemoglobin 9.9 G/DL Oxygen Delivery Device VENTILATOR Blood Gas Ventilator Setting 500/16/PEEP5 Blood Gas Inspired Oxygen 35 % Imaging Last Impressions Chest X-Ray 03/26/17 0000 Signed Impressions: Service Date/Time: Sunday, March 26, 2017 11:26 - CONCLUSION: 1. Endotracheal tube is in satisfactory position. Basilar airspace disease, left greater than right similar to March 24. Chaz Pham MD Head CT 03/24/17 1304 Signed Impressions: Service Date/Time: Friday, March 24, 2017 14:03 - CONCLUSION: 1. No acute intracranial abnormality. 2. Redemonstration of calvarial lytic lesions consistent with history of multiple myeloma. Fadi Medley MD Renal Ultrasound 03/24/17 0000 Signed Impressions: Service Date/Time: Wednesday, March 24, 2017 16:33 - CONCLUSION: Echogenic kidneys concerning for medical renal disease. Jameel Lindsey MD Assessment and Plan Problem List: (1) Respiratory failure (2) MARTHA (acute kidney injury) (3) CHF (congestive heart failure) (4) Mental status change (5) Hypoglycemia (6) Cardiomyopathy (7) Diabetes (8) Anemia Assessment and Plan Echo with stable LV fx. No arrhythmias. Wean ventilator as tolerated. No new cardiac issues. Continue ICU care. Plan d/w the family. Hugo Huynh MD Mar 26, 2017 17:45
--- NOTE | 2017-03-26 18:11 | PD.CONS ---
History of Present Illness Service Neurology Consult Requested By [facility] Reason for Consult confusion Primary Care Physician Dayo Katz MD History of Present Illness 76 y/o male with extensive PMH listed below who was brought in unresponsive with glucose in 20s. He was intubated prior to arrival. PMH includes multiple myeloma for which chemotherapy was stopped 3 weeks ago due to failed treatment. He also has CHF, HTN, DM II, and CKD 4. he has been off sedation since yesterday am, 03/25 and is not waking up. hx obtained from chart 2/2 pt's mental status. Review of Systems ROS Limitations: Intubated, Unresponsive Past Family Social History Allergies: Coded Allergies: Fentanyl (Verified Allergy, Severe, Itching, 01/15/17) Warfarin (Verified Allergy, Unknown, 01/15/17) *MDRO Multi-Drug Resistant Organism (Verified Adverse Reaction, Unknown, ) MRSA PCR screens negative 12/12/14 and 12/19/14- cleared per infection control Past Medical History CKD 4 HTN GERTRUDE on CPAP CHF (Echo 08/22/01 w/ EF 25-30%) A-fib on Pradaxa, Prostate CA Multiple Myeloma DM II Past Surgical History Hernia Repair Cataract Surgery Vasectomy Radical Prostatectomy Cystoscopy with Dilatation of Bladder Tonsillectomy Bilateral Heel Spur Surgery Pacemaker ([employer]) Cardiac Ablation [id number] Family History n/c Social History no smoking or ETOH retired, he is a Review of Systems All other ROS: Unable to obtain Past Family Social History Allergies: Coded Allergies: Fentanyl (Verified Allergy, Severe, Itching, 01/15/17) Warfarin (Verified Allergy, Unknown, 01/15/17) *MDRO Multi-Drug Resistant Organism (Verified Adverse Reaction, Unknown, ) MRSA PCR screens negative 12/12/14 and 12/19/14- cleared per infection control Active Ordered Medications Current Medications Medications (Trade) Dose Ordered Sig/Srinath Route Start Time Stop Time Status Last Admin IV Flush 2 ml 2 ml UNSCH PRN IV FLUSH 03/24/17 13:15 03/26/17 07:57 (Diprivan 1000 Mg/100ml Inj) 100 ml @ 0 mls/hr TITRATE IV 03/24/17 14:15 03/25/17 06:38 (Protonix Inj) 40 mg DAILY IV 03/24/17 15:15 03/26/17 07:54 Miscellaneous Information 1 Q361D XX 03/24/17 15:15 (Chlorhexidine 2% Cloth) 3 pack Taper DAILY@04 TOP 03/25/17 04:00 03/21/18 03:59 03/26/17 04:00 (Chlorhexidine 2% Cloth) 3 pack UNSCH PRN TOP 03/24/17 15:15 (Trinity-Colace) 1 tab BID PO 03/24/17 21:00 03/26/17 07:53 (Milk Of Magnesia Liq) 30 ml Q12H PRN PO 03/24/17 15:15 (Senokot) 17.2 mg Q12H PRN PO 03/24/17 15:15 (Dulcolax Supp) 10 mg DAILY PRN RECTAL 03/24/17 15:15 Lactulose 30 ml 30 ml DAILY PRN PO 03/24/17 15:15 03/26/17 07:52 (Zosyn 2.25 Gm Premix) 50 ml @ 100 mls/hr Q8H IV 03/24/17 16:00 03/26/17 07:53 (Ecotrin Ec) 81 mg DAILY PO 03/24/17 16:15 03/26/17 09:00 (Apresoline Inj) 10 mg Q3H PRN IV PUSH 03/25/17 22:30 03/26/17 03:04 (Tylenol) 650 mg Q4H PRN PO 03/25/17 22:30 03/25/17 22:50 Metoprolol Tartrate 50 mg 50 mg Q12HR PO 03/26/17 10:00 03/26/17 10:00 (NS 1000 ml Inj) 1,000 ml @ 125 mls/hr Q8H IV 03/26/17 09:00 03/26/17 14:48 (D50w (Vial) Inj) 50 ml UNSCH PRN IV 03/26/17 09:00 (Glucagon Inj) 1 mg UNSCH PRN OTHER 03/26/17 09:00 Exam I&O / VS 03/25/17 03/25/17 03/26/17 15:00 23:00 07:00 Intake Total 1179 ml 823 ml 539 ml Output Total 1000 ml 1000 ml 750 ml Balance 179 ml -177 ml -211 ml Intake IV Total 1041 ml 564 ml 260 ml Tube Feeding 78 ml 259 ml 279 ml Tube Irrigant 60 ml Output Urine Total 1000 ml 1000 ml 750 ml Vital Signs Date Time Temp Pulse Resp B/P Pulse Ox O2 Delivery O2 Flow Rate FiO2 03/26/17 17:31 96 40 03/26/17 14:34 98 40 03/26/17 13:00 79 22 140/71 97 03/26/17 12:00 98.8 78 27 135/66 98 03/26/17 11:35 98 40 03/26/17 11:35 40 03/26/17 11:10 98 35 03/26/17 11:00 78 24 143/82 98 03/26/17 10:00 80 23 156/71 96 03/26/17 09:00 81 23 153/84 97 03/26/17 08:00 83 22 154/85 97 03/26/17 07:34 35 03/26/17 07:34 99.0 03/26/17 07:30 85 23 169/73 98 03/26/17 07:28 96 35 03/26/17 06:00 94 03/26/17 04:06 99 40 03/26/17 04:00 100.0 94 24 167/84 98 03/26/17 04:00 94 03/26/17 02:00 93 03/26/17 01:02 99 40 03/26/17 00:00 100.6 100 25 160/81 97 03/26/17 00:00 100 03/25/17 23:01 97 40 03/25/17 23:00 40 03/25/17 22:00 101 03/25/17 20:42 98 40 03/25/17 20:00 101.4 89 26 184/90 98 03/25/17 20:00 89 Exam Comments intubated. coma state, unresponsive, non-verbal, not following, ou 3mm sluggish , limited eomi, ue in restraints, no limb withdrawal Review/Management Diagnosis/Plan: (1) Hypoglycemic encephalopathy Plan: low glucose undetermined length of time prognosis appears poor 2/2 multiorgan dysfunction syndrome reanl failure/cardiac/hem/neuro recs trial of iv cerebryx palliative care following d/w pt's sons at bedside (2) Heart failure (3) Cardiomyopathy (4) Multiple myeloma Problem Qualifiers (1) Heart failure: (2) Cardiomyopathy: Qualified Code: I42.9 - Cardiomyopathy, unspecified type (3) Multiple myeloma: Qualified Code: C90.00 - Multiple myeloma, remission status unspecified Nelson Hinds MD Mar 26, 2017 18:11
[2017-03-26] MEDS ORDERED: FOSPHENYTOIN INJ 1,000 MGPE in SODIUM CHLORIDE 0.9% INJ 50 ML IV ONE (19:30)
[2017-03-26] MEDS: FOSPHENYTOIN SODIUM 100 MG PE/2 ML VIAL IV SCH (21:52)
[2017-03-27] VITALS (23 sets, daily range): BP systolic 141–195; BP diastolic 62–92; PULSE 69–103; RESP 14–25; TEMP 98.6–100.4; O2SAT 93–98
[2017-03-27] MEDS: PIPERACIL-TAZO 2.25 GM PREMIX 50 ML IV SCH ×4 (00:27→23:45)
[2017-03-27] MEDS: SODIUM CHLOR 0.9% 1000 ML INJ 1,000 ML IV SCH (00:27)
[2017-03-27] MEDS: RESP: ALBUTEROL 2.5 MG/IPRATROPIUM 0.5 MG NEB (SCH) INH ×4 (03:48→21:06)
[2017-03-27] MEDS: CHLORHEXIDINE GLUCONATE 2 % 1 PACK (2 CLOTHS) TOP SCH (04:00)
[2017-03-27] MEDS: INSULIN NovoLIN REGULAR SUPPLEMENTAL SCALE SQ SCH ×5 (06:46→23:00)
[2017-03-27] MEDS ORDERED: FREE WATER G-TUBE SCH (07:45)
--- NOTE | 2017-03-27 07:54 | HHI.CCPN ---
Subjective Remarks/Hospital Course The patient is a [id number]-male with a past medical history of diabetes mellitus, cardiomyopathy with EF of 25-30%, CHF, atrial fibrillation, multiple myeloma, and chronic kidney disease. The patient presented to [facility] ED with altered mental status and hypoglycemic episode. He reportedly did not seem normal at 7 a.m. According to family members, EMS was called yesterday as well for hypoglycemic episodes and at that time he was given D10 and refused transport to the hospital. This morning the patient was somewhat confused and upon arrival of the daughter he was found unconscious and blood sugar was noted to be 20 at the seen. The patient was given 25 grams of Dextrose which increased his blood sugar to 180 and then back down into the 80s. He was intubated for a GCS score of 3. Per ED records, the patient had a respiratory rate of 8 with no spontaneous movements. ABG post intubation showed a pH of 7.32, CO2 31, PAO2 of 370, bicarb 15, saturation of 98%. His laboratory data significant for acute renal failure with a BUN of 107, creatinine 6.40 and a troponin of 0.22. His lactic acid level measured at 0.8. The patient has a baseline creatinine in the 3-4 range a few months ago. According to family, the patient was enrolled under Hospice however they would like to give him a chance. 03/25 Patient is sedated with Diprivan and intubated. Hgb 6.6, troponin gradually increased overnight and now 4.2 early this morning. He had recurrent hypoglycemic episodes and was placed on D10. 03/26 Patient remains intubated off sedation had T: 101.4 last night. EEG yesterday showed mod. encephalopathy. s/p transfusion 2units PRBC yesterday Hgb 9.4 this morning from 6.6 03/27 Patient is off sedation doesn't follow commands. T;100.2 last night. Cr: 5.38 from 5.67 yesterday. Objective Vital Signs Date Time Temp Pulse Resp B/P Pulse Ox O2 Delivery O2 Flow Rate FiO2 03/27/17 06:00 82 03/27/17 04:10 98 40 03/27/17 04:00 99.1 21 172/87 03/24/17 19:00 Ventilator Intake and Output 03/26/17 03/26/17 03/27/17 08:00 16:00 00:00 Intake Total 539 ml 799 ml 1236 ml Output Total 750 ml 750 ml 450 ml Balance -211 ml 49 ml 786 ml Result Diagram: 03/26/17 0512 03/27/17 0453 Other Results Laboratory Tests Test 03/26/17 03/26/17 03/27/17 09:31 09:46 04:53 Sodium Level 142 MEQ/L 150 MEQ/L Potassium Level 3.6 MEQ/L 4.0 MEQ/L Chloride Level 110 MEQ/L 117 MEQ/L Carbon Dioxide Level 18.1 MEQ/L 19.0 MEQ/L Anion Gap 14 MEQ/L 14 MEQ/L Blood Urea Nitrogen 107 MG/DL 116 MG/DL Creatinine 5.67 MG/DL 5.38 MG/DL Estimat Glomerular Filtration 10 ML/MIN 10 ML/MIN Rate Random Glucose 418 MG/DL 247 MG/DL Calcium Level 9.8 MG/DL 10.0 MG/DL Troponin I 2.13 NG/ML Blood Gas Puncture Site RT RADIAL Blood Gas Patient Temperature 98.6 Blood Gas HCO3 16 mmol/L Blood Gas Base Excess -9.0 mmol/L Blood Gas Oxygen Saturation 95 % Arterial Blood pH 7.31 Arterial Blood Partial 33 mmHg Pressure CO2 Arterial Blood Partial 126 mmHg Pressure O2 Arterial Blood Oxygen Content 13.5 Vol % Arterial Blood 1.5 % Carboxyhemoglobin Arterial Blood Methemoglobin 1.4 % Blood Gas Hemoglobin 9.9 G/DL Oxygen Delivery Device VENTILATOR Blood Gas Ventilator Setting 500/16/PEEP5 Blood Gas Inspired Oxygen 35 % Phenytoin (Dilantin) Level 6.8 MCG/ML Imaging Last Impressions Chest X-Ray 03/26/17 0000 Signed Impressions: Service Date/Time: Sunday, March 26, 2017 11:26 - CONCLUSION: 1. Endotracheal tube is in satisfactory position. Basilar airspace disease, left greater than right similar to March 24. Chaz Pham MD Head CT 03/24/17 1304 Signed Impressions: Service Date/Time: Friday, March 24, 2017 14:03 - CONCLUSION: 1. No acute intracranial abnormality. 2. Redemonstration of calvarial lytic lesions consistent with history of multiple myeloma. Fadi Medley MD Renal Ultrasound 03/24/17 0000 Signed Impressions: Service Date/Time: Wednesday, March 24, 2017 16:33 - CONCLUSION: Echogenic kidneys concerning for medical renal disease. Jameel Lindsey MD Objective Remarks GENERAL: Patient is 76 yo critically ill intubated . SKIN: Warm and dry. HEAD: Normocephalic. EYES: No scleral icterus. No injection or drainage. NECK: Supple, trachea midline. No JVD or lymphadenopathy. CARDIOVASCULAR: Regular rate and rhythm without murmurs, gallops, or rubs. RESPIRATORY: Breath sounds equal bilaterally. No accessory muscle use. GASTROINTESTINAL: Abdomen soft, non-tender, nondistended. MUSCULOSKELETAL: No cyanosis, or edema. Neuro:intubated , off sedation. A/P Assessment and Plan 1. VDRF 2. Status post hypoglycemic episodes. 3. Encephalopathy, likely secondary to hypoglycemia and uremia. 4. Acute on chronic kidney disease. 5. NSTEMI 6. Anemia and thrombocytopenia. 7. Multiple myeloma. 8. Cardiomyopathy. 9. History of atrial fibrillation. 10. History of diabetes mellitus. 11. History of prostate cancer. Plan Neuro: Off sedation. Monitor neuro status and avoid sedatives CT brain negative for acute intracranial process. EEG showed mod. encephalopathy. Neuro is following-Dr. Cabrera. On Cerebyx 200mg IV Q12 Pulm: Continue with vent support and maintain sats >92%. Bronchodilators, ICU vent bundle. SBT daily as brayan CV: Change Coreg to Lopressor 50mg BID-Monitor HR and BP and maintain MAP > 65 mmHg. Monitor troponin and continue with Aspirin 81 mg daily. Not a candidate for Pavan-I or full AC due to renal failure. Echo showed EF 60-65%, no wall motion abnormalities. Cards- Dr. Huynh : Monitor renal function Is and Os and avoid nephrotoxins. Renal US: Medical renal disease, no hydro. Renal is following- Dr. Judge. Change IVF 1/2NS@100ml/hr, add Free water 250ml Q6 monitor sodium level. Cr: 5.38 from 5.67 with UOP: 2150ml in 24 hrs GI: On Protonix 40 mg IV daily for GI prophylaxis and Nepro at goal rate of 40 mL/hr. ID: Continue with abx(Zosyn) for possible aspiration and monitor for signs of infections( fever and WBC). 03/25 sputum cx: GNR, Follow up on BC from 03/26 Heme: Monitor CBC and coags. s/p transfuse 2units PRBC 03/25 Endo: SSI with with Accu-Chek, GI prophylaxis with Protonix 40 mg daily and DVT prophylaxis with SCDs. Not on chemical anticoagulation prophylaxis given thrombocytopenia and anemia on presentation. Palliative care is following. Level 3 José Antonio Hyde MD Mar 27, 2017 07:54 José Antonio Hyde MD Mar 27, 2017 07:54
[2017-03-27] MEDS: FREE WATER G-TUBE SCH ×4 (08:15→23:45)
[2017-03-27] MEDS: ASPIRIN EC 81 MG TABEC PO SCH (09:00)
[2017-03-27 09:25] LABS: HEMATOCRIT 27.8 % (39.0-51.0); MEAN CORPUSCULAR HGB CONC 32.3 % (32.0-36.0); PLATELET COUNT 50 TH/MM3 (150-450); RED BLOOD COUNT 2.89 MIL/MM3 (4.50-5.90); WHITE BLOOD COUNT 10.8 TH/MM3 (4.0-11.0)
[2017-03-27 09:27] LABS: HEMO FLAGS AUTO DIFF
[2017-03-27] MEDS: DOCUSATE SODIUM 50 MG/SENNA 8.6 MG TAB PO SCH ×2 (09:30→21:14)
[2017-03-27] MEDS: FOSPHENYTOIN SODIUM 100 MG PE/2 ML VIAL IV SCH ×2 (09:30→21:29)
[2017-03-27] MEDS: PANTOPRAZOLE SODIUM 40 MG VIAL IV SCH (09:30)
[2017-03-27] MEDS: SODIUM CHLOR 0.45% 1000 ML INJ 1,000 ML IV SCH ×2 (09:30→18:00)
[2017-03-27] MEDS: METOPROLOL TARTRATE 50 MG TAB PO SCH ×2 (09:30→21:14)
[2017-03-27 10:13] LABS: BANDS 8 % (0-6); CORRECTED NUCLEATED RBC 5 /100 WBC (0-0); METAMYELOCYTES 1 % (0-1); NEUTROPHIL # MANUAL DIFF 6.3 TH/MM3 (1.8-7.7); PLASMA CELLS 22 % (0-0); POLYS (SEG NEUTROPHILS) 49 % (16-70); WBC DIFF SAMPLE 100
[2017-03-27 10:28] LABS: PLATELET ESTIMATE SMEAR LOW (NORMAL)
[2017-03-27 11:13] LABS: SCAN/DIFF FINAL DIFF MANUAL
--- NOTE | 2017-03-27 11:54 | HHI.PR ---
Review/Management Diagnosis/Plan: (1) Hypoglycemic encephalopathy Plan: low glucose undetermined length of time prognosis appears poor 2/2 multiorgan dysfunction syndrome renal failure/cardiac/hem/neuro dil corrected 10.9 recs exam unchanged palliative care following d/w pt's /son/daughter. discussed eeg results (2) Heart failure (3) Cardiomyopathy (4) Multiple myeloma Subjective Subjective Comments No acute events reported Active Medications Current Medications Medications (Trade) Dose Ordered Sig/Srinath Route Start Time Stop Time Status Last Admin IV Flush 2 ml 2 ml UNSCH PRN IV FLUSH 03/24/17 13:15 03/26/17 07:57 (Diprivan 1000 Mg/100ml Inj) 100 ml @ 0 mls/hr TITRATE IV 03/24/17 14:15 03/25/17 06:38 (Protonix Inj) 40 mg DAILY IV 03/24/17 15:15 03/27/17 09:30 Miscellaneous Information 1 Q361D XX 03/24/17 15:15 (Chlorhexidine 2% Cloth) 3 pack Taper DAILY@04 TOP 03/25/17 04:00 03/21/18 03:59 03/27/17 04:00 (Chlorhexidine 2% Cloth) 3 pack UNSCH PRN TOP 03/24/17 15:15 (Trinity-Colace) 1 tab BID PO 03/24/17 21:00 03/27/17 09:30 (Milk Of Magnesia Liq) 30 ml Q12H PRN PO 03/24/17 15:15 (Senokot) 17.2 mg Q12H PRN PO 03/24/17 15:15 (Dulcolax Supp) 10 mg DAILY PRN RECTAL 03/24/17 15:15 Lactulose 30 ml 30 ml DAILY PRN PO 03/24/17 15:15 03/26/17 07:52 (Zosyn 2.25 Gm Premix) 50 ml @ 100 mls/hr Q8H IV 03/24/17 16:00 03/27/17 09:30 (Ecotrin Ec) 81 mg DAILY PO 03/24/17 16:15 03/26/17 09:00 (Apresoline Inj) 10 mg Q3H PRN IV PUSH 03/25/17 22:30 03/26/17 03:04 (Tylenol) 650 mg Q4H PRN PO 03/25/17 22:30 03/25/17 22:50 (Lopressor) 50 mg Q12HR PO 03/26/17 10:00 03/27/17 09:30 (D50w (Vial) Inj) 50 ml UNSCH PRN IV 03/26/17 09:00 (Glucagon Inj) 1 mg UNSCH PRN OTHER 03/26/17 09:00 (Cerebyx Inj) 200 mgpe Q12HR IV 03/26/17 21:00 03/27/17 09:30 Insulin Human Regular 1 1 Q4H SQ 03/27/17 11:00 03/27/17 11:00 (1/2 NS 1000 ml Inj) 1,000 ml @ 100 mls/hr Q10H IV 03/27/17 08:30 03/27/17 09:30 (Free Water) 250 ml Q6HR G-TUBE 03/27/17 08:15 03/27/17 11:47 Allergies Allergies Coded Allergies Fentanyl (Verified Allergy, Severe, Itching, 01/15/17) Warfarin (Verified Allergy, Unknown, 01/15/17) MRI PRECAUTION (Verified Adverse Reaction, Severe, PACEMAKER, 03/27/17) *MDRO Multi-Drug Resistant Organism (Verified Adverse Reaction, Unknown, ) Review of Systems All other ROS: Unable to obtain Exam I&O / VS 03/26/17 03/26/17 03/27/17 15:00 23:00 07:00 Intake Total 2035 ml 1235 ml Output Total 1200 ml 950 ml Balance 835 ml 285 ml Intake IV Total 1349 ml 937 ml Tube Feeding 626 ml 298 ml Tube Irrigant 60 ml Output Urine Total 1200 ml 950 ml # Bowel Movements 0 1 Vital Signs Date Time Temp Pulse Resp B/P Pulse Ox O2 Delivery O2 Flow Rate FiO2 03/27/17 11:00 69 23 161/76 97 03/27/17 10:00 71 03/27/17 10:00 71 21 167/79 97 03/27/17 09:00 77 21 177/88 97 03/27/17 08:05 98 40 03/27/17 08:00 78 03/27/17 08:00 40 03/27/17 08:00 100.0 78 22 179/88 98 03/27/17 07:00 77 24 195/92 98 03/27/17 06:00 82 03/27/17 04:10 98 40 03/27/17 04:00 99.1 73 21 172/87 97 03/27/17 04:00 73 03/27/17 02:00 74 03/27/17 01:10 98 40 03/27/17 00:00 70 03/27/17 00:00 98.6 70 22 158/77 98 03/26/17 23:00 40 03/26/17 22:05 98 40 03/26/17 22:00 78 03/26/17 20:10 98 40 03/26/17 20:00 85 03/26/17 20:00 100.4 85 24 171/86 97 03/26/17 19:00 78 25 158/76 96 03/26/17 18:00 35 03/26/17 18:00 86 24 166/83 96 03/26/17 17:31 96 40 03/26/17 17:00 81 21 162/80 96 03/26/17 16:00 77 21 162/77 97 03/26/17 15:00 74 23 143/73 97 03/26/17 14:34 98 40 03/26/17 14:00 69 21 136/69 97 03/26/17 13:00 79 22 140/71 97 03/26/17 13:00 79 22 140/71 97 03/26/17 12:00 98.8 78 27 135/66 98 Exam Comments intubated. coma state, unresponsive, non-verbal, not following, ou 3mm- 2.5mm, limited eomi, ue in restraints, no limb withdrawal Objective Micro and Labs Laboratory Tests Test 03/27/17 03/27/17 04:53 08:45 Sodium Level 150 Potassium Level 4.0 Chloride Level 117 Carbon Dioxide Level 19.0 Anion Gap 14 Blood Urea Nitrogen 116 Creatinine 5.38 Estimat Glomerular Filtration 10 Rate Random Glucose 247 Calcium Level 10.0 Phenytoin (Dilantin) Level 6.8 White Blood Count 10.8 Red Blood Count 2.89 Hemoglobin 9.0 Hematocrit 27.8 Mean Corpuscular Volume 96.0 Mean Corpuscular Hemoglobin 31.0 Mean Corpuscular Hemoglobin 32.3 Concent Red Cell Distribution Width 26.0 Platelet Count 50 Mean Platelet Volume 8.6 Neutrophils (%) (Auto) Lymphocytes (%) (Auto) Monocytes (%) (Auto) Eosinophils (%) (Auto) Basophils (%) (Auto) Neutrophils # (Auto) Lymphocytes # (Auto) Monocytes # (Auto) Eosinophils # (Auto) Basophils # (Auto) CBC Comment AUTO DIFF Differential Total Cells 100 Counted Neutrophils % (Manual) 49 Band Neutrophils % 8 Lymphocytes % 17 Monocytes % 3 Neutrophils # (Manual) 6.3 Metamyelocytes 1 Nucleated Red Blood Cells 5 Differential Comment FINAL DIFF MANUAL Plasma Cells 22 Platelet Estimate LOW Date/Time Procedure Status Source Growth 03/26/17 09:31 Aerobic Blood Culture - Preliminary Resulted Blood Peripheral NO GROWTH IN 1 DAY 03/26/17 09:31 Anaerobic Blood Culture - Preliminary Resulted Blood Peripheral NO GROWTH IN 1 DAY 03/25/17 09:00 Gram Stain - Final Complete Sputum Endotracheal 03/25/17 09:00 Sputum Culture - Final Complete Klebsiella Pneumoniae Problem Qualifiers (1) Heart failure: (2) Cardiomyopathy: Qualified Code: I42.9 - Cardiomyopathy, unspecified type (3) Multiple myeloma: Qualified Code: C90.00 - Multiple myeloma, remission status unspecified Nelson Hinds MD Mar 27, 2017 11:54
--- NOTE | 2017-03-27 12:12 | HHI.NPPN ---
Subjective History of Present Illness 76 year old with multiple Myeloma, and advance kidney disease now with ESRD Objective Data Data 03/26/17 03/27/17 19:00 07:00 Intake Total 799 ml 2471 ml Output Total 750 ml 1400 ml Balance 49 ml 1071 ml Intake IV Total 398 ml 1888 ml Tube Feeding 341 ml 583 ml Tube Irrigant 60 ml Output Urine Total 750 ml 1400 ml # Bowel Movements 0 1 Vital Signs Date Time Temp Pulse Resp B/P Pulse Ox O2 Delivery O2 Flow Rate FiO2 03/27/17 12:00 98 40 03/27/17 11:00 69 23 161/76 97 03/27/17 10:00 71 03/27/17 10:00 71 21 167/79 97 03/27/17 09:00 77 21 177/88 97 03/27/17 08:05 98 40 03/27/17 08:00 78 03/27/17 08:00 40 03/27/17 08:00 100.0 78 22 179/88 98 03/27/17 07:00 77 24 195/92 98 03/27/17 06:00 82 03/27/17 04:10 98 40 03/27/17 04:00 99.1 73 21 172/87 97 03/27/17 04:00 73 03/27/17 02:00 74 03/27/17 01:10 98 40 03/27/17 00:00 70 03/27/17 00:00 98.6 70 22 158/77 98 03/26/17 23:00 40 03/26/17 22:05 98 40 03/26/17 22:00 78 03/26/17 20:10 98 40 03/26/17 20:00 85 03/26/17 20:00 100.4 85 24 171/86 97 03/26/17 19:00 78 25 158/76 96 03/26/17 18:00 35 03/26/17 18:00 86 24 166/83 96 03/26/17 17:31 96 40 03/26/17 17:00 81 21 162/80 96 03/26/17 16:00 77 21 162/77 97 03/26/17 15:00 74 23 143/73 97 03/26/17 14:34 98 40 03/26/17 14:00 69 21 136/69 97 6/23/17 13:00 79 22 140/71 97 03/26/17 13:00 79 22 140/71 97 -: 03/27/17 0845 03/27/17 0453 Physical Exam General Appearance: Well Developed Neck Neck Exam: Neck Supple Pulmonary Resp Exam: Decreased Bases Cardiology CV Exam: Regular, Normal Sinus Rhythm Gastrointestinal/Abdomen GI Exam: Soft, Non-Tender, Bowel Sounds Present Extremeties Extremities Exam: Moderate Edema Assessment/Plan Problem List: (1) MARTHA (acute kidney injury) Plan: ESRD with UOP suspected Myeloma progression discussed with family his condition GFR at 10, Non oliguric follow BMP to see if improves Cr declined 5.3 getting 1/2 NS at 100 cc/hr Hypoglycemia cased comatose state d/w family stated he did not want to go on dialysis as the quality of life will not improve follow with palliative care prognosis is poor (2) Diabetes Plan: admitted hypoglycemic, he had been taking oral antihyperglycemics without eating food off D10 follow Blood glucose (3) Anemia Plan: macrocytic anemia, c hx of multiple myeloma transfuse if needed (4) Heart failure Plan: has AICD follow fluid status (5) Metabolic acidosis Plan: non anion gap metabolic acidosis due to renal failure (6) Multiple myeloma Plan: no longer on chemotherapy palliative to assist with goals (7) Encephalopathy Plan: intubated Problem Qualifiers (1) Heart failure: (2) Multiple myeloma: Qualified Code: C90.00 - Multiple myeloma, remission status unspecified Misael Major MD Mar 27, 2017 12:12
[2017-03-27] MEDS: hydrALAZINE HCL 20 MG/ML VIAL IV PUSH PRN (12:36)
[2017-03-27] MEDS: HYOSCYAMINE 0.125 MG TAB PO PRN (16:14)
[2017-03-28] VITALS (10 sets, daily range): BP systolic 156–157; BP diastolic 77–87; PULSE 60–100; RESP 24–26; TEMP 98.6–100; O2SAT 92–96
[2017-03-28] MEDS: INSULIN NovoLIN REGULAR SUPPLEMENTAL SCALE SQ SCH ×3 (03:00→10:34)
[2017-03-28] MEDS: RESP: ALBUTEROL 2.5 MG/IPRATROPIUM 0.5 MG NEB (SCH) INH ×2 (03:19→07:42)
[2017-03-28] MEDS: CHLORHEXIDINE GLUCONATE 2 % 1 PACK (2 CLOTHS) TOP SCH (04:00)
[2017-03-28] MEDS: SODIUM CHLOR 0.45% 1000 ML INJ 1,000 ML IV SCH (04:51)
[2017-03-28] MEDS: FREE WATER G-TUBE SCH (04:51)
[2017-03-28] MEDS: PIPERACIL-TAZO 2.25 GM PREMIX 50 ML IV SCH (08:00)
[2017-03-28] MEDS: PANTOPRAZOLE SODIUM 40 MG VIAL IV SCH (09:00)
[2017-03-28] MEDS: METOPROLOL TARTRATE 50 MG TAB PO SCH (09:00)
[2017-03-28] MEDS: FOSPHENYTOIN SODIUM 100 MG PE/2 ML VIAL IV SCH (09:00)
[2017-03-28] MEDS: DOCUSATE SODIUM 50 MG/SENNA 8.6 MG TAB PO SCH (09:00)
[2017-03-28] MEDS: ASPIRIN EC 81 MG TABEC PO SCH (09:00)
[2017-03-28] MEDS: HYOSCYAMINE 0.125 MG TAB PO PRN (10:33)
[2017-03-28] MEDS ORDERED: LORazepam 2 MG/ML VIAL IV ONE ×2 (10:45→11:15)
[2017-03-28] MEDS ORDERED: HYOSCYAMINE 0.125 MG TAB PO/SL ONE (10:45)
[2017-03-28] MEDS ORDERED: HYDROmorphone HCL PF 2 MG/ML VIAL IV ONE ×2 (10:45→11:15)
--- NOTE | 2017-03-28 11:04 | HHI.CCPN ---
Subjective Remarks/Hospital Course The patient is a [id number]-lgo-male with a past medical history of diabetes mellitus, cardiomyopathy with EF of 25-30%, CHF, atrial fibrillation, multiple myeloma, and chronic kidney disease. The patient presented to [facility] ED with altered mental status and hypoglycemic episode. He reportedly did not seem normal at 7 a.m. According to family members, EMS was called yesterday as well for hypoglycemic episodes and at that time he was given D10 and refused transport to the hospital. This morning the patient was somewhat confused and upon arrival of the daughter he was found unconscious and blood sugar was noted to be 20 at the seen. The patient was given 25 grams of Dextrose which increased his blood sugar to 180 and then back down into the 80s. He was intubated for a GCS score of 3. Per ED records, the patient had a respiratory rate of 8 with no spontaneous movements. ABG post intubation showed a pH of 7.32, CO2 31, PAO2 of 370, bicarb 15, saturation of 98%. His laboratory data significant for acute renal failure with a BUN of 107, creatinine 6.40 and a troponin of 0.22. His lactic acid level measured at 0.8. The patient has a baseline creatinine in the 3-4 range a few months ago. According to family, the patient was enrolled under Hospice however they would like to give him a chance. 03/25 Patient is sedated with Diprivan and intubated. Hgb 6.6, troponin gradually increased overnight and now 4.2 early this morning. He had recurrent hypoglycemic episodes and was placed on D10. 03/26 Patient remains intubated off sedation had T: 101.4 last night. EEG yesterday showed mod. encephalopathy. s/p transfusion 2units PRBC yesterday Hgb 9.4 this morning from 6.6 03/27 Patient is off sedation doesn't follow commands. T;100.2 last night. Cr: 5.38 from 5.67 yesterday. 03/28 Patient remains off sedation and unresponsive. T: 100.0. Objective Vital Signs Date Time Temp Pulse Resp B/P Pulse Ox O2 Delivery O2 Flow Rate FiO2 03/28/17 10:00 60 03/28/17 07:48 92 55 03/28/17 04:00 100.0 26 157/87 03/24/17 19:00 Ventilator Intake and Output 03/27/17 03/27/17 03/28/17 08:00 16:00 00:00 Intake Total 1235 ml 891 ml 1376 ml Output Total 950 ml 800 ml 900 ml Balance 285 ml 91 ml 476 ml Result Diagram: 03/27/17 0845 03/27/17 0453 Imaging Last Impressions Chest X-Ray 03/26/17 0000 Signed Impressions: Service Date/Time: Sunday, March 26, 2017 11:26 - CONCLUSION: 1. Endotracheal tube is in satisfactory position. Basilar airspace disease, left greater than right similar to March 24. Chaz Pham MD Head CT 03/24/17 1304 Signed Impressions: Service Date/Time: Friday, March 24, 2017 14:03 - CONCLUSION: 1. No acute intracranial abnormality. 2. Redemonstration of calvarial lytic lesions consistent with history of multiple myeloma. Fadi Medley MD Renal Ultrasound 03/24/17 0000 Signed Impressions: Service Date/Time: Friday, March 24, 2017 16:33 - CONCLUSION: Echogenic kidneys concerning for medical renal disease. Jameel Lindsey MD Objective Remarks GENERAL: Patient is 76 yo critically ill intubated . SKIN: Warm and dry. HEAD: Normocephalic. EYES: No scleral icterus. No injection or drainage. NECK: Supple, trachea midline. No JVD or lymphadenopathy. CARDIOVASCULAR: Regular rate and rhythm without murmurs, gallops, or rubs. RESPIRATORY: Breath sounds equal bilaterally. No accessory muscle use. GASTROINTESTINAL: Abdomen soft, non-tender, nondistended. MUSCULOSKELETAL: No cyanosis, or edema. Neuro:intubated , off sedation. A/P Assessment and Plan 1. VDRF 2. Status post hypoglycemic episodes. 3. Encephalopathy, likely secondary to hypoglycemia and uremia. 4. Acute on chronic kidney disease. 5. NSTEMI 6. Anemia and thrombocytopenia. 7. Multiple myeloma. 8. Cardiomyopathy. 9. History of atrial fibrillation. 10. History of diabetes mellitus. 11. History of prostate cancer. Plan Neuro: Off sedation. Monitor neuro status and avoid sedatives CT brain negative for acute intracranial process. EEG showed mod. encephalopathy. Neuro is following-Dr. Cabrera. On Cerebyx 200mg IV Q12 Pulm: Continue with vent support and maintain sats >92%. Bronchodilators, ICU vent bundle. SBT daily as brayan CV: Lopressor 50mg BID-Monitor HR and BP and maintain MAP > 65 mmHg. Monitor troponin and continue with Aspirin 81 mg daily. Not a candidate for Pavan-I or full AC due to renal failure. Echo showed EF 60-65%, no wall motion abnormalities. Cards- Dr. Huynh : Monitor renal function Is and Os and avoid nephrotoxins. Renal US: Medical renal disease, no hydro. Renal is following- Dr. Judge. Change IVF 1/2NS@100ml/hr, add Free water 250ml Q6 monitor sodium level. Cr: 5.38 from 5.67 with UOP: 2150ml in 24 hrs GI: On Protonix 40 mg IV daily for GI prophylaxis and Nepro at goal rate of 40 mL/hr. ID: Continue with abx(Zosyn) for possible aspiration and monitor for signs of infections( fever and WBC). 03/25 sputum cx: Kleb pneumonia, Follow up on BC from 03/26 Heme: Monitor CBC and coags. s/p transfuse 2units PRBC 03/25 Endo: SSI with with Accu-Chek, GI prophylaxis with Protonix 40 mg daily and DVT prophylaxis with SCDs. Not on chemical anticoagulation prophylaxis given thrombocytopenia and anemia on presentation. Palliative care is following. Addendum: Had extensive discussion with patient's Mrs Sonya Navarro and all 4 siblings and they are all in agreement to proceed with withdrawal life support and transition to comfort care. Patient remains unresponsive and in multiorgan failure. Discussed with Dr. Cortez and plan to proceed with comfort care. Level 3 José Antonio Hyde MD Mar 28, 2017 11:04
[2017-03-28] MEDS ORDERED: FUROSEMIDE 20 MG/2 ML VIAL IV PRN (11:15)
[2017-03-28] MEDS ORDERED: HYDROmorphone HCL PF 2 MG/ML VIAL IV PRN ×2 (11:15)
[2017-03-28] MEDS ORDERED: LORazepam 2 MG/ML VIAL IVS PRN (11:15)
[2017-03-28] MEDS ORDERED: ACETAMINOPHEN 650 MG SUPP RECTAL PRN (11:15)
[2017-03-28] MEDS ORDERED: HYOSCYAMINE 0.5 MG/ML AMP IV PRN (11:15)
[2017-03-28] MEDS ORDERED: LORazepam 2 MG/ML VIAL IV PRN ×2 (11:15)
[2017-03-28] MEDS ORDERED: BISACODYL 10 MG SUPP RECTAL PRN (11:15)
--- NOTE | 2017-03-28 11:20 | HHI.NPPN ---
Subjective History of Present Illness 76 year old with multiple Myeloma, and advance kidney disease now with ESRD Objective Data Data 03/27/17 03/28/17 19:00 07:00 Intake Total 891 ml 2472 ml Output Total 800 ml 1500 ml Balance 91 ml 972 ml Intake IV Total 661 ml 1735 ml Tube Feeding 230 ml 737 ml Output Urine Total 800 ml 1500 ml # Bowel Movements 1 0 Vital Signs Date Time Temp Pulse Resp B/P Pulse Ox O2 Delivery O2 Flow Rate FiO2 03/28/17 10:00 60 03/28/17 08:00 60 03/28/17 07:48 92 55 03/28/17 06:00 64 03/28/17 04:43 93 55 03/28/17 04:00 100.0 100 26 157/87 92 03/28/17 04:00 55 03/28/17 04:00 100 03/28/17 02:00 78 03/28/17 01:09 95 40 03/28/17 00:00 84 03/28/17 00:00 98.6 84 24 156/77 96 03/28/17 00:00 40 03/27/17 22:28 96 40 03/27/17 22:00 98 03/27/17 20:46 93 40 03/27/17 20:00 103 03/27/17 20:00 40 03/27/17 20:00 100.3 103 25 157/62 94 03/27/17 18:30 40 03/27/17 18:00 96 03/27/17 16:00 100.2 94 14 143/75 96 03/27/17 16:00 94 03/27/17 16:00 40 03/27/17 15:27 97 40 03/27/17 15:00 90 17 141/77 96 03/27/17 14:00 85 21 155/76 97 03/27/17 14:00 85 03/27/17 13:00 81 20 149/70 97 03/27/17 12:00 100.4 77 23 172/86 98 03/27/17 12:00 98 40 03/27/17 12:00 77 03/27/17 12:00 40 -: 03/27/17 0845 03/27/17 0453 Physical Exam General Appearance: Well Developed Neck Neck Exam: Neck Supple Pulmonary Resp Exam: Decreased Bases Cardiology CV Exam: Regular, Normal Sinus Rhythm Gastrointestinal/Abdomen GI Exam: Soft, Non-Tender, Bowel Sounds Present Extremeties Extremities Exam: Moderate Edema Assessment/Plan Problem List: (1) MARTHA (acute kidney injury) Plan: ESRD with UOP suspected Myeloma progression discussed with family his condition GFR at 10, Non oliguric follow BMP to see if improves Cr 5.3 getting 1/2 NS at 100 cc/hr Hypoglycemia caused comatose state Family wants withdrawal of life support (2) Diabetes Plan: admitted hypoglycemic, he had been taking oral antihyperglycemics without eating food off D10 follow Blood glucose (3) Anemia Plan: macrocytic anemia, c hx of multiple myeloma transfuse if needed (4) Heart failure Plan: has AICD follow fluid status (5) Metabolic acidosis Plan: non anion gap metabolic acidosis due to renal failure (6) Multiple myeloma Plan: no longer on chemotherapy palliative to assist with goals (7) Encephalopathy Plan: intubated Problem Qualifiers (1) Heart failure: (2) Multiple myeloma: Qualified Code: C90.00 - Multiple myeloma, remission status unspecified Misael Major MD Mar 28, 2017 11:20
[2017-03-28] MEDS ORDERED: HYDROmorphone HCL PF 2 MG/ML VIAL IV SCH (12:00)
== END 2017-03-28 12:29 | disposition expired | DRG 637 ==
LOC: NEPC 12:53 → NEDA 15:22 → HIMN 19:40
PROVIDERS: ADMIT Internal Medicine Critical Care Medicine; ATTEND Internal Medicine Critical Care Medicine
PROC: 0BH17EZ Insertion of Endotracheal Airway into Trachea, Via Natural or Artificial Opening (ICD-10-PCS; principal; 2017-03-24)
PROC: 5A1945Z Respiratory Ventilation, 24-96 Consecutive Hours (ICD-10-PCS; 2017-03-24)
DX: E11.649 Type 2 diabetes mellitus with hypoglycemia without coma (principal); G93.40 Encephalopathy, unspecified; I21.4 Non-ST elevation (NSTEMI) myocardial infarction; J96.90 Respiratory failure, unspecified, unspecified whether with hypoxia or hypercapnia; N17.9 Acute kidney failure, unspecified; N18.6 End stage renal disease; D69.6 Thrombocytopenia, unspecified; I42.9 Cardiomyopathy, unspecified; Z99.11 Dependence on respirator [ventilator] status; E87.2 Acidosis; C90.00 Multiple myeloma not having achieved remission; E11.22 Type 2 diabetes mellitus with diabetic chronic kidney disease; I50.9 Heart failure, unspecified; I12.9 Hypertensive chronic kidney disease with stage 1 through stage 4 chronic kidney disease, or unspecified chronic kidney disease; D63.8 Anemia in other chronic diseases classified elsewhere; D53.9 Nutritional anemia, unspecified; E78.5 Hyperlipidemia, unspecified; G47.33 Obstructive sleep apnea (adult) (pediatric); G89.29 Other chronic pain; I48.0 Paroxysmal atrial fibrillation; B96.1 Klebsiella pneumoniae [K. pneumoniae] as the cause of diseases classified elsewhere; J44.9 Chronic obstructive pulmonary disease, unspecified; K21.9 Gastro-esophageal reflux disease without esophagitis; F43.10 Post-traumatic stress disorder, unspecified; H91.90 Unspecified hearing loss, unspecified ear; Z51.5 Encounter for palliative care; Z79.82 Long term (current) use of aspirin; Z85.46 Personal history of malignant neoplasm of prostate; Z86.73 Personal history of transient ischemic attack (TIA), and cerebral infarction without residual deficits; Z92.21 Personal history of antineoplastic chemotherapy; Z95.810 Presence of automatic (implantable) cardiac defibrillator; Z98.84 Bariatric surgery status
CPT/HCPCS: 36430; 36600; 70450; 71010; 76775; 80048; 80053; 80185; 81001; 82550; 82570; 82805; 82948; 83605; 84300; 84484; 85007; 85014; 85018; 85027; 85610; 85730; 86403; 86850; 86900; 86901; 86920; 87040; 87070; 87077; 87186; 87205; 87641; 93005; 93306; 94002; 94003; 94640; 94664; 94770; 95819; 96374; C9113; J0360; J1170; J2060; J2543; J7030; J7070; P9016; Q2009